=== PATIENT | female | born 1925 | race African-American/Black ===

== ENCOUNTER → 2016-04-23 | Outpatient (CLI) | payer MEDICARE ==
[~2016-04-23] MED LIST: ACET1TAB33 PO; ALPR0.5T6 PO; APIX5TAB PO; ASCO100T4 PO; ASPI325T4 PO; ASPI81TA2 PO; ASPI81TA9 PO; CHOL3000 PO; CLOP75TA27 PO; DILT120C97 PO; DULO60CA6 PO; ESOM40CA PO; EZET10TA3 PO; FERR134T2 PO; FLUT16SP2 NS; FURO-68 PO; INSU100I17 SQ; INSU100V13 SQ; INSU100V8 SQ; LORA0.5T96 PO; LOSA25TA4 PO; METO25TA9 PO; NITR0.4T6 SL; OMEG-33 PO; PANT40TA5 PO; POLY17PO5 PO; POTA10TA31 PO; PREG50CA PO; PSYL1PAC7 PO; SIMV40TA PO
--- NOTE | 2016-04-23 13:43 | CARD ---
APPROVED REPORT EXAM: Two-dimensional echocardiogram. Other Information Quality : Average Rhythm : NSR INDICATION Dyspnea LEFT VENTRICLE The left ventricle is normal size. There is normal left ventricular wall thickness. Left ventricle sy stolic function is normal. The Ejection Fraction is 55-60%. There is normal LV segmental wall motion. RIGHT VENTRICLE The right ventricle is normal size. The right ventricular systolic function is normal. ATRIA The left atrium size is normal. The right atrium size is normal. GREAT VESSELS The aortic root is normal in size. PERICARDIAL EFFUSION There is no evidence of significant pericardial effusion. Critical Notification Critical Value: No <Conclusion> The left ventricle is normal size. Left ventricle systolic function is normal. The Ejection Fraction is 55-60%. This is a limited ECHO
[2016-04-27 13:52] VITALS: BP 113/74
== END | disposition home or self-care (01) ==
LOC: EKG 08:00
PROVIDERS: ATTEND Specialist
DX: R06.00 Dyspnea, unspecified (principal)
CPT/HCPCS: 93308

== ENCOUNTER 2016-05-09 02:57 | Inpatient (IN) | payer MEDICARE ==
[~2016-05-09] VITALS: Ht 162.6 cm; Wt 83.9 kg
[~2016-05-09 02:57] MED LIST changes: -INSU100V13 SQ; -PANT40TA5 PO; -PREG50CA PO
[2016-05-09] MEDS ORDERED: FUROSEMIDE 40 MG/4 ML VIAL IVP ONE (04:15)
[2016-05-09 05:33] LABS: BASO % 0 % (0-3); EOS % 2 % (0-3); HEMATOCRIT 28.6 % (36.0-47.0); HEMOGLOBIN 8.9 g/dL (12.0-15.5); LYMPH # 0.4 x10^3/uL (1.0-4.8); LYMPH % 3 % (24-48); MEAN CORPUSCULAR HEMOGLOBIN 27 pg (25-35); MEAN CORPUSCULAR HGB CONC 31 g/dL (31-37); MEAN CORPUSCULAR VOLUME 88 fL (79-100); MONO % 6 % (0-9); NEUT % 90 % (31-73); PLATELET COUNT 283 x10^3/uL (140-400); RED BLOOD COUNT 3.27 x10^6/uL (3.50-5.40); RED CELL DISTRIBUTION WIDTH 19.6 % (11.5-14.5); WHITE BLOOD COUNT 14.2 x10^3/uL (4.0-11.0)
[2016-05-09 05:42] LABS: CREATININE 1.4 mg/dL (0.6-1.0); GFR 42.9; POTASSIUM 5.4 mmol/L (3.5-5.1)
[2016-05-09] MEDS ORDERED: ACETAMINOPHEN 325 MG TABLET. PO PRN (05:45)
[2016-05-09] MEDS ORDERED: ONDANSETRON PF 4 MG/2 ML VIAL. IV PRN (05:45)
[2016-05-09 05:48] LABS: ALBUMIN 3.2 g/dL (3.4-5.0); ALBUMIN/GLOBULIN RATIO 0.7 (1.0-1.7); TOTAL BILIRUBIN 0.3 mg/dL (0.2-1.0); TOTAL PROTEIN 7.5 g/dL (6.4-8.2)
--- NOTE | 2016-05-09 06:13 | PHYS DOC ---
Past Medical History Past Medical History: Arthritis, CHF, Diabetes-Type II, Pneumonia, Other Additional Past Medical Histor: CORONARY ARTERY DISEASE, VASCULAR TINNITIS, GASTRITIS Past Surgical History: Appendectomy, Cholecystectomy, Coronary Bypass Surgery, Hysterectomy, Tonsillectomy Alcohol Use: None Drug Use: None Adult General Chief Complaint Chief Complaint: SHORTNESS OF BREATH HPI HPI Patient is a 89 year old female who presents today with her son secondary to shortness of breath wheezing that occurred this evening. Patient reports that her pulse ox at home was in the low 80s so he brought her to the ER. Patient has a history of CHF, CAD, diabetes, bypass surgery. Patient has no liver longer kidney problems. Patient does not smoke or drink. Patient denies any fever or shaking chills. She does have a nonproductive cough. No change in her lower extremity edema. Patient's son reports that he came to help her at home and he reports that with any kind of exertion she is extremely tachypneic. Patient reports that she gets tachypneic whenever she talks. Patient is denying any chest pain at this time. Patient has a dysuria frequency or urgency. Patient reports decreased urinary output. Patient denies any dietary indiscretions. Patient reports she has been compliant with her medications. Patient is a patient of Dr. rodgers. Patient had a recent admission for pulmonary edema. Review of Systems Review of Systems Constitutional: Denies fever or chills [] Eyes: Denies change in visual acuity, redness, or eye pain [] Review of systems are negative except as documented in the history of present illness portion. Current Medications Current Medications Current Medications Medications (Trade) Dose Ordered Sig/Yesenia Start Time Stop Time Status Last Admin Dose Admin Acetaminophen (Tylenol) 650 mg PRN Q4HRS PRN 05/09/16 05:45 05/10/16 05:44 Furosemide (Lasix) 40 mg 1X ONCE 05/09/16 04:15 05/09/16 04:16 DC 05/09/16 05:07 40 MG Ondansetron HCl (Zofran) 4 mg PRN Q8HRS PRN 05/09/16 05:45 05/10/16 05:44 Allergies Allergies Allergies Coded Allergies Type Severity Reaction Last Updated Verified No Known Drug Allergies 05/30/15 No Physical Exam Physical Exam Constitutional: Well developed, well nourished, no acute distress, non-toxic appearance. [] HENT: Normocephalic, atraumatic, bilateral external ears normal, oropharynx moist, no oral exudates, nose normal. [] Eyes: PERRLA, EOMI, conjunctiva normal, no discharge. [] Neck: Normal range of motion, no tenderness, supple, no stridor. [] Cardiovascular:Heart rate regular rhythm, with ectopic beats. Lungs & Thorax: Bilateral breath sounds clear to auscultation [] Abdomen: Bowel sounds normal, soft, no tenderness, no masses, no pulsatile masses. [] Skin: Warm, dry, no erythema, no rash. [] Back: No tenderness, no CVA tenderness. [] Extremities: No tenderness, no cyanosis, no clubbing, ROM intact, no edema. [] Neurologic: Alert and oriented X 3, normal motor function, normal sensory function, no focal deficits noted. [] Psychologic: Affect normal, judgement normal, mood normal. [] Current Patient Data Vital Signs Vital Signs Date Time Temp Pulse Resp B/P Pulse Ox O2 Delivery O2 Flow Rate FiO2 05/09/16 03:08 98.0 92 29 149/61 92 Room Air 98.0 Lab Values Laboratory Tests Test 05/09/16 05:20 White Blood Count 14.2x10^3/uL (4.0-11.0) H Red Blood Count 3.27x10^6/uL (3.50-5.40) L Hemoglobin 8.9g/dL (12.0-15.5) L Hematocrit 28.6% (36.0-47.0) L Mean Corpuscular Volume 88fL (79-100) Mean Corpuscular Hemoglobin 27pg (25-35) Mean Corpuscular Hemoglobin Concent 31g/dL (31-37) Red Cell Distribution Width 19.6% (11.5-14.5) H Platelet Count 283x10^3/uL (140-400) Neutrophils (%) (Auto) 90% (31-73) H Lymphocytes (%) (Auto) 3% (24-48) L Monocytes (%) (Auto) 6% (0-9) Eosinophils (%) (Auto) 2% (0-3) Basophils (%) (Auto) 0% (0-3) Neutrophils # (Auto) 12.8x10^3uL (1.8-7.7) H Lymphocytes # (Auto) 0.4x10^3/uL (1.0-4.8) L Monocytes # (Auto) 0.8x10^3/uL (0.0-1.1) Eosinophils # (Auto) 0.2x10^3/uL (0.0-0.7) Basophils # (Auto) 0.0x10^3/uL (0.0-0.2) Platelet Estimate Pending Sodium Level 140mmol/L (136-145) Potassium Level 5.4mmol/L (3.5-5.1) H Chloride Level 103mmol/L (98-107) Carbon Dioxide Level 30mmol/L (21-32) Anion Gap 7 (6-14) Blood Urea Nitrogen 25mg/dL (7-20) H Creatinine 1.4mg/dL (0.6-1.0) H Estimated GFR (Cockcroft-Gault) 42.9 BUN/Creatinine Ratio 18 (6-20) Glucose Level 258mg/dL (70-99) H Calcium Level 9.0mg/dL (8.5-10.1) Total Bilirubin 0.3mg/dL (0.2-1.0) Aspartate Amino Transferase (AST) 15U/L (15-37) Alanine Aminotransferase (ALT) 15U/L (14-59) Alkaline Phosphatase 87U/L (46-116) Troponin I Quantitative 0.122ng/mL (0.000-0.055) Total Protein 7.5g/dL (6.4-8.2) Albumin 3.2g/dL (3.4-5.0) L Albumin/Globulin Ratio 0.7 (1.0-1.7) L Laboratory Tests 05/09/16 05:20 Laboratory Tests 05/09/16 05:20 EKG EKG EKG reveals normal sinus rhythm with PACs. Prolonged MD. Nonspecific ST-T wave abnormalities. No evidence of acute ST elevation DE. [] Radiology/Procedures Radiology/Procedures [] Chest x-ray reveals normal Cardex silhouette with increased cephalization of vascular markings. Consistent with CHF. Course & Med Decision Making Course & Med Decision Making Pertinent Labs and Imaging studies reviewed. (See chart for details) [] An 89-year-old female who presents here today with dyspnea. Patient has a history significant for pulmonary edema and CHF. Patient's labs here consistent with CHF. Patient has an elevated troponin. Patient will be admitted to the ICU for further evaluation of her elevated troponin, shortness of breath, pulmonary edema. Patient was given Lasix here in the ED. Patient was given an aspirin in the ER as well. Critical care time 35 minutes reutilized and treatment and management of this patient exclusive of procedures. Treatment included management of her polarity and non-STEMI. Dragon Disclaimer Dragon Disclaimer This electronic medical record was generated, in whole or in part, using a voice recognition dictation system. Departure Departure Impression: Primary Impression: CHF (congestive heart failure) Additional Impressions: Elevated troponin Non-STEMI (non-ST elevated myocardial infarction) Disposition: 09 ADMITTED INPATIENT Admitting Physician: Serjio Bonner Condition: GUARDED Referrals: SOM SHORE MD (PCP) Problem Qualifiers KAILYN ALAS MD May 09, 2016 06:13
[2016-05-09] MEDS ORDERED: ASPIRIN 325 MG TABLET PO ONE (06:30)
--- NOTE | 2016-05-09 07:55 | RAD ---
Portable chest, 05/09/2016: History: Shortness of breath Comparison is made to a study from 04/27/2016. There has been a previous median sternotomy. The heart is at the upper limits of normal in size. The pulmonary vascularity is normal. There is mild parenchymal scars, particularly in the left base. A calcified granuloma is present in the left upper lobe. No new pulmonary abnormality is seen. There is no evidence of pleural fluid. Moderate spurring is present in the spine. IMPRESSION: No acute cardiopulmonary abnormality is detected.
[2016-05-09 08:22] LABS: % BASOS 1 % (0-3); % EOS 3 % (0-5); PLT ESTIMATE ADEQUATE (ADEQUATE)
[2016-05-09] MEDS ORDERED: PNEUMOCOCCAL VAX SCREEN BY RX. MC ONE (09:15)
[2016-05-09 11:00] VITALS: BP 86/51
[2016-05-09] MEDS ORDERED: PNEUMOC CONJ VACC 23-VALENT 0.5 ML VIAL. VAX IM ONE (11:00)
[2016-05-09] MEDS ORDERED: INSU100V13 SQ (11:15)
[2016-05-09] MEDS ORDERED: PREG50CA PO (11:15)
[2016-05-09] MEDS ORDERED: PANT40TA5 PO (11:15)
[2016-05-09] MEDS ORDERED: DEXTROSE 50% 25 GM / 50ML DISP.SYRIN. IV PRN (11:30)
[2016-05-09] MEDS ORDERED: INSULIN DETEMIR 300 UNITS/3 ML INSULN.PEN. SQ SCH (11:30)
--- NOTE | 2016-05-09 12:07 | EKG ---
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
[2016-05-09] MEDS: INSULIN DETEMIR 300 UNITS/3 ML INSULN.PEN. SQ SCH (12:28)
[2016-05-09] MEDS: INSULIN ASPART 300 UNITS/3 ML INSULN.PEN SQ SCH ×2 (12:42→18:00)
[2016-05-09 15:00] VITALS: BP 123/63
[2016-05-09] MEDS ORDERED: FLUTICASONE 50MCG/NASAL SPRAY 16GM BOTTLE. NS PRN (15:00)
[2016-05-09] MEDS ORDERED: NITROGLYCERIN SUBLINGUAL 0.4 MG BOTTLE OF 25. SL SCH (15:00)
--- NOTE | 2016-05-09 15:15 | PDOC1 ---
History and Physical Date of Admission Date of Admission DATE: 05/09/16 TIME: 15:09 Identification/Chief Complaint Chief Complaint Covering for Dr. Chen Dyspnea History of Present Illness History of Present Illness This patient is a pleasant 89-year-old lady with a known history of coronary artery disease and CHF that was recently at this institution for an episode of CHF. She went home and had been doing rather well until last night when she started feeling very shaky and very short of breath and could not stand up. The patient was brought into the emergency room where she was seen and evaluated and he was decided to admit her for further workup and treatment. Past Medical History Cardiovascular: CAD, CHF, HTN, Valve insufficiency Pulmonary: Asthma, Bronchitis Musculoskeletal: Osteoarthritis Endocrine: Diabetes Current Problem List Problem List Problems Medical Problems: (1) CHF (congestive heart failure) Status: Acute (2) Elevated troponin Status: Acute (3) Non-STEMI (non-ST elevated myocardial infarction) Status: Acute Problems: Current Medications Current Medications Current Medications Furosemide (Lasix) 40 mg 1X ONCE IVP Last administered on 05/09/16 05:07; Start 05/09/16 at 04:15; Stop 05/09/16 at 04:16; Status DC Ondansetron HCl (Zofran) 4 mg PRN Q8HRS PRN IV NAUSEA/VOMITING; Start 05/09/16 at 05:45; Stop 05/10/16 at 05:44 Acetaminophen (Tylenol) 650 mg PRN Q4HRS PRN PO FEVER; Start 05/09/16 at 05:45 ; Stop 05/10/16 at 05:44 Aspirin (Gay Aspirin) 325 mg 1X ONCE PO Last administered on 05/09/16t 10:08 ; Start 05/09/16 at 06:30; Stop 05/09/16 at 06:31; Status DC Pneumococcal Polyvalent Vaccine (Do NOT chart on this placeholder) 1 each 1X ONCE MC ; Start 05/09/16 at 09:15; Stop 05/09/16 at 09:16; Status UNV Pneumococcal Polyvalent Vaccine (Pneumovax 23) 0.5 ml ONCE ONCE VAX IM ; Start 05/09/16 at 11:00; Stop 05/09/16 at 11:01; Status DC Insulin Detemir (Levemir) 22 units QHS SQ ; Start 05/09/16 at 11:30; Stop at 11:42; Status DC Insulin Aspart (Novolog) 0-7 UNITS TIDWMEALS SQ Last administered on 05/09/16t 12:42; Start 05/09/16 at 12:32 Dextrose 12.5 gm PRN Q15MIN PRN IV SEE COMMENTS; Start 05/09/16 at 11:30 Insulin Detemir (Levemir) 22 units DAILY SQ Last administered on 05/09/16 12: 28; Start 05/09/16 at 11:30 Acetaminophen/ Codeine Phosphate (Tylenol #3) 2 tab Q6HRS PO ; Start 05/09/16 at 18:00; Status UNV Alprazolam (Xanax) 0.5 mg BID PO ; Start 05/09/16 at 21:00; Status UNV Clopidogrel Bisulfate (Plavix) 75 mg DAILY PO ; Start 05/10/16 at 09:00; Status UNV Diltiazem HCl (Cardizem 24hr Cd) 240 mg DAILY PO ; Start 05/10/16 at 09:00; Status UNV EZETIMIBE (Zetia) 10 mg DAILY PO ; Start 05/10/16 at 09:00; Status UNV Fluticasone Propionate (Flonase) 1 spray PRN DAILY NS ; Start 05/09/16 at 15:00 ; Status UNV Furosemide (Lasix) 40 mg DAILY PO ; Start 05/10/16 at 09:00; Status UNV Losartan Potassium (Cozaar) 25 mg DAILY PO ; Start 05/10/16 at 09:00; Status UNV Metoprolol Succinate (Toprol Xl) 25 mg DAILY PO ; Start 05/10/16 at 09:00; Status UNV Nitroglycerin (Nitrostat) 0.4 mg PRN Q10MIN SL ; Start 05/09/16 at 15:00; Status UNV Pantoprazole Sodium (Protonix) 40 mg DAILY PO ; Start 05/10/16 at 09:00; Status UNV Polyethylene Glycol (miraLAX PACKET) 17 gm HS PO ; Start 05/09/16 at 21:00; Status UNV Simvastatin (Zocor) 40 mg HS PO ; Start 05/09/16 at 21:00; Status UNV Non-Formulary Medication 100 mg DAILY PO ; Start 05/10/16 at 09:00; Status UNV Non-Formulary Medication 3,000 unit DAILY PO ; Start 05/10/16 at 09:00; Status UNV Non-Formulary Medication 60 mg DAILY PO ; Start 05/10/16 at 09:00; Status UNV Non-Formulary Medication 134 mg DAILY PO ; Start 05/10/16 at 09:00; Status UNV Non-Formulary Medication 22 unit DAILY08 SQ ; Start 05/10/16 at 08:00; Status UNV Non-Formulary Medication 1 each DAILY PO ; Start 05/10/16 at 09:00; Status UNV Non-Formulary Medication 1 each DAILY PO ; Start 05/10/16 at 09:00; Status UNV Apixaban (Eliquis) 5 mg BID PO ; Start 05/09/16 at 21:00; Status UNV Potassium Chloride (Klor-Con) 10 meq BID PO ; Start 05/09/16 at 21:00; Status UNV Pregabalin (Lyrica) 50 mg TID PO ; Start 05/09/16 at 21:00; Status UNV Active Scripts Active Reported Lyrica (Pregabalin) 50 Mg Capsule 50 Mg PO TID Pantoprazole Sodium 40 Mg Tablet.dr 1 Tab PO DAILY Levemir (Insulin Detemir) 100 Unit/1 Ml Vial 22 Unit SQ DAILY08 Eliquis (Apixaban) 5 Mg Tablet 5 Mg PO BID Diltiazem 24HR Cd (Diltiazem Hcl) 120 Mg Cap.er.24h 240 Mg PO DAILY Plavix (Clopidogrel Bisulfate) 75 Mg Tablet 1 Tab PO DAILY Novolog Flexpen (Insulin Aspart) 100 Unit/1 Ml Insuln.pen 100 Unit SQ Zetia (Ezetimibe) 10 Mg Tablet 10 Mg PO DAILY Cymbalta (Duloxetine Hcl) 60 Mg Capsule.dr 60 Mg PO DAILY Alprazolam 0.5 Mg Tablet 1 Tab PO BID Flonase (Fluticasone Propionate) 16 Gm [place].susp 16 Gm NS PRN DAILY NITROGLYCERIN SubLingual (Nitroglycerin) 0.4 Mg Tab.subl 0.4 Mg SL PRN Q10MIN Vitamin C (Ascorbic Acid) 100 Mg Tablet 100 Mg PO DAILY Ferrous Sulfate 134 Mg Tablet 134 Mg PO DAILY Hospers 3 1,000 Mg Softgel (Hospers-3 Fatty Acids/Fish Oil) 1 Each Capsule 1 Each PO DAILY Miralax (Polyethylene Glycol 3350) 17 Gm Powd.pack 17 Gm PO HS Zocor (Simvastatin) 40 Mg Tablet 40 Mg PO HS Metamucil Packet (Psyllium Seed (With Sugar)) 1 Each Packet 1 Each PO DAILY Vitamin D3 (Cholecalciferol (Vitamin D3)) 3,000 Unit Tablet 3,000 Unit PO DAILY Potassium Chloride 10 Meq Tab.er.prt 10 Meq PO BID Lasix (Furosemide) 40 Mg Tablet 40 Mg PO DAILY Metoprolol Succinate ( Xl ) (Metoprolol Succinate) 25 Mg Tab.er.24h 25 Mg PO DAILY Losartan Potassium 25 Mg Tablet 25 Mg PO DAILY Acetaminophen-Cod #3 Tablet (Acetaminophen/Codeine Phosphate) 1 Each Tablet 2 Each PO Q6HRS Allergies Allergies: Coded Allergies: No Known Drug Allergies (Unverified , 05/09/16) Physical Exam Physical Exam The patient was not in acute distress at the time that I examined her. H EENT pupils are reactive. Oral mucosa well-hydrated. Neck is supple 2 cm JVD. Lungs she has basilar Rales and mild wheezing. Heart regular rate and rhythm S1-S2 2/6 systolic murmur. Abdomen is protuberant, soft, bowel sounds are present. Extremities 2+ pitting edema. Neurological exam unchanged from her last examination. Vitals Vitals Vital Signs Date Time Temp Pulse Resp B/P Pulse Ox O2 Delivery O2 Flow Rate FiO2 05/09/16 11:00 98.4 94 24 86/51 94 Nasal Cannula 98.4 05/09/16 06:04 2 Labs Labs Laboratory Tests Test 05/09/16 05:20 05/09/16 08:37 05/09/16 11:50 05/09/16 11:59 White Blood Count 14.2x10^3/uL (4.0-11.0) Red Blood Count 3.27x10^6/uL (3.50-5.40) Hemoglobin 8.9g/dL (12.0-15.5) Hematocrit 28.6% (36.0-47.0) Mean Corpuscular Volume 88fL (79-100) Mean Corpuscular Hemoglobin 27pg (25-35) Mean Corpuscular Hemoglobin Concent 31g/dL (31-37) Red Cell Distribution Width 19.6% (11.5-14.5) Platelet Count 283x10^3/uL (140-400) Neutrophils (%) (Auto) 90% (31-73) Lymphocytes (%) (Auto) 3% (24-48) Monocytes (%) (Auto) 6% (0-9) Eosinophils (%) (Auto) 2% (0-3) Basophils (%) (Auto) 0% (0-3) Neutrophils # (Auto) 12.8x10^3uL (1.8-7.7) Lymphocytes # (Auto) 0.4x10^3/uL (1.0-4.8) Monocytes # (Auto) 0.8x10^3/uL (0.0-1.1) Eosinophils # (Auto) 0.2x10^3/uL (0.0-0.7) Basophils # (Auto) 0.0x10^3/uL (0.0-0.2) Segmented Neutrophils % 84% (35-66) Band Neutrophils % 2% (0-9) Lymphocytes % 5% (24-48) Monocytes % 5% (0-10) Eosinophils % 3% (0-5) Basophils % 1% (0-3) Platelet Estimate Adequate (ADEQUATE) Sodium Level 140mmol/L (136-145) Potassium Level 5.4mmol/L (3.5-5.1) Chloride Level 103mmol/L (98-107) Carbon Dioxide Level 30mmol/L (21-32) Anion Gap 7 (6-14) Blood Urea Nitrogen 25mg/dL (7-20) Creatinine 1.4mg/dL (0.6-1.0) Estimated GFR (Cockcroft-Gault) 42.9 BUN/Creatinine Ratio 18 (6-20) Glucose Level 258mg/dL (70-99) Calcium Level 9.0mg/dL (8.5-10.1) Total Bilirubin 0.3mg/dL (0.2-1.0) Aspartate Amino Transf (AST/SGOT) 15U/L (15-37) Alanine Aminotransferase (ALT/SGPT) 15U/L (14-59) Alkaline Phosphatase 87U/L (46-116) Troponin I Quantitative 0.122ng/mL (0.000-0.055) AL-Djw-J-Type Natriuretic Peptide 3514pg/mL (0-449) Total Protein 7.5g/dL (6.4-8.2) Albumin 3.2g/dL (3.4-5.0) Albumin/Globulin Ratio 0.7 (1.0-1.7) Glucose (Fingerstick) 319mg/dL (70-99) 343mg/dL (70-99) Lactic Acid Level 1.2mmol/L (0.4-2.0) Laboratory Tests Test 05/09/16 05:20 05/09/16 08:37 05/09/16 11:50 05/09/16 11:59 White Blood Count 14.2x10^3/uL (4.0-11.0) Red Blood Count 3.27x10^6/uL (3.50-5.40) Hemoglobin 8.9g/dL (12.0-15.5) Hematocrit 28.6% (36.0-47.0) Mean Corpuscular Volume 88fL (79-100) Mean Corpuscular Hemoglobin 27pg (25-35) Mean Corpuscular Hemoglobin Concent 31g/dL (31-37) Red Cell Distribution Width 19.6% (11.5-14.5) Platelet Count 283x10^3/uL (140-400) Neutrophils (%) (Auto) 90% (31-73) Lymphocytes (%) (Auto) 3% (24-48) Monocytes (%) (Auto) 6% (0-9) Eosinophils (%) (Auto) 2% (0-3) Basophils (%) (Auto) 0% (0-3) Neutrophils # (Auto) 12.8x10^3uL (1.8-7.7) Lymphocytes # (Auto) 0.4x10^3/uL (1.0-4.8) Monocytes # (Auto) 0.8x10^3/uL (0.0-1.1) Eosinophils # (Auto) 0.2x10^3/uL (0.0-0.7) Basophils # (Auto) 0.0x10^3/uL (0.0-0.2) Segmented Neutrophils % 84% (35-66) Band Neutrophils % 2% (0-9) Lymphocytes % 5% (24-48) Monocytes % 5% (0-10) Eosinophils % 3% (0-5) Basophils % 1% (0-3) Platelet Estimate Adequate (ADEQUATE) Sodium Level 140mmol/L (136-145) Potassium Level 5.4mmol/L (3.5-5.1) Chloride Level 103mmol/L (98-107) Carbon Dioxide Level 30mmol/L (21-32) Anion Gap 7 (6-14) Blood Urea Nitrogen 25mg/dL (7-20) Creatinine 1.4mg/dL (0.6-1.0) Estimated GFR (Cockcroft-Gault) 42.9 BUN/Creatinine Ratio 18 (6-20) Glucose Level 258mg/dL (70-99) Calcium Level 9.0mg/dL (8.5-10.1) Total Bilirubin 0.3mg/dL (0.2-1.0) Aspartate Amino Transf (AST/SGOT) 15U/L (15-37) Alanine Aminotransferase (ALT/SGPT) 15U/L (14-59) Alkaline Phosphatase 87U/L (46-116) Troponin I Quantitative 0.122ng/mL (0.000-0.055) BV-Tqb-R-Type Natriuretic Peptide 3514pg/mL (0-449) Total Protein 7.5g/dL (6.4-8.2) Albumin 3.2g/dL (3.4-5.0) Albumin/Globulin Ratio 0.7 (1.0-1.7) Glucose (Fingerstick) 319mg/dL (70-99) 343mg/dL (70-99) Lactic Acid Level 1.2mmol/L (0.4-2.0) VTE Prophylaxis Ordered VTE Prophylaxis Devices: Yes VTE Pharmacological Prophylaxi: Yes Assessment/Plan Assessment/Plan This patient comes in with acute on chronic CHF secondary to systolic dysfunction as well as valvular disease. We are going to diurese her. She is also deconditioned and may need PT OT. Dr. Chen will be back in the morning to take over the care of the patient. PAMELLA OLVEAR MD May 09, 2016 15:15
[2016-05-09] MEDS: OMEGA-3 FATTY ACIDS/FISH OIL 1,000 MG CAPSULE. PO SCH (16:00)
[2016-05-09] MEDS: EZETIMIBE 10 MG TABLET PO SCH (16:00)
[2016-05-09] MEDS: PSYLLIUM HUSK (SUGAR FREE) 1 PKT PACKET PO SCH (16:00)
[2016-05-09] MEDS: CHOLECALCIFEROL (VITAMIN D3) 1,000 UNIT TABLET PO SCH (16:00)
[2016-05-09] MEDS: DILTIAZEM HCL 120 MG CAP.ER.24H PO SCH (16:36)
[2016-05-09] MEDS: ASCORBIC ACID 500 MG TABLET PO SCH (16:40)
[2016-05-09] MEDS: FUROSEMIDE 40 MG TABLET PO SCH (16:40)
[2016-05-09] MEDS: CLOPIDOGREL BISULFATE 75 MG TABLET PO SCH (16:40)
[2016-05-09] MEDS: LOSARTAN POTASSIUM 25 MG TABLET. PO SCH (16:42)
[2016-05-09] MEDS: METOPROLOL SUCC 24HR ER 25 MG TAB.ER.24H. PO SCH (16:43)
[2016-05-09] MEDS: PREGABALIN 50 MG CAPSULE PO SCH ×2 (16:44→21:48)
[2016-05-09] MEDS: PANTOPRAZOLE 40 MG TABLET. PO SCH (16:44)
[2016-05-09] MEDS: DULOXETINE HCL 30 MG CAPSULE.DR. PO SCH (16:51)
[2016-05-09] MEDS ORDERED: ACETAMINOPHEN/CODEINE 300/30MG TABLET PO SCH (18:00)
[2016-05-09 20:00] VITALS: BP 104/50
[2016-05-09] MEDS ORDERED: ACETAMINOPHEN/CODEINE 300/30MG TABLET PO PRN (20:00)
[2016-05-09] MEDS: POLYETHYLENE GLYCOL 3350 17 GM PACKET. PO SCH (21:00)
[2016-05-09] MEDS: POTASSIUM CHLORIDE 10 MEQ TABLET.ER. PO SCH (21:00)
[2016-05-09] MEDS: APIXABAN 5 MG TABLET. PO SCH (21:47)
[2016-05-09] MEDS: ALPRAZOLAM 0.5 MG TABLET PO SCH (21:47)
[2016-05-09] MEDS: ATORVASTATIN CALCIUM 20 MG TABLET PO SCH (21:47)
[2016-05-09 23:15] VITALS: BP 132/59
[2016-05-10] VITALS (11 sets, daily range): BP systolic 79–137; BP diastolic 50–83
[2016-05-10] MEDS ORDERED: FUROSEMIDE 40 MG/4 ML VIAL IVP ONE (04:15)
[2016-05-10] MEDS ORDERED: DIGOXIN 500 MCG/2 ML AMPUL. IV ONE (04:15)
[2016-05-10] MEDS ORDERED: DILTIAZEM 125 MG in IV DEXTROSE 5% 100 ML IV PRN (05:45)
[2016-05-10] MEDS ORDERED: DILTIAZEM IV PUSH 25 MG/5 ML VIAL. IVP ONE (06:00)
[2016-05-10] MEDS ORDERED: INSULIN DETEMIR 300 UNITS/3 ML INSULN.PEN. SQ SCH (08:00)
[2016-05-10] MEDS: DILTIAZEM HCL 120 MG CAP.ER.24H PO SCH (08:34)
[2016-05-10] MEDS: LOSARTAN POTASSIUM 25 MG TABLET. PO SCH (09:00)
[2016-05-10] MEDS: POTASSIUM CHLORIDE 10 MEQ TABLET.ER. PO SCH ×2 (09:00→21:36)
[2016-05-10] MEDS: METOPROLOL SUCC 24HR ER 25 MG TAB.ER.24H. PO SCH (09:00)
[2016-05-10] MEDS: FUROSEMIDE 40 MG TABLET PO SCH (09:00)
[2016-05-10] MEDS: PSYLLIUM HUSK (SUGAR FREE) 1 PKT PACKET PO SCH (09:00)
[2016-05-10] MEDS: APIXABAN 5 MG TABLET. PO SCH ×2 (09:40→21:36)
[2016-05-10] MEDS: DULOXETINE HCL 30 MG CAPSULE.DR. PO SCH (09:41)
[2016-05-10] MEDS: CLOPIDOGREL BISULFATE 75 MG TABLET PO SCH (09:41)
[2016-05-10] MEDS: FERROUS SULFATE 142 MG PO SCH (09:41)
[2016-05-10] MEDS: OMEGA-3 FATTY ACIDS/FISH OIL 1,000 MG CAPSULE. PO SCH (09:41)
[2016-05-10] MEDS: PREGABALIN 50 MG CAPSULE PO SCH ×3 (09:42→21:37)
[2016-05-10] MEDS: CHOLECALCIFEROL (VITAMIN D3) 1,000 UNIT TABLET PO SCH (09:42)
[2016-05-10] MEDS: PANTOPRAZOLE 40 MG TABLET. PO SCH (09:42)
[2016-05-10] MEDS: EZETIMIBE 10 MG TABLET PO SCH (09:42)
[2016-05-10] MEDS: ALPRAZOLAM 0.5 MG TABLET PO SCH ×2 (09:43→21:36)
[2016-05-10] MEDS: ASCORBIC ACID 500 MG TABLET PO SCH (09:43)
[2016-05-10] MEDS: INSULIN DETEMIR 300 UNITS/3 ML INSULN.PEN. SQ SCH ×2 (09:53→23:07)
[2016-05-10] MEDS: INSULIN ASPART 300 UNITS/3 ML INSULN.PEN SQ SCH ×3 (09:53→17:30)
[2016-05-10] MEDS ORDERED: INSULIN ASPART 300 UNITS/3 ML INSULN.PEN SQ ONE ×2 (10:15→17:30)
[2016-05-10 20:28] LABS: BASO # 0.1 x10^3/uL (0.0-0.2); BASO % 1 % (0-3); EOS % 0 % (0-3); HEMATOCRIT 27.7 % (36.0-47.0); HEMOGLOBIN 8.5 g/dL (12.0-15.5); LYMPH # 0.6 x10^3/uL (1.0-4.8); LYMPH % 6 % (24-48); MEAN CORPUSCULAR HEMOGLOBIN 27 pg (25-35); MEAN CORPUSCULAR HGB CONC 31 g/dL (31-37); MEAN CORPUSCULAR VOLUME 89 fL (79-100); MONO % 7 % (0-9); NEUT % 86 % (31-73); PLATELET COUNT 217 x10^3/uL (140-400); RED BLOOD COUNT 3.12 x10^6/uL (3.50-5.40); RED CELL DISTRIBUTION WIDTH 19.7 % (11.5-14.5); WHITE BLOOD COUNT 10.3 x10^3/uL (4.0-11.0)
[2016-05-10 20:39] LABS: CALCIUM 8.5 mg/dL (8.5-10.1); CREATININE 1.6 mg/dL (0.6-1.0); GFR 36.8; POTASSIUM 3.9 mmol/L (3.5-5.1)
[2016-05-10 21:10] LABS: PLT ESTIMATE ADEQUATE (ADEQUATE)
[2016-05-10 21:11] LABS: ANISOCYTOSIS SLIGHT; HYPOCHROMIA MOD; POLYCHROMASIA SLIGHT
[2016-05-10] MEDS: ATORVASTATIN CALCIUM 20 MG TABLET PO SCH (21:36)
[2016-05-10] MEDS: POLYETHYLENE GLYCOL 3350 17 GM PACKET. PO SCH (21:37)
--- NOTE | 2016-05-10 22:07 | PDOC ---
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 Shas been coughing for several days bringinf uoyellowish sputum. Mildly confused/ Atrial fib with controlled vent, response/Hypotensive but she has moderate Blood sugars very high, she probably has an infection. SOM SHORE MD May 10, 2016 22:07
[2016-05-10] MEDS: CEFTRIAXONE SODIUM 1 GM in IV NORMAL SALINE 50ML 50 ML IV SCH (22:58)
[2016-05-10] MEDS: ALBUTEROL SULFATE 2.5 MG/3 ML NEBU. NEB SCH (23:33)
--- NOTE | 2016-05-10 23:49 | HP ---
ADMIT DATE: 05/09/2016 INTERNAL MEDICINE CONSULT CHIEF COMPLAINT: Shortness of breath. HISTORY OF PRESENT ILLNESS: The patient is a pleasant 89-year-old female who has been admitted with [id number] systolic heart failure. She initially came to the ER with shortness of breath and hypoxia. She had worsening over the past few days. She has now been admitted for diuretics and rate control. She had some cardiac arrhythmias as well. We were then consulted for further evaluation and treatment of comorbidities. PAST MEDICAL HISTORY: Arthritis, CHF, diabetes, pneumonia, coronary artery disease, tinnitus, gastritis, cholecystectomy, appendectomy, hysterectomy, tonsillectomy. ALLERGIES: None. FAMILY HISTORY: Coronary artery disease. SOCIAL HISTORY: She does not drink, smoke or take drugs. MEDICATIONS: Reviewed, please refer to the MRAD. REVIEW OF SYSTEMS: Difficult to obtain, the patient is too short of breath. She has complaint of shortness of breath and weakness. PHYSICAL EXAMINATION: VITAL SIGNS: Temperature afebrile, pulse 94, respirations 22, blood pressure ranging from down to 79/50. GENERAL: She is alert. She is trying to talk, seems slightly confused. HEART: Irregular and tachycardic, ranging from 90-105 beats per minute. LUNGS: Coarse. ABDOMEN: Soft, positive bowel sounds. EXTREMITIES: 1+ edema. SKIN: Thin and frail. ENDOCRINE: No thyromegaly. LYMPHATICS: No cervical nodes. HEMATOPOIETIC: No bruising. LABORATORY DATA: White count 10, hemoglobin 8, platelets 217. Electrolytes: Sodium 141, potassium 3.9, chloride 101, bicarbonate 31, BUN 36, creatinine 1.6. Glucose was 400, I gave her 30 units of NovoLog, it is now down to 300. ASSESSMENT AND PLAN: [id number] systolic heart failure with hyperglycemia. I discussed the case with her nurse, Dara at length. We are going to give her some scheduled insulin and I might give her a dose of 30 units as previously stated. We will recheck her labs in the morning. Thank you very much for allowing us to participate in the care of this nice lady. ABRAHAM CROSS DO DR: KASSI/mohsen JOB#: [id number] / [id number]
[2016-05-11] VITALS (7 sets, daily range): BP systolic 84–99; BP diastolic 47–59
[2016-05-11 04:46] LABS: BASO % 1 % (0-3); EOS % 0 % (0-3); HEMATOCRIT 29.2 % (36.0-47.0); HEMOGLOBIN 9.2 g/dL (12.0-15.5); LYMPH # 0.7 x10^3/uL (1.0-4.8); LYMPH % 9 % (24-48); MEAN CORPUSCULAR HEMOGLOBIN 27 pg (25-35); MEAN CORPUSCULAR HGB CONC 32 g/dL (31-37); MEAN CORPUSCULAR VOLUME 87 fL (79-100); MONO % 8 % (0-9); NEUT % 83 % (31-73); PLATELET COUNT 275 x10^3/uL (140-400); RED BLOOD COUNT 3.37 x10^6/uL (3.50-5.40); RED CELL DISTRIBUTION WIDTH 19.8 % (11.5-14.5); WHITE BLOOD COUNT 8.1 x10^3/uL (4.0-11.0)
[2016-05-11 04:51] LABS: MAGNESIUM 2.7 mg/dL (1.8-2.4)
[2016-05-11 05:01] LABS: CREATININE 1.5 mg/dL (0.6-1.0); GFR 39.7; POTASSIUM 4.2 mmol/L (3.5-5.1)
[2016-05-11 05:02] LABS: % SAT IRON 5 % (15-34); IRON,SERUM 16 ug/dL (50-170)
[2016-05-11 06:31] LABS: BILIRUBIN,URINE NEGATIVE (NEG); GLUCOSE,URINE 250 mg/dL (NEG); NITRITE,URINE NEGATIVE (NEG); PH,URINE 5.5; PROTEIN,URINE NEGATIVE (NEG-TRACE); UROBILINOGEN,URINE 0.2 mg/dL (0.2 mg/dL)
[2016-05-11 06:42] LABS: BACTERIA,URINE FEW /HPF (0-FEW); RBC,URINE 0 /HPF (0-2); SQUAMOUS EPITHELIAL CELL,UR FEW /LPF; WBC,URINE 0 /HPF (0-4)
[2016-05-11] MEDS: ALBUTEROL SULFATE 2.5 MG/3 ML NEBU. NEB SCH ×4 (06:59→19:59)
--- NOTE | 2016-05-11 08:05 | RAD ---
High-resolution CT of the chest without contrast, 05/10/2016: History: Shortness of breath, congestive heart failure Noncontrast scans were obtained in inspiration and expiration. Routine and high-resolution reconstructions were produced. There has been a previous median sternotomy. The heart is mildly enlarged. There is extensive calcific plaquing of the thoracic aorta without evidence of any reason. The ascending aorta measures 3.9 cm which is near the upper limits of normal. Extensive coronary artery calcifications are present. There are several coarse calcifications in the left lobe of the thyroid gland. Small mediastinal lymph nodes are seen without evidence of pathologic enlargement. There is mild patchy consolidation in the left lower lobe. There is mild linear atelectasis and/or scarring in the right base. There is mild mosaic attenuation in the lungs, best seen in the upper lobes. No air trapping is evident on the expiration views. There is no evidence of bronchiectasis. A calcified granuloma is present left upper lobe. No pulmonary mass is seen. No significant pleural fluid is evident. Moderate hypertrophic degenerative changes are present in the spine. IMPRESSION: 1. Extensive calcific plaquing of the aorta and coronary arteries. 2. Patchy left basilar infiltrate suggesting pneumonia. 3. Mild mosaic attenuation throughout both lungs which is likely due to airspace disease such as mild pulmonary edema. Other possibilities include bronchiolitis or chronic thromboembolic disease. PQRS Compliance Statement: One or more of the following individualized dose reduction techniques were utilized for this examination: 1. Automated exposure control 2. Adjustment of the mA and/or kV according to patient size 3. Use of iterative reconstruction technique
[2016-05-11] MEDS: FERROUS SULFATE 142 MG PO SCH (08:53)
[2016-05-11] MEDS: PSYLLIUM HUSK (SUGAR FREE) 1 PKT PACKET PO SCH (08:53)
[2016-05-11] MEDS: ALPRAZOLAM 0.5 MG TABLET PO SCH (08:54)
[2016-05-11] MEDS: APIXABAN 5 MG TABLET. PO SCH (08:54)
[2016-05-11] MEDS: ASCORBIC ACID 500 MG TABLET PO SCH (08:54)
[2016-05-11] MEDS: POTASSIUM CHLORIDE 10 MEQ TABLET.ER. PO SCH ×2 (08:54→21:00)
[2016-05-11] MEDS: OMEGA-3 FATTY ACIDS/FISH OIL 1,000 MG CAPSULE. PO SCH (08:54)
[2016-05-11] MEDS: PANTOPRAZOLE 40 MG TABLET. PO SCH (08:54)
[2016-05-11] MEDS: DULOXETINE HCL 30 MG CAPSULE.DR. PO SCH (08:54)
[2016-05-11] MEDS: PREGABALIN 50 MG CAPSULE PO SCH ×3 (08:55→21:00)
[2016-05-11] MEDS: CLOPIDOGREL BISULFATE 75 MG TABLET PO SCH (08:55)
[2016-05-11] MEDS: EZETIMIBE 10 MG TABLET PO SCH (08:55)
[2016-05-11] MEDS: CHOLECALCIFEROL (VITAMIN D3) 1,000 UNIT TABLET PO SCH (08:55)
[2016-05-11] MEDS: FUROSEMIDE 40 MG TABLET PO SCH (09:00)
[2016-05-11] MEDS: METOPROLOL SUCC 24HR ER 25 MG TAB.ER.24H. PO SCH (09:00)
[2016-05-11] MEDS: LOSARTAN POTASSIUM 25 MG TABLET. PO SCH (09:00)
[2016-05-11] MEDS: INSULIN DETEMIR 300 UNITS/3 ML INSULN.PEN. SQ SCH ×2 (09:04→21:00)
[2016-05-11] MEDS: INSULIN ASPART 300 UNITS/3 ML INSULN.PEN SQ SCH ×6 (09:05→17:00)
--- NOTE | 2016-05-11 10:01 | RAD ---
Indication: Nasal drainage. Time of exam 0933 hours. The frontal sinus appears clear. The ethmoid air cells and sphenoid sinus are clear. Bilateral maxillary sinuses are clear. No mucosal thickening or air-fluid levels are detected. Impression: No evidence of sinusitis.
[2016-05-11] MEDS: DILTIAZEM HCL 120 MG CAP.ER.24H PO SCH (10:30)
[2016-05-11] MEDS ORDERED: ALBUMIN HUMAN 5% 250 ML IV ONE ×2 (11:00→16:30)
[2016-05-11] MEDS ORDERED: IRON SUCROSE COMPLEX 200 MG in IV NORMAL SALINE 100ML 100 ML IV ONE (11:00)
--- NOTE | 2016-05-11 11:25 | PDOC ---
Provider Note Provider Note He is very drowsy today. She has been receiving pain axis. Drains of cough but unable to bring up sputum. Atrial fibrillation with a ventricular response now at 11 20/m. The blood pressure is low. She has moderate aortic stenosis. She has been diuresed the last 2 days. Probably dehydrated. And to give her IV fluids and resume the Cardizem. Even though the chest x-ray was negative CT scan does show a left lower lobe infiltrate. The believe her symptoms on admission was due to pneumonia and not due to congestive heart failure. Antibiotics have been initiated. Also consulted ID. Discussed with LEILA. Would like her to go to custodial facility on this admission. SOM SHORE MD May 11, 2016 11:25
--- NOTE | 2016-05-11 11:26 | PDOC ---
PROGRESS NOTES Chief Complaint Chief Complaint Shortness of breath - arthritis - CHF - diabetes - pneumonia - coronary artery disease - tinnitus - gastritis History of Present Illness History of Present Illness The patient was sitting up in the chair when evaluated this AM. She appears to be doing much better today, and she reports feeling relatively well. SOA is much improved, but she does complain of a slight wheeze. Pt has an improved cough, but asked about a medication to help clear up the sputum/congestion. Pt agreeable to Guaifenesin for expectoration. Case discussed with RN and Dr. Chen. Pt's sugars have improved to 166 this AM from over 400 yesterday. Vitals Vitals Vital Signs Date Time Temp Pulse Resp B/P Pulse Ox O2 Delivery O2 Flow Rate FiO2 05/11/16 10:59 Nasal Cannula 2.0 05/11/16 10:45 98.2 119 18 91/50 100 98.2 Physical Exam General: Alert, Oriented X3, No acute distress Heart: No murmurs, Other (irregularly irregular, and tachycardic) Lungs: Other (improved coarseness) Abdomen: Soft, No tenderness Extremities: Other (1+ edema) Skin: No significant lesion Labs LABS Laboratory Tests Test 05/10/16 12:06 05/10/16 16:54 05/10/16 19:36 05/10/16 20:18 Glucose (Fingerstick) 436mg/dL (70-99) 468mg/dL (70-99) 330mg/dL (70-99) White Blood Count 10.3x10^3/uL (4.0-11.0) Red Blood Count 3.12x10^6/uL (3.50-5.40) Hemoglobin 8.5g/dL (12.0-15.5) Hematocrit 27.7% (36.0-47.0) Mean Corpuscular Volume 89fL (79-100) Mean Corpuscular Hemoglobin 27pg (25-35) Mean Corpuscular Hemoglobin Concent 31g/dL (31-37) Red Cell Distribution Width 19.7% (11.5-14.5) Platelet Count 217x10^3/uL (140-400) Neutrophils (%) (Auto) 86% (31-73) Lymphocytes (%) (Auto) 6% (24-48) Monocytes (%) (Auto) 7% (0-9) Eosinophils (%) (Auto) 0% (0-3) Basophils (%) (Auto) 1% (0-3) Neutrophils # (Auto) 8.9x10^3uL (1.8-7.7) Lymphocytes # (Auto) 0.6x10^3/uL (1.0-4.8) Monocytes # (Auto) 0.7x10^3/uL (0.0-1.1) Eosinophils # (Auto) 0.0x10^3/uL (0.0-0.7) Basophils # (Auto) 0.1x10^3/uL (0.0-0.2) Segmented Neutrophils % 84% (35-66) Band Neutrophils % 4% (0-9) Lymphocytes % 3% (24-48) Monocytes % 9% (0-10) Platelet Estimate Adequate (ADEQUATE) Polychromasia Slight Hypochromasia Mod Basophilic Stippling Present Anisocytosis Slight Sodium Level 141mmol/L (136-145) Potassium Level 3.9mmol/L (3.5-5.1) Chloride Level 101mmol/L (98-107) Carbon Dioxide Level 31mmol/L (21-32) Anion Gap 9 (6-14) Blood Urea Nitrogen 36mg/dL (7-20) Creatinine 1.6mg/dL (0.6-1.0) Estimated GFR (Cockcroft-Gault) 36.8 Glucose Level 300mg/dL (70-99) Calcium Level 8.5mg/dL (8.5-10.1) Test 05/10/16 22:56 05/11/16 02:54 05/11/16 04:13 05/11/16 06:15 Glucose (Fingerstick) 202mg/dL (70-99) 151mg/dL (70-99) White Blood Count 8.1x10^3/uL (4.0-11.0) Red Blood Count 3.37x10^6/uL (3.50-5.40) Hemoglobin 9.2g/dL (12.0-15.5) Hematocrit 29.2% (36.0-47.0) Mean Corpuscular Volume 87fL (79-100) Mean Corpuscular Hemoglobin 27pg (25-35) Mean Corpuscular Hemoglobin Concent 32g/dL (31-37) Red Cell Distribution Width 19.8% (11.5-14.5) Platelet Count 275x10^3/uL (140-400) Neutrophils (%) (Auto) 83% (31-73) Lymphocytes (%) (Auto) 9% (24-48) Monocytes (%) (Auto) 8% (0-9) Eosinophils (%) (Auto) 0% (0-3) Basophils (%) (Auto) 1% (0-3) Neutrophils # (Auto) 6.6x10^3uL (1.8-7.7) Lymphocytes # (Auto) 0.7x10^3/uL (1.0-4.8) Monocytes # (Auto) 0.7x10^3/uL (0.0-1.1) Eosinophils # (Auto) 0.0x10^3/uL (0.0-0.7) Basophils # (Auto) 0.0x10^3/uL (0.0-0.2) Sodium Level 141mmol/L (136-145) Potassium Level 4.2mmol/L (3.5-5.1) Chloride Level 100mmol/L (98-107) Carbon Dioxide Level 31mmol/L (21-32) Anion Gap 10 (6-14) Blood Urea Nitrogen 40mg/dL (7-20) Creatinine 1.5mg/dL (0.6-1.0) Estimated GFR (Cockcroft-Gault) 39.7 Glucose Level 166mg/dL (70-99) Calcium Level 9.0mg/dL (8.5-10.1) Magnesium Level 2.7mg/dL (1.8-2.4) Iron Level 16ug/dL (50-170) Total Iron Binding Capacity 334ug/dL (250-450) Iron Saturation 5% (15-34) Ferritin 76ng/mL (8-252) Procalcitonin 4.12ng/mL (0.00-0.10) Thyroid Stimulating Hormone (TSH) 1.011uIU/mL (0.358-3.74) Urine Collection Type Unknown Urine Color Yellow Urine Clarity Clear Urine pH 5.5 Urine Specific [place] 1.015 Urine Protein Negativemg/dL (NEG-TRACE) Urine Glucose (UA) 250mg/dL (NEG) Urine Ketones (Stick) Negativemg/dL (NEG) Urine Blood Negative (NEG) Urine Nitrite Negative (NEG) Urine Bilirubin Negative (NEG) Urine Urobilinogen Dipstick 0.2mg/dL (0.2 mg/dL) Urine Leukocyte Esterase Negative (NEG) Urine RBC 0/HPF (0-2) Urine WBC 0/HPF (0-4) Urine Squamous Epithelial Cells Few/LPF Urine Bacteria Few/HPF (0-FEW) Urine Hyaline Casts Moderate/HPF Urine Mucus Slight/LPF Test 05/11/16 08:09 Glucose (Fingerstick) 166mg/dL (70-99) Review of Systems Review of Systems + productive cough, improved + SOA, marked improvement denies fever, chills Assessment and Plan Assessmemt and Plan ASSESSMENT: - Shortness of breath, improving - arthritis - CHF - diabetes - pneumonia - coronary artery disease - tinnitus - gastritis PLAN: - Guaifenesin 600 po bid for productive cough - cont to follow blood glucose; improved with current management - agree with the current plan; will await further subspecialist input - repeat labs - appreciate the opportunity to participate in the care of this patient Problems: Comment Review of Relevant I have reviewed the following items melquiades (where applicable) has been applied. Labs Laboratory Tests Test 05/09/16 11:50 05/09/16 11:59 05/09/16 17:18 05/09/16 21:02 Lactic Acid Level 1.2mmol/L (0.4-2.0) Glucose (Fingerstick) 343mg/dL (70-99) 307mg/dL (70-99) 385mg/dL (70-99) Test 05/10/16 07:29 05/10/16 12:06 05/10/16 16:54 05/10/16 19:36 Glucose (Fingerstick) 420mg/dL (70-99) 436mg/dL (70-99) 468mg/dL (70-99) 330mg/dL (70-99) Test 05/10/16 20:18 05/10/16 22:56 05/11/16 02:54 05/11/16 04:13 White Blood Count 10.3x10^3/uL (4.0-11.0) 8.1x10^3/uL (4.0-11.0) Red Blood Count 3.12x10^6/uL (3.50-5.40) 3.37x10^6/uL (3.50-5.40) Hemoglobin 8.5g/dL (12.0-15.5) 9.2g/dL (12.0-15.5) Hematocrit 27.7% (36.0-47.0) 29.2% (36.0-47.0) Mean Corpuscular Volume 89fL (79-100) 87fL (79-100) Mean Corpuscular Hemoglobin 27pg (25-35) 27pg (25-35) Mean Corpuscular Hemoglobin Concent 31g/dL (31-37) 32g/dL (31-37) Red Cell Distribution Width 19.7% (11.5-14.5) 19.8% (11.5-14.5) Platelet Count 217x10^3/uL (140-400) 275x10^3/uL (140-400) Neutrophils (%) (Auto) 86% (31-73) 83% (31-73) Lymphocytes (%) (Auto) 6% (24-48) 9% (24-48) Monocytes (%) (Auto) 7% (0-9) 8% (0-9) Eosinophils (%) (Auto) 0% (0-3) 0% (0-3) Basophils (%) (Auto) 1% (0-3) 1% (0-3) Neutrophils # (Auto) 8.9x10^3uL (1.8-7.7) 6.6x10^3uL (1.8-7.7) Lymphocytes # (Auto) 0.6x10^3/uL (1.0-4.8) 0.7x10^3/uL (1.0-4.8) Monocytes # (Auto) 0.7x10^3/uL (0.0-1.1) 0.7x10^3/uL (0.0-1.1) Eosinophils # (Auto) 0.0x10^3/uL (0.0-0.7) 0.0x10^3/uL (0.0-0.7) Basophils # (Auto) 0.1x10^3/uL (0.0-0.2) 0.0x10^3/uL (0.0-0.2) Segmented Neutrophils % 84% (35-66) Band Neutrophils % 4% (0-9) Lymphocytes % 3% (24-48) Monocytes % 9% (0-10) Platelet Estimate Adequate (ADEQUATE) Polychromasia Slight Hypochromasia Mod Basophilic Stippling Present Anisocytosis Slight Sodium Level 141mmol/L (136-145) 141mmol/L (136-145) Potassium Level 3.9mmol/L (3.5-5.1) 4.2mmol/L (3.5-5.1) Chloride Level 101mmol/L (98-107) 100mmol/L (98-107) Carbon Dioxide Level 31mmol/L (21-32) 31mmol/L (21-32) Anion Gap 9 (6-14) 10 (6-14) Blood Urea Nitrogen 36mg/dL (7-20) 40mg/dL (7-20) Creatinine 1.6mg/dL (0.6-1.0) 1.5mg/dL (0.6-1.0) Estimated GFR (Cockcroft-Gault) 36.8 39.7 Glucose Level 300mg/dL (70-99) 166mg/dL (70-99) Calcium Level 8.5mg/dL (8.5-10.1) 9.0mg/dL (8.5-10.1) Glucose (Fingerstick) 202mg/dL (70-99) 151mg/dL (70-99) Magnesium Level 2.7mg/dL (1.8-2.4) Iron Level 16ug/dL (50-170) Total Iron Binding Capacity 334ug/dL (250-450) Iron Saturation 5% (15-34) Ferritin 76ng/mL (8-252) Procalcitonin 4.12ng/mL (0.00-0.10) Thyroid Stimulating Hormone (TSH) 1.011uIU/mL (0.358-3.74) Test 05/11/16 06:15 05/11/16 08:09 Urine Collection Type Unknown Urine Color Yellow Urine Clarity Clear Urine pH 5.5 Urine Specific [place] 1.015 Urine Protein Negativemg/dL (NEG-TRACE) Urine Glucose (UA) 250mg/dL (NEG) Urine Ketones (Stick) Negativemg/dL (NEG) Urine Blood Negative (NEG) Urine Nitrite Negative (NEG) Urine Bilirubin Negative (NEG) Urine Urobilinogen Dipstick 0.2mg/dL (0.2 mg/dL) Urine Leukocyte Esterase Negative (NEG) Urine RBC 0/HPF (0-2) Urine WBC 0/HPF (0-4) Urine Squamous Epithelial Cells Few/LPF Urine Bacteria Few/HPF (0-FEW) Urine Hyaline Casts Moderate/HPF Urine Mucus Slight/LPF Glucose (Fingerstick) 166mg/dL (70-99) Laboratory Tests Test 05/10/16 12:06 05/10/16 16:54 05/10/16 19:36 05/10/16 20:18 Glucose (Fingerstick) 436mg/dL (70-99) 468mg/dL (70-99) 330mg/dL (70-99) White Blood Count 10.3x10^3/uL (4.0-11.0) Red Blood Count 3.12x10^6/uL (3.50-5.40) Hemoglobin 8.5g/dL (12.0-15.5) Hematocrit 27.7% (36.0-47.0) Mean Corpuscular Volume 89fL (79-100) Mean Corpuscular Hemoglobin 27pg (25-35) Mean Corpuscular Hemoglobin Concent 31g/dL (31-37) Red Cell Distribution Width 19.7% (11.5-14.5) Platelet Count 217x10^3/uL (140-400) Neutrophils (%) (Auto) 86% (31-73) Lymphocytes (%) (Auto) 6% (24-48) Monocytes (%) (Auto) 7% (0-9) Eosinophils (%) (Auto) 0% (0-3) Basophils (%) (Auto) 1% (0-3) Neutrophils # (Auto) 8.9x10^3uL (1.8-7.7) Lymphocytes # (Auto) 0.6x10^3/uL (1.0-4.8) Monocytes # (Auto) 0.7x10^3/uL (0.0-1.1) Eosinophils # (Auto) 0.0x10^3/uL (0.0-0.7) Basophils # (Auto) 0.1x10^3/uL (0.0-0.2) Segmented Neutrophils % 84% (35-66) Band Neutrophils % 4% (0-9) Lymphocytes % 3% (24-48) Monocytes % 9% (0-10) Platelet Estimate Adequate (ADEQUATE) Polychromasia Slight Hypochromasia Mod Basophilic Stippling Present Anisocytosis Slight Sodium Level 141mmol/L (136-145) Potassium Level 3.9mmol/L (3.5-5.1) Chloride Level 101mmol/L (98-107) Carbon Dioxide Level 31mmol/L (21-32) Anion Gap 9 (6-14) Blood Urea Nitrogen 36mg/dL (7-20) Creatinine 1.6mg/dL (0.6-1.0) Estimated GFR (Cockcroft-Gault) 36.8 Glucose Level 300mg/dL (70-99) Calcium Level 8.5mg/dL (8.5-10.1) Test 05/10/16 22:56 05/11/16 02:54 05/11/16 04:13 05/11/16 06:15 Glucose (Fingerstick) 202mg/dL (70-99) 151mg/dL (70-99) White Blood Count 8.1x10^3/uL (4.0-11.0) Red Blood Count 3.37x10^6/uL (3.50-5.40) Hemoglobin 9.2g/dL (12.0-15.5) Hematocrit 29.2% (36.0-47.0) Mean Corpuscular Volume 87fL (79-100) Mean Corpuscular Hemoglobin 27pg (25-35) Mean Corpuscular Hemoglobin Concent 32g/dL (31-37) Red Cell Distribution Width 19.8% (11.5-14.5) Platelet Count 275x10^3/uL (140-400) Neutrophils (%) (Auto) 83% (31-73) Lymphocytes (%) (Auto) 9% (24-48) Monocytes (%) (Auto) 8% (0-9) Eosinophils (%) (Auto) 0% (0-3) Basophils (%) (Auto) 1% (0-3) Neutrophils # (Auto) 6.6x10^3uL (1.8-7.7) Lymphocytes # (Auto) 0.7x10^3/uL (1.0-4.8) Monocytes # (Auto) 0.7x10^3/uL (0.0-1.1) Eosinophils # (Auto) 0.0x10^3/uL (0.0-0.7) Basophils # (Auto) 0.0x10^3/uL (0.0-0.2) Sodium Level 141mmol/L (136-145) Potassium Level 4.2mmol/L (3.5-5.1) Chloride Level 100mmol/L (98-107) Carbon Dioxide Level 31mmol/L (21-32) Anion Gap 10 (6-14) Blood Urea Nitrogen 40mg/dL (7-20) Creatinine 1.5mg/dL (0.6-1.0) Estimated GFR (Cockcroft-Gault) 39.7 Glucose Level 166mg/dL (70-99) Calcium Level 9.0mg/dL (8.5-10.1) Magnesium Level 2.7mg/dL (1.8-2.4) Iron Level 16ug/dL (50-170) Total Iron Binding Capacity 334ug/dL (250-450) Iron Saturation 5% (15-34) Ferritin 76ng/mL (8-252) Procalcitonin 4.12ng/mL (0.00-0.10) Thyroid Stimulating Hormone (TSH) 1.011uIU/mL (0.358-3.74) Urine Collection Type Unknown Urine Color Yellow Urine Clarity Clear Urine pH 5.5 Urine Specific [place] 1.015 Urine Protein Negativemg/dL (NEG-TRACE) Urine Glucose (UA) 250mg/dL (NEG) Urine Ketones (Stick) Negativemg/dL (NEG) Urine Blood Negative (NEG) Urine Nitrite Negative (NEG) Urine Bilirubin Negative (NEG) Urine Urobilinogen Dipstick 0.2mg/dL (0.2 mg/dL) Urine Leukocyte Esterase Negative (NEG) Urine RBC 0/HPF (0-2) Urine WBC 0/HPF (0-4) Urine Squamous Epithelial Cells Few/LPF Urine Bacteria Few/HPF (0-FEW) Urine Hyaline Casts Moderate/HPF Urine Mucus Slight/LPF Test 05/11/16 08:09 Glucose (Fingerstick) 166mg/dL (70-99) Microbiology 05/09/16 Urine Culture - Final, Complete 05/09/16 Urine Culture Result 1 (MATT) - Final, Complete Medications Current Medications Furosemide (Lasix) 40 mg 1X ONCE IVP Last administered on 05/09/16 05:07; Start 05/09/16 at 04:15; Stop 05/09/16 at 04:16; Status DC Ondansetron HCl (Zofran) 4 mg PRN Q8HRS PRN IV NAUSEA/VOMITING; Start 05/09/16 at 05:45; Stop 05/10/16 at 05:44; Status DC Acetaminophen (Tylenol) 650 mg PRN Q4HRS PRN PO FEVER; Start 05/09/16 at 05:45 ; Stop 05/10/16 at 05:44; Status DC Aspirin (Gay Aspirin) 325 mg 1X ONCE PO Last administered on 05/09/16 10:08 ; Start 05/09/16 at 06:30; Stop 05/09/16 at 06:31; Status DC Pneumococcal Polyvalent Vaccine (Do NOT chart on this placeholder) 1 each 1X ONCE MC ; Start 05/09/16 at 09:15; Stop 05/09/16 at 09:16; Status UNV Pneumococcal Polyvalent Vaccine (Pneumovax 23) 0.5 ml ONCE ONCE VAX IM ; Start 05/09/16 at 11:00; Stop 05/09/16 at 11:01; Status DC Insulin Detemir (Levemir) 22 units QHS SQ ; Start 05/09/16 at 11:30; Stop at 11:42; Status DC Insulin Aspart (Novolog) 0-7 UNITS TIDWMEALS SQ Last administered on 05/11/16 09:05; Start 05/09/16 at 12:32 Dextrose 12.5 gm PRN Q15MIN PRN IV SEE COMMENTS; Start 05/09/16 at 11:30 Insulin Detemir (Levemir) 22 units DAILY SQ Last administered on 05/11/16 09: 04; Start 05/09/16 at 11:30 Acetaminophen/ Codeine Phosphate (Tylenol #3) 2 tab Q6HRS PO ; Start 05/09/16 at 18:00; Stop 05/09/16 at 19:34; Status DC Alprazolam (Xanax) 0.5 mg BID PO Last administered on 05/11/16 08:54; Start at 21:00; Stop 05/11/16 at 10:34; Status DC Clopidogrel Bisulfate (Plavix) 75 mg DAILY PO Last administered on 05/11/16 08 :55; Start 05/09/16 at 16:00 Diltiazem HCl (Cardizem 24hr Cd) 240 mg DAILY PO Last administered on 10:30; Start 05/09/16 at 16:00 EZETIMIBE (Zetia) 10 mg DAILY PO Last administered on 05/11/16 08:55; Start at 16:00 Fluticasone Propionate (Flonase) 1 spray PRN DAILY PRN NS Allergies; Start at 15:00 Furosemide (Lasix) 40 mg DAILY PO Last administered on 05/09/16 16:40; Start 05/09/16 at 16:00; Stop 05/11/16 at 10:59; Status DC Losartan Potassium (Cozaar) 25 mg DAILY PO Last administered on 05/09/16 16:42 ; Start 05/09/16 at 16:00 Metoprolol Succinate (Toprol Xl) 25 mg DAILY PO Last administered on 05/09/16 16:43; Start 05/09/16 at 16:00 Nitroglycerin (Nitrostat) 0.4 mg PRN Q10MIN SL ; Start 05/09/16 at 15:00 Pantoprazole Sodium (Protonix) 40 mg DAILYAC PO Last administered on 05/11/16 08:54; Start 05/09/16 at 16:30 Polyethylene Glycol (miraLAX PACKET) 17 gm HS PO Last administered on 21:37; Start 05/09/16 at 21:00 Atorvastatin Calcium (Lipitor) 20 mg QHS PO Last administered on 05/10/16 21: 36; Start 05/09/16 at 21:00 Ascorbic Acid (Vitamin C) 250 mg DAILY PO Last administered on 05/11/16 08:54 ; Start 05/09/16 at 16:00 Vitamin D (Vitamin D3) 3,000 unit DAILY PO Last administered on 05/11/16 08:55 ; Start 05/09/16 at 16:00 Duloxetine HCl (Cymbalta) 60 mg DAILY PO Last administered on 05/11/16 08:54; Start 05/09/16 at 16:00 Ferrous Sulfate (Slow Release Iron) 142 mg [id number] PO Last administered on 08:53; Start 05/10/16 at 08:00 Insulin Detemir (Levemir) 22 units DAILY08 SQ ; Start 05/10/16 at 08:00; Stop at 10:05; Status DC Fish Oil (Fish Oil) 1,000 mg DAILY PO Last administered on 05/11/16 08:54; Start 05/09/16 at 16:00 Psyllium Hydrophilic Mucilloid (Metamucil Fiber Packet) 1 pkt DAILY PO Last administered on 05/11/16 08:53; Start 05/09/16 at 16:00 Apixaban (Eliquis) 5 mg BID PO Last administered on 05/11/16 08:54; Start at 21:00 Potassium Chloride (Klor-Con) 10 meq BID PO Last administered on 05/11/16 08: 54; Start 05/09/16 at 21:00 Pregabalin (Lyrica) 50 mg TID PO Last administered on 05/11/16 08:55; Start at 16:00 Info (Anti-Coagulation Monitoring By Pharmacy) 1 each PRN DAILY PRN MC SEE COMMENTS; Start 05/09/16 at 15:30 Acetaminophen/ Codeine Phosphate (Tylenol #3) 2 tab PRN Q6HRS PRN PO PAIN; Start 05/09/16 at 20:00 Furosemide (Lasix) 40 mg 1X ONCE IVP Last administered on 05/10/16 03:58; Start 05/10/16 at 04:15; Stop 05/10/16 at 04:16; Status DC Digoxin (Lanoxin) 250 mcg 1X ONCE IV Last administered on 05/10/16 03:59; Start 05/10/16 at 04:15; Stop 05/10/16 at 04:16; Status DC Diltiazem HCl 10 mg 10 mg 1X ONCE IVP Last administered on 05/10/16 05:54; Start 05/10/16 at 06:00; Stop 05/10/16 at 06:01; Status DC Diltiazem HCl/ Dextrose (Cardizem) 125 ml @ 0 mls/hr CONT PRN IV SEE I/O RECORD Last administered on 05/10/16 05:55; Start 05/10/16 at 05:45; Stop 05/11 at 10:59; Status DC Insulin Aspart (Novolog) 15 units 1X ONCE SQ Last administered on 05/10/16 12 :12; Start 05/10/16 at 10:15; Stop 05/10/16 at 10:16; Status DC Insulin Aspart (Novolog) 30 units 1X ONCE SQ Last administered on 05/10/16 17 :31; Start 05/10/16 at 17:30; Stop 05/10/16 at 17:31; Status DC Guaifenesin (Robitussin Dm) 10 ml PRN Q6HRS PRN PO COUGH; Start 05/10/16 at 17: 45 Insulin Aspart (Novolog) 20 units TIDAC SQ Last administered on 05/11/16 09:05 ; Start 05/11/16 at 07:30 Insulin Detemir (Levemir) 10 units QHS SQ Last administered on 05/10/16 23:07 ; Start 05/10/16 at 23:00 Albuterol Sulfate 2.5 mg 2.5 mg RTQID NEB Last administered on 05/11/16 10:53 ; Start 05/10/16 at 23:00 Ceftriaxone Sodium 1 gm/ Sodium Chloride 50 ml @ 100 mls/hr QHS IV Last administered on 05/10/16 22:58; Start 05/10/16 at 23:00 Iron Sucrose/ Sodium Chloride (Venofer/Iv Sodium Chloride 0.9% 100ml) 110 ml @ 55 mls/hr 1X ONCE IV ; Start 05/11/16 at 11:00; Stop 05/11/16 at 12:59 Guaifenesin (Mucinex) 600 mg PRN BID PRN PO COUGH; Start 05/11/16 at 21:00 Alprazolam 0.5 mg 0.5 mg PRN Q8HRS PRN PO ANXIETY; Start 05/12/16 at 09:00; Stop 05/12/16 at 09:00; Status DC Albumin Human (Plasmanate) 250 ml @ 62.5 mls/hr 1X ONCE IV ; Start 05/11/16 at 11:00; Stop 05/11/16 at 14:59 Active Scripts Active Reported Lyrica (Pregabalin) 50 Mg Capsule 50 Mg PO TID Pantoprazole Sodium 40 Mg Tablet.dr 1 Tab PO DAILY Levemir (Insulin Detemir) 100 Unit/1 Ml Vial 22 Unit SQ DAILY08 Eliquis (Apixaban) 5 Mg Tablet 5 Mg PO BID Diltiazem 24HR Cd (Diltiazem Hcl) 120 Mg Cap.er.24h 240 Mg PO DAILY Plavix (Clopidogrel Bisulfate) 75 Mg Tablet 1 Tab PO DAILY Novolog Flexpen (Insulin Aspart) 100 Unit/1 Ml Insuln.pen 100 Unit SQ Zetia (Ezetimibe) 10 Mg Tablet 10 Mg PO DAILY Cymbalta (Duloxetine Hcl) 60 Mg Capsule.dr 60 Mg PO DAILY Alprazolam 0.5 Mg Tablet 1 Tab PO BID Flonase (Fluticasone Propionate) 16 Gm [place].susp 16 Gm NS PRN DAILY NITROGLYCERIN SubLingual (Nitroglycerin) 0.4 Mg Tab.subl 0.4 Mg SL PRN Q10MIN Vitamin C (Ascorbic Acid) 100 Mg Tablet 100 Mg PO DAILY Ferrous Sulfate 134 Mg Tablet 134 Mg PO DAILY [place] 3 1,000 Mg Softgel ([place]-3 Fatty Acids/Fish Oil) 1 Each Capsule 1 Each PO DAILY Miralax (Polyethylene Glycol 3350) 17 Gm Powd.pack 17 Gm PO HS Zocor (Simvastatin) 40 Mg Tablet 40 Mg PO HS Metamucil Packet (Psyllium Seed (With Sugar)) 1 Each Packet 1 Each PO DAILY Vitamin D3 (Cholecalciferol (Vitamin D3)) 3,000 Unit Tablet 3,000 Unit PO DAILY Potassium Chloride 10 Meq Tab.er.prt 10 Meq PO BID Lasix (Furosemide) 40 Mg Tablet 40 Mg PO DAILY Metoprolol Succinate ( Xl ) (Metoprolol Succinate) 25 Mg Tab.er.24h 25 Mg PO DAILY Losartan Potassium 25 Mg Tablet 25 Mg PO DAILY Acetaminophen-Cod #3 Tablet (Acetaminophen/Codeine Phosphate) 1 Each Tablet 2 Each PO Q6HRS PRN Vitals/I & O Vital Sign - Last 24 Hours 05/10/16 05/10/16 05/10/16 05/10/16 11:24 14:57 18:43 19:45 Temp 99.1 97.8 99.1 97.8 Pulse 95 84 94 104 Resp 18 B/P 82/50 79/50 88/59 92/51 Pulse Ox 93 94 98 O2 Delivery Nasal Cannula Nasal Cannula Nasal Cannula O2 Flow Rate 2.0 2.0 2.0 05/10/16 05/10/16 05/10/16 05/11/16 20:00 22:50 23:33 02:45 Temp 97.4 97.2 97.4 97.2 Pulse 109 108 Resp 18 18 B/P 89/55 84/47 Pulse Ox 93 96 99 O2 Delivery Nasal Cannula Nasal Cannula Nasal Cannula Nasal Cannula O2 Flow Rate 2.0 2.0 2.0 2.0 05/11/16 05/11/16 05/11/16 05/11/16 06:59 07:54 07:56 09:00 Temp 97.4 97.4 Pulse 108 108 Resp 20 B/P 87/56 84/43 Pulse Ox 100 O2 Delivery Nasal Cannula Nasal Cannula Nasal Cannula O2 Flow Rate 2.0 2.0 2.0 05/11/16 05/11/16 05/11/16 05/11/16 09:00 10:30 10:45 10:59 Temp 98.2 98.2 Pulse 108 118 119 Resp 18 B/P 84/43 83/61 91/50 Pulse Ox 100 O2 Delivery Nasal Cannula Nasal Cannula O2 Flow Rate 2.0 2.0 Intake and Output 05/10/16 05/10/16 05/11/16 15:00 23:00 07:00 Intake Total 200 ml 100 ml Output Total 1250 ml Balance 200 ml -1150 ml ABRAHAM CROSS III DO May 11, 2016 11:26
--- NOTE | 2016-05-11 12:53 | PDOC ---
Infectious Disease Note ROS ROS GEN: Denies fevers, chills, sweats HEENT: Denies blurred vision, sore throat CV: Denies chest pain RESP: Denies shortness of air, cough GI: Denies n/v/d NEURO: Denies confusion, dizziness MSK: Denies weakness, joint pain/swelling Vital Sign Vital Signs Vital Signs Date Time Temp Pulse Resp B/P Pulse Ox O2 Delivery O2 Flow Rate FiO2 05/11/16 10:59 Nasal Cannula 2.0 05/11/16 10:45 98.2 119 18 91/50 100 98.2 Physical Exam PHYSICAL EXAM GENERAL: NAD, Alert HEENT: PERRL, OC/OP NECK: Supple, no JVD, no LN LUNGS: Clear HEART: S1S2, no gallop, no murmur ABD: Soft, NT, no organomegaly, no rebound EXT: No edema, no cyanosis [employer]OR: Alert, oriented x 3, no focal neurologic deficit SKIN: No rash IV: ok Labs Lab Laboratory Tests Test 05/10/16 16:54 05/10/16 19:36 05/10/16 20:18 05/10/16 22:56 Glucose (Fingerstick) 468mg/dL (70-99) 330mg/dL (70-99) 202mg/dL (70-99) White Blood Count 10.3x10^3/uL (4.0-11.0) Red Blood Count 3.12x10^6/uL (3.50-5.40) Hemoglobin 8.5g/dL (12.0-15.5) Hematocrit 27.7% (36.0-47.0) Mean Corpuscular Volume 89fL (79-100) Mean Corpuscular Hemoglobin 27pg (25-35) Mean Corpuscular Hemoglobin Concent 31g/dL (31-37) Red Cell Distribution Width 19.7% (11.5-14.5) Platelet Count 217x10^3/uL (140-400) Neutrophils (%) (Auto) 86% (31-73) Lymphocytes (%) (Auto) 6% (24-48) Monocytes (%) (Auto) 7% (0-9) Eosinophils (%) (Auto) 0% (0-3) Basophils (%) (Auto) 1% (0-3) Neutrophils # (Auto) 8.9x10^3uL (1.8-7.7) Lymphocytes # (Auto) 0.6x10^3/uL (1.0-4.8) Monocytes # (Auto) 0.7x10^3/uL (0.0-1.1) Eosinophils # (Auto) 0.0x10^3/uL (0.0-0.7) Basophils # (Auto) 0.1x10^3/uL (0.0-0.2) Segmented Neutrophils % 84% (35-66) Band Neutrophils % 4% (0-9) Lymphocytes % 3% (24-48) Monocytes % 9% (0-10) Platelet Estimate Adequate (ADEQUATE) Polychromasia Slight Hypochromasia Mod Basophilic Stippling Present Anisocytosis Slight Sodium Level 141mmol/L (136-145) Potassium Level 3.9mmol/L (3.5-5.1) Chloride Level 101mmol/L (98-107) Carbon Dioxide Level 31mmol/L (21-32) Anion Gap 9 (6-14) Blood Urea Nitrogen 36mg/dL (7-20) Creatinine 1.6mg/dL (0.6-1.0) Estimated GFR (Cockcroft-Gault) 36.8 Glucose Level 300mg/dL (70-99) Calcium Level 8.5mg/dL (8.5-10.1) Test 05/11/16 02:54 05/11/16 04:13 05/11/16 06:15 05/11/16 08:09 Glucose (Fingerstick) 151mg/dL (70-99) 166mg/dL (70-99) White Blood Count 8.1x10^3/uL (4.0-11.0) Red Blood Count 3.37x10^6/uL (3.50-5.40) Hemoglobin 9.2g/dL (12.0-15.5) Hematocrit 29.2% (36.0-47.0) Mean Corpuscular Volume 87fL (79-100) Mean Corpuscular Hemoglobin 27pg (25-35) Mean Corpuscular Hemoglobin Concent 32g/dL (31-37) Red Cell Distribution Width 19.8% (11.5-14.5) Platelet Count 275x10^3/uL (140-400) Neutrophils (%) (Auto) 83% (31-73) Lymphocytes (%) (Auto) 9% (24-48) Monocytes (%) (Auto) 8% (0-9) Eosinophils (%) (Auto) 0% (0-3) Basophils (%) (Auto) 1% (0-3) Neutrophils # (Auto) 6.6x10^3uL (1.8-7.7) Lymphocytes # (Auto) 0.7x10^3/uL (1.0-4.8) Monocytes # (Auto) 0.7x10^3/uL (0.0-1.1) Eosinophils # (Auto) 0.0x10^3/uL (0.0-0.7) Basophils # (Auto) 0.0x10^3/uL (0.0-0.2) Sodium Level 141mmol/L (136-145) Potassium Level 4.2mmol/L (3.5-5.1) Chloride Level 100mmol/L (98-107) Carbon Dioxide Level 31mmol/L (21-32) Anion Gap 10 (6-14) Blood Urea Nitrogen 40mg/dL (7-20) Creatinine 1.5mg/dL (0.6-1.0) Estimated GFR (Cockcroft-Gault) 39.7 Glucose Level 166mg/dL (70-99) Calcium Level 9.0mg/dL (8.5-10.1) Magnesium Level 2.7mg/dL (1.8-2.4) Iron Level 16ug/dL (50-170) Total Iron Binding Capacity 334ug/dL (250-450) Iron Saturation 5% (15-34) Ferritin 76ng/mL (8-252) Procalcitonin 4.12ng/mL (0.00-0.10) Thyroid Stimulating Hormone (TSH) 1.011uIU/mL (0.358-3.74) Urine Collection Type Unknown Urine Color Yellow Urine Clarity Clear Urine pH 5.5 Urine Specific [place] 1.015 Urine Protein Negativemg/dL (NEG-TRACE) Urine Glucose (UA) 250mg/dL (NEG) Urine Ketones (Stick) Negativemg/dL (NEG) Urine Blood Negative (NEG) Urine Nitrite Negative (NEG) Urine Bilirubin Negative (NEG) Urine Urobilinogen Dipstick 0.2mg/dL (0.2 mg/dL) Urine Leukocyte Esterase Negative (NEG) Urine RBC 0/HPF (0-2) Urine WBC 0/HPF (0-4) Urine Squamous Epithelial Cells Few/LPF Urine Bacteria Few/HPF (0-FEW) Urine Hyaline Casts Moderate/HPF Urine Mucus Slight/LPF Test 05/11/16 11:39 Glucose (Fingerstick) 251mg/dL (70-99) Objective Assessment Pneumonia - elevated procalcitonin Tachycardia - per Dr. Chen Leukocytosis - improved DM Plan Plan of Care Cont Rocephin Add Doxy Check Mycoplasma/Strep antigen May benefit from Pul eval F/u labs and cult D/w family Thank you # [phone] NICOLE DAVIS MD May 11, 2016 12:53
[2016-05-11] MEDS: DOXYCYCLINE HYCLATE 100 MG TABLET PO SCH ×2 (14:16→21:00)
[2016-05-11 14:33] LABS: NEGATIVE OBC MYCO NEG; POSITIVE OBC MYCO POS
[2016-05-11] MEDS: POLYETHYLENE GLYCOL 3350 17 GM PACKET. PO SCH (21:00)
[2016-05-11] MEDS: APIXABAN 2.5 MG TABLET. PO SCH (21:00)
[2016-05-11] MEDS: ATORVASTATIN CALCIUM 20 MG TABLET PO SCH (21:00)
[2016-05-11] MEDS: CEFTRIAXONE SODIUM 1 GM in IV NORMAL SALINE 50ML 50 ML IV SCH (21:00)
[2016-05-12] VITALS (8 sets, daily range): BP systolic 92–165; BP diastolic 54–118
[2016-05-12 01:09] LABS: SPECIMEN SOURCE Urine (.)
--- NOTE | 2016-05-12 02:16 | CONS ---
DATE OF CONSULTATION: 05/11/2016 LOCATION: The patient's room is 209. REQUESTING PHYSICIAN: Dr. Chen REASON FOR CONSULTATION: Pneumonia. HISTORY OF PRESENT ILLNESS: The patient is a pleasant 89-year-old -[place] female with history of coronary artery disease, congestive heart failure, history of distant PE, who was brought to the Emergency Room on 05/09 secondary to a fall. This is what her daughter said. The Emergency Room states that her son brought her in secondary to shortness of breath and wheeze that started at night. On arrival, white cell count was 14.2, glucose was elevated at 258. BNP was 3514. Urinalysis was without pyuria. Nitrite and leukocyte esterase were negative. Urine culture has multiple species of bacteria. She did undergo a chest x-ray which showed no cardiopulmonary abnormality. However, a CT scan of her chest performed on the shows patchy left basilar infiltrate suggesting pneumonia and mild mosaic attenuation throughout both lungs likely due to airspace disease such as pulmonary edema. Sinus x-rays were without evidence of any sinuses. Prior to admission, she states that she is having some night sweats, but these have been going on for quite some time. Her family states this is her third admission in approximately two weeks. She denies any gross sinus drainage, no sore throat. She does have a cough and was able to expectorate some phlegm today. No nausea, vomiting, diarrhea, dysuria, frequency or urgency. PAST MEDICAL HISTORY: Positive for aortic stenosis, congestive heart failure, coronary artery disease, diabetes, hypertension, dyslipidemia, osteoarthritis, lumbar stenosis. Positive for pulmonary embolism. She has also had epidural steroid injections. PAST SURGICAL HISTORY: Positive for open heart surgery with previous stents. REVIEW OF SYSTEMS: Otherwise negative. ALLERGIES: No known drug allergies. SOCIAL HISTORY: Lives at home with a supportive family. No tobacco or alcohol. FAMILY HISTORY: Coronary artery disease. CURRENT MEDICATIONS: Include Rocephin. She is on ____. She is on Eliquis, vitamin C, Lipitor, Plavix, Cardizem, Cymbalta, insulin, metoprolol, Protonix. Other meds are available and reviewed in the chart. PHYSICAL EXAMINATION: VITAL SIGNS: She is afebrile, temperature 98.2, pulse actually was 131 ____, respiratory rate 18, blood pressure 91/50. She is satting 100% on 2 L nasal cannula. CONSTITUTIONAL: She is sitting in a chair. She is cooperative. She is in no acute distress. HEENT: Pupils are equal and reactive. Oral cavity, pharynx is clear. NECK: Supple, no JVD. HEART: Tachycardic, S1, S2. LUNGS: Had some mild wheeze. ABDOMEN: Soft, nontender, nondistended, positive bowel sounds. EXTREMITIES: No clubbing, cyanosis or gross edema. SKIN: Warm to touch. No rashes. NEUROLOGIC: She is appropriate, moves all extremities. Affect was appropriate. LABORATORY VALUES: White count 8.1, hemoglobin 9.2, platelets 275 with 83% segs. Creatinine 1.5. Glucose was most recently 251 on fingerstick. Urinalysis reviewed in history of present illness. Procalcitonin level today is 4.12. Radiology reviewed in history of present illness. IMPRESSION: 1. Pneumonia with elevated procalcitonin. 2. Tachycardia per Dr. Chen. 3. Leukocytosis that is improved. 4. Diabetes. RECOMMENDATIONS: For now, I will continue the Rocephin. Clinically, she is feeling somewhat better. We will add doxycycline for atypical coverage. We will check mycoplasma IgM and strep pneumo antigens. May benefit from a Pulmonary evaluation. We will follow up on labs and cultures. This was discussed with the family. Thank you for allowing us to participate in this patient's care. If you have any questions, please do not hesitate to contact me. NICOLE DAVIS MD DR: BERNA/mohsen JOB#: [id number] / [id number]
[2016-05-12 03:58] LABS: BASO % 0 % (0-3); EOS % 1 % (0-3); HEMATOCRIT 25.6 % (36.0-47.0); HEMOGLOBIN 7.9 g/dL (12.0-15.5); LYMPH # 0.6 x10^3/uL (1.0-4.8); LYMPH % 9 % (24-48); MEAN CORPUSCULAR HEMOGLOBIN 28 pg (25-35); MEAN CORPUSCULAR HGB CONC 31 g/dL (31-37); MEAN CORPUSCULAR VOLUME 89 fL (79-100); MONO % 11 % (0-9); NEUT % 79 % (31-73); PLATELET COUNT 187 x10^3/uL (140-400); RED BLOOD COUNT 2.87 x10^6/uL (3.50-5.40); RED CELL DISTRIBUTION WIDTH 19.4 % (11.5-14.5); WHITE BLOOD COUNT 6.3 x10^3/uL (4.0-11.0)
[2016-05-12 04:14] LABS: CALCIUM 8.4 mg/dL (8.5-10.1); CREATININE 1.4 mg/dL (0.6-1.0); GFR 42.9; POTASSIUM 4.1 mmol/L (3.5-5.1)
[2016-05-12] MEDS: INSULIN ASPART 300 UNITS/3 ML INSULN.PEN SQ SCH ×4 (07:30→18:35)
[2016-05-12] MEDS: ALBUTEROL SULFATE 2.5 MG/3 ML NEBU. NEB SCH ×5 (07:47→20:26)
--- NOTE | 2016-05-12 08:54 | PDOC ---
Infectious Disease Note Subjective Subjective Better. Sputum is loosening. Hungry ROS ROS GEN: Denies fevers, chills, sweats HEENT: Denies blurred vision, sore throat CV: Denies chest pain RESP: Denies shortness of air, cough GI: Denies n/v/d NEURO: Denies confusion, dizziness MSK: Denies weakness, joint pain/swelling Vital Sign Vital Signs Vital Signs Date Time Temp Pulse Resp B/P Pulse Ox O2 Delivery O2 Flow Rate FiO2 05/12/16 07:49 Nasal Cannula 2.0 05/12/16 07:45 100 05/12/16 07:05 98.3 123 20 102/54 98.3 Physical Exam PHYSICAL EXAM GENERAL: NAD, Alert, coop HEENT: PERRL, OC/OP - clear NECK: Supple, no JVD, no LN LUNGS: Less wheeze but still some on right HEART: S1S2, no gallop, no murmur ABD: Soft, NT, no organomegaly, no rebound EXT: No edema, no cyanosis CAN STERILIZER: Alert, oriented x 3, no focal neurologic deficit SKIN: No rash IV: ok Labs Lab Laboratory Tests Test 05/11/16 11:39 05/11/16 16:15 05/11/16 20:18 05/12/16 03:37 Glucose (Fingerstick) 251mg/dL (70-99) 287mg/dL (70-99) 236mg/dL (70-99) White Blood Count 6.3x10^3/uL (4.0-11.0) Red Blood Count 2.87x10^6/uL (3.50-5.40) Hemoglobin 7.9g/dL (12.0-15.5) Hematocrit 25.6% (36.0-47.0) Mean Corpuscular Volume 89fL (79-100) Mean Corpuscular Hemoglobin 28pg (25-35) Mean Corpuscular Hemoglobin Concent 31g/dL (31-37) Red Cell Distribution Width 19.4% (11.5-14.5) Platelet Count 187x10^3/uL (140-400) Neutrophils (%) (Auto) 79% (31-73) Lymphocytes (%) (Auto) 9% (24-48) Monocytes (%) (Auto) 11% (0-9) Eosinophils (%) (Auto) 1% (0-3) Basophils (%) (Auto) 0% (0-3) Neutrophils # (Auto) 5.0x10^3uL (1.8-7.7) Lymphocytes # (Auto) 0.6x10^3/uL (1.0-4.8) Monocytes # (Auto) 0.7x10^3/uL (0.0-1.1) Eosinophils # (Auto) 0.0x10^3/uL (0.0-0.7) Basophils # (Auto) 0.0x10^3/uL (0.0-0.2) Sodium Level 141mmol/L (136-145) Potassium Level 4.1mmol/L (3.5-5.1) Chloride Level 102mmol/L (98-107) Carbon Dioxide Level 33mmol/L (21-32) Anion Gap 6 (6-14) Blood Urea Nitrogen 40mg/dL (7-20) Creatinine 1.4mg/dL (0.6-1.0) Estimated GFR (Cockcroft-Gault) 42.9 Glucose Level 85mg/dL (70-99) Calcium Level 8.4mg/dL (8.5-10.1) Test 05/12/16 07:10 05/12/16 07:36 Glucose (Fingerstick) 32mg/dL (70-99) 88mg/dL (70-99) Objective Assessment Pneumonia - elevated procalcitonin. neg Mycoplasma/Strep antigen Tachycardia - per Dr. Chen Leukocytosis - improved DM Plan Plan of Care Cont Rocephin/Doxy. Change to po 05/13 if stable Incentive spirometry May benefit from Pulm eval F/u labs and cult NICOLE DAVIS MD May 12, 2016 08:54
[2016-05-12] MEDS: INSULIN DETEMIR 300 UNITS/3 ML INSULN.PEN. SQ SCH (09:00)
[2016-05-12] MEDS ORDERED: ALPRAZOLAM 0.5 MG TABLET PO PRN (09:00)
[2016-05-12] MEDS: EZETIMIBE 10 MG TABLET PO SCH (09:19)
[2016-05-12] MEDS: APIXABAN 2.5 MG TABLET. PO SCH ×2 (09:19→22:30)
[2016-05-12] MEDS: DULOXETINE HCL 30 MG CAPSULE.DR. PO SCH (09:19)
[2016-05-12] MEDS: DOXYCYCLINE HYCLATE 100 MG TABLET PO SCH ×2 (09:19→22:30)
[2016-05-12] MEDS: CHOLECALCIFEROL (VITAMIN D3) 1,000 UNIT TABLET PO SCH (09:19)
[2016-05-12] MEDS: OMEGA-3 FATTY ACIDS/FISH OIL 1,000 MG CAPSULE. PO SCH (09:19)
[2016-05-12] MEDS: PREGABALIN 50 MG CAPSULE PO SCH ×3 (09:19→22:30)
[2016-05-12] MEDS: PSYLLIUM HUSK (SUGAR FREE) 1 PKT PACKET PO SCH (09:19)
[2016-05-12] MEDS: CLOPIDOGREL BISULFATE 75 MG TABLET PO SCH (09:20)
[2016-05-12] MEDS: FERROUS SULFATE 142 MG PO SCH (09:20)
[2016-05-12] MEDS: GUAIFENESIN ER 600 MG TABLET.ER PO PRN ×2 (09:20→18:33)
[2016-05-12] MEDS: PANTOPRAZOLE 40 MG TABLET. PO SCH (09:20)
[2016-05-12] MEDS: POTASSIUM CHLORIDE 10 MEQ TABLET.ER. PO SCH ×2 (09:20→22:30)
[2016-05-12] MEDS: METOPROLOL SUCC 24HR ER 25 MG TAB.ER.24H. PO SCH (09:21)
[2016-05-12] MEDS: ASCORBIC ACID 500 MG TABLET PO SCH (09:21)
[2016-05-12] MEDS: DILTIAZEM HCL 120 MG CAP.ER.24H PO SCH (09:22)
[2016-05-12] MEDS: LOSARTAN POTASSIUM 25 MG TABLET. PO SCH (09:22)
[2016-05-12] MEDS: ANTI-COAG MONITOR BY PHARMACY. MC PRN (09:29)
[2016-05-12] MEDS ORDERED: INSULIN ASPART 300 UNITS/3 ML INSULN.PEN SQ SCH (11:30)
--- NOTE | 2016-05-12 14:03 | PDOC ---
PROGRESS NOTES Chief Complaint Chief Complaint Shortness of breath, Pneumonia, on CHF - arthritis - CHF, acute systolic - diabetes - pneumonia, POA - coronary artery disease - tinnitus - gastritis History of Present Illness History of Present Illness sitting up, She appears to be doing much better today, SOA is much improved, but she does complain of a slight wheeze los FSBS today, plan decrease mealtime and LAntus doses ordered between meals FSBS X1 Vitals Vitals Vital Signs Date Time Temp Pulse Resp B/P Pulse Ox O2 Delivery O2 Flow Rate FiO2 05/12/16 13:02 Nasal Cannula 2.0 05/12/16 10:47 97.8 128 20 130/62 94 97.8 Physical Exam General: Alert, Oriented X3, No acute distress Heart: Regular rate, No murmurs, Other (irregularly irregular, and tachycardic) Lungs: Other (improved coarseness) Abdomen: Soft, No tenderness Extremities: Other (1+ edema) Skin: No significant lesion Labs LABS Laboratory Tests Test 05/11/16 16:15 05/11/16 20:18 05/12/16 03:37 05/12/16 07:10 Glucose (Fingerstick) 287mg/dL (70-99) 236mg/dL (70-99) 32mg/dL (70-99) White Blood Count 6.3x10^3/uL (4.0-11.0) Red Blood Count 2.87x10^6/uL (3.50-5.40) Hemoglobin 7.9g/dL (12.0-15.5) Hematocrit 25.6% (36.0-47.0) Mean Corpuscular Volume 89fL (79-100) Mean Corpuscular Hemoglobin 28pg (25-35) Mean Corpuscular Hemoglobin Concent 31g/dL (31-37) Red Cell Distribution Width 19.4% (11.5-14.5) Platelet Count 187x10^3/uL (140-400) Neutrophils (%) (Auto) 79% (31-73) Lymphocytes (%) (Auto) 9% (24-48) Monocytes (%) (Auto) 11% (0-9) Eosinophils (%) (Auto) 1% (0-3) Basophils (%) (Auto) 0% (0-3) Neutrophils # (Auto) 5.0x10^3uL (1.8-7.7) Lymphocytes # (Auto) 0.6x10^3/uL (1.0-4.8) Monocytes # (Auto) 0.7x10^3/uL (0.0-1.1) Eosinophils # (Auto) 0.0x10^3/uL (0.0-0.7) Basophils # (Auto) 0.0x10^3/uL (0.0-0.2) Sodium Level 141mmol/L (136-145) Potassium Level 4.1mmol/L (3.5-5.1) Chloride Level 102mmol/L (98-107) Carbon Dioxide Level 33mmol/L (21-32) Anion Gap 6 (6-14) Blood Urea Nitrogen 40mg/dL (7-20) Creatinine 1.4mg/dL (0.6-1.0) Estimated GFR (Cockcroft-Gault) 42.9 Glucose Level 85mg/dL (70-99) Calcium Level 8.4mg/dL (8.5-10.1) Test 05/12/16 07:36 05/12/16 10:49 Glucose (Fingerstick) 88mg/dL (70-99) 165mg/dL (70-99) Review of Systems Review of Systems no n.v.d feels well Assessment and Plan Assessmemt and Plan Problems Medical Problems: (1) CHF (congestive heart failure) Status: Acute (2) Elevated troponin Status: Acute (3) Non-STEMI (non-ST elevated myocardial infarction) Status: Acute Problems: Comment Review of Relevant I have reviewed the following items melquiades (where applicable) has been applied. Labs Laboratory Tests Test 05/10/16 16:54 05/10/16 19:36 05/10/16 20:18 05/10/16 22:56 Glucose (Fingerstick) 468mg/dL (70-99) 330mg/dL (70-99) 202mg/dL (70-99) White Blood Count 10.3x10^3/uL (4.0-11.0) Red Blood Count 3.12x10^6/uL (3.50-5.40) Hemoglobin 8.5g/dL (12.0-15.5) Hematocrit 27.7% (36.0-47.0) Mean Corpuscular Volume 89fL (79-100) Mean Corpuscular Hemoglobin 27pg (25-35) Mean Corpuscular Hemoglobin Concent 31g/dL (31-37) Red Cell Distribution Width 19.7% (11.5-14.5) Platelet Count 217x10^3/uL (140-400) Neutrophils (%) (Auto) 86% (31-73) Lymphocytes (%) (Auto) 6% (24-48) Monocytes (%) (Auto) 7% (0-9) Eosinophils (%) (Auto) 0% (0-3) Basophils (%) (Auto) 1% (0-3) Neutrophils # (Auto) 8.9x10^3uL (1.8-7.7) Lymphocytes # (Auto) 0.6x10^3/uL (1.0-4.8) Monocytes # (Auto) 0.7x10^3/uL (0.0-1.1) Eosinophils # (Auto) 0.0x10^3/uL (0.0-0.7) Basophils # (Auto) 0.1x10^3/uL (0.0-0.2) Segmented Neutrophils % 84% (35-66) Band Neutrophils % 4% (0-9) Lymphocytes % 3% (24-48) Monocytes % 9% (0-10) Platelet Estimate Adequate (ADEQUATE) Polychromasia Slight Hypochromasia Mod Basophilic Stippling Present Anisocytosis Slight Sodium Level 141mmol/L (136-145) Potassium Level 3.9mmol/L (3.5-5.1) Chloride Level 101mmol/L (98-107) Carbon Dioxide Level 31mmol/L (21-32) Anion Gap 9 (6-14) Blood Urea Nitrogen 36mg/dL (7-20) Creatinine 1.6mg/dL (0.6-1.0) Estimated GFR (Cockcroft-Gault) 36.8 Glucose Level 300mg/dL (70-99) Calcium Level 8.5mg/dL (8.5-10.1) Test 05/11/16 02:54 05/11/16 04:13 05/11/16 06:15 05/11/16 08:09 Glucose (Fingerstick) 151mg/dL (70-99) 166mg/dL (70-99) White Blood Count 8.1x10^3/uL (4.0-11.0) Red Blood Count 3.37x10^6/uL (3.50-5.40) Hemoglobin 9.2g/dL (12.0-15.5) Hematocrit 29.2% (36.0-47.0) Mean Corpuscular Volume 87fL (79-100) Mean Corpuscular Hemoglobin 27pg (25-35) Mean Corpuscular Hemoglobin Concent 32g/dL (31-37) Red Cell Distribution Width 19.8% (11.5-14.5) Platelet Count 275x10^3/uL (140-400) Neutrophils (%) (Auto) 83% (31-73) Lymphocytes (%) (Auto) 9% (24-48) Monocytes (%) (Auto) 8% (0-9) Eosinophils (%) (Auto) 0% (0-3) Basophils (%) (Auto) 1% (0-3) Neutrophils # (Auto) 6.6x10^3uL (1.8-7.7) Lymphocytes # (Auto) 0.7x10^3/uL (1.0-4.8) Monocytes # (Auto) 0.7x10^3/uL (0.0-1.1) Eosinophils # (Auto) 0.0x10^3/uL (0.0-0.7) Basophils # (Auto) 0.0x10^3/uL (0.0-0.2) Sodium Level 141mmol/L (136-145) Potassium Level 4.2mmol/L (3.5-5.1) Chloride Level 100mmol/L (98-107) Carbon Dioxide Level 31mmol/L (21-32) Anion Gap 10 (6-14) Blood Urea Nitrogen 40mg/dL (7-20) Creatinine 1.5mg/dL (0.6-1.0) Estimated GFR (Cockcroft-Gault) 39.7 Glucose Level 166mg/dL (70-99) Calcium Level 9.0mg/dL (8.5-10.1) Magnesium Level 2.7mg/dL (1.8-2.4) Iron Level 16ug/dL (50-170) Total Iron Binding Capacity 334ug/dL (250-450) Iron Saturation 5% (15-34) Ferritin 76ng/mL (8-252) Vitamin B12 Level 757pg/mL (211-946) Procalcitonin 4.12ng/mL (0.00-0.10) Thyroid Stimulating Hormone (TSH) 1.011uIU/mL (0.358-3.74) Mycoplasma Serology (LAB) Negative (NEGATIVE) Urine Collection Type Unknown Urine Color Yellow Urine Clarity Clear Urine pH 5.5 Urine Specific [place] 1.015 Urine Protein Negativemg/dL (NEG-TRACE) Urine Glucose (UA) 250mg/dL (NEG) Urine Ketones (Stick) Negativemg/dL (NEG) Urine Blood Negative (NEG) Urine Nitrite Negative (NEG) Urine Bilirubin Negative (NEG) Urine Urobilinogen Dipstick 0.2mg/dL (0.2 mg/dL) Urine Leukocyte Esterase Negative (NEG) Urine RBC 0/HPF (0-2) Urine WBC 0/HPF (0-4) Urine Squamous Epithelial Cells Few/LPF Urine Bacteria Few/HPF (0-FEW) Urine Hyaline Casts Moderate/HPF Urine Mucus Slight/LPF Body Fluid Culture (LAB) (.) Streptococcus pneumoniae Antigen Negative (Negative) Organism Identification (LAB) (.) MATT Specimen Source Urine (.) Test 05/11/16 11:39 05/11/16 16:15 05/11/16 20:18 05/12/16 03:37 Glucose (Fingerstick) 251mg/dL (70-99) 287mg/dL (70-99) 236mg/dL (70-99) White Blood Count 6.3x10^3/uL (4.0-11.0) Red Blood Count 2.87x10^6/uL (3.50-5.40) Hemoglobin 7.9g/dL (12.0-15.5) Hematocrit 25.6% (36.0-47.0) Mean Corpuscular Volume 89fL (79-100) Mean Corpuscular Hemoglobin 28pg (25-35) Mean Corpuscular Hemoglobin Concent 31g/dL (31-37) Red Cell Distribution Width 19.4% (11.5-14.5) Platelet Count 187x10^3/uL (140-400) Neutrophils (%) (Auto) 79% (31-73) Lymphocytes (%) (Auto) 9% (24-48) Monocytes (%) (Auto) 11% (0-9) Eosinophils (%) (Auto) 1% (0-3) Basophils (%) (Auto) 0% (0-3) Neutrophils # (Auto) 5.0x10^3uL (1.8-7.7) Lymphocytes # (Auto) 0.6x10^3/uL (1.0-4.8) Monocytes # (Auto) 0.7x10^3/uL (0.0-1.1) Eosinophils # (Auto) 0.0x10^3/uL (0.0-0.7) Basophils # (Auto) 0.0x10^3/uL (0.0-0.2) Sodium Level 141mmol/L (136-145) Potassium Level 4.1mmol/L (3.5-5.1) Chloride Level 102mmol/L (98-107) Carbon Dioxide Level 33mmol/L (21-32) Anion Gap 6 (6-14) Blood Urea Nitrogen 40mg/dL (7-20) Creatinine 1.4mg/dL (0.6-1.0) Estimated GFR (Cockcroft-Gault) 42.9 Glucose Level 85mg/dL (70-99) Calcium Level 8.4mg/dL (8.5-10.1) Test 05/12/16 07:10 05/12/16 07:36 05/12/16 10:49 Glucose (Fingerstick) 32mg/dL (70-99) 88mg/dL (70-99) 165mg/dL (70-99) Laboratory Tests Test 05/11/16 16:15 05/11/16 20:18 05/12/16 03:37 05/12/16 07:10 Glucose (Fingerstick) 287mg/dL (70-99) 236mg/dL (70-99) 32mg/dL (70-99) White Blood Count 6.3x10^3/uL (4.0-11.0) Red Blood Count 2.87x10^6/uL (3.50-5.40) Hemoglobin 7.9g/dL (12.0-15.5) Hematocrit 25.6% (36.0-47.0) Mean Corpuscular Volume 89fL (79-100) Mean Corpuscular Hemoglobin 28pg (25-35) Mean Corpuscular Hemoglobin Concent 31g/dL (31-37) Red Cell Distribution Width 19.4% (11.5-14.5) Platelet Count 187x10^3/uL (140-400) Neutrophils (%) (Auto) 79% (31-73) Lymphocytes (%) (Auto) 9% (24-48) Monocytes (%) (Auto) 11% (0-9) Eosinophils (%) (Auto) 1% (0-3) Basophils (%) (Auto) 0% (0-3) Neutrophils # (Auto) 5.0x10^3uL (1.8-7.7) Lymphocytes # (Auto) 0.6x10^3/uL (1.0-4.8) Monocytes # (Auto) 0.7x10^3/uL (0.0-1.1) Eosinophils # (Auto) 0.0x10^3/uL (0.0-0.7) Basophils # (Auto) 0.0x10^3/uL (0.0-0.2) Sodium Level 141mmol/L (136-145) Potassium Level 4.1mmol/L (3.5-5.1) Chloride Level 102mmol/L (98-107) Carbon Dioxide Level 33mmol/L (21-32) Anion Gap 6 (6-14) Blood Urea Nitrogen 40mg/dL (7-20) Creatinine 1.4mg/dL (0.6-1.0) Estimated GFR (Cockcroft-Gault) 42.9 Glucose Level 85mg/dL (70-99) Calcium Level 8.4mg/dL (8.5-10.1) Test 05/12/16 07:36 05/12/16 10:49 Glucose (Fingerstick) 88mg/dL (70-99) 165mg/dL (70-99) Microbiology 05/09/16 Urine Culture - Final, Complete 05/09/16 Urine Culture Result 1 (MATT) - Final, Complete Medications Current Medications Furosemide (Lasix) 40 mg 1X ONCE IVP Last administered on 05/09/16t 05:07; Start 05/09/16 at 04:15; Stop 05/09/16 at 04:16; Status DC Ondansetron HCl (Zofran) 4 mg PRN Q8HRS PRN IV NAUSEA/VOMITING; Start 05/09/16 at 05:45; Stop 05/10/16 at 05:44; Status DC Acetaminophen (Tylenol) 650 mg PRN Q4HRS PRN PO FEVER; Start 05/09/16 at 05:45 ; Stop 05/10/16 at 05:44; Status DC Aspirin (Gay Aspirin) 325 mg 1X ONCE PO Last administered on 05/09/16 10:08 ; Start 05/09/16 at 06:30; Stop 05/09/16 at 06:31; Status DC Pneumococcal Polyvalent Vaccine (Do NOT chart on this placeholder) 1 each 1X ONCE MC ; Start 05/09/16 at 09:15; Stop 05/09/16 at 09:16; Status UNV Pneumococcal Polyvalent Vaccine (Pneumovax 23) 0.5 ml ONCE ONCE VAX IM ; Start 05/09/16 at 11:00; Stop 05/09/16 at 11:01; Status DC Insulin Detemir (Levemir) 22 units QHS SQ ; Start 05/09/16 at 11:30; Stop at 11:42; Status DC Insulin Aspart (Novolog) 0-7 UNITS TIDWMEALS SQ Last administered on 05/12/16 12:00; Start 05/09/16 at 12:32 Dextrose 12.5 gm PRN Q15MIN PRN IV SEE COMMENTS Last administered on 05/12/16 07:15; Start 05/09/16 at 11:30 Insulin Detemir (Levemir) 22 units DAILY SQ Last administered on 05/11/16 09: 04; Start 05/09/16 at 11:30 Acetaminophen/ Codeine Phosphate (Tylenol #3) 2 tab Q6HRS PO ; Start 05/09/16 at 18:00; Stop 05/09/16 at 19:34; Status DC Alprazolam (Xanax) 0.5 mg BID PO Last administered on 05/11/16 08:54; Start at 21:00; Stop 05/11/16 at 10:34; Status DC Clopidogrel Bisulfate (Plavix) 75 mg DAILY PO Last administered on 05/12/16 09 :20; Start 05/09/16 at 16:00 Diltiazem HCl (Cardizem 24hr Cd) 240 mg DAILY PO Last administered on 09:22; Start 05/09/16 at 16:00 EZETIMIBE (Zetia) 10 mg DAILY PO Last administered on 05/12/16 09:19; Start at 16:00 Fluticasone Propionate (Flonase) 1 spray PRN DAILY PRN NS Allergies; Start at 15:00 Furosemide (Lasix) 40 mg DAILY PO Last administered on 05/09/16 16:40; Start 05/09/16 at 16:00; Stop 05/11/16 at 10:59; Status DC Losartan Potassium (Cozaar) 25 mg DAILY PO Last administered on 05/12/16 09:22 ; Start 05/09/16 at 16:00 Metoprolol Succinate (Toprol Xl) 25 mg DAILY PO Last administered on 05/12/16 09:21; Start 05/09/16 at 16:00 Nitroglycerin (Nitrostat) 0.4 mg PRN Q10MIN SL ; Start 05/09/16 at 15:00 Pantoprazole Sodium (Protonix) 40 mg DAILYAC PO Last administered on 05/12/16 09:20; Start 05/09/16 at 16:30 Polyethylene Glycol (miraLAX PACKET) 17 gm HS PO Last administered on 21:37; Start 05/09/16 at 21:00 Atorvastatin Calcium (Lipitor) 20 mg QHS PO Last administered on 05/11/16 21: 00; Start 05/09/16 at 21:00 Ascorbic Acid (Vitamin C) 250 mg DAILY PO Last administered on 05/12/16 09:21 ; Start 05/09/16 at 16:00 Vitamin D (Vitamin D3) 3,000 unit DAILY PO Last administered on 05/12/16 09:19 ; Start 05/09/16 at 16:00 Duloxetine HCl (Cymbalta) 60 mg DAILY PO Last administered on 05/12/16 09:19; Start 05/09/16 at 16:00 Ferrous Sulfate (Slow Release Iron) 142 mg [id number] PO Last administered on 09:20; Start 05/10/16 at 08:00 Insulin Detemir (Levemir) 22 units DAILY08 SQ ; Start 05/10/16 at 08:00; Stop at 10:05; Status DC Fish Oil (Fish Oil) 1,000 mg DAILY PO Last administered on 05/12/16 09:19; Start 05/09/16 at 16:00 Psyllium Hydrophilic Mucilloid (Metamucil Fiber Packet) 1 pkt DAILY PO Last administered on 05/12/16 09:19; Start 05/09/16 at 16:00 Apixaban (Eliquis) 5 mg BID PO Last administered on 05/11/16 08:54; Start at 21:00; Stop 05/11/16 at 11:28; Status DC Potassium Chloride (Klor-Con) 10 meq BID PO Last administered on 05/12/16 09: 20; Start 05/09/16 at 21:00 Pregabalin (Lyrica) 50 mg TID PO Last administered on 05/12/16 09:19; Start at 16:00 Info (Anti-Coagulation Monitoring By Pharmacy) 1 each PRN DAILY PRN MC SEE COMMENTS Last administered on 05/12/16 09:29; Start 05/09/16 at 15:30 Acetaminophen/ Codeine Phosphate (Tylenol #3) 2 tab PRN Q6HRS PRN PO PAIN; Start 05/09/16 at 20:00 Furosemide (Lasix) 40 mg 1X ONCE IVP Last administered on 05/10/16 03:58; Start 05/10/16 at 04:15; Stop 05/10/16 at 04:16; Status DC Digoxin (Lanoxin) 250 mcg 1X ONCE IV Last administered on 05/10/16 03:59; Start 05/10/16 at 04:15; Stop 05/10/16 at 04:16; Status DC Diltiazem HCl 10 mg 10 mg 1X ONCE IVP Last administered on 05/10/16 05:54; Start 05/10/16 at 06:00; Stop 05/10/16 at 06:01; Status DC Diltiazem HCl/ Dextrose (Cardizem) 125 ml @ 0 mls/hr CONT PRN IV SEE I/O RECORD Last administered on 05/10/16 05:55; Start 05/10/16 at 05:45; Stop 05/11 at 10:59; Status DC Insulin Aspart (Novolog) 15 units 1X ONCE SQ Last administered on 05/10/16 12 :12; Start 05/10/16 at 10:15; Stop 05/10/16 at 10:16; Status DC Insulin Aspart (Novolog) 30 units 1X ONCE SQ Last administered on 05/10/16 17 :31; Start 05/10/16 at 17:30; Stop 05/10/16 at 17:31; Status DC Guaifenesin (Robitussin Dm) 10 ml PRN Q6HRS PRN PO COUGH; Start 05/10/16 at 17: 45 Insulin Aspart (Novolog) 20 units TIDAC SQ Last administered on 05/11/16 16:30 ; Start 05/11/16 at 07:30; Stop 05/12/16 at 09:33; Status DC Insulin Detemir (Levemir) 10 units QHS SQ Last administered on 05/11/16 21:00 ; Start 05/10/16 at 23:00; Stop 05/12/16 at 09:45; Status DC Albuterol Sulfate 2.5 mg 2.5 mg RTQID NEB Last administered on 05/12/16 13:01 ; Start 05/10/16 at 23:00 Ceftriaxone Sodium 1 gm/ Sodium Chloride 50 ml @ 100 mls/hr QHS IV Last administered on 05/11/16 21:00; Start 05/10/16 at 23:00 Iron Sucrose/ Sodium Chloride (Venofer/Iv Sodium Chloride 0.9% 100ml) 110 ml @ 55 mls/hr 1X ONCE IV Last administered on 05/11/16 11:54; Start 05/11/16 at 11:00; Stop 05/11/16 at 12:59; Status DC Guaifenesin (Mucinex) 600 mg PRN BID PRN PO COUGH Last administered on 09:20; Start 05/11/16 at 21:00 Alprazolam 0.5 mg 0.5 mg PRN Q8HRS PRN PO ANXIETY; Start 05/12/16 at 09:00; Stop 05/12/16 at 09:00; Status DC Albumin Human (Plasmanate) 250 ml @ 62.5 mls/hr 1X ONCE IV Last administered on 05/11/16 11:54; Start 05/11/16 at 11:00; Stop 05/11/16 at 14:59; Status DC Apixaban (Eliquis) 2.5 mg BID PO Last administered on 05/12/16 09:19; Start at 21:00 Doxycycline Hyclate 100 mg 100 mg BID PO Last administered on 05/12/16 09:19; Start 05/11/16 at 13:00 Albumin Human (Plasmanate) 250 ml @ 62.5 mls/hr 1X ONCE IV Last administered on 05/11/16 16:43; Start 05/11/16 at 16:30; Stop 05/11/16 at 20:29; Status DC Insulin Aspart (Novolog) 10 units TIDAC SQ ; Start 05/12/16 at 11:30; Stop 05/12 at 11:30; Status DC Active Scripts Active Reported Lyrica (Pregabalin) 50 Mg Capsule 50 Mg PO TID Pantoprazole Sodium 40 Mg Tablet.dr 1 Tab PO DAILY Levemir (Insulin Detemir) 100 Unit/1 Ml Vial 22 Unit SQ DAILY08 Eliquis (Apixaban) 5 Mg Tablet 5 Mg PO BID Diltiazem 24HR Cd (Diltiazem Hcl) 120 Mg Cap.er.24h 240 Mg PO DAILY Plavix (Clopidogrel Bisulfate) 75 Mg Tablet 1 Tab PO DAILY Novolog Flexpen (Insulin Aspart) 100 Unit/1 Ml Insuln.pen 100 Unit SQ Zetia (Ezetimibe) 10 Mg Tablet 10 Mg PO DAILY Cymbalta (Duloxetine Hcl) 60 Mg Capsule.dr 60 Mg PO DAILY Alprazolam 0.5 Mg Tablet 1 Tab PO BID Flonase (Fluticasone Propionate) 16 Gm [place].susp 16 Gm NS PRN DAILY NITROGLYCERIN SubLingual (Nitroglycerin) 0.4 Mg Tab.subl 0.4 Mg SL PRN Q10MIN Vitamin C (Ascorbic Acid) 100 Mg Tablet 100 Mg PO DAILY Ferrous Sulfate 134 Mg Tablet 134 Mg PO DAILY Gerry 3 1,000 Mg Softgel (Gerry-3 Fatty Acids/Fish Oil) 1 Each Capsule 1 Each PO DAILY Miralax (Polyethylene Glycol 3350) 17 Gm Powd.pack 17 Gm PO HS Zocor (Simvastatin) 40 Mg Tablet 40 Mg PO HS Metamucil Packet (Psyllium Seed (With Sugar)) 1 Each Packet 1 Each PO DAILY Vitamin D3 (Cholecalciferol (Vitamin D3)) 3,000 Unit Tablet 3,000 Unit PO DAILY Potassium Chloride 10 Meq Tab.er.prt 10 Meq PO BID Lasix (Furosemide) 40 Mg Tablet 40 Mg PO DAILY Metoprolol Succinate ( Xl ) (Metoprolol Succinate) 25 Mg Tab.er.24h 25 Mg PO DAILY Losartan Potassium 25 Mg Tablet 25 Mg PO DAILY Acetaminophen-Cod #3 Tablet (Acetaminophen/Codeine Phosphate) 1 Each Tablet 2 Each PO Q6HRS PRN Vitals/I & O Vital Sign - Last 24 Hours 05/11/16 05/11/16 05/11/16 05/11/16 14:47 14:52 15:33 19:10 Temp 98.3 97.4 98.3 97.4 Pulse 104 106 83 Resp 18 18 B/P 93/53 99/59 93/47 Pulse Ox 100 100 O2 Delivery Nasal Cannula Nasal Cannula Nasal Cannula O2 Flow Rate 2.0 2.0 2.0 05/11/16 05/11/16 05/11/16 05/12/16 19:59 20:00 22:37 02:27 Temp 97.1 97.8 97.1 97.8 Pulse 79 109 Resp 16 16 B/P 96/51 92/54 Pulse Ox 97 97 100 O2 Delivery Nasal Cannula Nasal Cannula Nasal Cannula Nasal Cannula O2 Flow Rate 2.0 2.0 2.0 2.0 05/12/16 05/12/16 05/12/16 05/12/16 07:05 07:45 07:49 09:21 Temp 98.3 98.3 Pulse 123 123 Resp 20 B/P 102/54 102/54 Pulse Ox 94 100 O2 Delivery Nasal Cannula Nasal Cannula Nasal Cannula O2 Flow Rate 2.0 2.0 05/12/16 05/12/16 05/12/16 05/12/16 09:22 09:22 10:47 13:02 Temp 97.8 97.8 Pulse 123 123 128 Resp 20 B/P 102/54 102/54 130/62 Pulse Ox 94 O2 Delivery Nasal Cannula Nasal Cannula O2 Flow Rate 2.0 Intake and Output 05/11/16 05/11/16 05/12/16 15:00 23:00 07:00 Intake Total 352 ml 400 ml Output Total 10 ml 550 ml Balance 352 ml -10 ml -150 ml JENNIFER MCPHERSON MD May 12, 2016 14:03
[2016-05-12] MEDS ORDERED: METOPROLOL TARTRATE 5 MG/5 ML VIAL. IVP ONE (22:15)
[2016-05-12] MEDS: CEFTRIAXONE SODIUM 1 GM in IV NORMAL SALINE 50ML 50 ML IV SCH (22:29)
[2016-05-12] MEDS: GUAIFENESIN DM 200MG/20MG 10 ML SYRUP. PO PRN (22:29)
[2016-05-12] MEDS: POLYETHYLENE GLYCOL 3350 17 GM PACKET. PO SCH (22:29)
[2016-05-12] MEDS: ATORVASTATIN CALCIUM 20 MG TABLET PO SCH (22:30)
--- NOTE | 2016-05-12 23:24 | PDOC ---
Provider Note Provider Note She complains of SOB and non-productive cough. She is not sedated as before and appears restless Tachypnoec. HR while in bed is 144/min despoteCardizem and Toprol this AM. BP was very low after diuresis that led to her not receiving Cardizem yesterday. BP improved with IV fluidsand now she may be fluid overloaded. She has moderate ASand so she is dependent on atrial kick that she has lost She is also very tachycardic leading to increased let atrial filling pressure. Plan to cardiovert this admissionif LATHA shows no thrombus.She has not been on anticoagulation for sufficient amount of time Will schedule for 05/14. SOM SHORE MD May 12, 2016 23:24
[2016-05-12] MEDS ORDERED: PROMETH/CODEINE 6.25/10MG 5 ML SYRUP. PO ONE (23:45)
[2016-05-12] MEDS ORDERED: METOPROLOL TART IMMED RELEASE 50 MG TABLET PO ONE (23:55)
[2016-05-13 03:00] VITALS: BP 142/74
[2016-05-13 06:09] LABS: BASO % 0 % (0-3); EOS % 0 % (0-3); HEMATOCRIT 26.7 % (36.0-47.0); HEMOGLOBIN 8.2 g/dL (12.0-15.5); LYMPH # 0.5 x10^3/uL (1.0-4.8); LYMPH % 8 % (24-48); MEAN CORPUSCULAR HEMOGLOBIN 27 pg (25-35); MEAN CORPUSCULAR HGB CONC 31 g/dL (31-37); MEAN CORPUSCULAR VOLUME 89 fL (79-100); MONO % 7 % (0-9); NEUT % 85 % (31-73); PLATELET COUNT 209 x10^3/uL (140-400); RED BLOOD COUNT 3.01 x10^6/uL (3.50-5.40); RED CELL DISTRIBUTION WIDTH 18.9 % (11.5-14.5); WHITE BLOOD COUNT 6.5 x10^3/uL (4.0-11.0)
[2016-05-13 06:28] LABS: CALCIUM 8.7 mg/dL (8.5-10.1); GFR 63.3; POTASSIUM 5.2 mmol/L (3.5-5.1)
[2016-05-13 07:25] VITALS: BP 151/81
[2016-05-13] MEDS: ALBUTEROL SULFATE 2.5 MG/3 ML NEBU. NEB SCH ×4 (07:37→20:00)
--- NOTE | 2016-05-13 07:43 | PDOC ---
Infectious Disease Note Subjective Subjective Rough night with increasing SOA ROS ROS GEN: Denies fevers, chills, sweats HEENT: Denies blurred vision, sore throat CV: Denies chest pain RESP: Denies shortness of air, cough GI: Denies n/v/d but has some fullness. Has had one BM NEURO: Denies confusion, dizziness MSK: Denies weakness, joint pain/swelling Vital Sign Vital Signs Vital Signs Date Time Temp Pulse Resp B/P Pulse Ox O2 Delivery O2 Flow Rate FiO2 05/13/16 07:25 97.9 98 16 151/81 90 Nasal Cannula 97.9 05/13/16 03:00 2.0 Physical Exam PHYSICAL EXAM GENERAL: NAD, Alert - but looks tired HEENT: PERRL, OC/OP - clear NECK: Supple, no JVD, no LN LUNGS: Wheezy HEART: S1S2, no gallop, no murmur ABD: Soft, NT, no organomegaly, no rebound. EXT: No edema, no cyanosis [employer]: Alert, oriented x 3, no focal neurologic deficit SKIN: No rash IV: ok Labs Lab Laboratory Tests Test 05/12/16 10:49 05/12/16 17:47 05/12/16 20:33 05/13/16 05:15 Glucose (Fingerstick) 165mg/dL (70-99) 216mg/dL (70-99) 221mg/dL (70-99) White Blood Count 6.5x10^3/uL (4.0-11.0) Red Blood Count 3.01x10^6/uL (3.50-5.40) Hemoglobin 8.2g/dL (12.0-15.5) Hematocrit 26.7% (36.0-47.0) Mean Corpuscular Volume 89fL (79-100) Mean Corpuscular Hemoglobin 27pg (25-35) Mean Corpuscular Hemoglobin Concent 31g/dL (31-37) Red Cell Distribution Width 18.9% (11.5-14.5) Platelet Count 209x10^3/uL (140-400) Neutrophils (%) (Auto) 85% (31-73) Lymphocytes (%) (Auto) 8% (24-48) Monocytes (%) (Auto) 7% (0-9) Eosinophils (%) (Auto) 0% (0-3) Basophils (%) (Auto) 0% (0-3) Neutrophils # (Auto) 5.5x10^3uL (1.8-7.7) Lymphocytes # (Auto) 0.5x10^3/uL (1.0-4.8) Monocytes # (Auto) 0.5x10^3/uL (0.0-1.1) Eosinophils # (Auto) 0.0x10^3/uL (0.0-0.7) Basophils # (Auto) 0.0x10^3/uL (0.0-0.2) Sodium Level 137mmol/L (136-145) Potassium Level 5.2mmol/L (3.5-5.1) Chloride Level 102mmol/L (98-107) Carbon Dioxide Level 29mmol/L (21-32) Anion Gap 6 (6-14) Blood Urea Nitrogen 29mg/dL (7-20) Creatinine 1.0mg/dL (0.6-1.0) Estimated GFR (Cockcroft-Gault) 63.3 Glucose Level 242mg/dL (70-99) Calcium Level 8.7mg/dL (8.5-10.1) Objective Assessment Acute Resp failure Pneumonia - elevated procalcitonin. neg Mycoplasma/Strep antigen. Mild wheeze persists Afib - Tachycardia - per Dr. Chen Leukocytosis - improved DM Plan Plan of Care ABG/BNP/CXR now Lasix this am ordered Cont Rocephin/Doxy. Change to po 05/13 if stable Incentive spirometry May benefit from Pulm eval F/u labs and cult D/w daughter NICOLE DAVIS MD May 13, 2016 07:43
[2016-05-13 08:15] LABS: HCO3 ABG 27 mmol/L (21-28); PCO2 ABG 47 mmHg (35-46); PH ABG 7.38 (7.35-7.45); PO2 ABG 64 mmHg (65-108); SAT O2 ABG 91 % (92-99)
[2016-05-13 08:16] LABS: FIO2 ABG 28
[2016-05-13] MEDS: GUAIFENESIN ER 600 MG TABLET.ER PO PRN (08:51)
[2016-05-13] MEDS: BENZOCAINE/MENTHOL LOZENGE. PO PRN ×2 (08:51→15:35)
[2016-05-13] MEDS: GUAIFENESIN DM 200MG/20MG 10 ML SYRUP. PO PRN ×3 (08:51→21:07)
[2016-05-13] MEDS: OMEGA-3 FATTY ACIDS/FISH OIL 1,000 MG CAPSULE. PO SCH (08:51)
[2016-05-13] MEDS: DOXYCYCLINE HYCLATE 100 MG TABLET PO SCH ×2 (08:51→21:06)
[2016-05-13] MEDS: DULOXETINE HCL 30 MG CAPSULE.DR. PO SCH (08:52)
[2016-05-13] MEDS: METOPROLOL SUCC 24HR ER 25 MG TAB.ER.24H. PO SCH (08:52)
[2016-05-13] MEDS: ASCORBIC ACID 500 MG TABLET PO SCH (08:53)
[2016-05-13] MEDS: FERROUS SULFATE 142 MG PO SCH (08:53)
[2016-05-13] MEDS: CLOPIDOGREL BISULFATE 75 MG TABLET PO SCH (08:53)
[2016-05-13] MEDS: POTASSIUM CHLORIDE 10 MEQ TABLET.ER. PO SCH (08:54)
[2016-05-13] MEDS: PANTOPRAZOLE 40 MG TABLET. PO SCH (08:54)
[2016-05-13] MEDS: PREGABALIN 50 MG CAPSULE PO SCH ×3 (08:55→21:06)
[2016-05-13] MEDS: LOSARTAN POTASSIUM 25 MG TABLET. PO SCH (08:55)
[2016-05-13] MEDS: DILTIAZEM HCL 120 MG CAP.ER.24H PO SCH (08:56)
[2016-05-13] MEDS: CHOLECALCIFEROL (VITAMIN D3) 1,000 UNIT TABLET PO SCH (08:57)
--- NOTE | 2016-05-13 08:59 | RAD ---
Indication: Shortness of air. Time of exam 0839 hours. 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 The heart size is stable. Congestive changes have developed in both lungs since prior. There is central congestion and interstitial infiltrates noted bilaterally. No effusion is seen. There is no pneumothorax. Impression: Development of congestive changes when compared with exam 4 days earlier.
[2016-05-13] MEDS: PSYLLIUM HUSK (SUGAR FREE) 1 PKT PACKET PO SCH (09:00)
[2016-05-13] MEDS ORDERED: FUROSEMIDE 40 MG/4 ML VIAL IVP ONE (09:00)
[2016-05-13] MEDS: APIXABAN 2.5 MG TABLET. PO SCH (09:21)
[2016-05-13] MEDS: EZETIMIBE 10 MG TABLET PO SCH (09:23)
[2016-05-13] MEDS: INSULIN ASPART 300 UNITS/3 ML INSULN.PEN SQ SCH ×3 (09:35→17:58)
[2016-05-13 10:50] VITALS: BP 119/55
--- NOTE | 2016-05-13 10:50 | PDOC ---
PROGRESS NOTES Chief Complaint Chief Complaint Pneumonia, on CHF - arthritis - CHF, acute systolic - diabetes, insulin req. hypoglycemia yesterday - pneumonia, POA - coronary artery disease - tinnitus - gastritis History of Present Illness History of Present Illness sitting up, SOA is much improved, but she does complain of a slight wheeze Vitals Vitals Vital Signs Date Time Temp Pulse Resp B/P Pulse Ox O2 Delivery O2 Flow Rate FiO2 05/13/16 08:56 134 05/13/16 07:56 Nasal Cannula 2.0 05/13/16 07:25 97.9 16 151/81 90 97.9 Physical Exam Physical Exam tele reg, rate 93 General: Alert, Oriented X3, No acute distress Heart: Regular rate Lungs: Other ( ) Abdomen: Soft, No tenderness Skin: No significant lesion Labs LABS Laboratory Tests Test 05/12/16 10:49 05/12/16 17:47 05/12/16 20:33 05/13/16 05:15 Glucose (Fingerstick) 165mg/dL (70-99) 216mg/dL (70-99) 221mg/dL (70-99) White Blood Count 6.5x10^3/uL (4.0-11.0) Red Blood Count 3.01x10^6/uL (3.50-5.40) Hemoglobin 8.2g/dL (12.0-15.5) Hematocrit 26.7% (36.0-47.0) Mean Corpuscular Volume 89fL (79-100) Mean Corpuscular Hemoglobin 27pg (25-35) Mean Corpuscular Hemoglobin Concent 31g/dL (31-37) Red Cell Distribution Width 18.9% (11.5-14.5) Platelet Count 209x10^3/uL (140-400) Neutrophils (%) (Auto) 85% (31-73) Lymphocytes (%) (Auto) 8% (24-48) Monocytes (%) (Auto) 7% (0-9) Eosinophils (%) (Auto) 0% (0-3) Basophils (%) (Auto) 0% (0-3) Neutrophils # (Auto) 5.5x10^3uL (1.8-7.7) Lymphocytes # (Auto) 0.5x10^3/uL (1.0-4.8) Monocytes # (Auto) 0.5x10^3/uL (0.0-1.1) Eosinophils # (Auto) 0.0x10^3/uL (0.0-0.7) Basophils # (Auto) 0.0x10^3/uL (0.0-0.2) Sodium Level 137mmol/L (136-145) Potassium Level 5.2mmol/L (3.5-5.1) Chloride Level 102mmol/L (98-107) Carbon Dioxide Level 29mmol/L (21-32) Anion Gap 6 (6-14) Blood Urea Nitrogen 29mg/dL (7-20) Creatinine 1.0mg/dL (0.6-1.0) Estimated GFR (Cockcroft-Gault) 63.3 Glucose Level 242mg/dL (70-99) Calcium Level 8.7mg/dL (8.5-10.1) YK-Xrx-X-Type Natriuretic Peptide 3286pg/mL (0-449) Test 05/13/16 07:30 05/13/16 07:37 Glucose (Fingerstick) 236mg/dL (70-99) O2 Saturation 91% (92-99) Arterial Blood pH 7.38 (7.35-7.45) Arterial Blood pCO2 at Patient Temp 47mmHg (35-46) Arterial Blood pO2 at Patient Temp 64mmHg (65-108) Arterial Blood HCO3 27mmol/L (21-28) Arterial Blood Base Excess 1mmol/L (-3-3) FiO2 28 Review of Systems Review of Systems no n.v.d Assessment and Plan Assessmemt and Plan stop the sched potassium I would restart Aspart at 10 TID meals, she was on 20 TID when she went low. Will defer ordering, will discuss with Dr. Chen Problems Medical Problems: (1) CHF (congestive heart failure) Status: Acute (2) Elevated troponin Status: Acute (3) Non-STEMI (non-ST elevated myocardial infarction) Status: Acute Problems: Comment Review of Relevant I have reviewed the following items meqluiades (where applicable) has been applied. Labs Laboratory Tests Test 05/11/16 11:39 05/11/16 16:15 05/11/16 20:18 05/12/16 03:37 Glucose (Fingerstick) 251mg/dL (70-99) 287mg/dL (70-99) 236mg/dL (70-99) White Blood Count 6.3x10^3/uL (4.0-11.0) Red Blood Count 2.87x10^6/uL (3.50-5.40) Hemoglobin 7.9g/dL (12.0-15.5) Hematocrit 25.6% (36.0-47.0) Mean Corpuscular Volume 89fL (79-100) Mean Corpuscular Hemoglobin 28pg (25-35) Mean Corpuscular Hemoglobin Concent 31g/dL (31-37) Red Cell Distribution Width 19.4% (11.5-14.5) Platelet Count 187x10^3/uL (140-400) Neutrophils (%) (Auto) 79% (31-73) Lymphocytes (%) (Auto) 9% (24-48) Monocytes (%) (Auto) 11% (0-9) Eosinophils (%) (Auto) 1% (0-3) Basophils (%) (Auto) 0% (0-3) Neutrophils # (Auto) 5.0x10^3uL (1.8-7.7) Lymphocytes # (Auto) 0.6x10^3/uL (1.0-4.8) Monocytes # (Auto) 0.7x10^3/uL (0.0-1.1) Eosinophils # (Auto) 0.0x10^3/uL (0.0-0.7) Basophils # (Auto) 0.0x10^3/uL (0.0-0.2) Sodium Level 141mmol/L (136-145) Potassium Level 4.1mmol/L (3.5-5.1) Chloride Level 102mmol/L (98-107) Carbon Dioxide Level 33mmol/L (21-32) Anion Gap 6 (6-14) Blood Urea Nitrogen 40mg/dL (7-20) Creatinine 1.4mg/dL (0.6-1.0) Estimated GFR (Cockcroft-Gault) 42.9 Glucose Level 85mg/dL (70-99) Calcium Level 8.4mg/dL (8.5-10.1) Test 05/12/16 07:10 05/12/16 07:36 05/12/16 10:49 05/12/16 17:47 Glucose (Fingerstick) 32mg/dL (70-99) 88mg/dL (70-99) 165mg/dL (70-99) 216mg/dL (70-99) Test 05/12/16 20:33 05/13/16 05:15 05/13/16 07:30 05/13/16 07:37 Glucose (Fingerstick) 221mg/dL (70-99) 236mg/dL (70-99) White Blood Count 6.5x10^3/uL (4.0-11.0) Red Blood Count 3.01x10^6/uL (3.50-5.40) Hemoglobin 8.2g/dL (12.0-15.5) Hematocrit 26.7% (36.0-47.0) Mean Corpuscular Volume 89fL (79-100) Mean Corpuscular Hemoglobin 27pg (25-35) Mean Corpuscular Hemoglobin Concent 31g/dL (31-37) Red Cell Distribution Width 18.9% (11.5-14.5) Platelet Count 209x10^3/uL (140-400) Neutrophils (%) (Auto) 85% (31-73) Lymphocytes (%) (Auto) 8% (24-48) Monocytes (%) (Auto) 7% (0-9) Eosinophils (%) (Auto) 0% (0-3) Basophils (%) (Auto) 0% (0-3) Neutrophils # (Auto) 5.5x10^3uL (1.8-7.7) Lymphocytes # (Auto) 0.5x10^3/uL (1.0-4.8) Monocytes # (Auto) 0.5x10^3/uL (0.0-1.1) Eosinophils # (Auto) 0.0x10^3/uL (0.0-0.7) Basophils # (Auto) 0.0x10^3/uL (0.0-0.2) Sodium Level 137mmol/L (136-145) Potassium Level 5.2mmol/L (3.5-5.1) Chloride Level 102mmol/L (98-107) Carbon Dioxide Level 29mmol/L (21-32) Anion Gap 6 (6-14) Blood Urea Nitrogen 29mg/dL (7-20) Creatinine 1.0mg/dL (0.6-1.0) Estimated GFR (Cockcroft-Gault) 63.3 Glucose Level 242mg/dL (70-99) Calcium Level 8.7mg/dL (8.5-10.1) ZH-Bkp-Y-Type Natriuretic Peptide 3286pg/mL (0-449) O2 Saturation 91% (92-99) Arterial Blood pH 7.38 (7.35-7.45) Arterial Blood pCO2 at Patient Temp 47mmHg (35-46) Arterial Blood pO2 at Patient Temp 64mmHg (65-108) Arterial Blood HCO3 27mmol/L (21-28) Arterial Blood Base Excess 1mmol/L (-3-3) FiO2 28 Laboratory Tests Test 05/12/16 10:49 05/12/16 17:47 05/12/16 20:33 05/13/16 05:15 Glucose (Fingerstick) 165mg/dL (70-99) 216mg/dL (70-99) 221mg/dL (70-99) White Blood Count 6.5x10^3/uL (4.0-11.0) Red Blood Count 3.01x10^6/uL (3.50-5.40) Hemoglobin 8.2g/dL (12.0-15.5) Hematocrit 26.7% (36.0-47.0) Mean Corpuscular Volume 89fL (79-100) Mean Corpuscular Hemoglobin 27pg (25-35) Mean Corpuscular Hemoglobin Concent 31g/dL (31-37) Red Cell Distribution Width 18.9% (11.5-14.5) Platelet Count 209x10^3/uL (140-400) Neutrophils (%) (Auto) 85% (31-73) Lymphocytes (%) (Auto) 8% (24-48) Monocytes (%) (Auto) 7% (0-9) Eosinophils (%) (Auto) 0% (0-3) Basophils (%) (Auto) 0% (0-3) Neutrophils # (Auto) 5.5x10^3uL (1.8-7.7) Lymphocytes # (Auto) 0.5x10^3/uL (1.0-4.8) Monocytes # (Auto) 0.5x10^3/uL (0.0-1.1) Eosinophils # (Auto) 0.0x10^3/uL (0.0-0.7) Basophils # (Auto) 0.0x10^3/uL (0.0-0.2) Sodium Level 137mmol/L (136-145) Potassium Level 5.2mmol/L (3.5-5.1) Chloride Level 102mmol/L (98-107) Carbon Dioxide Level 29mmol/L (21-32) Anion Gap 6 (6-14) Blood Urea Nitrogen 29mg/dL (7-20) Creatinine 1.0mg/dL (0.6-1.0) Estimated GFR (Cockcroft-Gault) 63.3 Glucose Level 242mg/dL (70-99) Calcium Level 8.7mg/dL (8.5-10.1) FT-Srr-V-Type Natriuretic Peptide 3286pg/mL (0-449) Test 05/13/16 07:30 05/13/16 07:37 Glucose (Fingerstick) 236mg/dL (70-99) O2 Saturation 91% (92-99) Arterial Blood pH 7.38 (7.35-7.45) Arterial Blood pCO2 at Patient Temp 47mmHg (35-46) Arterial Blood pO2 at Patient Temp 64mmHg (65-108) Arterial Blood HCO3 27mmol/L (21-28) Arterial Blood Base Excess 1mmol/L (-3-3) FiO2 28 Microbiology 05/09/16 Urine Culture - Final, Complete 05/09/16 Urine Culture Result 1 (MATT) - Final, Complete Medications Current Medications Furosemide (Lasix) 40 mg 1X ONCE IVP Last administered on 05/09/16t 05:07; Start 05/09/16 at 04:15; Stop 05/09/16 at 04:16; Status DC Ondansetron HCl (Zofran) 4 mg PRN Q8HRS PRN IV NAUSEA/VOMITING; Start 05/09/16 at 05:45; Stop 05/10/16 at 05:44; Status DC Acetaminophen (Tylenol) 650 mg PRN Q4HRS PRN PO FEVER; Start 05/09/16 at 05:45 ; Stop 05/10/16 at 05:44; Status DC Aspirin (Gay Aspirin) 325 mg 1X ONCE PO Last administered on 05/09/16 10:08 ; Start 05/09/16 at 06:30; Stop 05/09/16 at 06:31; Status DC Pneumococcal Polyvalent Vaccine (Do NOT chart on this placeholder) 1 each 1X ONCE MC ; Start 05/09/16 at 09:15; Stop 05/09/16 at 09:16; Status UNV Pneumococcal Polyvalent Vaccine (Pneumovax 23) 0.5 ml ONCE ONCE VAX IM ; Start 05/09/16 at 11:00; Stop 05/09/16 at 11:01; Status DC Insulin Detemir (Levemir) 22 units QHS SQ ; Start 05/09/16 at 11:30; Stop at 11:42; Status DC Insulin Aspart (Novolog) 0-7 UNITS TIDWMEALS SQ Last administered on 05/13/16 09:35; Start 05/09/16 at 12:32 Dextrose 12.5 gm PRN Q15MIN PRN IV SEE COMMENTS Last administered on 05/12/16 07:15; Start 05/09/16 at 11:30 Insulin Detemir (Levemir) 22 units DAILY SQ Last administered on 05/11/16 09: 04; Start 05/09/16 at 11:30 Acetaminophen/ Codeine Phosphate (Tylenol #3) 2 tab Q6HRS PO ; Start 05/09/16 at 18:00; Stop 05/09/16 at 19:34; Status DC Alprazolam (Xanax) 0.5 mg BID PO Last administered on 05/11/16 08:54; Start at 21:00; Stop 05/11/16 at 10:34; Status DC Clopidogrel Bisulfate (Plavix) 75 mg DAILY PO Last administered on 05/13/16 08 :53; Start 05/09/16 at 16:00 Diltiazem HCl (Cardizem 24hr Cd) 240 mg DAILY PO Last administered on 08:56; Start 05/09/16 at 16:00 EZETIMIBE (Zetia) 10 mg DAILY PO Last administered on 05/13/16 09:23; Start at 16:00 Fluticasone Propionate (Flonase) 1 spray PRN DAILY PRN NS Allergies; Start at 15:00 Furosemide (Lasix) 40 mg DAILY PO Last administered on 05/09/16 16:40; Start 05/09/16 at 16:00; Stop 05/11/16 at 10:59; Status DC Losartan Potassium (Cozaar) 25 mg DAILY PO Last administered on 05/13/16 08:55 ; Start 05/09/16 at 16:00 Metoprolol Succinate (Toprol Xl) 25 mg DAILY PO Last administered on 05/13/16 08:52; Start 05/09/16 at 16:00 Nitroglycerin (Nitrostat) 0.4 mg PRN Q10MIN SL ; Start 05/09/16 at 15:00 Pantoprazole Sodium (Protonix) 40 mg DAILYAC PO Last administered on 05/13/16 08:54; Start 05/09/16 at 16:30 Polyethylene Glycol (miraLAX PACKET) 17 gm HS PO Last administered on 22:29; Start 05/09/16 at 21:00 Atorvastatin Calcium (Lipitor) 20 mg QHS PO Last administered on 05/12/16 22: 30; Start 05/09/16 at 21:00 Ascorbic Acid (Vitamin C) 250 mg DAILY PO Last administered on 05/13/16 08:53 ; Start 05/09/16 at 16:00 Vitamin D (Vitamin D3) 3,000 unit DAILY PO Last administered on 05/13/16 08:57 ; Start 05/09/16 at 16:00 Duloxetine HCl (Cymbalta) 60 mg DAILY PO Last administered on 05/13/16 08:52; Start 05/09/16 at 16:00 Ferrous Sulfate (Slow Release Iron) 142 mg [id number] PO Last administered on 08:53; Start 05/10/16 at 08:00 Insulin Detemir (Levemir) 22 units DAILY08 SQ ; Start 05/10/16 at 08:00; Stop at 10:05; Status DC Fish Oil (Fish Oil) 1,000 mg DAILY PO Last administered on 05/13/16 08:51; Start 05/09/16 at 16:00 Psyllium Hydrophilic Mucilloid (Metamucil Fiber Packet) 1 pkt DAILY PO Last administered on 05/12/16 09:19; Start 05/09/16 at 16:00 Apixaban (Eliquis) 5 mg BID PO Last administered on 05/11/16 08:54; Start at 21:00; Stop 05/11/16 at 11:28; Status DC Potassium Chloride (Klor-Con) 10 meq BID PO Last administered on 05/12/16 22: 30; Start 05/09/16 at 21:00 Pregabalin (Lyrica) 50 mg TID PO Last administered on 05/13/16 08:55; Start at 16:00 Info (Anti-Coagulation Monitoring By Pharmacy) 1 each PRN DAILY PRN MC SEE COMMENTS Last administered on 05/12/16 09:29; Start 05/09/16 at 15:30 Acetaminophen/ Codeine Phosphate (Tylenol #3) 2 tab PRN Q6HRS PRN PO PAIN; Start 05/09/16 at 20:00 Furosemide (Lasix) 40 mg 1X ONCE IVP Last administered on 05/10/16 03:58; Start 05/10/16 at 04:15; Stop 05/10/16 at 04:16; Status DC Digoxin (Lanoxin) 250 mcg 1X ONCE IV Last administered on 05/10/16 03:59; Start 05/10/16 at 04:15; Stop 05/10/16 at 04:16; Status DC Diltiazem HCl 10 mg 10 mg 1X ONCE IVP Last administered on 05/10/16 05:54; Start 05/10/16 at 06:00; Stop 05/10/16 at 06:01; Status DC Diltiazem HCl/ Dextrose (Cardizem) 125 ml @ 0 mls/hr CONT PRN IV SEE I/O RECORD Last administered on 05/10/16 05:55; Start 05/10/16 at 05:45; Stop 05/11 at 10:59; Status DC Insulin Aspart (Novolog) 15 units 1X ONCE SQ Last administered on 05/10/16 12 :12; Start 05/10/16 at 10:15; Stop 05/10/16 at 10:16; Status DC Insulin Aspart (Novolog) 30 units 1X ONCE SQ Last administered on 05/10/16 17 :31; Start 05/10/16 at 17:30; Stop 05/10/16 at 17:31; Status DC Guaifenesin (Robitussin Dm) 10 ml PRN Q6HRS PRN PO COUGH Last administered on 09:21; Start 05/10/16 at 17:45 Insulin Aspart (Novolog) 20 units TIDAC SQ Last administered on 05/11/16 16:30 ; Start 05/11/16 at 07:30; Stop 05/12/16 at 09:33; Status DC Insulin Detemir (Levemir) 10 units QHS SQ Last administered on 05/11/16 21:00 ; Start 05/10/16 at 23:00; Stop 05/12/16 at 09:45; Status DC Albuterol Sulfate 2.5 mg 2.5 mg RTQID NEB Last administered on 05/13/16 07:37 ; Start 05/10/16 at 23:00 Ceftriaxone Sodium 1 gm/ Sodium Chloride 50 ml @ 100 mls/hr QHS IV Last administered on 05/12/16 22:29; Start 05/10/16 at 23:00 Iron Sucrose/ Sodium Chloride (Venofer/Iv Sodium Chloride 0.9% 100ml) 110 ml @ 55 mls/hr 1X ONCE IV Last administered on 05/11/16 11:54; Start 05/11/16 at 11:00; Stop 05/11/16 at 12:59; Status DC Guaifenesin (Mucinex) 600 mg PRN BID PRN PO COUGH Last administered on 08:51; Start 05/11/16 at 21:00 Alprazolam 0.5 mg 0.5 mg PRN Q8HRS PRN PO ANXIETY; Start 05/12/16 at 09:00; Stop 05/12/16 at 09:00; Status DC Albumin Human (Plasmanate) 250 ml @ 62.5 mls/hr 1X ONCE IV Last administered on 05/11/16 11:54; Start 05/11/16 at 11:00; Stop 05/11/16 at 14:59; Status DC Apixaban (Eliquis) 2.5 mg BID PO Last administered on 05/13/16 09:21; Start at 21:00 Doxycycline Hyclate 100 mg 100 mg BID PO Last administered on 05/13/16 08:51; Start 05/11/16 at 13:00 Albumin Human (Plasmanate) 250 ml @ 62.5 mls/hr 1X ONCE IV Last administered on 05/11/16 16:43; Start 05/11/16 at 16:30; Stop 05/11/16 at 20:29; Status DC Insulin Aspart (Novolog) 10 units TIDAC SQ ; Start 05/12/16 at 11:30; Stop 05/12 at 11:30; Status DC Metoprolol Tartrate (Lopressor) 5 mg 1X ONCE IVP Last administered on 22:28; Start 05/12/16 at 22:15; Stop 05/12/16 at 22:16; Status DC Promethazine HCl/ Codeine (Phenergan With Codeine) 5 ml 1X ONCE PO Last administered on 05/12/16 23:57; Start 05/12/16 at 23:45; Stop 05/12/16 at 23:46 ; Status DC Metoprolol Tartrate (Lopressor) 50 mg 1X ONCE PO Last administered on 23:58; Start 05/12/16 at 23:55; Stop 05/12/16 at 23:56; Status DC Throat Lozenges (Cepacol Sore Throat Lozenge) 1 isaías PRN Q6HRS PRN PO SORE THROAT Last administered on 05/13/16 08:51; Start 05/12/16 at 23:45 Furosemide (Lasix) 40 mg 1X ONCE IVP Last administered on 05/13/16 08:46; Start 05/13/16 at 09:00; Stop 05/13/16 at 09:01; Status DC Active Scripts Active Reported Lyrica (Pregabalin) 50 Mg Capsule 50 Mg PO TID Pantoprazole Sodium 40 Mg Tablet.dr 1 Tab PO DAILY Levemir (Insulin Detemir) 100 Unit/1 Ml Vial 22 Unit SQ DAILY08 Eliquis (Apixaban) 5 Mg Tablet 5 Mg PO BID Diltiazem 24HR Cd (Diltiazem Hcl) 120 Mg Cap.er.24h 240 Mg PO DAILY Plavix (Clopidogrel Bisulfate) 75 Mg Tablet 1 Tab PO DAILY Novolog Flexpen (Insulin Aspart) 100 Unit/1 Ml Insuln.pen 100 Unit SQ Zetia (Ezetimibe) 10 Mg Tablet 10 Mg PO DAILY Cymbalta (Duloxetine Hcl) 60 Mg Capsule.dr 60 Mg PO DAILY Alprazolam 0.5 Mg Tablet 1 Tab PO BID Flonase (Fluticasone Propionate) 16 Gm Ellis.susp 16 Gm NS PRN DAILY NITROGLYCERIN SubLingual (Nitroglycerin) 0.4 Mg Tab.subl 0.4 Mg SL PRN Q10MIN Vitamin C (Ascorbic Acid) 100 Mg Tablet 100 Mg PO DAILY Ferrous Sulfate 134 Mg Tablet 134 Mg PO DAILY [place] 3 1,000 Mg Softgel ([place]-3 Fatty Acids/Fish Oil) 1 Each Capsule 1 Each PO DAILY Miralax (Polyethylene Glycol 3350) 17 Gm Powd.pack 17 Gm PO HS Zocor (Simvastatin) 40 Mg Tablet 40 Mg PO HS Metamucil Packet (Psyllium Seed (With Sugar)) 1 Each Packet 1 Each PO DAILY Vitamin D3 (Cholecalciferol (Vitamin D3)) 3,000 Unit Tablet 3,000 Unit PO DAILY Potassium Chloride 10 Meq Tab.er.prt 10 Meq PO BID Lasix (Furosemide) 40 Mg Tablet 40 Mg PO DAILY Metoprolol Succinate ( Xl ) (Metoprolol Succinate) 25 Mg Tab.er.24h 25 Mg PO DAILY Losartan Potassium 25 Mg Tablet 25 Mg PO DAILY Acetaminophen-Cod #3 Tablet (Acetaminophen/Codeine Phosphate) 1 Each Tablet 2 Each PO Q6HRS PRN Vitals/I & O Vital Sign - Last 24 Hours 05/12/16 05/12/16 05/12/16 05/12/16 13:02 15:04 16:15 19:00 Temp 98.1 100.1 98.1 100.1 Pulse 126 126 Resp 20 21 B/P 117/64 122/76 Pulse Ox 94 98 O2 Delivery Nasal Cannula Nasal Cannula Nasal Cannula Nasal Cannula O2 Flow Rate 2.0 2.0 2.0 05/12/16 05/12/16 05/12/16 05/12/16 20:00 20:26 22:25 22:28 Pulse 155 155 B/P 136/84 136/84 Pulse Ox 92 O2 Delivery Nasal Cannula Nasal Cannula O2 Flow Rate 2.0 2.0 05/12/16 05/12/16 05/12/16 05/13/16 22:44 23:00 23:58 03:00 Temp 98.7 98.7 98.7 98.7 Pulse 119 117 143 122 Resp 24 23 B/P 118/95 137/97 126/89 142/74 Pulse Ox 97 94 O2 Delivery Nasal Cannula Nasal Cannula O2 Flow Rate 2.0 2.0 05/13/16 05/13/16 05/13/16 05/13/16 07:25 07:56 08:52 08:55 Temp 97.9 97.9 Pulse 98 124 122 Resp 16 B/P 151/81 Pulse Ox 90 O2 Delivery Nasal Cannula Nasal Cannula O2 Flow Rate 2.0 05/13/16 08:56 Pulse 134 Intake and Output 05/12/16 05/12/16 05/13/16 15:00 23:00 07:00 Intake Total 990 ml 200 ml Output Total 400 ml Balance 590 ml 200 ml JENNIFER MCPHERSON MD May 13, 2016 10:50
[2016-05-13] MEDS: INSULIN DETEMIR 300 UNITS/3 ML INSULN.PEN. SQ SCH (11:50)
[2016-05-13] MEDS: ANTI-COAG MONITOR BY PHARMACY. MC PRN (12:21)
[2016-05-13 15:26] VITALS: BP 147/82
[2016-05-13 19:44] VITALS: BP 93/62
[2016-05-13] MEDS: POLYETHYLENE GLYCOL 3350 17 GM PACKET. PO SCH (19:47)
[2016-05-13] MEDS ORDERED: INSULIN ASPART 300 UNITS/3 ML INSULN.PEN SQ ONE (20:45)
[2016-05-13] MEDS: CEFTRIAXONE SODIUM 1 GM in IV NORMAL SALINE 50ML 50 ML IV SCH (21:05)
[2016-05-13] MEDS: ATORVASTATIN CALCIUM 20 MG TABLET PO SCH (21:05)
[2016-05-13] MEDS: APIXABAN 5 MG TABLET. PO SCH (21:06)
--- NOTE | 2016-05-13 22:03 | PDOC ---
Provider Note Provider Note The tachycardia and shortness of breath she was experiencing last night was due to fluid overload. She feels much better today after IV Lasix even though a large output has not been recorded. She still complains of a cough and secretions in her throat that she is unable to bring up. Response to atrial fibrillation is only slightly elevated to 80-90 at rest. She is still hypoxic with a PO2 of 68 mmHg on 2 L of oxygen. She was on room air at home. Lungs show bibasilar wheezing. Diuresis has to be done very cautiously because she becomes hypotensive with her moderate aortic stenosis. The cardioversion that was originally considered is now postponed. We will do it after she's been on anticoagulation at least 4 weeks.. She then would be over her pneumonia. Consult pulmonary regarding has symptoms, CT scan and the requirement for oxygen. She definitely does have mild CHF. SOM SHORE MD May 13, 2016 22:03
[2016-05-13 23:19] VITALS: BP 119/63
[2016-05-14] VITALS (8 sets, daily range): BP systolic 97–154; BP diastolic 45–83
[2016-05-14 04:50] LABS: BASO % 1 % (0-3); EOS % 1 % (0-3); HEMATOCRIT 26.6 % (36.0-47.0); HEMOGLOBIN 8.1 g/dL (12.0-15.5); LYMPH # 0.5 x10^3/uL (1.0-4.8); LYMPH % 13 % (24-48); MEAN CORPUSCULAR HEMOGLOBIN 27 pg (25-35); MEAN CORPUSCULAR HGB CONC 31 g/dL (31-37); MEAN CORPUSCULAR VOLUME 89 fL (79-100); MONO % 11 % (0-9); NEUT % 75 % (31-73); PLATELET COUNT 172 x10^3/uL (140-400); RED BLOOD COUNT 3.01 x10^6/uL (3.50-5.40); RED CELL DISTRIBUTION WIDTH 19.1 % (11.5-14.5); WHITE BLOOD COUNT 4.1 x10^3/uL (4.0-11.0)
[2016-05-14 05:24] LABS: CALCIUM 8.7 mg/dL (8.5-10.1); CREATININE 1.1 mg/dL (0.6-1.0); GFR 56.7; POTASSIUM 4.3 mmol/L (3.5-5.1)
[2016-05-14] MEDS ORDERED: PROCHLORPERAZINE 10 MG/2 ML VIAL. IV PRN (07:00)
[2016-05-14] MEDS ORDERED: HYDROMORPHONE 2 MG/ML VIAL. IV PRN (07:00)
[2016-05-14] MEDS ORDERED: FENTANYL PF 100 MCG/2 ML VIAL. IV PRN ×2 (07:00)
[2016-05-14] MEDS ORDERED: ONDANSETRON PF 4 MG/2 ML VIAL. IV PRN (07:00)
[2016-05-14] MEDS ORDERED: MORPHINE SULFATE 2 MG/ML DISP.SYRIN. IV PRN (07:00)
[2016-05-14] MEDS ORDERED: IV RINGERS,LACTATED 1000ML 1,000 ML IV SCH (07:00)
[2016-05-14] MEDS ORDERED: LIDOCAINE 1% 1 ML SYRINGE. ID PRN (07:00)
[2016-05-14] MEDS: PANTOPRAZOLE 40 MG TABLET. PO SCH (07:30)
[2016-05-14] MEDS: INSULIN ASPART 300 UNITS/3 ML INSULN.PEN SQ SCH ×7 (07:30→17:50)
[2016-05-14] MEDS: ALBUTEROL SULFATE 2.5 MG/3 ML NEBU. NEB SCH ×4 (07:56→20:01)
[2016-05-14] MEDS: FERROUS SULFATE 142 MG PO SCH (08:00)
--- NOTE | 2016-05-14 08:08 | PDOC ---
Infectious Disease Note Subjective Subjective Better and hoping to go home soon ROS ROS GEN: Denies fevers, chills, sweats HEENT: Denies blurred vision, sore throat CV: Denies chest pain RESP: Denies shortness of air, cough GI: Denies n/v/d NEURO: Denies confusion, dizziness MSK: Denies weakness, joint pain/swelling Vital Sign Vital Signs Vital Signs Date Time Temp Pulse Resp B/P Pulse Ox O2 Delivery O2 Flow Rate FiO2 05/14/16 03:25 97.6 80 18 97/60 100 Nasal Cannula 3.0 97.6 Physical Exam PHYSICAL EXAM GENERAL: NAD, Alert. 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 x 3, no focal neurologic deficit SKIN: No rash IV: ok Labs Lab Laboratory Tests Test 05/13/16 10:53 05/13/16 17:16 05/13/16 20:37 05/13/16 23:06 Glucose (Fingerstick) 349mg/dL (70-99) 338mg/dL (70-99) 424mg/dL (70-99) 324mg/dL (70-99) Test 05/14/16 03:30 White Blood Count 4.1x10^3/uL (4.0-11.0) Red Blood Count 3.01x10^6/uL (3.50-5.40) Hemoglobin 8.1g/dL (12.0-15.5) Hematocrit 26.6% (36.0-47.0) Mean Corpuscular Volume 89fL (79-100) Mean Corpuscular Hemoglobin 27pg (25-35) Mean Corpuscular Hemoglobin Concent 31g/dL (31-37) Red Cell Distribution Width 19.1% (11.5-14.5) Platelet Count 172x10^3/uL (140-400) Neutrophils (%) (Auto) 75% (31-73) Lymphocytes (%) (Auto) 13% (24-48) Monocytes (%) (Auto) 11% (0-9) Eosinophils (%) (Auto) 1% (0-3) Basophils (%) (Auto) 1% (0-3) Neutrophils # (Auto) 3.0x10^3uL (1.8-7.7) Lymphocytes # (Auto) 0.5x10^3/uL (1.0-4.8) Monocytes # (Auto) 0.4x10^3/uL (0.0-1.1) Eosinophils # (Auto) 0.0x10^3/uL (0.0-0.7) Basophils # (Auto) 0.0x10^3/uL (0.0-0.2) Sodium Level 141mmol/L (136-145) Potassium Level 4.3mmol/L (3.5-5.1) Chloride Level 103mmol/L (98-107) Carbon Dioxide Level 33mmol/L (21-32) Anion Gap 5 (6-14) Blood Urea Nitrogen 29mg/dL (7-20) Creatinine 1.1mg/dL (0.6-1.0) Estimated GFR (Cockcroft-Gault) 56.7 Glucose Level 199mg/dL (70-99) Calcium Level 8.7mg/dL (8.5-10.1) Objective Assessment Acute Resp failure - better with lasix Pneumonia - elevated procalcitonin 4.12 on 05/11. neg Mycoplasma/Strep antigen. Mild wheeze persists Afib - Tachycardia - per Dr. Chen Leukocytosis - improved DM with elevated FSBS ? compliance per nursing Plan Plan of Care Cont Rocephin/Doxy. ? LATHA today Incentive spirometry Pulm eval today F/u labs and cult D/w daughter NICOLE DAVIS MD May 14, 2016 08:08
[2016-05-14] MEDS: CLOPIDOGREL BISULFATE 75 MG TABLET PO SCH (09:00)
[2016-05-14] MEDS: LOSARTAN POTASSIUM 25 MG TABLET. PO SCH (09:00)
[2016-05-14] MEDS: EZETIMIBE 10 MG TABLET PO SCH (09:00)
[2016-05-14] MEDS: CHOLECALCIFEROL (VITAMIN D3) 1,000 UNIT TABLET PO SCH (09:00)
[2016-05-14] MEDS: PSYLLIUM HUSK (SUGAR FREE) 1 PKT PACKET PO SCH (09:00)
[2016-05-14] MEDS: APIXABAN 5 MG TABLET. PO SCH ×2 (09:00→20:32)
[2016-05-14] MEDS: ASCORBIC ACID 500 MG TABLET PO SCH (09:00)
[2016-05-14] MEDS: OMEGA-3 FATTY ACIDS/FISH OIL 1,000 MG CAPSULE. PO SCH (09:00)
[2016-05-14] MEDS: ANTI-COAG MONITOR BY PHARMACY. MC PRN (09:01)
[2016-05-14] MEDS ORDERED: FUROSEMIDE 20 MG/2 ML VIAL IVP ONE (10:00)
[2016-05-14] MEDS: DOXYCYCLINE HYCLATE 100 MG TABLET PO SCH ×2 (10:02→20:33)
[2016-05-14] MEDS: DULOXETINE HCL 30 MG CAPSULE.DR. PO SCH (10:03)
[2016-05-14] MEDS: DILTIAZEM HCL 120 MG CAP.ER.24H PO SCH (10:06)
[2016-05-14] MEDS: PREGABALIN 50 MG CAPSULE PO SCH ×3 (10:07→20:32)
[2016-05-14] MEDS: METOPROLOL SUCC 24HR ER 25 MG TAB.ER.24H. PO SCH (10:08)
[2016-05-14] MEDS: INSULIN DETEMIR 300 UNITS/3 ML INSULN.PEN. SQ SCH (10:22)
[2016-05-14] MEDS: BENZOCAINE/MENTHOL LOZENGE. PO PRN (11:07)
[2016-05-14] MEDS: GUAIFENESIN DM 200MG/20MG 10 ML SYRUP. PO PRN (11:07)
--- NOTE | 2016-05-14 13:07 | PDOC ---
Provider Note Provider Note dictated see orders DAPHNE OAKES MD May 14, 2016 13:07
--- NOTE | 2016-05-14 13:35 | CONS ---
DATE OF CONSULTATION: PULMONARY CONSULTATION ATTENDING PHYSICIAN: Dr. Chen. REASON FOR CONSULTATION: Hypoxia, dyspnea, CHF. HISTORY OF PRESENT ILLNESS: The patient is an 89-year-old female who has no significant history of tobacco use. She has history of moderate aortic stenosis and also moderate concentric left ventricular hypertrophy and grade 1 diastolic dysfunction. The patient was hospitalized with complaint of some shortness of breath. She said she developed a cough and she was wheezing yesterday. She was placed on oxygen. Normally is not on home oxygen. Currently, she is on 2 liters with saturations of 99% and she is now down to 1 liter. She has no fever. Her influenza screen was negative. Pneumococcal antigen was negative as well. The patient had a CT chest, which was reviewed by me. This was done on 05/10/2016. At that time, she has ground glass infiltrates which are consistent with CHF and she also had evidence of left lower lobe infiltrate consistent with pneumonia. Chest x-ray from yesterday was also reviewed and it shows increasing CHF compared to the one from the . She also has postnasal drainage. PAST MEDICAL HISTORY: History of diastolic CHF and moderate aortic stenosis. History of diabetes, history of pneumonia, coronary artery disease, tinnitus, gastritis, cholecystectomy, appendectomy, hysterectomy, tonsillectomy. ALLERGIES: None. CURRENT MEDICATIONS: Reviewed as listed in the [facility] including antibiotics per Infectious Disease. SYSTEMS REVIEW: Twelve-point system obtained. Pertinent positives discussed in my history of present illness, otherwise noncontributory. All systems that were negative were reviewed as well. SOCIAL HISTORY: Nonsmoker. FAMILY HISTORY: Noncontributory to lungs. PHYSICAL EXAMINATION: VITAL SIGNS: Blood pressure stable, afebrile, pulse ox 98% on 1 liter. NECK: Supple. LUNGS: With faint expiratory wheezes. CARDIOVASCULAR: Regular rate. ABDOMEN: Soft and nontender. EXTREMITIES: With no pitting edema. LABORATORY DATA: Reviewed. Her white blood cell count 4.1, hemoglobin 8.1 and platelets are 172. BUN 29 and creatinine 1.1. ABGs with pH of 7.38, pCO2 of 47, pO2 of 64 on 2 liters. Influenza screen is negative. IMPRESSION: 1. Acute hypoxic respiratory failure secondary to combination of congestive heart failure and left lower lobe pneumonia. The pneumonia has overall improved, congestive heart failure did get worse yesterday. The patient continues to have faint wheezing and chest congestion, although overall she has responded to Lasix. 2. History of left ventricular hypertrophy, diastolic dysfunction and moderate aortic stenosis, and low BP which makes it challenging to aggressively diurese her while she is in heart failure. Atrial fibrillation contributes to contribute congestive heart failure as well. 3. No significant history of tobacco use. 4. Left lower lobe pneumonia, best seen on the CT chest, which is responding to antibiotics. 5. Postnasal drainage. RECOMMENDATIONS: 1. Discussed with Dr. Chen. At this point, I would recommend continue with cautious diuresis and monitoring blood pressure closely. 2. We will add scheduled bronchodilators, DuoNebs along with Pulmicort. 3. She may need oxygen at home and we would recommend a 6-minute walk test at the time of discharge. 4. Management of valvular heart disease and CHF per Dr. Chen. 5. Discussed with the patient's caregiver. Continue with antibiotics per ID. 6. f/u CXR today. DAPHNE OAKES MD DR: DIOR/mohsen JOB#: [id number] / [id number] ANGELA
--- NOTE | 2016-05-14 13:44 | RAD ---
Indication: CHF. Time of exam 1331 hours. Comparison is made with prior chest from one day earlier. The heart is mildly enlarged but stable. There are changes of median sternotomy. Congestive changes have improved since yesterday. No infiltrate is seen. No significant effusion or pneumothorax is identified. Impression: Improving congestive changes when compared with exam one day earlier.
[2016-05-14] MEDS: BUDESONIDE 0.5 MG/2 ML NEBU NEB SCH ×2 (14:00→20:01)
[2016-05-14] MEDS: IPRATRPIUM/ALBUTEROL 0.5/2.5MG 3 ML NEBU. NEB SCH ×2 (14:42→20:00)
[2016-05-14] MEDS: GUAIFENESIN ER 600 MG TABLET.ER PO PRN (15:05)
[2016-05-14] MEDS: CEFTRIAXONE SODIUM 1 GM in IV NORMAL SALINE 50ML 50 ML IV SCH (20:32)
[2016-05-14] MEDS: ATORVASTATIN CALCIUM 20 MG TABLET PO SCH (20:33)
[2016-05-14] MEDS: POLYETHYLENE GLYCOL 3350 17 GM PACKET. PO SCH (21:00)
--- NOTE | 2016-05-14 21:32 | PDOC ---
Provider Note Provider Note She is not as short of breath. However has significant bouts of nonproductive cough. She did not appear short of breath. Artery it was 90 bpm and in atrial fibrillation. Blood pressure 100/70. Lungs showed bilateral rales and rhonchi. 1. Persistent congestive heart failure secondary to aortic stenosis diastolic dysfunction 2. Atrial fibrillation resulting in an loss of atrial kick. 3. Moderate aortic stenosis and mild subaortic stenosis. 4. Iron deficiency anemia. 5. Severe hypoxia appears to be out of proportion to the CHF 6. Diabetes mellitus insulin-dependent elevated blood sugars. 7. Advanced age. PLAN 1. Treated to gently diurese because of some recent history of poor tension with diuresis. 2. Supplemental oxygen.3. 3. Continue nebulizers since she seems to benefit from it. 4. IAB I am to replace her iron deficiency. He has been intolerant of oral line. 5. Await Dr. Friend's opinion. SOM SHORE MD May 14, 2016 21:32
[2016-05-14] MEDS: FUROSEMIDE INJ 100 MG in IV NORMAL SALINE 100ML 100 ML IV PRN (22:18)
[2016-05-15] VITALS (10 sets, daily range): BP systolic 109–149; BP diastolic 50–77
[2016-05-15 05:30] LABS: BASO % 0 % (0-3); EOS % 2 % (0-3); HEMATOCRIT 24.9 % (36.0-47.0); HEMOGLOBIN 7.7 g/dL (12.0-15.5); LYMPH # 0.8 x10^3/uL (1.0-4.8); LYMPH % 14 % (24-48); MEAN CORPUSCULAR HEMOGLOBIN 28 pg (25-35); MEAN CORPUSCULAR HGB CONC 31 g/dL (31-37); MEAN CORPUSCULAR VOLUME 89 fL (79-100); MONO % 8 % (0-9); NEUT % 76 % (31-73); PLATELET COUNT 199 x10^3/uL (140-400); RED BLOOD COUNT 2.82 x10^6/uL (3.50-5.40); RED CELL DISTRIBUTION WIDTH 19.2 % (11.5-14.5); WHITE BLOOD COUNT 5.9 x10^3/uL (4.0-11.0)
[2016-05-15 05:53] LABS: CALCIUM 8.4 mg/dL (8.5-10.1); GFR 63.3; POTASSIUM 4.1 mmol/L (3.5-5.1)
[2016-05-15] MEDS ORDERED: DEXTROSE 50% 25 GM / 50ML DISP.SYRIN. IV PRN (07:00)
[2016-05-15] MEDS: IPRATRPIUM/ALBUTEROL 0.5/2.5MG 3 ML NEBU. NEB SCH ×4 (07:31→19:23)
[2016-05-15] MEDS: BUDESONIDE 0.5 MG/2 ML NEBU NEB SCH ×2 (07:31→19:24)
[2016-05-15] MEDS: ALBUTEROL SULFATE 2.5 MG/3 ML NEBU. NEB SCH ×3 (08:00→15:41)
[2016-05-15] MEDS: INSULIN ASPART 300 UNITS/3 ML INSULN.PEN SQ SCH ×6 (08:00→18:12)
[2016-05-15] MEDS: GUAIFENESIN ER 600 MG TABLET.ER PO PRN (08:40)
[2016-05-15] MEDS: DULOXETINE HCL 30 MG CAPSULE.DR. PO SCH (08:41)
[2016-05-15] MEDS: METOPROLOL SUCC 24HR ER 25 MG TAB.ER.24H. PO SCH (08:41)
[2016-05-15] MEDS: PREGABALIN 50 MG CAPSULE PO SCH ×3 (08:42→21:26)
[2016-05-15] MEDS: CHOLECALCIFEROL (VITAMIN D3) 1,000 UNIT TABLET PO SCH (08:42)
[2016-05-15] MEDS: LOSARTAN POTASSIUM 25 MG TABLET. PO SCH (08:42)
[2016-05-15] MEDS: PANTOPRAZOLE 40 MG TABLET. PO SCH (08:43)
[2016-05-15] MEDS: APIXABAN 5 MG TABLET. PO SCH ×2 (08:43→21:27)
[2016-05-15] MEDS: CLOPIDOGREL BISULFATE 75 MG TABLET PO SCH (08:43)
[2016-05-15] MEDS: ASCORBIC ACID 500 MG TABLET PO SCH (08:43)
[2016-05-15] MEDS: EZETIMIBE 10 MG TABLET PO SCH (08:43)
[2016-05-15] MEDS: PSYLLIUM HUSK (SUGAR FREE) 1 PKT PACKET PO SCH (08:44)
[2016-05-15] MEDS: OMEGA-3 FATTY ACIDS/FISH OIL 1,000 MG CAPSULE. PO SCH (08:44)
[2016-05-15] MEDS: DOXYCYCLINE HYCLATE 100 MG TABLET PO SCH ×2 (08:44→21:25)
[2016-05-15] MEDS: FERROUS SULFATE 142 MG PO SCH (08:44)
[2016-05-15] MEDS: DILTIAZEM HCL 120 MG CAP.ER.24H PO SCH (08:44)
--- NOTE | 2016-05-15 09:00 | RAD ---
EXAM: Chest, single view. HISTORY: Shortness of air. COMPARISON: 05/14/2016. FINDINGS: A frontal view of the chest is obtained. There is stable diffuse interstitial prominence with suspected lower lobe atelectasis. The heart is normal in size for portable technique. There are findings in size with CABG. There are few calcified granulomas. IMPRESSION: Stable diffuse interstitial prominence suggesting trace congestion with superimposed lower lobe atelectasis.
--- NOTE | 2016-05-15 09:16 | PDOC ---
Infectious Disease Note Subjective Subjective + cough with phlegm production. Sore ribs ROS ROS GEN: Denies fevers, chills, sweats RESP: Denies shortness of air GI: Denies n/v/d Vital Sign Vital Signs Vital Signs Date Time Temp Pulse Resp B/P Pulse Ox O2 Delivery O2 Flow Rate FiO2 05/15/16 08:44 110 123/59 05/15/16 08:13 98.9 20 99 Nasal Cannula 98.9 05/15/16 07:35 2.0 Physical Exam PHYSICAL EXAM GENERAL: Propped up in bed, NAD HEENT: Oral cavity clear NECK: Supple LUNGS: Clear HEART: S1S2 ABD: Soft, NT, BS present EXT: BLE trace edema. SUPERINTENDENT STATIONS: Alert, oriented x 3, no focal neurologic deficit SKIN: No rash IV: ok Labs Lab Laboratory Tests Test 05/14/16 10:56 05/14/16 17:01 05/15/16 04:20 05/15/16 08:16 Glucose (Fingerstick) 224mg/dL (70-99) 225mg/dL (70-99) 144mg/dL (70-99) White Blood Count 5.9x10^3/uL (4.0-11.0) Red Blood Count 2.82x10^6/uL (3.50-5.40) Hemoglobin 7.7g/dL (12.0-15.5) Hematocrit 24.9% (36.0-47.0) Mean Corpuscular Volume 89fL (79-100) Mean Corpuscular Hemoglobin 28pg (25-35) Mean Corpuscular Hemoglobin Concent 31g/dL (31-37) Red Cell Distribution Width 19.2% (11.5-14.5) Platelet Count 199x10^3/uL (140-400) Neutrophils (%) (Auto) 76% (31-73) Lymphocytes (%) (Auto) 14% (24-48) Monocytes (%) (Auto) 8% (0-9) Eosinophils (%) (Auto) 2% (0-3) Basophils (%) (Auto) 0% (0-3) Neutrophils # (Auto) 4.4x10^3uL (1.8-7.7) Lymphocytes # (Auto) 0.8x10^3/uL (1.0-4.8) Monocytes # (Auto) 0.5x10^3/uL (0.0-1.1) Eosinophils # (Auto) 0.1x10^3/uL (0.0-0.7) Basophils # (Auto) 0.0x10^3/uL (0.0-0.2) Sodium Level 141mmol/L (136-145) Potassium Level 4.1mmol/L (3.5-5.1) Chloride Level 103mmol/L (98-107) Carbon Dioxide Level 33mmol/L (21-32) Anion Gap 5 (6-14) Blood Urea Nitrogen 28mg/dL (7-20) Creatinine 1.0mg/dL (0.6-1.0) Estimated GFR (Cockcroft-Gault) 63.3 Glucose Level 150mg/dL (70-99) Calcium Level 8.4mg/dL (8.5-10.1) Magnesium Level 1.9mg/dL (1.8-2.4) EXAM: Chest, single view. HISTORY: Shortness of air. COMPARISON: 05/14/2016. FINDINGS: A frontal view of the chest is obtained. There is stable diffuse interstitial prominence with suspected lower lobe atelectasis. The heart is normal in size for portable technique. There are findings in size with CABG. There are few calcified granulomas. IMPRESSION: Stable diffuse interstitial prominence suggesting trace congestion with superimposed lower lobe atelectasis. Objective Assessment Acute Resp failure - better with lasix Pneumonia - elevated procalcitonin 4.12 on 05/11. -Mycoplasma/Strep antigen. negative Afib - Tachycardia - per Dr. Chen Leukocytosis - improved DM with elevated FSBS Plan Plan of Care Cont Rocephin/Doxy. Incentive spirometry Attending Co-Sign The patient was seen and interviewed as well as examined at the bedside. The chart was reviewed. The case was discussed. Agree with the plan of care. PAIGE DANIELLE APRN May 15, 2016 09:16 SANTI PATTERSON MD May 15, 2016 15:21
[2016-05-15] MEDS ORDERED: IRON SUCROSE COMPLEX 400 MG in IV NORMAL SALINE 250ML 250 ML IV ONE (10:00)
[2016-05-15] MEDS: INSULIN DETEMIR 300 UNITS/3 ML INSULN.PEN. SQ SCH (10:11)
--- NOTE | 2016-05-15 11:11 | PDOC ---
PULMONARY PROGRESS NOTES Subjective still has cough Vitals Vital Signs Date Time Temp Pulse Resp B/P Pulse Ox O2 Delivery O2 Flow Rate FiO2 05/15/16 10:45 98.2 101 20 119/50 99 Nasal Cannula 2.0 98.2 General: Alert, No acute distress Lungs: Wheezing (resolved) Cardiovascular: S1 Abdomen: Soft Neuro Exam: Alert Extremities: No Edema Skin: Warm Labs Laboratory Tests Test 05/13/16 17:16 05/13/16 20:37 05/13/16 23:06 05/14/16 03:30 Glucose (Fingerstick) 338mg/dL (70-99) 424mg/dL (70-99) 324mg/dL (70-99) White Blood Count 4.1x10^3/uL (4.0-11.0) Red Blood Count 3.01x10^6/uL (3.50-5.40) Hemoglobin 8.1g/dL (12.0-15.5) Hematocrit 26.6% (36.0-47.0) Mean Corpuscular Volume 89fL (79-100) Mean Corpuscular Hemoglobin 27pg (25-35) Mean Corpuscular Hemoglobin Concent 31g/dL (31-37) Red Cell Distribution Width 19.1% (11.5-14.5) Platelet Count 172x10^3/uL (140-400) Neutrophils (%) (Auto) 75% (31-73) Lymphocytes (%) (Auto) 13% (24-48) Monocytes (%) (Auto) 11% (0-9) Eosinophils (%) (Auto) 1% (0-3) Basophils (%) (Auto) 1% (0-3) Neutrophils # (Auto) 3.0x10^3uL (1.8-7.7) Lymphocytes # (Auto) 0.5x10^3/uL (1.0-4.8) Monocytes # (Auto) 0.4x10^3/uL (0.0-1.1) Eosinophils # (Auto) 0.0x10^3/uL (0.0-0.7) Basophils # (Auto) 0.0x10^3/uL (0.0-0.2) Sodium Level 141mmol/L (136-145) Potassium Level 4.3mmol/L (3.5-5.1) Chloride Level 103mmol/L (98-107) Carbon Dioxide Level 33mmol/L (21-32) Anion Gap 5 (6-14) Blood Urea Nitrogen 29mg/dL (7-20) Creatinine 1.1mg/dL (0.6-1.0) Estimated GFR (Cockcroft-Gault) 56.7 Glucose Level 199mg/dL (70-99) Calcium Level 8.7mg/dL (8.5-10.1) Test 05/14/16 08:08 05/14/16 10:56 05/14/16 17:01 05/15/16 04:20 Glucose (Fingerstick) 185mg/dL (70-99) 224mg/dL (70-99) 225mg/dL (70-99) White Blood Count 5.9x10^3/uL (4.0-11.0) Red Blood Count 2.82x10^6/uL (3.50-5.40) Hemoglobin 7.7g/dL (12.0-15.5) Hematocrit 24.9% (36.0-47.0) Mean Corpuscular Volume 89fL (79-100) Mean Corpuscular Hemoglobin 28pg (25-35) Mean Corpuscular Hemoglobin Concent 31g/dL (31-37) Red Cell Distribution Width 19.2% (11.5-14.5) Platelet Count 199x10^3/uL (140-400) Neutrophils (%) (Auto) 76% (31-73) Lymphocytes (%) (Auto) 14% (24-48) Monocytes (%) (Auto) 8% (0-9) Eosinophils (%) (Auto) 2% (0-3) Basophils (%) (Auto) 0% (0-3) Neutrophils # (Auto) 4.4x10^3uL (1.8-7.7) Lymphocytes # (Auto) 0.8x10^3/uL (1.0-4.8) Monocytes # (Auto) 0.5x10^3/uL (0.0-1.1) Eosinophils # (Auto) 0.1x10^3/uL (0.0-0.7) Basophils # (Auto) 0.0x10^3/uL (0.0-0.2) Sodium Level 141mmol/L (136-145) Potassium Level 4.1mmol/L (3.5-5.1) Chloride Level 103mmol/L (98-107) Carbon Dioxide Level 33mmol/L (21-32) Anion Gap 5 (6-14) Blood Urea Nitrogen 28mg/dL (7-20) Creatinine 1.0mg/dL (0.6-1.0) Estimated GFR (Cockcroft-Gault) 63.3 Glucose Level 150mg/dL (70-99) Calcium Level 8.4mg/dL (8.5-10.1) Magnesium Level 1.9mg/dL (1.8-2.4) Test 05/15/16 08:16 Glucose (Fingerstick) 144mg/dL (70-99) Laboratory Tests Test 05/14/16 17:01 05/15/16 04:20 05/15/16 08:16 Glucose (Fingerstick) 225mg/dL (70-99) 144mg/dL (70-99) White Blood Count 5.9x10^3/uL (4.0-11.0) Red Blood Count 2.82x10^6/uL (3.50-5.40) Hemoglobin 7.7g/dL (12.0-15.5) Hematocrit 24.9% (36.0-47.0) Mean Corpuscular Volume 89fL (79-100) Mean Corpuscular Hemoglobin 28pg (25-35) Mean Corpuscular Hemoglobin Concent 31g/dL (31-37) Red Cell Distribution Width 19.2% (11.5-14.5) Platelet Count 199x10^3/uL (140-400) Neutrophils (%) (Auto) 76% (31-73) Lymphocytes (%) (Auto) 14% (24-48) Monocytes (%) (Auto) 8% (0-9) Eosinophils (%) (Auto) 2% (0-3) Basophils (%) (Auto) 0% (0-3) Neutrophils # (Auto) 4.4x10^3uL (1.8-7.7) Lymphocytes # (Auto) 0.8x10^3/uL (1.0-4.8) Monocytes # (Auto) 0.5x10^3/uL (0.0-1.1) Eosinophils # (Auto) 0.1x10^3/uL (0.0-0.7) Basophils # (Auto) 0.0x10^3/uL (0.0-0.2) Sodium Level 141mmol/L (136-145) Potassium Level 4.1mmol/L (3.5-5.1) Chloride Level 103mmol/L (98-107) Carbon Dioxide Level 33mmol/L (21-32) Anion Gap 5 (6-14) Blood Urea Nitrogen 28mg/dL (7-20) Creatinine 1.0mg/dL (0.6-1.0) Estimated GFR (Cockcroft-Gault) 63.3 Glucose Level 150mg/dL (70-99) Calcium Level 8.4mg/dL (8.5-10.1) Magnesium Level 1.9mg/dL (1.8-2.4) Medications Active Scripts Medications Dose Route/Sig Days Date Category Lyrica (Pregabalin) 50 Mg Capsule 50 Mg PO TID 05/09/16 Reported Pantoprazole Sodium 40 Mg Tablet.dr 1 Tab PO DAILY 05/09/16 Reported Levemir (Insulin Detemir) 100 Unit/1 Ml Vial 22 Unit SQ DAILY08 05/09/16 Reported Eliquis (Apixaban) 5 Mg Tablet 5 Mg PO BID 04/26/16 Reported Diltiazem 24HR Cd (Diltiazem Hcl) 120 Mg Cap.er.24h 240 Mg PO DAILY 04/26/16 Reported Plavix (Clopidogrel Bisulfate) 75 Mg Tablet 1 Tab PO DAILY 03/21/14 Reported Novolog Flexpen (Insulin Aspart) 100 Unit/1 Ml Insuln.pen 100 Unit SQ 03/19/14 Reported Zetia (Ezetimibe) 10 Mg Tablet 10 Mg PO DAILY 03/19/14 Reported Cymbalta (Duloxetine Hcl) 60 Mg Capsule.dr 60 Mg PO DAILY 03/19/14 Reported Alprazolam 0.5 Mg Tablet 1 Tab PO BID 03/19/14 Reported Flonase (Fluticasone Propionate) 16 Gm Harts.susp 16 Gm NS PRN DAILY 04/07/13 Reported NITROGLYCERIN SubLingual (Nitroglycerin) 0.4 Mg Tab.subl 0.4 Mg SL PRN Q10MIN 04/07/13 Reported Vitamin C (Ascorbic Acid) 100 Mg Tablet 100 Mg PO DAILY 04/07/13 Reported Ferrous Sulfate 134 Mg Tablet 134 Mg PO DAILY 04/07/13 Reported Fourmile 3 1,000 Mg Softgel (Fourmile-3 Fatty Acids/Fish Oil) 1 Each Capsule 1 Each PO DAILY 04/07/13 Reported Miralax (Polyethylene Glycol 3350) 17 Gm Powd.pack 17 Gm PO HS 04/07/13 Reported Zocor (Simvastatin) 40 Mg Tablet 40 Mg PO HS 04/07/13 Reported Metamucil Packet (Psyllium Seed (With Sugar)) 1 Each Packet 1 Each PO DAILY 04/07/13 Reported Vitamin D3 (Cholecalciferol (Vitamin D3)) 3,000 Unit Tablet 3,000 Unit PO DAILY 04/07/13 Reported Potassium Chloride 10 Meq Tab.er.prt 10 Meq PO BID 04/07/13 Reported Lasix (Furosemide) 40 Mg Tablet 40 Mg PO DAILY 04/07/13 Reported Metoprolol Succinate ( Xl ) (Metoprolol Succinate) 25 Mg Tab.er.24h 25 Mg PO DAILY 04/07/13 Reported Losartan Potassium 25 Mg Tablet 25 Mg PO DAILY 04/07/13 Reported Acetaminophen-Cod #3 Tablet (Acetaminophen/Codeine Phosphate) 1 Each Tablet 2 Each PO Q6HRS PRN 04/07/13 Reported Impression . 1. Acute hypoxic respiratory failure secondary to combination of congestive heart failure and left lower lobe pneumonia. The pneumonia has overall improved, congestive heart failure did get worse 05/13. although overall she has responded to Lasix. 2. History of left ventricular hypertrophy, diastolic dysfunction and moderate aortic stenosis, and low BP which makes it challenging to aggressively diurese her while she is in heart failure. Atrial fibrillation contributes to contribute congestive heart failure as well. 3. No significant history of tobacco use. 4. Left lower lobe pneumonia, best seen on the CT chest, which is responding to antibiotics. 5. Postnasal drainage. Plan . 1. Discussed with Dr. Chen. At this point, I would recommend continue with cautious diuresis and monitoring blood pressure closely. 2. scheduled bronchodilators, DuoNebs along with Pulmicort. 3. She may need oxygen at home and we would recommend a 6-minute walk test at the time of discharge. 4. Management of valvular heart disease and CHF per Dr. Chen. 5. Discussed with the patient's caregiver 05/14. Continue with antibiotics per ID. 6. f/u CXR with mild improvement. DAPHNE OAKES MD May 15, 2016 11:11
--- NOTE | 2016-05-15 13:26 | PDOC ---
PROGRESS NOTES Chief Complaint Chief Complaint CHF exac of systolic - arthritis - CHF, acute systolic - diabetes, insulin req. hypoglycemia yesterday - pneumonia, POA - coronary artery disease - tinnitus - gastritis History of Present Illness History of Present Illness sitting up, on Lasix gtt, urine output has not improved much was constipated, has now stooled SOA is much improved, Vitals Vitals Vital Signs Date Time Temp Pulse Resp B/P Pulse Ox O2 Delivery O2 Flow Rate FiO2 05/15/16 11:36 99 Nasal Cannula 2.0 05/15/16 10:45 98.2 101 20 119/50 98.2 Physical Exam Physical Exam tele reg, rate 93 General: Alert, Oriented X3, No acute distress Heart: Regular rate Lungs: Wheezing (resolved) Abdomen: Soft, No tenderness Skin: No significant lesion Labs LABS Laboratory Tests Test 05/14/16 17:01 05/15/16 04:20 05/15/16 08:16 05/15/16 10:47 Glucose (Fingerstick) 225mg/dL (70-99) 144mg/dL (70-99) 262mg/dL (70-99) White Blood Count 5.9x10^3/uL (4.0-11.0) Red Blood Count 2.82x10^6/uL (3.50-5.40) Hemoglobin 7.7g/dL (12.0-15.5) Hematocrit 24.9% (36.0-47.0) Mean Corpuscular Volume 89fL (79-100) Mean Corpuscular Hemoglobin 28pg (25-35) Mean Corpuscular Hemoglobin Concent 31g/dL (31-37) Red Cell Distribution Width 19.2% (11.5-14.5) Platelet Count 199x10^3/uL (140-400) Neutrophils (%) (Auto) 76% (31-73) Lymphocytes (%) (Auto) 14% (24-48) Monocytes (%) (Auto) 8% (0-9) Eosinophils (%) (Auto) 2% (0-3) Basophils (%) (Auto) 0% (0-3) Neutrophils # (Auto) 4.4x10^3uL (1.8-7.7) Lymphocytes # (Auto) 0.8x10^3/uL (1.0-4.8) Monocytes # (Auto) 0.5x10^3/uL (0.0-1.1) Eosinophils # (Auto) 0.1x10^3/uL (0.0-0.7) Basophils # (Auto) 0.0x10^3/uL (0.0-0.2) Sodium Level 141mmol/L (136-145) Potassium Level 4.1mmol/L (3.5-5.1) Chloride Level 103mmol/L (98-107) Carbon Dioxide Level 33mmol/L (21-32) Anion Gap 5 (6-14) Blood Urea Nitrogen 28mg/dL (7-20) Creatinine 1.0mg/dL (0.6-1.0) Estimated GFR (Cockcroft-Gault) 63.3 Glucose Level 150mg/dL (70-99) Calcium Level 8.4mg/dL (8.5-10.1) Magnesium Level 1.9mg/dL (1.8-2.4) Review of Systems Review of Systems left reproducible chest wall pain, area 2cm, will apply ice Assessment and Plan Assessmemt and Plan Problems Medical Problems: (1) CHF (congestive heart failure) Status: Acute (2) Elevated troponin Status: Acute (3) Non-STEMI (non-ST elevated myocardial infarction) Status: Acute Problems: Comment Review of Relevant I have reviewed the following items melquiades (where applicable) has been applied. Labs Laboratory Tests Test 05/13/16 17:16 05/13/16 20:37 05/13/16 23:06 05/14/16 03:30 Glucose (Fingerstick) 338mg/dL (70-99) 424mg/dL (70-99) 324mg/dL (70-99) White Blood Count 4.1x10^3/uL (4.0-11.0) Red Blood Count 3.01x10^6/uL (3.50-5.40) Hemoglobin 8.1g/dL (12.0-15.5) Hematocrit 26.6% (36.0-47.0) Mean Corpuscular Volume 89fL (79-100) Mean Corpuscular Hemoglobin 27pg (25-35) Mean Corpuscular Hemoglobin Concent 31g/dL (31-37) Red Cell Distribution Width 19.1% (11.5-14.5) Platelet Count 172x10^3/uL (140-400) Neutrophils (%) (Auto) 75% (31-73) Lymphocytes (%) (Auto) 13% (24-48) Monocytes (%) (Auto) 11% (0-9) Eosinophils (%) (Auto) 1% (0-3) Basophils (%) (Auto) 1% (0-3) Neutrophils # (Auto) 3.0x10^3uL (1.8-7.7) Lymphocytes # (Auto) 0.5x10^3/uL (1.0-4.8) Monocytes # (Auto) 0.4x10^3/uL (0.0-1.1) Eosinophils # (Auto) 0.0x10^3/uL (0.0-0.7) Basophils # (Auto) 0.0x10^3/uL (0.0-0.2) Sodium Level 141mmol/L (136-145) Potassium Level 4.3mmol/L (3.5-5.1) Chloride Level 103mmol/L (98-107) Carbon Dioxide Level 33mmol/L (21-32) Anion Gap 5 (6-14) Blood Urea Nitrogen 29mg/dL (7-20) Creatinine 1.1mg/dL (0.6-1.0) Estimated GFR (Cockcroft-Gault) 56.7 Glucose Level 199mg/dL (70-99) Calcium Level 8.7mg/dL (8.5-10.1) Test 05/14/16 08:08 05/14/16 10:56 05/14/16 17:01 05/15/16 04:20 Glucose (Fingerstick) 185mg/dL (70-99) 224mg/dL (70-99) 225mg/dL (70-99) White Blood Count 5.9x10^3/uL (4.0-11.0) Red Blood Count 2.82x10^6/uL (3.50-5.40) Hemoglobin 7.7g/dL (12.0-15.5) Hematocrit 24.9% (36.0-47.0) Mean Corpuscular Volume 89fL (79-100) Mean Corpuscular Hemoglobin 28pg (25-35) Mean Corpuscular Hemoglobin Concent 31g/dL (31-37) Red Cell Distribution Width 19.2% (11.5-14.5) Platelet Count 199x10^3/uL (140-400) Neutrophils (%) (Auto) 76% (31-73) Lymphocytes (%) (Auto) 14% (24-48) Monocytes (%) (Auto) 8% (0-9) Eosinophils (%) (Auto) 2% (0-3) Basophils (%) (Auto) 0% (0-3) Neutrophils # (Auto) 4.4x10^3uL (1.8-7.7) Lymphocytes # (Auto) 0.8x10^3/uL (1.0-4.8) Monocytes # (Auto) 0.5x10^3/uL (0.0-1.1) Eosinophils # (Auto) 0.1x10^3/uL (0.0-0.7) Basophils # (Auto) 0.0x10^3/uL (0.0-0.2) Sodium Level 141mmol/L (136-145) Potassium Level 4.1mmol/L (3.5-5.1) Chloride Level 103mmol/L (98-107) Carbon Dioxide Level 33mmol/L (21-32) Anion Gap 5 (6-14) Blood Urea Nitrogen 28mg/dL (7-20) Creatinine 1.0mg/dL (0.6-1.0) Estimated GFR (Cockcroft-Gault) 63.3 Glucose Level 150mg/dL (70-99) Calcium Level 8.4mg/dL (8.5-10.1) Magnesium Level 1.9mg/dL (1.8-2.4) Test 05/15/16 08:16 05/15/16 10:47 Glucose (Fingerstick) 144mg/dL (70-99) 262mg/dL (70-99) Laboratory Tests Test 05/14/16 17:01 05/15/16 04:20 05/15/16 08:16 05/15/16 10:47 Glucose (Fingerstick) 225mg/dL (70-99) 144mg/dL (70-99) 262mg/dL (70-99) White Blood Count 5.9x10^3/uL (4.0-11.0) Red Blood Count 2.82x10^6/uL (3.50-5.40) Hemoglobin 7.7g/dL (12.0-15.5) Hematocrit 24.9% (36.0-47.0) Mean Corpuscular Volume 89fL (79-100) Mean Corpuscular Hemoglobin 28pg (25-35) Mean Corpuscular Hemoglobin Concent 31g/dL (31-37) Red Cell Distribution Width 19.2% (11.5-14.5) Platelet Count 199x10^3/uL (140-400) Neutrophils (%) (Auto) 76% (31-73) Lymphocytes (%) (Auto) 14% (24-48) Monocytes (%) (Auto) 8% (0-9) Eosinophils (%) (Auto) 2% (0-3) Basophils (%) (Auto) 0% (0-3) Neutrophils # (Auto) 4.4x10^3uL (1.8-7.7) Lymphocytes # (Auto) 0.8x10^3/uL (1.0-4.8) Monocytes # (Auto) 0.5x10^3/uL (0.0-1.1) Eosinophils # (Auto) 0.1x10^3/uL (0.0-0.7) Basophils # (Auto) 0.0x10^3/uL (0.0-0.2) Sodium Level 141mmol/L (136-145) Potassium Level 4.1mmol/L (3.5-5.1) Chloride Level 103mmol/L (98-107) Carbon Dioxide Level 33mmol/L (21-32) Anion Gap 5 (6-14) Blood Urea Nitrogen 28mg/dL (7-20) Creatinine 1.0mg/dL (0.6-1.0) Estimated GFR (Cockcroft-Gault) 63.3 Glucose Level 150mg/dL (70-99) Calcium Level 8.4mg/dL (8.5-10.1) Magnesium Level 1.9mg/dL (1.8-2.4) Microbiology 05/09/16 Urine Culture - Final, Complete 05/09/16 Urine Culture Result 1 (MATT) - Final, Complete Medications Current Medications Furosemide (Lasix) 40 mg 1X ONCE IVP Last administered on 05/09/16 05:07; Start 05/09/16 at 04:15; Stop 05/09/16 at 04:16; Status DC Ondansetron HCl (Zofran) 4 mg PRN Q8HRS PRN IV NAUSEA/VOMITING; Start 05/09/16 at 05:45; Stop 05/10/16 at 05:44; Status DC Acetaminophen (Tylenol) 650 mg PRN Q4HRS PRN PO FEVER; Start 05/09/16 at 05:45 ; Stop 05/10/16 at 05:44; Status DC Aspirin (Gay Aspirin) 325 mg 1X ONCE PO Last administered on 05/09/16 10:08 ; Start 05/09/16 at 06:30; Stop 05/09/16 at 06:31; Status DC Pneumococcal Polyvalent Vaccine (Do NOT chart on this placeholder) 1 each 1X ONCE MC ; Start 05/09/16 at 09:15; Stop 05/09/16 at 09:16; Status UNV Pneumococcal Polyvalent Vaccine (Pneumovax 23) 0.5 ml ONCE ONCE VAX IM Last administered on 05/13/16 17:47; Start 05/09/16 at 11:00; Stop 05/09/16 at 11:01 ; Status DC Insulin Detemir (Levemir) 22 units QHS SQ ; Start 05/09/16 at 11:30; Stop at 11:42; Status DC Insulin Aspart (Novolog) 0-7 UNITS TIDWMEALS SQ Last administered on 05/14/16 17:50; Start 05/09/16 at 12:32; Stop 05/15/16 at 06:59; Status DC Dextrose 12.5 gm PRN Q15MIN PRN IV SEE COMMENTS Last administered on 05/12/16 07:15; Start 05/09/16 at 11:30 Insulin Detemir (Levemir) 22 units DAILY SQ Last administered on 05/15/16 10: 11; Start 05/09/16 at 11:30 Acetaminophen/ Codeine Phosphate (Tylenol #3) 2 tab Q6HRS PO ; Start 05/09/16 at 18:00; Stop 05/09/16 at 19:34; Status DC Alprazolam (Xanax) 0.5 mg BID PO Last administered on 05/11/16 08:54; Start at 21:00; Stop 05/11/16 at 10:34; Status DC Clopidogrel Bisulfate (Plavix) 75 mg DAILY PO Last administered on 05/15/16 08 :43; Start 05/09/16 at 16:00 Diltiazem HCl (Cardizem 24hr Cd) 240 mg DAILY PO Last administered on 08:44; Start 05/09/16 at 16:00 EZETIMIBE (Zetia) 10 mg DAILY PO Last administered on 05/15/16 08:43; Start at 16:00 Fluticasone Propionate (Flonase) 1 spray PRN DAILY PRN NS Allergies; Start at 15:00 Furosemide (Lasix) 40 mg DAILY PO Last administered on 05/09/16 16:40; Start 05/09/16 at 16:00; Stop 05/11/16 at 10:59; Status DC Losartan Potassium (Cozaar) 25 mg DAILY PO Last administered on 05/15/16 08:42 ; Start 05/09/16 at 16:00 Metoprolol Succinate (Toprol Xl) 25 mg DAILY PO Last administered on 05/15/16 08:41; Start 05/09/16 at 16:00 Nitroglycerin (Nitrostat) 0.4 mg PRN Q10MIN SL ; Start 05/09/16 at 15:00 Pantoprazole Sodium (Protonix) 40 mg DAILYAC PO Last administered on 05/15/16 08:43; Start 05/09/16 at 16:30 Polyethylene Glycol (miraLAX PACKET) 17 gm HS PO Last administered on 22:29; Start 05/09/16 at 21:00 Atorvastatin Calcium (Lipitor) 20 mg QHS PO Last administered on 05/14/16 20: 33; Start 05/09/16 at 21:00 Ascorbic Acid (Vitamin C) 250 mg DAILY PO Last administered on 05/15/16 08:43 ; Start 05/09/16 at 16:00 Vitamin D (Vitamin D3) 3,000 unit DAILY PO Last administered on 05/15/16 08:42 ; Start 05/09/16 at 16:00 Duloxetine HCl (Cymbalta) 60 mg DAILY PO Last administered on 05/15/16 08:41; Start 05/09/16 at 16:00 Ferrous Sulfate (Slow Release Iron) 142 mg [id number] PO Last administered on 08:44; Start 05/10/16 at 08:00 Insulin Detemir (Levemir) 22 units DAILY08 SQ ; Start 05/10/16 at 08:00; Stop at 10:05; Status DC Fish Oil (Fish Oil) 1,000 mg DAILY PO Last administered on 05/15/16 08:44; Start 05/09/16 at 16:00 Psyllium Hydrophilic Mucilloid (Metamucil Fiber Packet) 1 pkt DAILY PO Last administered on 05/15/16 08:44; Start 05/09/16 at 16:00 Apixaban (Eliquis) 5 mg BID PO Last administered on 05/11/16 08:54; Start at 21:00; Stop 05/11/16 at 11:28; Status DC Potassium Chloride (Klor-Con) 10 meq BID PO Last administered on 05/12/16 22: 30; Start 05/09/16 at 21:00; Stop 05/13/16 at 10:47; Status DC Pregabalin (Lyrica) 50 mg TID PO Last administered on 05/15/16 08:42; Start at 16:00 Info (Anti-Coagulation Monitoring By Pharmacy) 1 each PRN DAILY PRN MC SEE COMMENTS Last administered on 05/14/16 09:01; Start 05/09/16 at 15:30 Acetaminophen/ Codeine Phosphate (Tylenol #3) 2 tab PRN Q6HRS PRN PO PAIN; Start 05/09/16 at 20:00 Furosemide (Lasix) 40 mg 1X ONCE IVP Last administered on 05/10/16 03:58; Start 05/10/16 at 04:15; Stop 05/10/16 at 04:16; Status DC Digoxin (Lanoxin) 250 mcg 1X ONCE IV Last administered on 05/10/16 03:59; Start 05/10/16 at 04:15; Stop 05/10/16 at 04:16; Status DC Diltiazem HCl 10 mg 10 mg 1X ONCE IVP Last administered on 05/10/16 05:54; Start 05/10/16 at 06:00; Stop 05/10/16 at 06:01; Status DC Diltiazem HCl/ Dextrose (Cardizem) 125 ml @ 0 mls/hr CONT PRN IV SEE I/O RECORD Last administered on 05/10/16 05:55; Start 05/10/16 at 05:45; Stop 05/11 at 10:59; Status DC Insulin Aspart (Novolog) 15 units 1X ONCE SQ Last administered on 05/10/16 12 :12; Start 05/10/16 at 10:15; Stop 05/10/16 at 10:16; Status DC Insulin Aspart (Novolog) 30 units 1X ONCE SQ Last administered on 05/10/16 17 :31; Start 05/10/16 at 17:30; Stop 05/10/16 at 17:31; Status DC Guaifenesin (Robitussin Dm) 10 ml PRN Q6HRS PRN PO COUGH Last administered on 11:07; Start 05/10/16 at 17:45 Insulin Aspart (Novolog) 20 units TIDAC SQ Last administered on 05/11/16 16:30 ; Start 05/11/16 at 07:30; Stop 05/12/16 at 09:33; Status DC Insulin Detemir (Levemir) 10 units QHS SQ Last administered on 05/11/16 21:00 ; Start 05/10/16 at 23:00; Stop 05/12/16 at 09:45; Status DC Albuterol Sulfate 2.5 mg 2.5 mg RTQID NEB Last administered on 05/14/16 20:01 ; Start 05/10/16 at 23:00 Ceftriaxone Sodium 1 gm/ Sodium Chloride 50 ml @ 100 mls/hr QHS IV Last administered on 05/14/16 20:32; Start 05/10/16 at 23:00 Iron Sucrose/ Sodium Chloride (Venofer/Iv Sodium Chloride 0.9% 100ml) 110 ml @ 55 mls/hr 1X ONCE IV Last administered on 05/11/16 11:54; Start 05/11/16 at 11:00; Stop 05/11/16 at 12:59; Status DC Guaifenesin (Mucinex) 600 mg PRN BID PRN PO COUGH Last administered on 08:40; Start 05/11/16 at 21:00 Alprazolam 0.5 mg 0.5 mg PRN Q8HRS PRN PO ANXIETY; Start 05/12/16 at 09:00; Stop 05/12/16 at 09:00; Status DC Albumin Human (Plasmanate) 250 ml @ 62.5 mls/hr 1X ONCE IV Last administered on 05/11/16 11:54; Start 05/11/16 at 11:00; Stop 05/11/16 at 14:59; Status DC Apixaban (Eliquis) 2.5 mg BID PO Last administered on 05/13/16 09:21; Start at 21:00; Stop 05/13/16 at 12:22; Status DC Doxycycline Hyclate 100 mg 100 mg BID PO Last administered on 05/15/16 08:44; Start 05/11/16 at 13:00 Albumin Human (Plasmanate) 250 ml @ 62.5 mls/hr 1X ONCE IV Last administered on 05/11/16 16:43; Start 05/11/16 at 16:30; Stop 05/11/16 at 20:29; Status DC Insulin Aspart (Novolog) 10 units TIDAC SQ ; Start 05/12/16 at 11:30; Stop 05/12 at 11:30; Status DC Metoprolol Tartrate (Lopressor) 5 mg 1X ONCE IVP Last administered on 22:28; Start 05/12/16 at 22:15; Stop 05/12/16 at 22:16; Status DC Promethazine HCl/ Codeine (Phenergan With Codeine) 5 ml 1X ONCE PO Last administered on 05/12/16 23:57; Start 05/12/16 at 23:45; Stop 05/12/16 at 23:46 ; Status DC Metoprolol Tartrate (Lopressor) 50 mg 1X ONCE PO Last administered on 23:58; Start 05/12/16 at 23:55; Stop 05/12/16 at 23:56; Status DC Throat Lozenges (Cepacol Sore Throat Lozenge) 1 isaías PRN Q6HRS PRN PO SORE THROAT Last administered on 05/14/16 11:07; Start 05/12/16 at 23:45 Furosemide (Lasix) 40 mg 1X ONCE IVP Last administered on 05/13/16 08:46; Start 05/13/16 at 09:00; Stop 05/13/16 at 09:01; Status DC Apixaban (Eliquis) 5 mg BID PO Last administered on 05/15/16 08:43; Start at 21:00 Ondansetron HCl (Zofran) 4 mg PRN Q6HRS PRN IV Nausea; Start 05/14/16 at 07:00 ; Stop 05/15/16 at 06:59; Status DC Fentanyl Citrate (Fentanyl 2ml Vial) 25 mcg PRN Q5MIN PRN IV MILD PAIN; Start 05/14/16 at 07:00; Stop 05/15/16 at 06:59; Status DC Fentanyl Citrate (Fentanyl 2ml Vial) 50 mcg PRN Q5MIN PRN IV MODERATE PAIN; Start 05/14/16 at 07:00; Stop 05/15/16 at 06:59; Status DC Morphine Sulfate 1 mg 1 mg PRN Q10MIN PRN IV SEVERE PAIN; Start 05/14/16 at 07: 00; Stop 05/15/16 at 06:59; Status DC Lactated Ringer's (Iv Lactated Ringers) 1,000 ml @ 30 mls/hr Q24H IV ; Start at 07:00; Stop 05/14/16 at 18:59; Status DC Lidocaine HCl 2 ml 1X PRN PRN ID IV START; Start 05/14/16 at 07:00; Stop at 06:59; Status DC Hydromorphone HCl (Dilaudid) 0.5 mg PRN Q10MIN PRN IV SEVERE PAIN, Second choice; Start 05/14/16 at 07:00; Stop 05/15/16 at 06:59; Status DC Prochlorperazine Edisylate (Compazine) 5 mg PACU PRN PRN IV NAUSEA; Start 05/14 at 07:00; Stop 05/15/16 at 06:59; Status DC Insulin Aspart (Novolog) 15 units 1X ONCE SQ Last administered on 05/13/16 21 :33; Start 05/13/16 at 20:45; Stop 05/13/16 at 20:46; Status DC Insulin Aspart (Novolog) 10 units TIDAC SQ Last administered on 05/15/16 13:01 ; Start 05/14/16 at 07:30 Furosemide (Lasix) 20 mg 1X ONCE IVP Last administered on 05/14/16 10:02; Start 05/14/16 at 10:00; Stop 05/14/16 at 10:01; Status DC Albuterol/ Ipratropium (Duoneb) 3 ml RTQID NEB Last administered on 05/15/16 11:28; Start 05/14/16 at 14:00 Budesonide 0.5 mg 0.5 mg RTBID NEB Last administered on 05/15/16 07:31; Start 05/14/16 at 14:00 Furosemide 100 mg/ Sodium Chloride 100 ml @ 0 mls/hr CONT PRN IV SEE I/O RECORD Last administered on 05/14/16 22:18; Start 05/14/16 at 22:00 Iron Sucrose/ Sodium Chloride (Venofer/Iv Sodium Chloride 0.9% 250ml) 270 ml @ 90 mls/hr 1X ONCE IV Last administered on 05/15/16 10:00; Start 05/15/16 at 10:00; Stop 05/15/16 at 12:59; Status DC Insulin Aspart (Novolog) 0-9 UNITS TIDWMEALS SQ Last administered on 05/15/16 13:00; Start 05/15/16 at 08:00 Dextrose 12.5 gm PRN Q15MIN PRN IV SEE COMMENTS; Start 05/15/16 at 07:00; Status UNV Active Scripts Active Reported Lyrica (Pregabalin) 50 Mg Capsule 50 Mg PO TID Pantoprazole Sodium 40 Mg Tablet.dr 1 Tab PO DAILY Levemir (Insulin Detemir) 100 Unit/1 Ml Vial 22 Unit SQ DAILY08 Eliquis (Apixaban) 5 Mg Tablet 5 Mg PO BID Diltiazem 24HR Cd (Diltiazem Hcl) 120 Mg Cap.er.24h 240 Mg PO DAILY Plavix (Clopidogrel Bisulfate) 75 Mg Tablet 1 Tab PO DAILY Novolog Flexpen (Insulin Aspart) 100 Unit/1 Ml Insuln.pen 100 Unit SQ Zetia (Ezetimibe) 10 Mg Tablet 10 Mg PO DAILY Cymbalta (Duloxetine Hcl) 60 Mg Capsule.dr 60 Mg PO DAILY Alprazolam 0.5 Mg Tablet 1 Tab PO BID Flonase (Fluticasone Propionate) 16 Gm [place].susp 16 Gm NS PRN DAILY NITROGLYCERIN SubLingual (Nitroglycerin) 0.4 Mg Tab.subl 0.4 Mg SL PRN Q10MIN Vitamin C (Ascorbic Acid) 100 Mg Tablet 100 Mg PO DAILY Ferrous Sulfate 134 Mg Tablet 134 Mg PO DAILY [place] 3 1,000 Mg Softgel ([place]-3 Fatty Acids/Fish Oil) 1 Each Capsule 1 Each PO DAILY Miralax (Polyethylene Glycol 3350) 17 Gm Powd.pack 17 Gm PO HS Zocor (Simvastatin) 40 Mg Tablet 40 Mg PO HS Metamucil Packet (Psyllium Seed (With Sugar)) 1 Each Packet 1 Each PO DAILY Vitamin D3 (Cholecalciferol (Vitamin D3)) 3,000 Unit Tablet 3,000 Unit PO DAILY Potassium Chloride 10 Meq Tab.er.prt 10 Meq PO BID Lasix (Furosemide) 40 Mg Tablet 40 Mg PO DAILY Metoprolol Succinate ( Xl ) (Metoprolol Succinate) 25 Mg Tab.er.24h 25 Mg PO DAILY Losartan Potassium 25 Mg Tablet 25 Mg PO DAILY Acetaminophen-Cod #3 Tablet (Acetaminophen/Codeine Phosphate) 1 Each Tablet 2 Each PO Q6HRS PRN Vitals/I & O Vital Sign - Last 24 Hours 05/14/16 05/14/16 05/14/16 05/14/16 15:00 19:45 19:50 20:01 Temp 98.0 97.7 98.0 97.7 Pulse 105 83 Resp 20 21 B/P 116/45 154/54 Pulse Ox 99 82 99 99 O2 Delivery Nasal Cannula Room Air Nasal Cannula Nasal Cannula O2 Flow Rate 2.0 2.0 2.0 05/14/16 05/14/16 05/14/16 05/14/16 20:03 22:19 23:19 23:34 Temp 97.7 97.7 Pulse 107 92 111 Resp 17 B/P 136/83 123/59 136/83 Pulse Ox 99 O2 Delivery Nasal Cannula Nasal Cannula O2 Flow Rate 2.0 2.0 05/15/16 05/15/16 05/15/16 05/15/16 00:19 01:19 02:19 04:19 Pulse 94 94 88 92 B/P 135/77 149/67 142/61 144/67 05/15/16 05/15/16 05/15/16 05/15/16 06:19 07:31 07:35 08:00 Pulse 94 B/P 145/59 Pulse Ox 100 100 O2 Delivery Nasal Cannula Nasal Cannula Nasal Cannula O2 Flow Rate 2.0 2.0 2.0 05/15/16 05/15/16 05/15/16 05/15/16 08:13 08:41 08:42 08:44 Temp 98.9 98.9 Pulse 110 110 110 110 Resp 20 B/P 123/59 123/59 123/59 123/59 Pulse Ox 99 O2 Delivery Nasal Cannula 05/15/16 05/15/16 10:45 11:36 Temp 98.2 98.2 Pulse 101 Resp 20 B/P 119/50 Pulse Ox 99 99 O2 Delivery Nasal Cannula Nasal Cannula O2 Flow Rate 2.0 2.0 Intake and Output 05/14/16 05/14/16 05/15/16 15:00 23:00 07:00 Intake Total 500 ml 60 ml Output Total 600 ml 450 ml 950 ml Balance -600 ml 50 ml -890 ml JENNIFER MCPHERSON MD May 15, 2016 13:26
--- NOTE | 2016-05-15 15:52 | PDOC ---
Provider Note Provider Note She was placed on a Lasix drip last night at 5 mg an hour. Urine output was thousand cc during the night. It could not be measured today. She still coughs very frequently and very violently. Lungs show bilateral wheezing. Chest x-ray continues to show mild increase in vascular congestion. The left lower lobe infiltrate that was previously noted has resolved. Discussed with Dr. Friend. He says that her symptoms and signs are all due to cardiac asyhma/ We will does continue to diurese. She cannot be discharged while she is still coughing as much as she is, and has such significant wheezing. SOM SHORE MD May 15, 2016 15:52
[2016-05-15] MEDS ORDERED: FUROSEMIDE 20 MG/2 ML VIAL IVP ONE (16:30)
[2016-05-15] MEDS ORDERED: ALBUTEROL SULFATE 2.5 MG/3 ML NEBU. NEB PRN (17:00)
[2016-05-15] MEDS: FUROSEMIDE INJ 100 MG in IV NORMAL SALINE 100ML 100 ML IV PRN (18:07)
[2016-05-15] MEDS: POLYETHYLENE GLYCOL 3350 17 GM PACKET. PO SCH (21:00)
[2016-05-15] MEDS: BENZOCAINE/MENTHOL LOZENGE. PO PRN (21:25)
[2016-05-15] MEDS: ATORVASTATIN CALCIUM 20 MG TABLET PO SCH (21:25)
[2016-05-15] MEDS: GUAIFENESIN DM 200MG/20MG 10 ML SYRUP. PO PRN (21:25)
[2016-05-15] MEDS: CEFTRIAXONE SODIUM 1 GM in IV NORMAL SALINE 50ML 50 ML IV SCH (21:27)
[2016-05-16] VITALS (7 sets, daily range): BP systolic 44–130; BP diastolic 36–71
[2016-05-16] MEDS: FUROSEMIDE INJ 100 MG in IV NORMAL SALINE 100ML 100 ML IV PRN (02:51)
[2016-05-16 05:46] LABS: BASO % 0 % (0-3); EOS % 3 % (0-3); HEMATOCRIT 25.1 % (36.0-47.0); HEMOGLOBIN 7.9 g/dL (12.0-15.5); LYMPH # 0.9 x10^3/uL (1.0-4.8); LYMPH % 14 % (24-48); MEAN CORPUSCULAR HEMOGLOBIN 28 pg (25-35); MEAN CORPUSCULAR HGB CONC 32 g/dL (31-37); MEAN CORPUSCULAR VOLUME 88 fL (79-100); MONO % 9 % (0-9); NEUT % 75 % (31-73); PLATELET COUNT 222 x10^3/uL (140-400); RED BLOOD COUNT 2.85 x10^6/uL (3.50-5.40); WHITE BLOOD COUNT 6.3 x10^3/uL (4.0-11.0)
[2016-05-16 06:00] LABS: CALCIUM 8.7 mg/dL (8.5-10.1); GFR 63.3; POTASSIUM 3.2 mmol/L (3.5-5.1)
[2016-05-16] MEDS: IPRATRPIUM/ALBUTEROL 0.5/2.5MG 3 ML NEBU. NEB SCH ×3 (07:45→19:42)
[2016-05-16] MEDS: BUDESONIDE 0.5 MG/2 ML NEBU NEB SCH ×2 (07:45→19:43)
[2016-05-16] MEDS: INSULIN ASPART 300 UNITS/3 ML INSULN.PEN SQ SCH ×6 (08:00→17:56)
[2016-05-16] MEDS ORDERED: POTASSIUM CHLORIDE 10 MEQ TABLET.ER. PO ONE (08:00)
[2016-05-16] MEDS: APIXABAN 5 MG TABLET. PO SCH ×2 (08:34→21:12)
[2016-05-16] MEDS: CLOPIDOGREL BISULFATE 75 MG TABLET PO SCH (08:34)
[2016-05-16] MEDS: ASCORBIC ACID 500 MG TABLET PO SCH (08:34)
[2016-05-16] MEDS: OMEGA-3 FATTY ACIDS/FISH OIL 1,000 MG CAPSULE. PO SCH (08:34)
[2016-05-16] MEDS: DILTIAZEM HCL 120 MG CAP.ER.24H PO SCH (08:34)
[2016-05-16] MEDS: LOSARTAN POTASSIUM 25 MG TABLET. PO SCH (08:35)
[2016-05-16] MEDS: FERROUS SULFATE 142 MG PO SCH (08:36)
[2016-05-16] MEDS: PANTOPRAZOLE 40 MG TABLET. PO SCH (08:36)
[2016-05-16] MEDS: CHOLECALCIFEROL (VITAMIN D3) 1,000 UNIT TABLET PO SCH (08:36)
[2016-05-16] MEDS: METOPROLOL SUCC 24HR ER 25 MG TAB.ER.24H. PO SCH (08:36)
[2016-05-16] MEDS: EZETIMIBE 10 MG TABLET PO SCH (08:36)
[2016-05-16] MEDS: PREGABALIN 50 MG CAPSULE PO SCH ×3 (08:37→21:13)
[2016-05-16] MEDS: DULOXETINE HCL 30 MG CAPSULE.DR. PO SCH (08:37)
[2016-05-16] MEDS: PSYLLIUM HUSK (SUGAR FREE) 1 PKT PACKET PO SCH (08:37)
[2016-05-16] MEDS: INSULIN DETEMIR 300 UNITS/3 ML INSULN.PEN. SQ SCH (08:46)
[2016-05-16] MEDS: DOXYCYCLINE HYCLATE 100 MG TABLET PO SCH (09:00)
--- NOTE | 2016-05-16 09:18 | PDOC ---
Infectious Disease Note Subjective Subjective Less cough with phlegm production. ROS ROS GEN: Denies fevers, chills, sweats CV: Denies chest pain RESP: Denies shortness of air GI: Denies n/v/d Vital Sign Vital Signs Vital Signs Date Time Temp Pulse Resp B/P Pulse Ox O2 Delivery O2 Flow Rate FiO2 05/16/16 08:36 100 102/71 05/16/16 07:48 100 Nasal Cannula 2.0 05/16/16 07:31 97.4 21 97.4 Physical Exam PHYSICAL EXAM GENERAL: Propped up in bed, eating, NAD LUNGS: Clear HEART: S1S2 ABD: Soft, NT, BS present EXT: BLE trace edema. CHART COMPUTER: Alert, oriented x 3, no focal neurologic deficit SKIN: No rash IV: ok Labs Lab Laboratory Tests Test 05/15/16 10:47 05/15/16 16:47 05/15/16 20:48 05/16/16 05:00 Glucose (Fingerstick) 262mg/dL (70-99) 158mg/dL (70-99) 151mg/dL (70-99) Magnesium Level 1.5mg/dL (1.8-2.4) Test 05/16/16 05:15 05/16/16 07:35 White Blood Count 6.3x10^3/uL (4.0-11.0) Red Blood Count 2.85x10^6/uL (3.50-5.40) Hemoglobin 7.9g/dL (12.0-15.5) Hematocrit 25.1% (36.0-47.0) Mean Corpuscular Volume 88fL (79-100) Mean Corpuscular Hemoglobin 28pg (25-35) Mean Corpuscular Hemoglobin Concent 32g/dL (31-37) Red Cell Distribution Width 19.0% (11.5-14.5) Platelet Count 222x10^3/uL (140-400) Neutrophils (%) (Auto) 75% (31-73) Lymphocytes (%) (Auto) 14% (24-48) Monocytes (%) (Auto) 9% (0-9) Eosinophils (%) (Auto) 3% (0-3) Basophils (%) (Auto) 0% (0-3) Neutrophils # (Auto) 4.7x10^3uL (1.8-7.7) Lymphocytes # (Auto) 0.9x10^3/uL (1.0-4.8) Monocytes # (Auto) 0.5x10^3/uL (0.0-1.1) Eosinophils # (Auto) 0.2x10^3/uL (0.0-0.7) Basophils # (Auto) 0.0x10^3/uL (0.0-0.2) Sodium Level 143mmol/L (136-145) Potassium Level 3.2mmol/L (3.5-5.1) Chloride Level 102mmol/L (98-107) Carbon Dioxide Level 34mmol/L (21-32) Anion Gap 7 (6-14) Blood Urea Nitrogen 24mg/dL (7-20) Creatinine 1.0mg/dL (0.6-1.0) Estimated GFR (Cockcroft-Gault) 63.3 Glucose Level 80mg/dL (70-99) Calcium Level 8.7mg/dL (8.5-10.1) TV-Bci-C-Type Natriuretic Peptide 3271pg/mL (0-449) Glucose (Fingerstick) 76mg/dL (70-99) Objective Assessment Acute Resp failure - better with lasix Pneumonia - elevated procalcitonin 4.12 on 05/11. -Mycoplasma/Strep antigen. negative Afib - Tachycardia - per Dr. Chen Leukocytosis - improved DM with elevated FSBS Plan Plan of Care Cont Rocephin/Doxy. Incentive spirometry D/w daughter Attending Co-Sign The patient was seen and interviewed as well as examined at the bedside. The chart was reviewed. The case was discussed. Agree with the plan of care. change to po augmentin PAIGE DANIELLE APRN May 16, 2016 09:18 SANTI PATTERSON MD May 16, 2016 11:37
[2016-05-16] MEDS ORDERED: MAGNESIUM SULFATE 2GM 50 ML IV ONE (10:30)
[2016-05-16] MEDS: ALBUTEROL SULFATE 2.5 MG/3 ML NEBU. NEB SCH (11:26)
--- NOTE | 2016-05-16 11:42 | PDOC ---
Provider Note Provider Note Progress note dictated #[id number] SOM SHORE MD May 16, 2016 11:42
--- NOTE | 2016-05-16 11:53 | PDOC ---
PULMONARY PROGRESS NOTES Subjective cough better Vitals Vital Signs Date Time Temp Pulse Resp B/P Pulse Ox O2 Delivery O2 Flow Rate FiO2 05/16/16 11:36 18 100 Nasal Cannula 2.0 05/16/16 10:22 143 87/55 05/16/16 07:31 97.4 97.4 General: Alert, No acute distress Lungs: Wheezing (resolved) Cardiovascular: S1 Abdomen: Soft Neuro Exam: Alert Extremities: No Edema Skin: Warm Labs Laboratory Tests Test 05/14/16 17:01 05/15/16 04:20 05/15/16 08:16 05/15/16 10:47 Glucose (Fingerstick) 225mg/dL (70-99) 144mg/dL (70-99) 262mg/dL (70-99) White Blood Count 5.9x10^3/uL (4.0-11.0) Red Blood Count 2.82x10^6/uL (3.50-5.40) Hemoglobin 7.7g/dL (12.0-15.5) Hematocrit 24.9% (36.0-47.0) Mean Corpuscular Volume 89fL (79-100) Mean Corpuscular Hemoglobin 28pg (25-35) Mean Corpuscular Hemoglobin Concent 31g/dL (31-37) Red Cell Distribution Width 19.2% (11.5-14.5) Platelet Count 199x10^3/uL (140-400) Neutrophils (%) (Auto) 76% (31-73) Lymphocytes (%) (Auto) 14% (24-48) Monocytes (%) (Auto) 8% (0-9) Eosinophils (%) (Auto) 2% (0-3) Basophils (%) (Auto) 0% (0-3) Neutrophils # (Auto) 4.4x10^3uL (1.8-7.7) Lymphocytes # (Auto) 0.8x10^3/uL (1.0-4.8) Monocytes # (Auto) 0.5x10^3/uL (0.0-1.1) Eosinophils # (Auto) 0.1x10^3/uL (0.0-0.7) Basophils # (Auto) 0.0x10^3/uL (0.0-0.2) Sodium Level 141mmol/L (136-145) Potassium Level 4.1mmol/L (3.5-5.1) Chloride Level 103mmol/L (98-107) Carbon Dioxide Level 33mmol/L (21-32) Anion Gap 5 (6-14) Blood Urea Nitrogen 28mg/dL (7-20) Creatinine 1.0mg/dL (0.6-1.0) Estimated GFR (Cockcroft-Gault) 63.3 Glucose Level 150mg/dL (70-99) Calcium Level 8.4mg/dL (8.5-10.1) Magnesium Level 1.9mg/dL (1.8-2.4) Test 05/15/16 16:47 05/15/16 20:48 05/16/16 05:00 05/16/16 05:15 Glucose (Fingerstick) 158mg/dL (70-99) 151mg/dL (70-99) Magnesium Level 1.5mg/dL (1.8-2.4) White Blood Count 6.3x10^3/uL (4.0-11.0) Red Blood Count 2.85x10^6/uL (3.50-5.40) Hemoglobin 7.9g/dL (12.0-15.5) Hematocrit 25.1% (36.0-47.0) Mean Corpuscular Volume 88fL (79-100) Mean Corpuscular Hemoglobin 28pg (25-35) Mean Corpuscular Hemoglobin Concent 32g/dL (31-37) Red Cell Distribution Width 19.0% (11.5-14.5) Platelet Count 222x10^3/uL (140-400) Neutrophils (%) (Auto) 75% (31-73) Lymphocytes (%) (Auto) 14% (24-48) Monocytes (%) (Auto) 9% (0-9) Eosinophils (%) (Auto) 3% (0-3) Basophils (%) (Auto) 0% (0-3) Neutrophils # (Auto) 4.7x10^3uL (1.8-7.7) Lymphocytes # (Auto) 0.9x10^3/uL (1.0-4.8) Monocytes # (Auto) 0.5x10^3/uL (0.0-1.1) Eosinophils # (Auto) 0.2x10^3/uL (0.0-0.7) Basophils # (Auto) 0.0x10^3/uL (0.0-0.2) Sodium Level 143mmol/L (136-145) Potassium Level 3.2mmol/L (3.5-5.1) Chloride Level 102mmol/L (98-107) Carbon Dioxide Level 34mmol/L (21-32) Anion Gap 7 (6-14) Blood Urea Nitrogen 24mg/dL (7-20) Creatinine 1.0mg/dL (0.6-1.0) Estimated GFR (Cockcroft-Gault) 63.3 Glucose Level 80mg/dL (70-99) Calcium Level 8.7mg/dL (8.5-10.1) [id number] Natriuretic Peptide 3271pg/mL (0-449) Test 05/16/16 07:35 05/16/16 10:40 05/16/16 11:35 Glucose (Fingerstick) 76mg/dL (70-99) 224mg/dL (70-99) Potassium Level 3.9mmol/L (3.5-5.1) Laboratory Tests Test 05/15/16 16:47 05/15/16 20:48 05/16/16 05:00 05/16/16 05:15 Glucose (Fingerstick) 158mg/dL (70-99) 151mg/dL (70-99) Magnesium Level 1.5mg/dL (1.8-2.4) White Blood Count 6.3x10^3/uL (4.0-11.0) Red Blood Count 2.85x10^6/uL (3.50-5.40) Hemoglobin 7.9g/dL (12.0-15.5) Hematocrit 25.1% (36.0-47.0) Mean Corpuscular Volume 88fL (79-100) Mean Corpuscular Hemoglobin 28pg (25-35) Mean Corpuscular Hemoglobin Concent 32g/dL (31-37) Red Cell Distribution Width 19.0% (11.5-14.5) Platelet Count 222x10^3/uL (140-400) Neutrophils (%) (Auto) 75% (31-73) Lymphocytes (%) (Auto) 14% (24-48) Monocytes (%) (Auto) 9% (0-9) Eosinophils (%) (Auto) 3% (0-3) Basophils (%) (Auto) 0% (0-3) Neutrophils # (Auto) 4.7x10^3uL (1.8-7.7) Lymphocytes # (Auto) 0.9x10^3/uL (1.0-4.8) Monocytes # (Auto) 0.5x10^3/uL (0.0-1.1) Eosinophils # (Auto) 0.2x10^3/uL (0.0-0.7) Basophils # (Auto) 0.0x10^3/uL (0.0-0.2) Sodium Level 143mmol/L (136-145) Potassium Level 3.2mmol/L (3.5-5.1) Chloride Level 102mmol/L (98-107) Carbon Dioxide Level 34mmol/L (21-32) Anion Gap 7 (6-14) Blood Urea Nitrogen 24mg/dL (7-20) Creatinine 1.0mg/dL (0.6-1.0) Estimated GFR (Cockcroft-Gault) 63.3 Glucose Level 80mg/dL (70-99) Calcium Level 8.7mg/dL (8.5-10.1) [id number] Natriuretic Peptide 3271pg/mL (0-449) Test 05/16/16 07:35 05/16/16 10:40 05/16/16 11:35 Glucose (Fingerstick) 76mg/dL (70-99) 224mg/dL (70-99) Potassium Level 3.9mmol/L (3.5-5.1) Medications Active Scripts Medications Dose Route/Sig Days Date Category Lyrica (Pregabalin) 50 Mg Capsule 50 Mg PO TID 05/09/16 Reported Pantoprazole Sodium 40 Mg Tablet.dr 1 Tab PO DAILY 05/09/16 Reported Levemir (Insulin Detemir) 100 Unit/1 Ml Vial 22 Unit SQ DAILY08 05/09/16 Reported Eliquis (Apixaban) 5 Mg Tablet 5 Mg PO BID 04/26/16 Reported Diltiazem 24HR Cd (Diltiazem Hcl) 120 Mg Cap.er.24h 240 Mg PO DAILY 04/26/16 Reported Plavix (Clopidogrel Bisulfate) 75 Mg Tablet 1 Tab PO DAILY 03/21/14 Reported Novolog Flexpen (Insulin Aspart) 100 Unit/1 Ml Insuln.pen 100 Unit SQ 03/19/14 Reported Zetia (Ezetimibe) 10 Mg Tablet 10 Mg PO DAILY 03/19/14 Reported Cymbalta (Duloxetine Hcl) 60 Mg Capsule.dr 60 Mg PO DAILY 03/19/14 Reported Alprazolam 0.5 Mg Tablet 1 Tab PO BID 03/19/14 Reported Flonase (Fluticasone Propionate) 16 Gm [place].susp 16 Gm NS PRN DAILY 04/07/13 Reported NITROGLYCERIN SubLingual (Nitroglycerin) 0.4 Mg Tab.subl 0.4 Mg SL PRN Q10MIN 04/07/13 Reported Vitamin C (Ascorbic Acid) 100 Mg Tablet 100 Mg PO DAILY 04/07/13 Reported Ferrous Sulfate 134 Mg Tablet 134 Mg PO DAILY 04/07/13 Reported [place] 3 1,000 Mg Softgel ([place]-3 Fatty Acids/Fish Oil) 1 Each Capsule 1 Each PO DAILY 04/07/13 Reported Miralax (Polyethylene Glycol 3350) 17 Gm Powd.pack 17 Gm PO HS 04/07/13 Reported Zocor (Simvastatin) 40 Mg Tablet 40 Mg PO HS 04/07/13 Reported Metamucil Packet (Psyllium Seed (With Sugar)) 1 Each Packet 1 Each PO DAILY 04/07/13 Reported Vitamin D3 (Cholecalciferol (Vitamin D3)) 3,000 Unit Tablet 3,000 Unit PO DAILY 04/07/13 Reported Potassium Chloride 10 Meq Tab.er.prt 10 Meq PO BID 04/07/13 Reported Lasix (Furosemide) 40 Mg Tablet 40 Mg PO DAILY 04/07/13 Reported Metoprolol Succinate ( Xl ) (Metoprolol Succinate) 25 Mg Tab.er.24h 25 Mg PO DAILY 04/07/13 Reported Losartan Potassium 25 Mg Tablet 25 Mg PO DAILY 04/07/13 Reported Acetaminophen-Cod #3 Tablet (Acetaminophen/Codeine Phosphate) 1 Each Tablet 2 Each PO Q6HRS PRN 04/07/13 Reported Impression . 1. Acute hypoxic respiratory failure secondary to combination of congestive heart failure(cardiac asthma) and left lower lobe pneumonia. The pneumonia has overall improved, congestive heart failure did get worse 05/13. although overall she has responded to Lasix. 2. History of left ventricular hypertrophy, diastolic dysfunction and moderate aortic stenosis, and low BP which makes it challenging to aggressively diurese her while she is in heart failure. Atrial fibrillation contributes to contribute congestive heart failure as well. 3. No significant history of tobacco use. 4. Left lower lobe pneumonia, best seen on the CT chest, which is responding to antibiotics. 5. Postnasal drainage. Plan . 1. Discussed with Dr. Chen. At this point, I would recommend continue with cautious diuresis and monitoring blood pressure closely. 2. scheduled bronchodilators, DuoNebs along with Pulmicort. 3. She may need oxygen at home and we would recommend a 6-minute walk test at the time of discharge. 4. Management of valvular heart disease and CHF per Dr. Chen. 5. Discussed with the patient's caregiver 05/14. Continue with antibiotics per ID. 6. f/u CXR with mild improvement. NH per PCP DAPHNE OAKES MD May 16, 2016 11:53
--- NOTE | 2016-05-16 12:35 | PDOC2 ---
GI CONSULT Date Date/Time DATE: 05/16/16 TIME: 12:27 Providers Attending Physician Sunitha Chen MD Referring Physician Consulting Physician Dr. Buckley History of Present Illness HPI 89 yo female with CHF, CAD and chronic anemia- followed by Mitch Guerra with history of gastric ulcers- on protonix and oral iron )also has had EGD and colonoscopy in past)- now with mild decrease in appetite but no n/v or abd pain. No melnea or bleeding in spite of anticoagulant therapy History Past Medical History arthritis CAD Aortic stnosis CHF PE pneumonia PUD HTN, \ lipids Past Surgical History CABG FAMILY HISTORY: Coronary Artery Disease Review of Systems Constitutional: yes: weakness Pulmonary: Yes other (SOA) Gastrointestinal: Yes: other (mild dyspepsia) Allergies Allergies Allergies Coded Allergies Type Severity Reaction Last Updated Verified No Known Drug Allergies 05/09/16 No Medications Medications Current Medications Furosemide (Lasix) 40 mg 1X ONCE IVP Last administered on 05/09/16 05:07; Start 05/09/16 at 04:15; Stop 05/09/16 at 04:16; Status DC Ondansetron HCl (Zofran) 4 mg PRN Q8HRS PRN IV NAUSEA/VOMITING; Start 05/09/16 at 05:45; Stop 05/10/16 at 05:44; Status DC Acetaminophen (Tylenol) 650 mg PRN Q4HRS PRN PO FEVER; Start 05/09/16 at 05:45 ; Stop 05/10/16 at 05:44; Status DC Aspirin (Gay Aspirin) 325 mg 1X ONCE PO Last administered on 05/09/16 10:08 ; Start 05/09/16 at 06:30; Stop 05/09/16 at 06:31; Status DC Pneumococcal Polyvalent Vaccine (Do NOT chart on this placeholder) 1 each 1X ONCE MC ; Start 05/09/16 at 09:15; Stop 05/09/16 at 09:16; Status UNV Pneumococcal Polyvalent Vaccine (Pneumovax 23) 0.5 ml ONCE ONCE VAX IM Last administered on 05/13/16 17:47; Start 05/09/16 at 11:00; Stop 05/09/16 at 11:01 ; Status DC Insulin Detemir (Levemir) 22 units QHS SQ ; Start 05/09/16 at 11:30; Stop at 11:42; Status DC Insulin Aspart (Novolog) 0-7 UNITS TIDWMEALS SQ Last administered on 05/14/16 17:50; Start 05/09/16 at 12:32; Stop 05/15/16 at 06:59; Status DC Dextrose 12.5 gm PRN Q15MIN PRN IV SEE COMMENTS Last administered on 05/12/16 07:15; Start 05/09/16 at 11:30 Insulin Detemir (Levemir) 22 units DAILY SQ Last administered on 05/16/16 08: 46; Start 05/09/16 at 11:30 Acetaminophen/ Codeine Phosphate (Tylenol #3) 2 tab Q6HRS PO ; Start 05/09/16 at 18:00; Stop 05/09/16 at 19:34; Status DC Alprazolam (Xanax) 0.5 mg BID PO Last administered on 05/11/16 08:54; Start at 21:00; Stop 05/11/16 at 10:34; Status DC Clopidogrel Bisulfate (Plavix) 75 mg DAILY PO Last administered on 05/16/16 08 :34; Start 05/09/16 at 16:00 Diltiazem HCl (Cardizem 24hr Cd) 240 mg DAILY PO Last administered on 08:34; Start 05/09/16 at 16:00 EZETIMIBE (Zetia) 10 mg DAILY PO Last administered on 05/16/16 08:36; Start at 16:00 Fluticasone Propionate (Flonase) 1 spray PRN DAILY PRN NS Allergies; Start at 15:00 Furosemide (Lasix) 40 mg DAILY PO Last administered on 05/09/16 16:40; Start 05/09/16 at 16:00; Stop 05/11/16 at 10:59; Status DC Losartan Potassium (Cozaar) 25 mg DAILY PO Last administered on 05/16/16 08:35 ; Start 05/09/16 at 16:00 Metoprolol Succinate (Toprol Xl) 25 mg DAILY PO Last administered on 05/16/16 08:36; Start 05/09/16 at 16:00 Nitroglycerin (Nitrostat) 0.4 mg PRN Q10MIN SL ; Start 05/09/16 at 15:00 Pantoprazole Sodium (Protonix) 40 mg DAILYAC PO Last administered on 05/16/16 08:36; Start 05/09/16 at 16:30 Polyethylene Glycol (miraLAX PACKET) 17 gm HS PO Last administered on 22:29; Start 05/09/16 at 21:00 Atorvastatin Calcium (Lipitor) 20 mg QHS PO Last administered on 05/15/16 21: 25; Start 05/09/16 at 21:00 Ascorbic Acid (Vitamin C) 250 mg DAILY PO Last administered on 05/16/16 08:34 ; Start 05/09/16 at 16:00 Vitamin D (Vitamin D3) 3,000 unit DAILY PO Last administered on 05/16/16 08:36 ; Start 05/09/16 at 16:00 Duloxetine HCl (Cymbalta) 60 mg DAILY PO Last administered on 05/16/16 08:37; Start 05/09/16 at 16:00 Ferrous Sulfate (Slow Release Iron) 142 mg DAILYWBKFT PO Last administered on 08:36; Start 05/10/16 at 08:00 Insulin Detemir (Levemir) 22 units DAILY08 SQ ; Start 05/10/16 at 08:00; Stop at 10:05; Status DC Fish Oil (Fish Oil) 1,000 mg DAILY PO Last administered on 05/16/16 08:34; Start 05/09/16 at 16:00 Psyllium Hydrophilic Mucilloid (Metamucil Fiber Packet) 1 pkt DAILY PO Last administered on 05/16/16 08:37; Start 05/09/16 at 16:00 Apixaban (Eliquis) 5 mg BID PO Last administered on 05/11/16 08:54; Start at 21:00; Stop 05/11/16 at 11:28; Status DC Potassium Chloride (Klor-Con) 10 meq BID PO Last administered on 05/12/16 22: 30; Start 05/09/16 at 21:00; Stop 05/13/16 at 10:47; Status DC Pregabalin (Lyrica) 50 mg TID PO Last administered on 05/16/16 08:37; Start at 16:00 Info (Anti-Coagulation Monitoring By Pharmacy) 1 each PRN DAILY PRN MC SEE COMMENTS Last administered on 05/14/16 09:01; Start 05/09/16 at 15:30 Acetaminophen/ Codeine Phosphate (Tylenol #3) 2 tab PRN Q6HRS PRN PO PAIN Last administered on 05/16/16 11:36; Start 05/09/16 at 20:00 Furosemide (Lasix) 40 mg 1X ONCE IVP Last administered on 05/10/16 03:58; Start 05/10/16 at 04:15; Stop 05/10/16 at 04:16; Status DC Digoxin (Lanoxin) 250 mcg 1X ONCE IV Last administered on 05/10/16 03:59; Start 05/10/16 at 04:15; Stop 05/10/16 at 04:16; Status DC Diltiazem HCl 10 mg 10 mg 1X ONCE IVP Last administered on 05/10/16 05:54; Start 05/10/16 at 06:00; Stop 05/10/16 at 06:01; Status DC Diltiazem HCl/ Dextrose (Cardizem) 125 ml @ 0 mls/hr CONT PRN IV SEE I/O RECORD Last administered on 05/10/16 05:55; Start 05/10/16 at 05:45; Stop 05/11 at 10:59; Status DC Insulin Aspart (Novolog) 15 units 1X ONCE SQ Last administered on 05/10/16 12 :12; Start 05/10/16 at 10:15; Stop 05/10/16 at 10:16; Status DC Insulin Aspart (Novolog) 30 units 1X ONCE SQ Last administered on 05/10/16 17 :31; Start 05/10/16 at 17:30; Stop 05/10/16 at 17:31; Status DC Guaifenesin (Robitussin Dm) 10 ml PRN Q6HRS PRN PO COUGH Last administered on 21:25; Start 05/10/16 at 17:45 Insulin Aspart (Novolog) 20 units TIDAC SQ Last administered on 05/11/16 16:30 ; Start 05/11/16 at 07:30; Stop 05/12/16 at 09:33; Status DC Insulin Detemir (Levemir) 10 units QHS SQ Last administered on 05/11/16 21:00 ; Start 05/10/16 at 23:00; Stop 05/12/16 at 09:45; Status DC Albuterol Sulfate 2.5 mg 2.5 mg RTQID NEB Last administered on 05/16/16 11:26 ; Start 05/10/16 at 23:00; Stop 05/16/16 at 12:00; Status DC Ceftriaxone Sodium 1 gm/ Sodium Chloride 50 ml @ 100 mls/hr QHS IV Last administered on 05/15/16 21:27; Start 05/10/16 at 23:00; Stop 05/16/16 at 11:37 ; Status DC Iron Sucrose/ Sodium Chloride (Venofer/Iv Sodium Chloride 0.9% 100ml) 110 ml @ 55 mls/hr 1X ONCE IV Last administered on 05/11/16 11:54; Start 05/11/16 at 11:00; Stop 05/11/16 at 12:59; Status DC Guaifenesin (Mucinex) 600 mg PRN BID PRN PO COUGH Last administered on 08:40; Start 05/11/16 at 21:00 Alprazolam 0.5 mg 0.5 mg PRN Q8HRS PRN PO ANXIETY; Start 05/12/16 at 09:00; Stop 05/12/16 at 09:00; Status DC Albumin Human (Plasmanate) 250 ml @ 62.5 mls/hr 1X ONCE IV Last administered on 05/11/16 11:54; Start 05/11/16 at 11:00; Stop 05/11/16 at 14:59; Status DC Apixaban (Eliquis) 2.5 mg BID PO Last administered on 05/13/16 09:21; Start at 21:00; Stop 05/13/16 at 12:22; Status DC Doxycycline Hyclate 100 mg 100 mg BID PO Last administered on 05/16/16 09:00; Start 05/11/16 at 13:00; Stop 05/16/16 at 11:37; Status DC Albumin Human (Plasmanate) 250 ml @ 62.5 mls/hr 1X ONCE IV Last administered on 05/11/16 16:43; Start 05/11/16 at 16:30; Stop 05/11/16 at 20:29; Status DC Insulin Aspart (Novolog) 10 units TIDAC SQ ; Start 05/12/16 at 11:30; Stop 05/12 at 11:30; Status DC Metoprolol Tartrate (Lopressor) 5 mg 1X ONCE IVP Last administered on 22:28; Start 05/12/16 at 22:15; Stop 05/12/16 at 22:16; Status DC Promethazine HCl/ Codeine (Phenergan With Codeine) 5 ml 1X ONCE PO Last administered on 05/12/16 23:57; Start 05/12/16 at 23:45; Stop 05/12/16 at 23:46 ; Status DC Metoprolol Tartrate (Lopressor) 50 mg 1X ONCE PO Last administered on 23:58; Start 05/12/16 at 23:55; Stop 05/12/16 at 23:56; Status DC Throat Lozenges (Cepacol Sore Throat Lozenge) 1 isaías PRN Q6HRS PRN PO SORE THROAT Last administered on 05/15/16 21:25; Start 05/12/16 at 23:45 Furosemide (Lasix) 40 mg 1X ONCE IVP Last administered on 05/13/16 08:46; Start 05/13/16 at 09:00; Stop 05/13/16 at 09:01; Status DC Apixaban (Eliquis) 5 mg BID PO Last administered on 05/16/16 08:34; Start at 21:00 Ondansetron HCl (Zofran) 4 mg PRN Q6HRS PRN IV Nausea; Start 05/14/16 at 07:00 ; Stop 05/15/16 at 06:59; Status DC Fentanyl Citrate (Fentanyl 2ml Vial) 25 mcg PRN Q5MIN PRN IV MILD PAIN; Start 05/14/16 at 07:00; Stop 05/15/16 at 06:59; Status DC Fentanyl Citrate (Fentanyl 2ml Vial) 50 mcg PRN Q5MIN PRN IV MODERATE PAIN; Start 05/14/16 at 07:00; Stop 05/15/16 at 06:59; Status DC Morphine Sulfate 1 mg 1 mg PRN Q10MIN PRN IV SEVERE PAIN; Start 05/14/16 at 07: 00; Stop 05/15/16 at 06:59; Status DC Lactated Ringer's (Iv Lactated Ringers) 1,000 ml @ 30 mls/hr Q24H IV ; Start at 07:00; Stop 05/14/16 at 18:59; Status DC Lidocaine HCl 2 ml 1X PRN PRN ID IV START; Start 05/14/16 at 07:00; Stop at 06:59; Status DC Hydromorphone HCl (Dilaudid) 0.5 mg PRN Q10MIN PRN IV SEVERE PAIN, Second choice; Start 05/14/16 at 07:00; Stop 05/15/16 at 06:59; Status DC Prochlorperazine Edisylate (Compazine) 5 mg PACU PRN PRN IV NAUSEA; Start 05/14 at 07:00; Stop 05/15/16 at 06:59; Status DC Insulin Aspart (Novolog) 15 units 1X ONCE SQ Last administered on 05/13/16 21 :33; Start 05/13/16 at 20:45; Stop 05/13/16 at 20:46; Status DC Insulin Aspart (Novolog) 10 units TIDAC SQ Last administered on 05/16/16 08:45 ; Start 05/14/16 at 07:30 Furosemide (Lasix) 20 mg 1X ONCE IVP Last administered on 05/14/16 10:02; Start 05/14/16 at 10:00; Stop 05/14/16 at 10:01; Status DC Albuterol/ Ipratropium (Duoneb) 3 ml RTQID NEB Last administered on 05/16/16 07:45; Start 05/14/16 at 14:00 Budesonide 0.5 mg 0.5 mg RTBID NEB Last administered on 05/16/16 07:45; Start 05/14/16 at 14:00 Furosemide 100 mg/ Sodium Chloride 100 ml @ 0 mls/hr CONT PRN IV SEE I/O RECORD Last administered on 05/16/16 02:51; Start 05/14/16 at 22:00; Stop 05/16 at 07:55; Status DC Iron Sucrose/ Sodium Chloride (Venofer/Iv Sodium Chloride 0.9% 250ml) 270 ml @ 90 mls/hr 1X ONCE IV Last administered on 05/15/16 10:00; Start 05/15/16 at 10:00; Stop 05/15/16 at 12:59; Status DC Insulin Aspart (Novolog) 0-9 UNITS TIDWMEALS SQ Last administered on 05/15/16 13:00; Start 05/15/16 at 08:00 Dextrose 12.5 gm PRN Q15MIN PRN IV SEE COMMENTS; Start 05/15/16 at 07:00; Status UNV Albuterol Sulfate (Ventolin Neb Soln) 2.5 mg PRN Q6HRS PRN NEB WHEEZING; Start 05/15/16 at 17:00 Furosemide (Lasix) 20 mg 1X ONCE IVP Last administered on 05/15/16 16:27; Start 05/15/16 at 16:30; Stop 05/15/16 at 16:31; Status DC Potassium Chloride 40 meq 40 meq 1X ONCE PO Last administered on 05/16/16 08: 36; Start 05/16/16 at 08:00; Stop 05/16/16 at 08:01; Status DC Magnesium Sulfate/ Dextrose (Magnesium Sulfate PREMIX 2GM) 50 ml @ 25 mls/hr 1X ONCE IV Last administered on 05/16/16 10:30; Start 05/16/16 at 10:30; Stop 05/16/16 at 12:29 Amoxicillin/ Clavulanate Potassium (Augmentin 875/ 125mg) 1 tab BID PO ; Start 05/16/16 at 21:00 Active Scripts Active Reported Lyrica (Pregabalin) 50 Mg Capsule 50 Mg PO TID Pantoprazole Sodium 40 Mg Tablet.dr 1 Tab PO DAILY Levemir (Insulin Detemir) 100 Unit/1 Ml Vial 22 Unit SQ DAILY08 Eliquis (Apixaban) 5 Mg Tablet 5 Mg PO BID Diltiazem 24HR Cd (Diltiazem Hcl) 120 Mg Cap.er.24h 240 Mg PO DAILY Plavix (Clopidogrel Bisulfate) 75 Mg Tablet 1 Tab PO DAILY Novolog Flexpen (Insulin Aspart) 100 Unit/1 Ml Insuln.pen 100 Unit SQ Zetia (Ezetimibe) 10 Mg Tablet 10 Mg PO DAILY Cymbalta (Duloxetine Hcl) 60 Mg Capsule.dr 60 Mg PO DAILY Alprazolam 0.5 Mg Tablet 1 Tab PO BID Flonase (Fluticasone Propionate) 16 Gm [place].susp 16 Gm NS PRN DAILY NITROGLYCERIN SubLingual (Nitroglycerin) 0.4 Mg Tab.subl 0.4 Mg SL PRN Q10MIN Vitamin C (Ascorbic Acid) 100 Mg Tablet 100 Mg PO DAILY Ferrous Sulfate 134 Mg Tablet 134 Mg PO DAILY [place] 3 1,000 Mg Softgel ([place]-3 Fatty Acids/Fish Oil) 1 Each Capsule 1 Each PO DAILY Miralax (Polyethylene Glycol 3350) 17 Gm Powd.pack 17 Gm PO HS Zocor (Simvastatin) 40 Mg Tablet 40 Mg PO HS Metamucil Packet (Psyllium Seed (With Sugar)) 1 Each Packet 1 Each PO DAILY Vitamin D3 (Cholecalciferol (Vitamin D3)) 3,000 Unit Tablet 3,000 Unit PO DAILY Potassium Chloride 10 Meq Tab.er.prt 10 Meq PO BID Lasix (Furosemide) 40 Mg Tablet 40 Mg PO DAILY Metoprolol Succinate ( Xl ) (Metoprolol Succinate) 25 Mg Tab.er.24h 25 Mg PO DAILY Losartan Potassium 25 Mg Tablet 25 Mg PO DAILY Acetaminophen-Cod #3 Tablet (Acetaminophen/Codeine Phosphate) 1 Each Tablet 2 Each PO Q6HRS PRN Physical Exam Physical Exam VSS alert chest- few rhonchi otherwise clear cor- syst murmur abd- osft NON tender no masses extrem- trace edema neuro- alert non focal Labs Labs Laboratory Tests Test 05/15/16 16:47 05/15/16 20:48 05/16/16 05:00 05/16/16 05:15 Glucose (Fingerstick) 158mg/dL (70-99) 151mg/dL (70-99) Magnesium Level 1.5mg/dL (1.8-2.4) White Blood Count 6.3x10^3/uL (4.0-11.0) Red Blood Count 2.85x10^6/uL (3.50-5.40) Hemoglobin 7.9g/dL (12.0-15.5) Hematocrit 25.1% (36.0-47.0) Mean Corpuscular Volume 88fL (79-100) Mean Corpuscular Hemoglobin 28pg (25-35) Mean Corpuscular Hemoglobin Concent 32g/dL (31-37) Red Cell Distribution Width 19.0% (11.5-14.5) Platelet Count 222x10^3/uL (140-400) Neutrophils (%) (Auto) 75% (31-73) Lymphocytes (%) (Auto) 14% (24-48) Monocytes (%) (Auto) 9% (0-9) Eosinophils (%) (Auto) 3% (0-3) Basophils (%) (Auto) 0% (0-3) Neutrophils # (Auto) 4.7x10^3uL (1.8-7.7) Lymphocytes # (Auto) 0.9x10^3/uL (1.0-4.8) Monocytes # (Auto) 0.5x10^3/uL (0.0-1.1) Eosinophils # (Auto) 0.2x10^3/uL (0.0-0.7) Basophils # (Auto) 0.0x10^3/uL (0.0-0.2) Sodium Level 143mmol/L (136-145) Potassium Level 3.2mmol/L (3.5-5.1) Chloride Level 102mmol/L (98-107) Carbon Dioxide Level 34mmol/L (21-32) Anion Gap 7 (6-14) Blood Urea Nitrogen 24mg/dL (7-20) Creatinine 1.0mg/dL (0.6-1.0) Estimated GFR (Cockcroft-Gault) 63.3 Glucose Level 80mg/dL (70-99) Calcium Level 8.7mg/dL (8.5-10.1) AO-Ejp-H-Type Natriuretic Peptide 3271pg/mL (0-449) Test 05/16/16 07:35 05/16/16 10:40 05/16/16 11:35 Glucose (Fingerstick) 76mg/dL (70-99) 224mg/dL (70-99) Potassium Level 3.9mmol/L (3.5-5.1) Assessment Assessment Chronic anemia- iron def- likely from PUD and anticoagulant therapy although chronic disease, etc are likely contributing- followed by Mitch Guerra and told she has history of gastric ulcers- has been on protonix and oral iron but still has anemia and low iron- mild dyspepsia Problems: Plan Plan agree with checking stool but has already had GI evaluation so no further GI tests are recommended agree with IV iron in addition to PO until iron stores repleted add carafate for history of ulcers and dyspepsia Thank you for allowing us to participate in the care of your patient. We will continue to follow the patient with you and provide an appropriate recommendation as it becomes available. CINDY BUCKLEY MD May 16, 2016 12:35
[2016-05-16] MEDS ORDERED: IRON SUCROSE COMPLEX 200 MG in IV NORMAL SALINE 100ML 100 ML IV ONE (13:30)
--- NOTE | 2016-05-16 14:36 | PDOC ---
PROGRESS NOTES Chief Complaint Chief Complaint CHF exac of systolic - arthritis - CHF, acute systolic - diabetes, insulin req. hypoglycemia yesterday - pneumonia, POA - coronary artery disease - tinnitus - gastritis History of Present Illness History of Present Illness UNdergoing iV Venofer transfusion NO inc in SOA Planned fro SNU Family at bedside, agreeable CHart and labs reviewed, ok PLAN: SW for SNU Dc plans on the works per primary service hh peri PT/OT Vitals Vitals Vital Signs Date Time Temp Pulse Resp B/P Pulse Ox O2 Delivery O2 Flow Rate FiO2 05/16/16 12:35 20 100 Nasal Cannula 2.0 05/16/16 10:22 143 87/55 05/16/16 07:31 97.4 97.4 Physical Exam Physical Exam tele reg, rate 93 General: Alert, Oriented X3, No acute distress Heart: Regular rate Lungs: Wheezing (resolved) Abdomen: Soft, No tenderness Skin: No significant lesion Labs LABS Laboratory Tests Test 05/15/16 16:47 05/15/16 20:48 05/16/16 05:00 05/16/16 05:15 Glucose (Fingerstick) 158mg/dL (70-99) 151mg/dL (70-99) Magnesium Level 1.5mg/dL (1.8-2.4) White Blood Count 6.3x10^3/uL (4.0-11.0) Red Blood Count 2.85x10^6/uL (3.50-5.40) Hemoglobin 7.9g/dL (12.0-15.5) Hematocrit 25.1% (36.0-47.0) Mean Corpuscular Volume 88fL (79-100) Mean Corpuscular Hemoglobin 28pg (25-35) Mean Corpuscular Hemoglobin Concent 32g/dL (31-37) Red Cell Distribution Width 19.0% (11.5-14.5) Platelet Count 222x10^3/uL (140-400) Neutrophils (%) (Auto) 75% (31-73) Lymphocytes (%) (Auto) 14% (24-48) Monocytes (%) (Auto) 9% (0-9) Eosinophils (%) (Auto) 3% (0-3) Basophils (%) (Auto) 0% (0-3) Neutrophils # (Auto) 4.7x10^3uL (1.8-7.7) Lymphocytes # (Auto) 0.9x10^3/uL (1.0-4.8) Monocytes # (Auto) 0.5x10^3/uL (0.0-1.1) Eosinophils # (Auto) 0.2x10^3/uL (0.0-0.7) Basophils # (Auto) 0.0x10^3/uL (0.0-0.2) Sodium Level 143mmol/L (136-145) Potassium Level 3.2mmol/L (3.5-5.1) Chloride Level 102mmol/L (98-107) Carbon Dioxide Level 34mmol/L (21-32) Anion Gap 7 (6-14) Blood Urea Nitrogen 24mg/dL (7-20) Creatinine 1.0mg/dL (0.6-1.0) Estimated GFR (Cockcroft-Gault) 63.3 Glucose Level 80mg/dL (70-99) Calcium Level 8.7mg/dL (8.5-10.1) KT-Jnv-[id number]-Type Natriuretic Peptide 3271pg/mL (0-449) Test 05/16/16 07:35 05/16/16 10:40 05/16/16 11:35 Glucose (Fingerstick) 76mg/dL (70-99) 224mg/dL (70-99) Potassium Level 3.9mmol/L (3.5-5.1) Review of Systems Review of Systems all 14 pt reveiwed, neg Assessment and Plan Assessmemt and Plan Problems Medical Problems: (1) CHF (congestive heart failure) Status: Acute (2) Elevated troponin Status: Acute (3) Non-STEMI (non-ST elevated myocardial infarction) Status: Acute Problems: Comment Review of Relevant I have reviewed the following items melquiades (where applicable) has been applied. Labs Laboratory Tests Test 05/14/16 17:01 05/15/16 04:20 05/15/16 08:16 05/15/16 10:47 Glucose (Fingerstick) 225mg/dL (70-99) 144mg/dL (70-99) 262mg/dL (70-99) White Blood Count 5.9x10^3/uL (4.0-11.0) Red Blood Count 2.82x10^6/uL (3.50-5.40) Hemoglobin 7.7g/dL (12.0-15.5) Hematocrit 24.9% (36.0-47.0) Mean Corpuscular Volume 89fL (79-100) Mean Corpuscular Hemoglobin 28pg (25-35) Mean Corpuscular Hemoglobin Concent 31g/dL (31-37) Red Cell Distribution Width 19.2% (11.5-14.5) Platelet Count 199x10^3/uL (140-400) Neutrophils (%) (Auto) 76% (31-73) Lymphocytes (%) (Auto) 14% (24-48) Monocytes (%) (Auto) 8% (0-9) Eosinophils (%) (Auto) 2% (0-3) Basophils (%) (Auto) 0% (0-3) Neutrophils # (Auto) 4.4x10^3uL (1.8-7.7) Lymphocytes # (Auto) 0.8x10^3/uL (1.0-4.8) Monocytes # (Auto) 0.5x10^3/uL (0.0-1.1) Eosinophils # (Auto) 0.1x10^3/uL (0.0-0.7) Basophils # (Auto) 0.0x10^3/uL (0.0-0.2) Sodium Level 141mmol/L (136-145) Potassium Level 4.1mmol/L (3.5-5.1) Chloride Level 103mmol/L (98-107) Carbon Dioxide Level 33mmol/L (21-32) Anion Gap 5 (6-14) Blood Urea Nitrogen 28mg/dL (7-20) Creatinine 1.0mg/dL (0.6-1.0) Estimated GFR (Cockcroft-Gault) 63.3 Glucose Level 150mg/dL (70-99) Calcium Level 8.4mg/dL (8.5-10.1) Magnesium Level 1.9mg/dL (1.8-2.4) Test 05/15/16 16:47 05/15/16 20:48 05/16/16 05:00 05/16/16 05:15 Glucose (Fingerstick) 158mg/dL (70-99) 151mg/dL (70-99) Magnesium Level 1.5mg/dL (1.8-2.4) White Blood Count 6.3x10^3/uL (4.0-11.0) Red Blood Count 2.85x10^6/uL (3.50-5.40) Hemoglobin 7.9g/dL (12.0-15.5) Hematocrit 25.1% (36.0-47.0) Mean Corpuscular Volume 88fL (79-100) Mean Corpuscular Hemoglobin 28pg (25-35) Mean Corpuscular Hemoglobin Concent 32g/dL (31-37) Red Cell Distribution Width 19.0% (11.5-14.5) Platelet Count 222x10^3/uL (140-400) Neutrophils (%) (Auto) 75% (31-73) Lymphocytes (%) (Auto) 14% (24-48) Monocytes (%) (Auto) 9% (0-9) Eosinophils (%) (Auto) 3% (0-3) Basophils (%) (Auto) 0% (0-3) Neutrophils # (Auto) 4.7x10^3uL (1.8-7.7) Lymphocytes # (Auto) 0.9x10^3/uL (1.0-4.8) Monocytes # (Auto) 0.5x10^3/uL (0.0-1.1) Eosinophils # (Auto) 0.2x10^3/uL (0.0-0.7) Basophils # (Auto) 0.0x10^3/uL (0.0-0.2) Sodium Level 143mmol/L (136-145) Potassium Level 3.2mmol/L (3.5-5.1) Chloride Level 102mmol/L (98-107) Carbon Dioxide Level 34mmol/L (21-32) Anion Gap 7 (6-14) Blood Urea Nitrogen 24mg/dL (7-20) Creatinine 1.0mg/dL (0.6-1.0) Estimated GFR (Cockcroft-Gault) 63.3 Glucose Level 80mg/dL (70-99) Calcium Level 8.7mg/dL (8.5-10.1) DR-Dxa-L-Type Natriuretic Peptide 3271pg/mL (0-449) Test 05/16/16 07:35 05/16/16 10:40 05/16/16 11:35 Glucose (Fingerstick) 76mg/dL (70-99) 224mg/dL (70-99) Potassium Level 3.9mmol/L (3.5-5.1) Laboratory Tests Test 05/15/16 16:47 05/15/16 20:48 05/16/16 05:00 05/16/16 05:15 Glucose (Fingerstick) 158mg/dL (70-99) 151mg/dL (70-99) Magnesium Level 1.5mg/dL (1.8-2.4) White Blood Count 6.3x10^3/uL (4.0-11.0) Red Blood Count 2.85x10^6/uL (3.50-5.40) Hemoglobin 7.9g/dL (12.0-15.5) Hematocrit 25.1% (36.0-47.0) Mean Corpuscular Volume 88fL (79-100) Mean Corpuscular Hemoglobin 28pg (25-35) Mean Corpuscular Hemoglobin Concent 32g/dL (31-37) Red Cell Distribution Width 19.0% (11.5-14.5) Platelet Count 222x10^3/uL (140-400) Neutrophils (%) (Auto) 75% (31-73) Lymphocytes (%) (Auto) 14% (24-48) Monocytes (%) (Auto) 9% (0-9) Eosinophils (%) (Auto) 3% (0-3) Basophils (%) (Auto) 0% (0-3) Neutrophils # (Auto) 4.7x10^3uL (1.8-7.7) Lymphocytes # (Auto) 0.9x10^3/uL (1.0-4.8) Monocytes # (Auto) 0.5x10^3/uL (0.0-1.1) Eosinophils # (Auto) 0.2x10^3/uL (0.0-0.7) Basophils # (Auto) 0.0x10^3/uL (0.0-0.2) Sodium Level 143mmol/L (136-145) Potassium Level 3.2mmol/L (3.5-5.1) Chloride Level 102mmol/L (98-107) Carbon Dioxide Level 34mmol/L (21-32) Anion Gap 7 (6-14) Blood Urea Nitrogen 24mg/dL (7-20) Creatinine 1.0mg/dL (0.6-1.0) Estimated GFR (Cockcroft-Gault) 63.3 Glucose Level 80mg/dL (70-99) Calcium Level 8.7mg/dL (8.5-10.1) SA-Upl-G-Type Natriuretic Peptide 3271pg/mL (0-449) Test 05/16/16 07:35 05/16/16 10:40 05/16/16 11:35 Glucose (Fingerstick) 76mg/dL (70-99) 224mg/dL (70-99) Potassium Level 3.9mmol/L (3.5-5.1) Microbiology 05/09/16 Urine Culture - Final, Complete 05/09/16 Urine Culture Result 1 (MATT) - Final, Complete Medications Current Medications Furosemide (Lasix) 40 mg 1X ONCE IVP Last administered on 05/09/16 05:07; Start 05/09/16 at 04:15; Stop 05/09/16 at 04:16; Status DC Ondansetron HCl (Zofran) 4 mg PRN Q8HRS PRN IV NAUSEA/VOMITING; Start 05/09/16 at 05:45; Stop 05/10/16 at 05:44; Status DC Acetaminophen (Tylenol) 650 mg PRN Q4HRS PRN PO FEVER; Start 05/09/16 at 05:45 ; Stop 05/10/16 at 05:44; Status DC Aspirin (Gay Aspirin) 325 mg 1X ONCE PO Last administered on 05/09/16 10:08 ; Start 05/09/16 at 06:30; Stop 05/09/16 at 06:31; Status DC Pneumococcal Polyvalent Vaccine (Do NOT chart on this placeholder) 1 each 1X ONCE MC ; Start 05/09/16 at 09:15; Stop 05/09/16 at 09:16; Status UNV Pneumococcal Polyvalent Vaccine (Pneumovax 23) 0.5 ml ONCE ONCE VAX IM Last administered on 05/13/16 17:47; Start 05/09/16 at 11:00; Stop 05/09/16 at 11:01 ; Status DC Insulin Detemir (Levemir) 22 units QHS SQ ; Start 05/09/16 at 11:30; Stop at 11:42; Status DC Insulin Aspart (Novolog) 0-7 UNITS TIDWMEALS SQ Last administered on 05/14/16 17:50; Start 05/09/16 at 12:32; Stop 05/15/16 at 06:59; Status DC Dextrose 12.5 gm PRN Q15MIN PRN IV SEE COMMENTS Last administered on 05/12/16 07:15; Start 05/09/16 at 11:30 Insulin Detemir (Levemir) 22 units DAILY SQ Last administered on 05/16/16 08: 46; Start 05/09/16 at 11:30 Acetaminophen/ Codeine Phosphate (Tylenol #3) 2 tab Q6HRS PO ; Start 05/09/16 at 18:00; Stop 05/09/16 at 19:34; Status DC Alprazolam (Xanax) 0.5 mg BID PO Last administered on 05/11/16 08:54; Start at 21:00; Stop 05/11/16 at 10:34; Status DC Clopidogrel Bisulfate (Plavix) 75 mg DAILY PO Last administered on 05/16/16 08 :34; Start 05/09/16 at 16:00 Diltiazem HCl (Cardizem 24hr Cd) 240 mg DAILY PO Last administered on 08:34; Start 05/09/16 at 16:00 EZETIMIBE (Zetia) 10 mg DAILY PO Last administered on 05/16/16 08:36; Start at 16:00 Fluticasone Propionate (Flonase) 1 spray PRN DAILY PRN NS Allergies; Start at 15:00 Furosemide (Lasix) 40 mg DAILY PO Last administered on 05/09/16 16:40; Start 05/09/16 at 16:00; Stop 05/11/16 at 10:59; Status DC Losartan Potassium (Cozaar) 25 mg DAILY PO Last administered on 05/16/16 08:35 ; Start 05/09/16 at 16:00 Metoprolol Succinate (Toprol Xl) 25 mg DAILY PO Last administered on 05/16/16 08:36; Start 05/09/16 at 16:00 Nitroglycerin (Nitrostat) 0.4 mg PRN Q10MIN SL ; Start 05/09/16 at 15:00 Pantoprazole Sodium (Protonix) 40 mg DAILYAC PO Last administered on 05/16/16 08:36; Start 05/09/16 at 16:30 Polyethylene Glycol (miraLAX PACKET) 17 gm HS PO Last administered on 22:29; Start 05/09/16 at 21:00 Atorvastatin Calcium (Lipitor) 20 mg QHS PO Last administered on 05/15/16 21: 25; Start 05/09/16 at 21:00 Ascorbic Acid (Vitamin C) 250 mg DAILY PO Last administered on 05/16/16 08:34 ; Start 05/09/16 at 16:00 Vitamin D (Vitamin D3) 3,000 unit DAILY PO Last administered on 05/16/16 08:36 ; Start 05/09/16 at 16:00 Duloxetine HCl (Cymbalta) 60 mg DAILY PO Last administered on 05/16/16 08:37; Start 05/09/16 at 16:00 Ferrous Sulfate (Slow Release Iron) 142 mg DAILYWBKFT PO Last administered on 08:36; Start 05/10/16 at 08:00 Insulin Detemir (Levemir) 22 units DAILY08 SQ ; Start 05/10/16 at 08:00; Stop at 10:05; Status DC Fish Oil (Fish Oil) 1,000 mg DAILY PO Last administered on 05/16/16 08:34; Start 05/09/16 at 16:00 Psyllium Hydrophilic Mucilloid (Metamucil Fiber Packet) 1 pkt DAILY PO Last administered on 05/16/16 08:37; Start 05/09/16 at 16:00 Apixaban (Eliquis) 5 mg BID PO Last administered on 05/11/16 08:54; Start at 21:00; Stop 05/11/16 at 11:28; Status DC Potassium Chloride (Klor-Con) 10 meq BID PO Last administered on 05/12/16 22: 30; Start 05/09/16 at 21:00; Stop 05/13/16 at 10:47; Status DC Pregabalin (Lyrica) 50 mg TID PO Last administered on 05/16/16 08:37; Start at 16:00 Info (Anti-Coagulation Monitoring By Pharmacy) 1 each PRN DAILY PRN MC SEE COMMENTS Last administered on 05/14/16 09:01; Start 05/09/16 at 15:30 Acetaminophen/ Codeine Phosphate (Tylenol #3) 2 tab PRN Q6HRS PRN PO PAIN Last administered on 05/16/16 11:36; Start 05/09/16 at 20:00 Furosemide (Lasix) 40 mg 1X ONCE IVP Last administered on 05/10/16 03:58; Start 05/10/16 at 04:15; Stop 05/10/16 at 04:16; Status DC Digoxin (Lanoxin) 250 mcg 1X ONCE IV Last administered on 05/10/16 03:59; Start 05/10/16 at 04:15; Stop 05/10/16 at 04:16; Status DC Diltiazem HCl 10 mg 10 mg 1X ONCE IVP Last administered on 05/10/16 05:54; Start 05/10/16 at 06:00; Stop 05/10/16 at 06:01; Status DC Diltiazem HCl/ Dextrose (Cardizem) 125 ml @ 0 mls/hr CONT PRN IV SEE I/O RECORD Last administered on 05/10/16 05:55; Start 05/10/16 at 05:45; Stop 05/11 at 10:59; Status DC Insulin Aspart (Novolog) 15 units 1X ONCE SQ Last administered on 05/10/16 12 :12; Start 05/10/16 at 10:15; Stop 05/10/16 at 10:16; Status DC Insulin Aspart (Novolog) 30 units 1X ONCE SQ Last administered on 05/10/16 17 :31; Start 05/10/16 at 17:30; Stop 05/10/16 at 17:31; Status DC Guaifenesin (Robitussin Dm) 10 ml PRN Q6HRS PRN PO COUGH Last administered on 21:25; Start 05/10/16 at 17:45 Insulin Aspart (Novolog) 20 units TIDAC SQ Last administered on 05/11/16 16:30 ; Start 05/11/16 at 07:30; Stop 05/12/16 at 09:33; Status DC Insulin Detemir (Levemir) 10 units QHS SQ Last administered on 05/11/16 21:00 ; Start 05/10/16 at 23:00; Stop 05/12/16 at 09:45; Status DC Albuterol Sulfate 2.5 mg 2.5 mg RTQID NEB Last administered on 05/16/16 11:26 ; Start 05/10/16 at 23:00; Stop 05/16/16 at 12:00; Status DC Ceftriaxone Sodium 1 gm/ Sodium Chloride 50 ml @ 100 mls/hr QHS IV Last administered on 05/15/16 21:27; Start 05/10/16 at 23:00; Stop 05/16/16 at 11:37 ; Status DC Iron Sucrose/ Sodium Chloride (Venofer/Iv Sodium Chloride 0.9% 100ml) 110 ml @ 55 mls/hr 1X ONCE IV Last administered on 05/11/16 11:54; Start 05/11/16 at 11:00; Stop 05/11/16 at 12:59; Status DC Guaifenesin (Mucinex) 600 mg PRN BID PRN PO COUGH Last administered on 08:40; Start 05/11/16 at 21:00 Alprazolam 0.5 mg 0.5 mg PRN Q8HRS PRN PO ANXIETY; Start 05/12/16 at 09:00; Stop 05/12/16 at 09:00; Status DC Albumin Human (Plasmanate) 250 ml @ 62.5 mls/hr 1X ONCE IV Last administered on 05/11/16 11:54; Start 05/11/16 at 11:00; Stop 05/11/16 at 14:59; Status DC Apixaban (Eliquis) 2.5 mg BID PO Last administered on 05/13/16 09:21; Start at 21:00; Stop 05/13/16 at 12:22; Status DC Doxycycline Hyclate 100 mg 100 mg BID PO Last administered on 05/16/16 09:00; Start 05/11/16 at 13:00; Stop 05/16/16 at 11:37; Status DC Albumin Human (Plasmanate) 250 ml @ 62.5 mls/hr 1X ONCE IV Last administered on 05/11/16 16:43; Start 05/11/16 at 16:30; Stop 05/11/16 at 20:29; Status DC Insulin Aspart (Novolog) 10 units TIDAC SQ ; Start 05/12/16 at 11:30; Stop 05/12 at 11:30; Status DC Metoprolol Tartrate (Lopressor) 5 mg 1X ONCE IVP Last administered on 22:28; Start 05/12/16 at 22:15; Stop 05/12/16 at 22:16; Status DC Promethazine HCl/ Codeine (Phenergan With Codeine) 5 ml 1X ONCE PO Last administered on 05/12/16 23:57; Start 05/12/16 at 23:45; Stop 05/12/16 at 23:46 ; Status DC Metoprolol Tartrate (Lopressor) 50 mg 1X ONCE PO Last administered on 23:58; Start 05/12/16 at 23:55; Stop 05/12/16 at 23:56; Status DC Throat Lozenges (Cepacol Sore Throat Lozenge) 1 isaías PRN Q6HRS PRN PO SORE THROAT Last administered on 05/15/16 21:25; Start 05/12/16 at 23:45 Furosemide (Lasix) 40 mg 1X ONCE IVP Last administered on 05/13/16 08:46; Start 05/13/16 at 09:00; Stop 05/13/16 at 09:01; Status DC Apixaban (Eliquis) 5 mg BID PO Last administered on 05/16/16 08:34; Start at 21:00 Ondansetron HCl (Zofran) 4 mg PRN Q6HRS PRN IV Nausea; Start 05/14/16 at 07:00 ; Stop 05/15/16 at 06:59; Status DC Fentanyl Citrate (Fentanyl 2ml Vial) 25 mcg PRN Q5MIN PRN IV MILD PAIN; Start 05/14/16 at 07:00; Stop 05/15/16 at 06:59; Status DC Fentanyl Citrate (Fentanyl 2ml Vial) 50 mcg PRN Q5MIN PRN IV MODERATE PAIN; Start 05/14/16 at 07:00; Stop 05/15/16 at 06:59; Status DC Morphine Sulfate 1 mg 1 mg PRN Q10MIN PRN IV SEVERE PAIN; Start 05/14/16 at 07: 00; Stop 05/15/16 at 06:59; Status DC Lactated Ringer's (Iv Lactated Ringers) 1,000 ml @ 30 mls/hr Q24H IV ; Start at 07:00; Stop 05/14/16 at 18:59; Status DC Lidocaine HCl 2 ml 1X PRN PRN ID IV START; Start 05/14/16 at 07:00; Stop at 06:59; Status DC Hydromorphone HCl (Dilaudid) 0.5 mg PRN Q10MIN PRN IV SEVERE PAIN, Second choice; Start 05/14/16 at 07:00; Stop 05/15/16 at 06:59; Status DC Prochlorperazine Edisylate (Compazine) 5 mg PACU PRN PRN IV NAUSEA; Start 05/14 at 07:00; Stop 05/15/16 at 06:59; Status DC Insulin Aspart (Novolog) 15 units 1X ONCE SQ Last administered on 05/13/16 21 :33; Start 05/13/16 at 20:45; Stop 05/13/16 at 20:46; Status DC Insulin Aspart (Novolog) 10 units TIDAC SQ Last administered on 05/16/16 12:46 ; Start 05/14/16 at 07:30 Furosemide (Lasix) 20 mg 1X ONCE IVP Last administered on 05/14/16 10:02; Start 05/14/16 at 10:00; Stop 05/14/16 at 10:01; Status DC Albuterol/ Ipratropium (Duoneb) 3 ml RTQID NEB Last administered on 05/16/16 07:45; Start 05/14/16 at 14:00 Budesonide 0.5 mg 0.5 mg RTBID NEB Last administered on 05/16/16 07:45; Start 05/14/16 at 14:00 Furosemide 100 mg/ Sodium Chloride 100 ml @ 0 mls/hr CONT PRN IV SEE I/O RECORD Last administered on 05/16/16 02:51; Start 05/14/16 at 22:00; Stop 05/16 at 07:55; Status DC Iron Sucrose/ Sodium Chloride (Venofer/Iv Sodium Chloride 0.9% 250ml) 270 ml @ 90 mls/hr 1X ONCE IV Last administered on 05/15/16 10:00; Start 05/15/16 at 10:00; Stop 05/15/16 at 12:59; Status DC Insulin Aspart (Novolog) 0-9 UNITS TIDWMEALS SQ Last administered on 05/16/16 12:46; Start 05/15/16 at 08:00 Dextrose 12.5 gm PRN Q15MIN PRN IV SEE COMMENTS; Start 05/15/16 at 07:00; Status UNV Albuterol Sulfate (Ventolin Neb Soln) 2.5 mg PRN Q6HRS PRN NEB WHEEZING; Start 05/15/16 at 17:00 Furosemide (Lasix) 20 mg 1X ONCE IVP Last administered on 05/15/16 16:27; Start 05/15/16 at 16:30; Stop 05/15/16 at 16:31; Status DC Potassium Chloride 40 meq 40 meq 1X ONCE PO Last administered on 05/16/16 08: 36; Start 05/16/16 at 08:00; Stop 05/16/16 at 08:01; Status DC Magnesium Sulfate/ Dextrose (Magnesium Sulfate PREMIX 2GM) 50 ml @ 25 mls/hr 1X ONCE IV Last administered on 05/16/16 10:30; Start 05/16/16 at 10:30; Stop 05/16/16 at 12:29; Status DC Amoxicillin/ Clavulanate Potassium (Augmentin 875/ 125mg) 1 tab BID PO ; Start 05/16/16 at 21:00 Sucralfate 1 gm 1 gm BID PO ; Start 05/16/16 at 21:00 Iron Sucrose 200 mg/Sodium Chloride 110 ml @ 55 mls/hr 1X ONCE IV Last administered on 05/16/16 13:13; Start 05/16/16 at 13:30; Stop 05/16/16 at 15:29 Iron Sucrose/ Sodium Chloride (Venofer/Iv Sodium Chloride 0.9% 100ml) 110 ml @ 55 mls/hr 1X ONCE IV ; Start 05/17/16 at 12:45; Stop 05/17/16 at 14:44; Status UNV Active Scripts Active Reported Lyrica (Pregabalin) 50 Mg Capsule 50 Mg PO TID Pantoprazole Sodium 40 Mg Tablet.dr 1 Tab PO DAILY Levemir (Insulin Detemir) 100 Unit/1 Ml Vial 22 Unit SQ DAILY08 Eliquis (Apixaban) 5 Mg Tablet 5 Mg PO BID Diltiazem 24HR Cd (Diltiazem Hcl) 120 Mg Cap.er.24h 240 Mg PO DAILY Plavix (Clopidogrel Bisulfate) 75 Mg Tablet 1 Tab PO DAILY Novolog Flexpen (Insulin Aspart) 100 Unit/1 Ml Insuln.pen 100 Unit SQ Zetia (Ezetimibe) 10 Mg Tablet 10 Mg PO DAILY Cymbalta (Duloxetine Hcl) 60 Mg Capsule.dr 60 Mg PO DAILY Alprazolam 0.5 Mg Tablet 1 Tab PO BID Flonase (Fluticasone Propionate) 16 Gm [place].susp 16 Gm NS PRN DAILY NITROGLYCERIN SubLingual (Nitroglycerin) 0.4 Mg Tab.subl 0.4 Mg SL PRN Q10MIN Vitamin C (Ascorbic Acid) 100 Mg Tablet 100 Mg PO DAILY Ferrous Sulfate 134 Mg Tablet 134 Mg PO DAILY [place] 3 1,000 Mg Softgel ([place]-3 Fatty Acids/Fish Oil) 1 Each Capsule 1 Each PO DAILY Miralax (Polyethylene Glycol 3350) 17 Gm Powd.pack 17 Gm PO HS Zocor (Simvastatin) 40 Mg Tablet 40 Mg PO HS Metamucil Packet (Psyllium Seed (With Sugar)) 1 Each Packet 1 Each PO DAILY Vitamin D3 (Cholecalciferol (Vitamin D3)) 3,000 Unit Tablet 3,000 Unit PO DAILY Potassium Chloride 10 Meq Tab.er.prt 10 Meq PO BID Lasix (Furosemide) 40 Mg Tablet 40 Mg PO DAILY Metoprolol Succinate ( Xl ) (Metoprolol Succinate) 25 Mg Tab.er.24h 25 Mg PO DAILY Losartan Potassium 25 Mg Tablet 25 Mg PO DAILY Acetaminophen-Cod #3 Tablet (Acetaminophen/Codeine Phosphate) 1 Each Tablet 2 Each PO Q6HRS PRN Vitals/I & O Vital Sign - Last 24 Hours 05/15/16 05/15/16 05/15/16 05/15/16 14:47 15:41 19:24 19:26 Pulse 96 Resp 20 B/P 142/57 Pulse Ox 100 100 O2 Delivery Nasal Cannula Nasal Cannula Nasal Cannula Nasal Cannula O2 Flow Rate 2.0 2.0 2.0 2.0 05/15/16 05/15/16 05/15/16 05/16/16 19:45 20:00 23:30 03:43 Temp 97.5 97.6 97.9 97.5 97.6 97.9 Pulse 111 113 116 Resp 17 19 B/P 140/75 109/68 130/58 Pulse Ox 98 98 98 O2 Delivery Nasal Cannula Nasal Cannula Nasal Cannula Nasal Cannula O2 Flow Rate 2.0 2.0 2.0 2.0 05/16/16 05/16/16 05/16/16 05/16/16 07:31 07:48 08:00 08:34 Temp 97.4 97.4 Pulse 100 100 Resp 21 B/P 102/71 102/71 Pulse Ox 97 100 O2 Delivery Nasal Cannula Nasal Cannula Nasal Cannula O2 Flow Rate 2.0 2.0 2.0 05/16/16 05/16/16 05/16/16 05/16/16 08:35 08:36 10:20 10:22 Pulse 100 100 117 160 B/P 102/71 102/71 90/56 44/36 05/16/16 05/16/16 05/16/16 05/16/16 10:22 11:29 11:36 12:35 Pulse 143 Resp 18 20 B/P 87/55 Pulse Ox 100 100 O2 Delivery Nasal Cannula Nasal Cannula Nasal Cannula O2 Flow Rate 2.0 2.0 2.0 Intake and Output 05/15/16 05/15/16 05/16/16 15:00 23:00 07:00 Intake Total 360 ml Output Total 500 ml 1350 ml Balance -500 ml -990 ml JAZMÍN PLASCENCIA MD May 16, 2016 14:35
[2016-05-16] MEDS: ATORVASTATIN CALCIUM 20 MG TABLET PO SCH (21:12)
[2016-05-16] MEDS: POLYETHYLENE GLYCOL 3350 17 GM PACKET. PO SCH (21:12)
[2016-05-16] MEDS: SUCRALFATE 1 GM TABLET. PO SCH (21:12)
[2016-05-16] MEDS: AMOXICILLIN/K CLAV 875/125MG TABLET. PO SCH (21:12)
[2016-05-17 02:30] VITALS: BP 112/66
[2016-05-17 05:20] LABS: BASO % 0 % (0-3); EOS % 3 % (0-3); HEMATOCRIT 25.7 % (36.0-47.0); LYMPH # 0.7 x10^3/uL (1.0-4.8); LYMPH % 10 % (24-48); MEAN CORPUSCULAR HEMOGLOBIN 28 pg (25-35); MEAN CORPUSCULAR HGB CONC 31 g/dL (31-37); MEAN CORPUSCULAR VOLUME 89 fL (79-100); MONO % 6 % (0-9); NEUT % 81 % (31-73); PLATELET COUNT 272 x10^3/uL (140-400); RED BLOOD COUNT 2.88 x10^6/uL (3.50-5.40); RED CELL DISTRIBUTION WIDTH 19.2 % (11.5-14.5); WHITE BLOOD COUNT 7.2 x10^3/uL (4.0-11.0)
[2016-05-17 05:48] LABS: CREATININE 1.2 mg/dL (0.6-1.0); GFR 51.3; MAGNESIUM 2.2 mg/dL (1.8-2.4); POTASSIUM 3.9 mmol/L (3.5-5.1)
[2016-05-17 07:00] VITALS: BP 116/69
[2016-05-17] MEDS: IPRATRPIUM/ALBUTEROL 0.5/2.5MG 3 ML NEBU. NEB SCH ×4 (07:55→21:06)
[2016-05-17] MEDS: BUDESONIDE 0.5 MG/2 ML NEBU NEB SCH ×2 (07:55→21:06)
--- NOTE | 2016-05-17 08:49 | PDOC ---
Infectious Disease Note Subjective Subjective feeling better ROS ROS GEN: Denies fevers, chills, sweats HEENT: Denies blurred vision, sore throat CV: Denies chest pain RESP: Denies shortness of air, cough GI: Denies n/v/d NEURO: Denies confusion, dizziness MSK: Denies weakness, joint pain/swelling Vital Sign Vital Signs Vital Signs Date Time Temp Pulse Resp B/P Pulse Ox O2 Delivery O2 Flow Rate FiO2 05/17/16 08:00 97 Nasal Cannula 2.0 05/17/16 07:00 98.0 85 18 116/69 98.0 Physical Exam PHYSICAL EXAM GENERAL: NAD, Alert HEENT: PERRL, OC/OP NECK: Supple, no JVD, no LN LUNGS: Clear HEART: S1S2, no gallop, no murmur ABD: Soft, NT, no organomegaly, no rebound EXT: No edema, no cyanosis [employer]: Alert, oriented x 3, no focal neurologic deficit SKIN: No rash IV: ok Labs Lab Laboratory Tests Test 05/16/16 10:40 05/16/16 11:35 05/16/16 16:48 05/16/16 21:17 Potassium Level 3.9mmol/L (3.5-5.1) Glucose (Fingerstick) 224mg/dL (70-99) 114mg/dL (70-99) 225mg/dL (70-99) Test 05/17/16 03:50 05/17/16 08:25 White Blood Count 7.2x10^3/uL (4.0-11.0) Red Blood Count 2.88x10^6/uL (3.50-5.40) Hemoglobin 8.0g/dL (12.0-15.5) Hematocrit 25.7% (36.0-47.0) Mean Corpuscular Volume 89fL (79-100) Mean Corpuscular Hemoglobin 28pg (25-35) Mean Corpuscular Hemoglobin Concent 31g/dL (31-37) Red Cell Distribution Width 19.2% (11.5-14.5) Platelet Count 272x10^3/uL (140-400) Neutrophils (%) (Auto) 81% (31-73) Lymphocytes (%) (Auto) 10% (24-48) Monocytes (%) (Auto) 6% (0-9) Eosinophils (%) (Auto) 3% (0-3) Basophils (%) (Auto) 0% (0-3) Neutrophils # (Auto) 5.8x10^3uL (1.8-7.7) Lymphocytes # (Auto) 0.7x10^3/uL (1.0-4.8) Monocytes # (Auto) 0.5x10^3/uL (0.0-1.1) Eosinophils # (Auto) 0.2x10^3/uL (0.0-0.7) Basophils # (Auto) 0.0x10^3/uL (0.0-0.2) Sodium Level 143mmol/L (136-145) Potassium Level 3.9mmol/L (3.5-5.1) Chloride Level 103mmol/L (98-107) Carbon Dioxide Level 34mmol/L (21-32) Anion Gap 6 (6-14) Blood Urea Nitrogen 30mg/dL (7-20) Creatinine 1.2mg/dL (0.6-1.0) Estimated GFR (Cockcroft-Gault) 51.3 Glucose Level 212mg/dL (70-99) Calcium Level 9.0mg/dL (8.5-10.1) Magnesium Level 2.2mg/dL (1.8-2.4) Glucose (Fingerstick) 188mg/dL (70-99) Objective Assessment Acute Resp failure - better with lasix Pneumonia - elevated procalcitonin 4.12 on 05/11. -Mycoplasma/Strep antigen. negative Afib - Tachycardia - per Dr. Chen Leukocytosis - improved DM with elevated FSBS Plan Plan of Care po augmentin for 5 days d/c to rehab SANTI Campa MD May 17, 2016 08:49
[2016-05-17] MEDS: OMEGA-3 FATTY ACIDS/FISH OIL 1,000 MG CAPSULE. PO SCH (08:55)
[2016-05-17] MEDS: FERROUS SULFATE 142 MG PO SCH (08:55)
[2016-05-17] MEDS: SUCRALFATE 1 GM TABLET. PO SCH ×2 (08:55→20:24)
--- NOTE | 2016-05-17 08:55 | PDOC ---
Subjective: Subjective: Feeling better although some SOA off O2 this morning. No n/v, abd pain, diarrhea, constipation, hematochezia, melena. Objective: Objective: EGD and colonoscopy by Dr. Nathaniel De La Fuente in 2010: AVMs (upper and lower), hiatal hernia, normal biopsies Vital Signs: Vital Signs Date Time Temp Pulse Resp B/P Pulse Ox O2 Delivery O2 Flow Rate FiO2 05/17/16 08:00 97 Nasal Cannula 2.0 05/17/16 07:00 98.0 85 18 116/69 98.0 Labs: Laboratory Tests Test 05/16/16 11:35 05/16/16 16:48 05/16/16 21:17 05/17/16 08:25 Glucose (Fingerstick) 224mg/dL (70-99) 114mg/dL (70-99) 225mg/dL (70-99) 188mg/dL (70-99) PE: GEN: NAD, sitting up in bed LUNGS: CTAB bilaterally HEART: S1S2 ABD: NABS, S/ND/NT NEURO/PSYCH: A & O 3 OTHER: family present A/P: MARK -last scopes in 2009 as above w/ AVMs -on IV/PO iron, PPI, carafate -no obvious bleeding or GI symptoms CHF, pneumonia, SOA -- Hgb stable. Continue same per GI. Other per Dr. Shelley. SHUN TY May 17, 2016 08:55
[2016-05-17] MEDS: AMOXICILLIN/K CLAV 875/125MG TABLET. PO SCH ×2 (08:56→20:24)
[2016-05-17] MEDS: ASCORBIC ACID 500 MG TABLET PO SCH (08:56)
[2016-05-17] MEDS: DULOXETINE HCL 30 MG CAPSULE.DR. PO SCH (08:58)
[2016-05-17] MEDS: PREGABALIN 50 MG CAPSULE PO SCH ×3 (08:58→20:24)
[2016-05-17] MEDS: EZETIMIBE 10 MG TABLET PO SCH (08:59)
[2016-05-17] MEDS: LOSARTAN POTASSIUM 25 MG TABLET. PO SCH (08:59)
[2016-05-17] MEDS: PANTOPRAZOLE 40 MG TABLET. PO SCH (08:59)
[2016-05-17] MEDS: APIXABAN 5 MG TABLET. PO SCH ×2 (09:00→20:24)
[2016-05-17] MEDS: PSYLLIUM HUSK (SUGAR FREE) 1 PKT PACKET PO SCH (09:00)
[2016-05-17] MEDS: DILTIAZEM HCL 120 MG CAP.ER.24H PO SCH (09:00)
[2016-05-17] MEDS: INSULIN DETEMIR 300 UNITS/3 ML INSULN.PEN. SQ SCH (09:00)
[2016-05-17] MEDS: CHOLECALCIFEROL (VITAMIN D3) 1,000 UNIT TABLET PO SCH (09:03)
[2016-05-17] MEDS: METOPROLOL SUCC 24HR ER 25 MG TAB.ER.24H. PO SCH (09:04)
[2016-05-17] MEDS: INSULIN ASPART 300 UNITS/3 ML INSULN.PEN SQ SCH ×6 (09:10→18:15)
--- NOTE | 2016-05-17 09:16 | PN ---
DATE: 05/16/2016 SUBJECTIVE: The patient had been on a Lasix drip all night. She says she slept better last night. She did not cough as much. The lungs today show very mild expiratory wheezing. However, with the Lasix drip, her blood pressure dropped, but she was asymptomatic with it. Orthostatics were done. The blood pressure is 90/56 while lying down, dropped to 87/55 while sitting and with standing the recorded blood pressure was 44/36 but the patient was unsteady on her feet. She did not complain of dizziness. She had to be held up and she was quickly made to sit down. Since then, the ventricular response to the atrial fibrillation has jumped up to 130-140 beats per minute. With this rapid rate the patient is not symptomatic with palpitations or dizziness or shortness of breath. In fact, she says she feels much better today than she did yesterday. She seems to feel better with the diuresis and the fluid off even though this results in a low blood pressure and a high ventricular response. Therefore, consideration is being given to doing a cardioversion, which would eliminate the rapid ventricular response to diuresis. It might also help the blood pressure. However, she has not been on an anticoagulant for the required period of time. We would do a LATHA first, but it would be unnecessary doing a LATHA and postponing the cardioversion if we should find a thrombus in the left atrium. Thus instead of proceeding with the cardioversion now, I would like to wait for 2 more weeks, but it is going to be very difficult balance between her blood pressure, heart rate response and fluid retention. She absolutely needs to be monitored because having a heart rate of 140-150 beats per minute an 89-year-old patient with severe aortic stenosis and hypotension, could be disastrous. Her renal functions have remained stable with her diuresis. Her potassium did drop as expected, but the potassium and the magnesium are being replaced. Thus, this patient presents with a very difficult problem of severe aortic stenosis and subaortic stenosis, atrial fibrillation with rapid ventricular response, congestive cardiac failure requiring diuretics, she tolerates the Lasix drip much better than the Lasix IV push. Oral Lasix has not been very effective. In fact she was on Lasix 40 mg everyday at home and came in with severe congestive heart failure. 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 I plan to bring her in about 10-14 days for a cardioversion, which would eliminate some of these problems. We will thus request [facility] to evaluate. ASSESSMENT: 1. Moderate aortic stenosis. 2. Moderate subaortic stenosis and left ventricular hypertrophy. 3. Atrial fibrillation with rapid ventricular response. Unable to control the ventricular response any further with AV blocking drugs because of hypotension. 4. Severe orthostatic hypotension after diuresis to the point of comfort. 5. Persistent mild expiratory wheezing, asymptomatic even after vigorous diuresis. 6. Advanced age. 7. Diabetes mellitus. 8. Iron deficiency anemia contributing to the above problems, but not bad enough for transfusion. If she goes to [facility], she will be monitored over there for anemia and blood transfusion will be given if necessary. Right now I do not believe she is in a condition for us to do a full GI workup. We will however ask GI to see. 9. Hypokalemia and hypomagnesemia. 10. Insulin-dependent diabetes mellitus with very labile blood sugars. SOM SHORE MD DR: SURINDER/mohsen JOB#: [id number] / [id number]
[2016-05-17 10:17] VITALS: BP 127/68
--- NOTE | 2016-05-17 11:22 | PDOC ---
PROGRESS NOTES Chief Complaint Chief Complaint CHF exac of systolic - arthritis - CHF, acute systolic - diabetes, insulin req. hypoglycemia yesterday - pneumonia, POA - coronary artery disease - tinnitus - gastritis History of Present Illness History of Present Illness Asleep did not awaken, being screened for ltac Pt and family agreeable to SNU as dw over the weekend with them CLeared form ID to go home, PO Augmentin x 5 days PLAN: No objections to dc per primary service SNU vs ltac Will be under Dr. [place] Vitals Vitals Vital Signs Date Time Temp Pulse Resp B/P Pulse Ox O2 Delivery O2 Flow Rate FiO2 05/17/16 10:17 97.8 101 20 127/68 94 Room Air 97.8 05/17/16 08:00 2.0 Physical Exam Physical Exam tele reg, rate 93 General: Alert, Oriented X3, No acute distress Heart: Regular rate Lungs: Wheezing (resolved) Abdomen: Soft, No tenderness Skin: No significant lesion Labs LABS Laboratory Tests Test 05/16/16 11:35 05/16/16 16:48 05/16/16 21:17 05/17/16 03:50 Glucose (Fingerstick) 224mg/dL (70-99) 114mg/dL (70-99) 225mg/dL (70-99) White Blood Count 7.2x10^3/uL (4.0-11.0) Red Blood Count 2.88x10^6/uL (3.50-5.40) Hemoglobin 8.0g/dL (12.0-15.5) Hematocrit 25.7% (36.0-47.0) Mean Corpuscular Volume 89fL (79-100) Mean Corpuscular Hemoglobin 28pg (25-35) Mean Corpuscular Hemoglobin Concent 31g/dL (31-37) Red Cell Distribution Width 19.2% (11.5-14.5) Platelet Count 272x10^3/uL (140-400) Neutrophils (%) (Auto) 81% (31-73) Lymphocytes (%) (Auto) 10% (24-48) Monocytes (%) (Auto) 6% (0-9) Eosinophils (%) (Auto) 3% (0-3) Basophils (%) (Auto) 0% (0-3) Neutrophils # (Auto) 5.8x10^3uL (1.8-7.7) Lymphocytes # (Auto) 0.7x10^3/uL (1.0-4.8) Monocytes # (Auto) 0.5x10^3/uL (0.0-1.1) Eosinophils # (Auto) 0.2x10^3/uL (0.0-0.7) Basophils # (Auto) 0.0x10^3/uL (0.0-0.2) Sodium Level 143mmol/L (136-145) Potassium Level 3.9mmol/L (3.5-5.1) Chloride Level 103mmol/L (98-107) Carbon Dioxide Level 34mmol/L (21-32) Anion Gap 6 (6-14) Blood Urea Nitrogen 30mg/dL (7-20) Creatinine 1.2mg/dL (0.6-1.0) Estimated GFR (Cockcroft-Gault) 51.3 Glucose Level 212mg/dL (70-99) Calcium Level 9.0mg/dL (8.5-10.1) Magnesium Level 2.2mg/dL (1.8-2.4) Test 05/17/16 08:25 Glucose (Fingerstick) 188mg/dL (70-99) Review of Systems Review of Systems neg Assessment and Plan Assessmemt and Plan Problems Medical Problems: (1) CHF (congestive heart failure) Status: Acute (2) Elevated troponin Status: Acute (3) Non-STEMI (non-ST elevated myocardial infarction) Status: Acute Problems: Comment Review of Relevant I have reviewed the following items melquiades (where applicable) has been applied. Labs Laboratory Tests Test 05/15/16 16:47 05/15/16 20:48 05/16/16 05:00 05/16/16 05:15 Glucose (Fingerstick) 158mg/dL (70-99) 151mg/dL (70-99) Magnesium Level 1.5mg/dL (1.8-2.4) White Blood Count 6.3x10^3/uL (4.0-11.0) Red Blood Count 2.85x10^6/uL (3.50-5.40) Hemoglobin 7.9g/dL (12.0-15.5) Hematocrit 25.1% (36.0-47.0) Mean Corpuscular Volume 88fL (79-100) Mean Corpuscular Hemoglobin 28pg (25-35) Mean Corpuscular Hemoglobin Concent 32g/dL (31-37) Red Cell Distribution Width 19.0% (11.5-14.5) Platelet Count 222x10^3/uL (140-400) Neutrophils (%) (Auto) 75% (31-73) Lymphocytes (%) (Auto) 14% (24-48) Monocytes (%) (Auto) 9% (0-9) Eosinophils (%) (Auto) 3% (0-3) Basophils (%) (Auto) 0% (0-3) Neutrophils # (Auto) 4.7x10^3uL (1.8-7.7) Lymphocytes # (Auto) 0.9x10^3/uL (1.0-4.8) Monocytes # (Auto) 0.5x10^3/uL (0.0-1.1) Eosinophils # (Auto) 0.2x10^3/uL (0.0-0.7) Basophils # (Auto) 0.0x10^3/uL (0.0-0.2) Sodium Level 143mmol/L (136-145) Potassium Level 3.2mmol/L (3.5-5.1) Chloride Level 102mmol/L (98-107) Carbon Dioxide Level 34mmol/L (21-32) Anion Gap 7 (6-14) Blood Urea Nitrogen 24mg/dL (7-20) Creatinine 1.0mg/dL (0.6-1.0) Estimated GFR (Cockcroft-Gault) 63.3 Glucose Level 80mg/dL (70-99) Calcium Level 8.7mg/dL (8.5-10.1) PS-Hnn-V-Type Natriuretic Peptide 3271pg/mL (0-449) Test 05/16/16 07:35 05/16/16 10:40 05/16/16 11:35 05/16/16 16:48 Glucose (Fingerstick) 76mg/dL (70-99) 224mg/dL (70-99) 114mg/dL (70-99) Potassium Level 3.9mmol/L (3.5-5.1) Test 05/16/16 21:17 05/17/16 03:50 05/17/16 08:25 Glucose (Fingerstick) 225mg/dL (70-99) 188mg/dL (70-99) White Blood Count 7.2x10^3/uL (4.0-11.0) Red Blood Count 2.88x10^6/uL (3.50-5.40) Hemoglobin 8.0g/dL (12.0-15.5) Hematocrit 25.7% (36.0-47.0) Mean Corpuscular Volume 89fL (79-100) Mean Corpuscular Hemoglobin 28pg (25-35) Mean Corpuscular Hemoglobin Concent 31g/dL (31-37) Red Cell Distribution Width 19.2% (11.5-14.5) Platelet Count 272x10^3/uL (140-400) Neutrophils (%) (Auto) 81% (31-73) Lymphocytes (%) (Auto) 10% (24-48) Monocytes (%) (Auto) 6% (0-9) Eosinophils (%) (Auto) 3% (0-3) Basophils (%) (Auto) 0% (0-3) Neutrophils # (Auto) 5.8x10^3uL (1.8-7.7) Lymphocytes # (Auto) 0.7x10^3/uL (1.0-4.8) Monocytes # (Auto) 0.5x10^3/uL (0.0-1.1) Eosinophils # (Auto) 0.2x10^3/uL (0.0-0.7) Basophils # (Auto) 0.0x10^3/uL (0.0-0.2) Sodium Level 143mmol/L (136-145) Potassium Level 3.9mmol/L (3.5-5.1) Chloride Level 103mmol/L (98-107) Carbon Dioxide Level 34mmol/L (21-32) Anion Gap 6 (6-14) Blood Urea Nitrogen 30mg/dL (7-20) Creatinine 1.2mg/dL (0.6-1.0) Estimated GFR (Cockcroft-Gault) 51.3 Glucose Level 212mg/dL (70-99) Calcium Level 9.0mg/dL (8.5-10.1) Magnesium Level 2.2mg/dL (1.8-2.4) Laboratory Tests Test 05/16/16 11:35 05/16/16 16:48 05/16/16 21:17 05/17/16 03:50 Glucose (Fingerstick) 224mg/dL (70-99) 114mg/dL (70-99) 225mg/dL (70-99) White Blood Count 7.2x10^3/uL (4.0-11.0) Red Blood Count 2.88x10^6/uL (3.50-5.40) Hemoglobin 8.0g/dL (12.0-15.5) Hematocrit 25.7% (36.0-47.0) Mean Corpuscular Volume 89fL (79-100) Mean Corpuscular Hemoglobin 28pg (25-35) Mean Corpuscular Hemoglobin Concent 31g/dL (31-37) Red Cell Distribution Width 19.2% (11.5-14.5) Platelet Count 272x10^3/uL (140-400) Neutrophils (%) (Auto) 81% (31-73) Lymphocytes (%) (Auto) 10% (24-48) Monocytes (%) (Auto) 6% (0-9) Eosinophils (%) (Auto) 3% (0-3) Basophils (%) (Auto) 0% (0-3) Neutrophils # (Auto) 5.8x10^3uL (1.8-7.7) Lymphocytes # (Auto) 0.7x10^3/uL (1.0-4.8) Monocytes # (Auto) 0.5x10^3/uL (0.0-1.1) Eosinophils # (Auto) 0.2x10^3/uL (0.0-0.7) Basophils # (Auto) 0.0x10^3/uL (0.0-0.2) Sodium Level 143mmol/L (136-145) Potassium Level 3.9mmol/L (3.5-5.1) Chloride Level 103mmol/L (98-107) Carbon Dioxide Level 34mmol/L (21-32) Anion Gap 6 (6-14) Blood Urea Nitrogen 30mg/dL (7-20) Creatinine 1.2mg/dL (0.6-1.0) Estimated GFR (Cockcroft-Gault) 51.3 Glucose Level 212mg/dL (70-99) Calcium Level 9.0mg/dL (8.5-10.1) Magnesium Level 2.2mg/dL (1.8-2.4) Test 05/17/16 08:25 Glucose (Fingerstick) 188mg/dL (70-99) Microbiology 05/09/16 Urine Culture - Final, Complete 05/09/16 Urine Culture Result 1 (MATT) - Final, Complete Medications Current Medications Furosemide (Lasix) 40 mg 1X ONCE IVP Last administered on 05/09/16 05:07; Start 05/09/16 at 04:15; Stop 05/09/16 at 04:16; Status DC Ondansetron HCl (Zofran) 4 mg PRN Q8HRS PRN IV NAUSEA/VOMITING; Start 05/09/16 at 05:45; Stop 05/10/16 at 05:44; Status DC Acetaminophen (Tylenol) 650 mg PRN Q4HRS PRN PO FEVER; Start 05/09/16 at 05:45 ; Stop 05/10/16 at 05:44; Status DC Aspirin (Kelly Van Gogh Hair Colour Aspirin) 325 mg 1X ONCE PO Last administered on 05/09/16 10:08 ; Start 05/09/16 at 06:30; Stop 05/09/16 at 06:31; Status DC Pneumococcal Polyvalent Vaccine (Do NOT chart on this placeholder) 1 each 1X ONCE MC ; Start 05/09/16 at 09:15; Stop 05/09/16 at 09:16; Status UNV Pneumococcal Polyvalent Vaccine (Pneumovax 23) 0.5 ml ONCE ONCE VAX IM Last administered on 05/13/16 17:47; Start 05/09/16 at 11:00; Stop 05/09/16 at 11:01 ; Status DC Insulin Detemir (Levemir) 22 units QHS SQ ; Start 05/09/16 at 11:30; Stop at 11:42; Status DC Insulin Aspart (Novolog) 0-7 UNITS TIDWMEALS SQ Last administered on 05/14/16 17:50; Start 05/09/16 at 12:32; Stop 05/15/16 at 06:59; Status DC Dextrose 12.5 gm PRN Q15MIN PRN IV SEE COMMENTS Last administered on 05/12/16 07:15; Start 05/09/16 at 11:30 Insulin Detemir (Levemir) 22 units DAILY SQ Last administered on 05/17/16 09: 00; Start 05/09/16 at 11:30 Acetaminophen/ Codeine Phosphate (Tylenol #3) 2 tab Q6HRS PO ; Start 05/09/16 at 18:00; Stop 05/09/16 at 19:34; Status DC Alprazolam (Xanax) 0.5 mg BID PO Last administered on 05/11/16 08:54; Start at 21:00; Stop 05/11/16 at 10:34; Status DC Clopidogrel Bisulfate (Plavix) 75 mg DAILY PO Last administered on 05/16/16 08 :34; Start 05/09/16 at 16:00; Stop 05/16/16 at 17:08; Status DC Diltiazem HCl (Cardizem 24hr Cd) 240 mg DAILY PO Last administered on 09:00; Start 05/09/16 at 16:00 EZETIMIBE (Zetia) 10 mg DAILY PO Last administered on 05/17/16 08:59; Start at 16:00 Fluticasone Propionate (Flonase) 1 spray PRN DAILY PRN NS Allergies; Start at 15:00 Furosemide (Lasix) 40 mg DAILY PO Last administered on 05/09/16 16:40; Start 05/09/16 at 16:00; Stop 05/11/16 at 10:59; Status DC Losartan Potassium (Cozaar) 25 mg DAILY PO Last administered on 05/17/16 08:59 ; Start 05/09/16 at 16:00 Metoprolol Succinate (Toprol Xl) 25 mg DAILY PO Last administered on 05/17/16 09:04; Start 05/09/16 at 16:00 Nitroglycerin (Nitrostat) 0.4 mg PRN Q10MIN SL ; Start 05/09/16 at 15:00 Pantoprazole Sodium (Protonix) 40 mg DAILYAC PO Last administered on 05/17/16 08:59; Start 05/09/16 at 16:30 Polyethylene Glycol (miraLAX PACKET) 17 gm HS PO Last administered on 21:12; Start 05/09/16 at 21:00 Atorvastatin Calcium (Lipitor) 20 mg QHS PO Last administered on 05/16/16 21: 12; Start 05/09/16 at 21:00 Ascorbic Acid (Vitamin C) 250 mg DAILY PO Last administered on 05/17/16 08:56 ; Start 05/09/16 at 16:00 Vitamin D (Vitamin D3) 3,000 unit DAILY PO Last administered on 05/17/16 09:03 ; Start 05/09/16 at 16:00 Duloxetine HCl (Cymbalta) 60 mg DAILY PO Last administered on 05/17/16 08:58; Start 05/09/16 at 16:00 Ferrous Sulfate (Slow Release Iron) 142 mg DAILYWBKFT PO Last administered on 08:55; Start 05/10/16 at 08:00 Insulin Detemir (Levemir) 22 units DAILY08 SQ ; Start 05/10/16 at 08:00; Stop at 10:05; Status DC Fish Oil (Fish Oil) 1,000 mg DAILY PO Last administered on 05/17/16 08:55; Start 05/09/16 at 16:00 Psyllium Hydrophilic Mucilloid (Metamucil Fiber Packet) 1 pkt DAILY PO Last administered on 05/16/16 08:37; Start 05/09/16 at 16:00 Apixaban (Eliquis) 5 mg BID PO Last administered on 05/11/16 08:54; Start at 21:00; Stop 05/11/16 at 11:28; Status DC Potassium Chloride (Klor-Con) 10 meq BID PO Last administered on 05/12/16 22: 30; Start 05/09/16 at 21:00; Stop 05/13/16 at 10:47; Status DC Pregabalin (Lyrica) 50 mg TID PO Last administered on 05/17/16 08:58; Start at 16:00 Info (Anti-Coagulation Monitoring By Pharmacy) 1 each PRN DAILY PRN MC SEE COMMENTS Last administered on 05/14/16 09:01; Start 05/09/16 at 15:30 Acetaminophen/ Codeine Phosphate (Tylenol #3) 2 tab PRN Q6HRS PRN PO PAIN Last administered on 05/16/16 11:36; Start 05/09/16 at 20:00 Furosemide (Lasix) 40 mg 1X ONCE IVP Last administered on 05/10/16 03:58; Start 05/10/16 at 04:15; Stop 05/10/16 at 04:16; Status DC Digoxin (Lanoxin) 250 mcg 1X ONCE IV Last administered on 05/10/16 03:59; Start 05/10/16 at 04:15; Stop 05/10/16 at 04:16; Status DC Diltiazem HCl 10 mg 10 mg 1X ONCE IVP Last administered on 05/10/16 05:54; Start 05/10/16 at 06:00; Stop 05/10/16 at 06:01; Status DC Diltiazem HCl/ Dextrose (Cardizem) 125 ml @ 0 mls/hr CONT PRN IV SEE I/O RECORD Last administered on 05/10/16 05:55; Start 05/10/16 at 05:45; Stop 05/11 at 10:59; Status DC Insulin Aspart (Novolog) 15 units 1X ONCE SQ Last administered on 05/10/16 12 :12; Start 05/10/16 at 10:15; Stop 05/10/16 at 10:16; Status DC Insulin Aspart (Novolog) 30 units 1X ONCE SQ Last administered on 05/10/16 17 :31; Start 05/10/16 at 17:30; Stop 05/10/16 at 17:31; Status DC Guaifenesin (Robitussin Dm) 10 ml PRN Q6HRS PRN PO COUGH Last administered on 21:25; Start 05/10/16 at 17:45 Insulin Aspart (Novolog) 20 units TIDAC SQ Last administered on 05/11/16 16:30 ; Start 05/11/16 at 07:30; Stop 05/12/16 at 09:33; Status DC Insulin Detemir (Levemir) 10 units QHS SQ Last administered on 05/11/16 21:00 ; Start 05/10/16 at 23:00; Stop 05/12/16 at 09:45; Status DC Albuterol Sulfate 2.5 mg 2.5 mg RTQID NEB Last administered on 05/16/16 11:26 ; Start 05/10/16 at 23:00; Stop 05/16/16 at 12:00; Status DC Ceftriaxone Sodium 1 gm/ Sodium Chloride 50 ml @ 100 mls/hr QHS IV Last administered on 05/15/16 21:27; Start 05/10/16 at 23:00; Stop 05/16/16 at 11:37 ; Status DC Iron Sucrose/ Sodium Chloride (Venofer/Iv Sodium Chloride 0.9% 100ml) 110 ml @ 55 mls/hr 1X ONCE IV Last administered on 05/11/16 11:54; Start 05/11/16 at 11:00; Stop 05/11/16 at 12:59; Status DC Guaifenesin (Mucinex) 600 mg PRN BID PRN PO COUGH Last administered on 08:40; Start 05/11/16 at 21:00 Alprazolam 0.5 mg 0.5 mg PRN Q8HRS PRN PO ANXIETY; Start 05/12/16 at 09:00; Stop 05/12/16 at 09:00; Status DC Albumin Human (Plasmanate) 250 ml @ 62.5 mls/hr 1X ONCE IV Last administered on 05/11/16 11:54; Start 05/11/16 at 11:00; Stop 05/11/16 at 14:59; Status DC Apixaban (Eliquis) 2.5 mg BID PO Last administered on 05/13/16 09:21; Start at 21:00; Stop 05/13/16 at 12:22; Status DC Doxycycline Hyclate 100 mg 100 mg BID PO Last administered on 05/16/16 09:00; Start 05/11/16 at 13:00; Stop 05/16/16 at 11:37; Status DC Albumin Human (Plasmanate) 250 ml @ 62.5 mls/hr 1X ONCE IV Last administered on 05/11/16 16:43; Start 05/11/16 at 16:30; Stop 05/11/16 at 20:29; Status DC Insulin Aspart (Novolog) 10 units TIDAC SQ ; Start 05/12/16 at 11:30; Stop 05/12 at 11:30; Status DC Metoprolol Tartrate (Lopressor) 5 mg 1X ONCE IVP Last administered on 22:28; Start 05/12/16 at 22:15; Stop 05/12/16 at 22:16; Status DC Promethazine HCl/ Codeine (Phenergan With Codeine) 5 ml 1X ONCE PO Last administered on 05/12/16 23:57; Start 05/12/16 at 23:45; Stop 05/12/16 at 23:46 ; Status DC Metoprolol Tartrate (Lopressor) 50 mg 1X ONCE PO Last administered on 23:58; Start 05/12/16 at 23:55; Stop 05/12/16 at 23:56; Status DC Throat Lozenges (Cepacol Sore Throat Lozenge) 1 isaías PRN Q6HRS PRN PO SORE THROAT Last administered on 05/15/16 21:25; Start 05/12/16 at 23:45 Furosemide (Lasix) 40 mg 1X ONCE IVP Last administered on 05/13/16 08:46; Start 05/13/16 at 09:00; Stop 05/13/16 at 09:01; Status DC Apixaban (Eliquis) 5 mg BID PO Last administered on 05/17/16 09:00; Start at 21:00 Ondansetron HCl (Zofran) 4 mg PRN Q6HRS PRN IV Nausea; Start 05/14/16 at 07:00 ; Stop 05/15/16 at 06:59; Status DC Fentanyl Citrate (Fentanyl 2ml Vial) 25 mcg PRN Q5MIN PRN IV MILD PAIN; Start 05/14/16 at 07:00; Stop 05/15/16 at 06:59; Status DC Fentanyl Citrate (Fentanyl 2ml Vial) 50 mcg PRN Q5MIN PRN IV MODERATE PAIN; Start 05/14/16 at 07:00; Stop 05/15/16 at 06:59; Status DC Morphine Sulfate 1 mg 1 mg PRN Q10MIN PRN IV SEVERE PAIN; Start 05/14/16 at 07: 00; Stop 05/15/16 at 06:59; Status DC Lactated Ringer's (Iv Lactated Ringers) 1,000 ml @ 30 mls/hr Q24H IV ; Start at 07:00; Stop 05/14/16 at 18:59; Status DC Lidocaine HCl 2 ml 1X PRN PRN ID IV START; Start 05/14/16 at 07:00; Stop at 06:59; Status DC Hydromorphone HCl (Dilaudid) 0.5 mg PRN Q10MIN PRN IV SEVERE PAIN, Second choice; Start 05/14/16 at 07:00; Stop 05/15/16 at 06:59; Status DC Prochlorperazine Edisylate (Compazine) 5 mg PACU PRN PRN IV NAUSEA; Start 05/14 at 07:00; Stop 05/15/16 at 06:59; Status DC Insulin Aspart (Novolog) 15 units 1X ONCE SQ Last administered on 05/13/16 21 :33; Start 05/13/16 at 20:45; Stop 05/13/16 at 20:46; Status DC Insulin Aspart (Novolog) 10 units TIDAC SQ Last administered on 05/17/16 09:10 ; Start 05/14/16 at 07:30 Furosemide (Lasix) 20 mg 1X ONCE IVP Last administered on 05/14/16 10:02; Start 05/14/16 at 10:00; Stop 05/14/16 at 10:01; Status DC Albuterol/ Ipratropium (Duoneb) 3 ml RTQID NEB Last administered on 05/17/16 07:55; Start 05/14/16 at 14:00 Budesonide 0.5 mg 0.5 mg RTBID NEB Last administered on 05/17/16 07:55; Start 05/14/16 at 14:00 Furosemide 100 mg/ Sodium Chloride 100 ml @ 0 mls/hr CONT PRN IV SEE I/O RECORD Last administered on 05/16/16 02:51; Start 05/14/16 at 22:00; Stop 05/16 at 07:55; Status DC Iron Sucrose/ Sodium Chloride (Venofer/Iv Sodium Chloride 0.9% 250ml) 270 ml @ 90 mls/hr 1X ONCE IV Last administered on 05/15/16 10:00; Start 05/15/16 at 10:00; Stop 05/15/16 at 12:59; Status DC Insulin Aspart (Novolog) 0-9 UNITS TIDWMEALS SQ Last administered on 05/17/16 09:12; Start 05/15/16 at 08:00 Dextrose 12.5 gm PRN Q15MIN PRN IV SEE COMMENTS; Start 05/15/16 at 07:00; Status UNV Albuterol Sulfate (Ventolin Neb Soln) 2.5 mg PRN Q6HRS PRN NEB WHEEZING; Start 05/15/16 at 17:00 Furosemide (Lasix) 20 mg 1X ONCE IVP Last administered on 05/15/16 16:27; Start 05/15/16 at 16:30; Stop 05/15/16 at 16:31; Status DC Potassium Chloride 40 meq 40 meq 1X ONCE PO Last administered on 05/16/16 08: 36; Start 05/16/16 at 08:00; Stop 05/16/16 at 08:01; Status DC Magnesium Sulfate/ Dextrose (Magnesium Sulfate PREMIX 2GM) 50 ml @ 25 mls/hr 1X ONCE IV Last administered on 05/16/16 10:30; Start 05/16/16 at 10:30; Stop 05/16/16 at 12:29; Status DC Amoxicillin/ Clavulanate Potassium (Augmentin 875/ 125mg) 1 tab BID PO Last administered on 05/17/16 08:56; Start 05/16/16 at 21:00 Sucralfate 1 gm 1 gm BID PO Last administered on 05/17/16 08:55; Start at 21:00 Iron Sucrose 200 mg/Sodium Chloride 110 ml @ 55 mls/hr 1X ONCE IV Last administered on 05/16/16 13:13; Start 05/16/16 at 13:30; Stop 05/16/16 at 15:29 ; Status DC Iron Sucrose/ Sodium Chloride (Venofer/Iv Sodium Chloride 0.9% 100ml) 110 ml @ 55 mls/hr 1X ONCE IV ; Start 05/17/16 at 12:45; Stop 05/17/16 at 14:44; Status UNV Active Scripts Active Reported Lyrica (Pregabalin) 50 Mg Capsule 50 Mg PO TID Pantoprazole Sodium 40 Mg Tablet.dr 1 Tab PO DAILY Levemir (Insulin Detemir) 100 Unit/1 Ml Vial 22 Unit SQ DAILY08 Eliquis (Apixaban) 5 Mg Tablet 5 Mg PO BID Diltiazem 24HR Cd (Diltiazem Hcl) 120 Mg Cap.er.24h 240 Mg PO DAILY Plavix (Clopidogrel Bisulfate) 75 Mg Tablet 1 Tab PO DAILY Novolog Flexpen (Insulin Aspart) 100 Unit/1 Ml Insuln.pen 100 Unit SQ Zetia (Ezetimibe) 10 Mg Tablet 10 Mg PO DAILY Cymbalta (Duloxetine Hcl) 60 Mg Capsule.dr 60 Mg PO DAILY Alprazolam 0.5 Mg Tablet 1 Tab PO BID Flonase (Fluticasone Propionate) 16 Gm Lysite.susp 16 Gm NS PRN DAILY NITROGLYCERIN SubLingual (Nitroglycerin) 0.4 Mg Tab.subl 0.4 Mg SL PRN Q10MIN Vitamin C (Ascorbic Acid) 100 Mg Tablet 100 Mg PO DAILY Ferrous Sulfate 134 Mg Tablet 134 Mg PO DAILY Alpha 3 1,000 Mg Softgel (Alpha-3 Fatty Acids/Fish Oil) 1 Each Capsule 1 Each PO DAILY Miralax (Polyethylene Glycol 3350) 17 Gm Powd.pack 17 Gm PO HS Zocor (Simvastatin) 40 Mg Tablet 40 Mg PO HS Metamucil Packet (Psyllium Seed (With Sugar)) 1 Each Packet 1 Each PO DAILY Vitamin D3 (Cholecalciferol (Vitamin D3)) 3,000 Unit Tablet 3,000 Unit PO DAILY Potassium Chloride 10 Meq Tab.er.prt 10 Meq PO BID Lasix (Furosemide) 40 Mg Tablet 40 Mg PO DAILY Metoprolol Succinate ( Xl ) (Metoprolol Succinate) 25 Mg Tab.er.24h 25 Mg PO DAILY Losartan Potassium 25 Mg Tablet 25 Mg PO DAILY Acetaminophen-Cod #3 Tablet (Acetaminophen/Codeine Phosphate) 1 Each Tablet 2 Each PO Q6HRS PRN Vitals/I & O Vital Sign - Last 24 Hours 05/16/16 05/16/16 05/16/16 05/16/16 11:29 11:36 12:35 15:00 Temp 97.8 97.8 Pulse 85 Resp 18 20 20 B/P 106/60 Pulse Ox 100 100 100 O2 Delivery Nasal Cannula Nasal Cannula Nasal Cannula Room Air O2 Flow Rate 2.0 2.0 2.0 2.0 05/16/16 05/16/16 05/16/16 05/16/16 19:15 19:15 19:43 19:45 Temp 97.4 97.4 Pulse 94 Resp 20 B/P 104/50 Pulse Ox 98 O2 Delivery Nasal Cannula Nasal Cannula Nasal Cannula Nasal Cannula O2 Flow Rate 2.0 2.0 2.0 2.0 05/16/16 05/17/16 05/17/16 05/17/16 23:11 02:30 07:00 07:58 Temp 97.8 97.8 98.0 97.8 97.8 98.0 Pulse 108 94 85 Resp 22 22 18 B/P 93/57 112/66 116/69 Pulse Ox 98 95 96 97 O2 Delivery Nasal Cannula Nasal Cannula Nasal Cannula Nasal Cannula O2 Flow Rate 2.0 2.0 2.0 2.0 05/17/16 05/17/16 05/17/16 05/17/16 08:00 08:00 08:51 08:59 Pulse 97 97 Resp 20 B/P 116/69 Pulse Ox 97 94 O2 Delivery Room Air Nasal Cannula Room Air O2 Flow Rate 2.0 05/17/16 05/17/16 05/17/16 09:00 09:04 10:17 Temp 97.8 97.8 Pulse 97 97 101 Resp 20 B/P 116/69 116/69 127/68 Pulse Ox 94 O2 Delivery Room Air Intake and Output 05/16/16 05/16/16 05/17/16 15:00 23:00 07:00 Intake Total 50 ml 0 ml Output Total 500 ml 300 ml Balance 50 ml -500 ml -300 ml [id number] PLASCENCIA MD May 17, 2016 11:21
[2016-05-17] MEDS ORDERED: IRON SUCROSE COMPLEX 200 MG in IV NORMAL SALINE 100ML 100 ML IV ONE (12:45)
[2016-05-17] MEDS: BENZOCAINE/MENTHOL LOZENGE. PO PRN (13:31)
[2016-05-17] MEDS: GUAIFENESIN DM 200MG/20MG 10 ML SYRUP. PO PRN (13:31)
[2016-05-17 14:05] VITALS: BP 118/65
--- NOTE | 2016-05-17 14:24 | PDOC ---
PULMONARY PROGRESS NOTES Subjective no increase soa Vitals Vital Signs Date Time Temp Pulse Resp B/P Pulse Ox O2 Delivery O2 Flow Rate FiO2 05/17/16 14:05 97.6 89 20 118/65 93 Room Air 97.6 05/17/16 11:47 2.0 ROS: No Nausea, No Chest Pain, No Abdominal Pain, No Increase Cough General: Alert, No acute distress Lungs: Clear Cardiovascular: S1 Abdomen: Soft Neuro Exam: Alert Extremities: No Edema Skin: Warm Labs Laboratory Tests Test 05/15/16 16:47 05/15/16 20:48 05/16/16 05:00 05/16/16 05:15 Glucose (Fingerstick) 158mg/dL (70-99) 151mg/dL (70-99) Magnesium Level 1.5mg/dL (1.8-2.4) White Blood Count 6.3x10^3/uL (4.0-11.0) Red Blood Count 2.85x10^6/uL (3.50-5.40) Hemoglobin 7.9g/dL (12.0-15.5) Hematocrit 25.1% (36.0-47.0) Mean Corpuscular Volume 88fL (79-100) Mean Corpuscular Hemoglobin 28pg (25-35) Mean Corpuscular Hemoglobin Concent 32g/dL (31-37) Red Cell Distribution Width 19.0% (11.5-14.5) Platelet Count 222x10^3/uL (140-400) Neutrophils (%) (Auto) 75% (31-73) Lymphocytes (%) (Auto) 14% (24-48) Monocytes (%) (Auto) 9% (0-9) Eosinophils (%) (Auto) 3% (0-3) Basophils (%) (Auto) 0% (0-3) Neutrophils # (Auto) 4.7x10^3uL (1.8-7.7) Lymphocytes # (Auto) 0.9x10^3/uL (1.0-4.8) Monocytes # (Auto) 0.5x10^3/uL (0.0-1.1) Eosinophils # (Auto) 0.2x10^3/uL (0.0-0.7) Basophils # (Auto) 0.0x10^3/uL (0.0-0.2) Sodium Level 143mmol/L (136-145) Potassium Level 3.2mmol/L (3.5-5.1) Chloride Level 102mmol/L (98-107) Carbon Dioxide Level 34mmol/L (21-32) Anion Gap 7 (6-14) Blood Urea Nitrogen 24mg/dL (7-20) Creatinine 1.0mg/dL (0.6-1.0) Estimated GFR (Cockcroft-Gault) 63.3 Glucose Level 80mg/dL (70-99) Calcium Level 8.7mg/dL (8.5-10.1) MZ-Lfl-H-Type Natriuretic Peptide 3271pg/mL (0-449) Test 05/16/16 07:35 05/16/16 10:40 05/16/16 11:35 05/16/16 16:48 Glucose (Fingerstick) 76mg/dL (70-99) 224mg/dL (70-99) 114mg/dL (70-99) Potassium Level 3.9mmol/L (3.5-5.1) Test 05/16/16 21:17 05/17/16 03:50 05/17/16 08:25 05/17/16 11:53 Glucose (Fingerstick) 225mg/dL (70-99) 188mg/dL (70-99) 264mg/dL (70-99) White Blood Count 7.2x10^3/uL (4.0-11.0) Red Blood Count 2.88x10^6/uL (3.50-5.40) Hemoglobin 8.0g/dL (12.0-15.5) Hematocrit 25.7% (36.0-47.0) Mean Corpuscular Volume 89fL (79-100) Mean Corpuscular Hemoglobin 28pg (25-35) Mean Corpuscular Hemoglobin Concent 31g/dL (31-37) Red Cell Distribution Width 19.2% (11.5-14.5) Platelet Count 272x10^3/uL (140-400) Neutrophils (%) (Auto) 81% (31-73) Lymphocytes (%) (Auto) 10% (24-48) Monocytes (%) (Auto) 6% (0-9) Eosinophils (%) (Auto) 3% (0-3) Basophils (%) (Auto) 0% (0-3) Neutrophils # (Auto) 5.8x10^3uL (1.8-7.7) Lymphocytes # (Auto) 0.7x10^3/uL (1.0-4.8) Monocytes # (Auto) 0.5x10^3/uL (0.0-1.1) Eosinophils # (Auto) 0.2x10^3/uL (0.0-0.7) Basophils # (Auto) 0.0x10^3/uL (0.0-0.2) Sodium Level 143mmol/L (136-145) Potassium Level 3.9mmol/L (3.5-5.1) Chloride Level 103mmol/L (98-107) Carbon Dioxide Level 34mmol/L (21-32) Anion Gap 6 (6-14) Blood Urea Nitrogen 30mg/dL (7-20) Creatinine 1.2mg/dL (0.6-1.0) Estimated GFR (Cockcroft-Gault) 51.3 Glucose Level 212mg/dL (70-99) Calcium Level 9.0mg/dL (8.5-10.1) Magnesium Level 2.2mg/dL (1.8-2.4) Laboratory Tests Test 05/16/16 16:48 05/16/16 21:17 05/17/16 03:50 05/17/16 08:25 Glucose (Fingerstick) 114mg/dL (70-99) 225mg/dL (70-99) 188mg/dL (70-99) White Blood Count 7.2x10^3/uL (4.0-11.0) Red Blood Count 2.88x10^6/uL (3.50-5.40) Hemoglobin 8.0g/dL (12.0-15.5) Hematocrit 25.7% (36.0-47.0) Mean Corpuscular Volume 89fL (79-100) Mean Corpuscular Hemoglobin 28pg (25-35) Mean Corpuscular Hemoglobin Concent 31g/dL (31-37) Red Cell Distribution Width 19.2% (11.5-14.5) Platelet Count 272x10^3/uL (140-400) Neutrophils (%) (Auto) 81% (31-73) Lymphocytes (%) (Auto) 10% (24-48) Monocytes (%) (Auto) 6% (0-9) Eosinophils (%) (Auto) 3% (0-3) Basophils (%) (Auto) 0% (0-3) Neutrophils # (Auto) 5.8x10^3uL (1.8-7.7) Lymphocytes # (Auto) 0.7x10^3/uL (1.0-4.8) Monocytes # (Auto) 0.5x10^3/uL (0.0-1.1) Eosinophils # (Auto) 0.2x10^3/uL (0.0-0.7) Basophils # (Auto) 0.0x10^3/uL (0.0-0.2) Sodium Level 143mmol/L (136-145) Potassium Level 3.9mmol/L (3.5-5.1) Chloride Level 103mmol/L (98-107) Carbon Dioxide Level 34mmol/L (21-32) Anion Gap 6 (6-14) Blood Urea Nitrogen 30mg/dL (7-20) Creatinine 1.2mg/dL (0.6-1.0) Estimated GFR (Cockcroft-Gault) 51.3 Glucose Level 212mg/dL (70-99) Calcium Level 9.0mg/dL (8.5-10.1) Magnesium Level 2.2mg/dL (1.8-2.4) Test 05/17/16 11:53 Glucose (Fingerstick) 264mg/dL (70-99) Medications Active Scripts Medications Dose Route/Sig Days Date Category Lyrica (Pregabalin) 50 Mg Capsule 50 Mg PO TID 05/09/16 Reported Pantoprazole Sodium 40 Mg Tablet.dr 1 Tab PO DAILY 05/09/16 Reported Levemir (Insulin Detemir) 100 Unit/1 Ml Vial 22 Unit SQ DAILY08 05/09/16 Reported Eliquis (Apixaban) 5 Mg Tablet 5 Mg PO BID 04/26/16 Reported Diltiazem 24HR Cd (Diltiazem Hcl) 120 Mg Cap.er.24h 240 Mg PO DAILY 04/26/16 Reported Plavix (Clopidogrel Bisulfate) 75 Mg Tablet 1 Tab PO DAILY 03/21/14 Reported Novolog Flexpen (Insulin Aspart) 100 Unit/1 Ml Insuln.pen 100 Unit SQ 03/19/14 Reported Zetia (Ezetimibe) 10 Mg Tablet 10 Mg PO DAILY 03/19/14 Reported Cymbalta (Duloxetine Hcl) 60 Mg Capsule.dr 60 Mg PO DAILY 03/19/14 Reported Alprazolam 0.5 Mg Tablet 1 Tab PO BID 03/19/14 Reported Flonase (Fluticasone Propionate) 16 Gm [place].susp 16 Gm NS PRN DAILY 04/07/13 Reported NITROGLYCERIN SubLingual (Nitroglycerin) 0.4 Mg Tab.subl 0.4 Mg SL PRN Q10MIN 04/07/13 Reported Vitamin C (Ascorbic Acid) 100 Mg Tablet 100 Mg PO DAILY 04/07/13 Reported Ferrous Sulfate 134 Mg Tablet 134 Mg PO DAILY 04/07/13 Reported [place] 3 1,000 Mg Softgel ([place]-3 Fatty Acids/Fish Oil) 1 Each Capsule 1 Each PO DAILY 04/07/13 Reported Miralax (Polyethylene Glycol 3350) 17 Gm Powd.pack 17 Gm PO HS 04/07/13 Reported Zocor (Simvastatin) 40 Mg Tablet 40 Mg PO HS 04/07/13 Reported Metamucil Packet (Psyllium Seed (With Sugar)) 1 Each Packet 1 Each PO DAILY 04/07/13 Reported Vitamin D3 (Cholecalciferol (Vitamin D3)) 3,000 Unit Tablet 3,000 Unit PO DAILY 04/07/13 Reported Potassium Chloride 10 Meq Tab.er.prt 10 Meq PO BID 04/07/13 Reported Lasix (Furosemide) 40 Mg Tablet 40 Mg PO DAILY 04/07/13 Reported Metoprolol Succinate ( Xl ) (Metoprolol Succinate) 25 Mg Tab.er.24h 25 Mg PO DAILY 04/07/13 Reported Losartan Potassium 25 Mg Tablet 25 Mg PO DAILY 04/07/13 Reported Acetaminophen-Cod #3 Tablet (Acetaminophen/Codeine Phosphate) 1 Each Tablet 2 Each PO Q6HRS PRN 04/07/13 Reported Impression . 1. Acute hypoxic respiratory failure secondary to combination of congestive heart failure(cardiac asthma) and left lower lobe pneumonia. 2. History of left ventricular hypertrophy 3. No significant history of tobacco use. 4. Left lower lobe pneumonia, best seen on the CT chest, which is responding to antibiotics. 5. Postnasal drainage. Plan . Pt being evaluated for [facility] been [facility] at [facility] per ID ok to transfer to [facility], If she does not qualify for [facility] DERIC LERNER MD May 17, 2016 14:24
[2016-05-17 19:00] VITALS: BP 95/75
[2016-05-17] MEDS: POLYETHYLENE GLYCOL 3350 17 GM PACKET. PO SCH (20:24)
[2016-05-17] MEDS: ATORVASTATIN CALCIUM 20 MG TABLET PO SCH (20:24)
[2016-05-17] MEDS: ALPRAZOLAM 0.25 MG TABLET PO PRN (20:35)
[2016-05-17] MEDS: SUCRALFATE 1 GM/10 ML ORAL.SUSP. PEG SCH (20:41)
[2016-05-17 22:49] VITALS: BP 109/58
[2016-05-18 02:36] VITALS: BP 117/61
[2016-05-18 07:00] VITALS: BP 130/49
[2016-05-18 07:04] VITALS: BP 133/59
[2016-05-18] MEDS: BUDESONIDE 0.5 MG/2 ML NEBU NEB SCH (07:42)
[2016-05-18] MEDS: IPRATRPIUM/ALBUTEROL 0.5/2.5MG 3 ML NEBU. NEB SCH ×2 (07:42→12:31)
[2016-05-18] MEDS: ANTI-COAG MONITOR BY PHARMACY. MC PRN (08:37)
--- NOTE | 2016-05-18 08:40 | PDOC ---
PULMONARY PROGRESS NOTES Subjective no increase soa Vitals Vital Signs Date Time Temp Pulse Resp B/P Pulse Ox O2 Delivery O2 Flow Rate FiO2 05/18/16 07:42 90 Room Air 05/18/16 02:36 97.8 99 18 117/61 2.0 97.8 ROS: No Nausea, No Chest Pain, No Abdominal Pain, No Increase Cough General: Alert, No acute distress Lungs: Clear Cardiovascular: S1 Abdomen: Soft Neuro Exam: Alert Extremities: No Edema Skin: Warm Labs Laboratory Tests Test 05/16/16 10:40 05/16/16 11:35 05/16/16 16:48 05/16/16 21:17 Potassium Level 3.9mmol/L (3.5-5.1) Glucose (Fingerstick) 224mg/dL (70-99) 114mg/dL (70-99) 225mg/dL (70-99) Test 05/17/16 03:50 05/17/16 08:25 05/17/16 11:53 05/17/16 17:02 White Blood Count 7.2x10^3/uL (4.0-11.0) Red Blood Count 2.88x10^6/uL (3.50-5.40) Hemoglobin 8.0g/dL (12.0-15.5) Hematocrit 25.7% (36.0-47.0) Mean Corpuscular Volume 89fL (79-100) Mean Corpuscular Hemoglobin 28pg (25-35) Mean Corpuscular Hemoglobin Concent 31g/dL (31-37) Red Cell Distribution Width 19.2% (11.5-14.5) Platelet Count 272x10^3/uL (140-400) Neutrophils (%) (Auto) 81% (31-73) Lymphocytes (%) (Auto) 10% (24-48) Monocytes (%) (Auto) 6% (0-9) Eosinophils (%) (Auto) 3% (0-3) Basophils (%) (Auto) 0% (0-3) Neutrophils # (Auto) 5.8x10^3uL (1.8-7.7) Lymphocytes # (Auto) 0.7x10^3/uL (1.0-4.8) Monocytes # (Auto) 0.5x10^3/uL (0.0-1.1) Eosinophils # (Auto) 0.2x10^3/uL (0.0-0.7) Basophils # (Auto) 0.0x10^3/uL (0.0-0.2) Sodium Level 143mmol/L (136-145) Potassium Level 3.9mmol/L (3.5-5.1) Chloride Level 103mmol/L (98-107) Carbon Dioxide Level 34mmol/L (21-32) Anion Gap 6 (6-14) Blood Urea Nitrogen 30mg/dL (7-20) Creatinine 1.2mg/dL (0.6-1.0) Estimated GFR (Cockcroft-Gault) 51.3 Glucose Level 212mg/dL (70-99) Calcium Level 9.0mg/dL (8.5-10.1) Magnesium Level 2.2mg/dL (1.8-2.4) Glucose (Fingerstick) 188mg/dL (70-99) 264mg/dL (70-99) 278mg/dL (70-99) Test 05/17/16 20:34 05/18/16 07:32 Glucose (Fingerstick) 296mg/dL (70-99) 193mg/dL (70-99) Laboratory Tests Test 05/17/16 11:53 05/17/16 17:02 05/17/16 20:34 05/18/16 07:32 Glucose (Fingerstick) 264mg/dL (70-99) 278mg/dL (70-99) 296mg/dL (70-99) 193mg/dL (70-99) Medications Active Scripts Medications Dose Route/Sig Days Date Category Lyrica (Pregabalin) 50 Mg Capsule 50 Mg PO TID 05/09/16 Reported Pantoprazole Sodium 40 Mg Tablet.dr 1 Tab PO DAILY 05/09/16 Reported Levemir (Insulin Detemir) 100 Unit/1 Ml Vial 22 Unit SQ DAILY08 05/09/16 Reported Eliquis (Apixaban) 5 Mg Tablet 5 Mg PO BID 04/26/16 Reported Diltiazem 24HR Cd (Diltiazem Hcl) 120 Mg Cap.er.24h 240 Mg PO DAILY 04/26/16 Reported Plavix (Clopidogrel Bisulfate) 75 Mg Tablet 1 Tab PO DAILY 03/21/14 Reported Novolog Flexpen (Insulin Aspart) 100 Unit/1 Ml Insuln.pen 100 Unit SQ 03/19/14 Reported Zetia (Ezetimibe) 10 Mg Tablet 10 Mg PO DAILY 03/19/14 Reported Cymbalta (Duloxetine Hcl) 60 Mg Capsule.dr 60 Mg PO DAILY 03/19/14 Reported Alprazolam 0.5 Mg Tablet 1 Tab PO BID 03/19/14 Reported Flonase (Fluticasone Propionate) 16 Gm [place].susp 16 Gm NS PRN DAILY 04/07/13 Reported NITROGLYCERIN SubLingual (Nitroglycerin) 0.4 Mg Tab.subl 0.4 Mg SL PRN Q10MIN 04/07/13 Reported Vitamin C (Ascorbic Acid) 100 Mg Tablet 100 Mg PO DAILY 04/07/13 Reported Ferrous Sulfate 134 Mg Tablet 134 Mg PO DAILY 04/07/13 Reported [place] 3 1,000 Mg Softgel ([place]-3 Fatty Acids/Fish Oil) 1 Each Capsule 1 Each PO DAILY 04/07/13 Reported Miralax (Polyethylene Glycol 3350) 17 Gm Powd.pack 17 Gm PO HS 04/07/13 Reported Zocor (Simvastatin) 40 Mg Tablet 40 Mg PO HS 04/07/13 Reported Metamucil Packet (Psyllium Seed (With Sugar)) 1 Each Packet 1 Each PO DAILY 04/07/13 Reported Vitamin D3 (Cholecalciferol (Vitamin D3)) 3,000 Unit Tablet 3,000 Unit PO DAILY 04/07/13 Reported Potassium Chloride 10 Meq Tab.er.prt 10 Meq PO BID 04/07/13 Reported Lasix (Furosemide) 40 Mg Tablet 40 Mg PO DAILY 04/07/13 Reported Metoprolol Succinate ( Xl ) (Metoprolol Succinate) 25 Mg Tab.er.24h 25 Mg PO DAILY 04/07/13 Reported Losartan Potassium 25 Mg Tablet 25 Mg PO DAILY 04/07/13 Reported Acetaminophen-Cod #3 Tablet (Acetaminophen/Codeine Phosphate) 1 Each Tablet 2 Each PO Q6HRS PRN 04/07/13 Reported Impression . 1. Acute hypoxic respiratory failure secondary to combination of congestive heart failure(cardiac asthma) and left lower lobe pneumonia. 2. History of left ventricular hypertrophy 3. No significant history of tobacco use. 4. Left lower lobe pneumonia, best seen on the CT chest, which is responding to antibiotics. 5. Postnasal drainage. Plan . Spoke [facility] Dr Chen pt to transfer today Has been accepted at SNU antibx per DERIC CARVAJAL MD May 18, 2016 08:40
[2016-05-18] MEDS: PSYLLIUM HUSK (SUGAR FREE) 1 PKT PACKET PO SCH (09:00)
[2016-05-18] MEDS: APIXABAN 5 MG TABLET. PO SCH (09:03)
[2016-05-18] MEDS: LOSARTAN POTASSIUM 25 MG TABLET. PO SCH (09:03)
[2016-05-18] MEDS: OMEGA-3 FATTY ACIDS/FISH OIL 1,000 MG CAPSULE. PO SCH (09:03)
[2016-05-18] MEDS: AMOXICILLIN/K CLAV 875/125MG TABLET. PO SCH (09:04)
[2016-05-18] MEDS: EZETIMIBE 10 MG TABLET PO SCH (09:05)
[2016-05-18] MEDS: PANTOPRAZOLE 40 MG TABLET. PO SCH (09:05)
[2016-05-18] MEDS: DULOXETINE HCL 30 MG CAPSULE.DR. PO SCH (09:05)
[2016-05-18] MEDS: FERROUS SULFATE 142 MG PO SCH (09:05)
[2016-05-18] MEDS: METOPROLOL SUCC 24HR ER 25 MG TAB.ER.24H. PO SCH (09:06)
[2016-05-18] MEDS: PREGABALIN 50 MG CAPSULE PO SCH ×2 (09:06→14:43)
[2016-05-18] MEDS: CHOLECALCIFEROL (VITAMIN D3) 1,000 UNIT TABLET PO SCH (09:07)
[2016-05-18] MEDS: ASCORBIC ACID 500 MG TABLET PO SCH (09:08)
[2016-05-18] MEDS: DILTIAZEM HCL 120 MG CAP.ER.24H PO SCH (09:08)
[2016-05-18] MEDS: SUCRALFATE 1 GM/10 ML ORAL.SUSP. PEG SCH (09:09)
[2016-05-18] MEDS: INSULIN ASPART 300 UNITS/3 ML INSULN.PEN SQ SCH ×4 (09:16→12:19)
[2016-05-18] MEDS: INSULIN DETEMIR 300 UNITS/3 ML INSULN.PEN. SQ SCH (09:19)
--- NOTE | 2016-05-18 09:38 | PDOC ---
Subjective: Subjective: No GI complaints. Hopeful to DC today. 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 Continue chronic iron supplementation for MARK likely related to angiodysplasiae. SHUN TY May 18, 2016 09:37
--- NOTE | 2016-05-18 10:05 | PDOC ---
PROGRESS NOTES Chief Complaint Chief Complaint CHF exac of systolic - arthritis - CHF, acute systolic - diabetes, insulin req. hypoglycemia yesterday - pneumonia, POA - coronary artery disease - tinnitus - gastritis History of Present Illness History of Present Illness Up in chair, dozing off Not accepted at [facility] but accepted at [facility] PLAN: Dc plans per primary service Does not meet criteria for lTAC No new orders from IM Thanks for consulting No objections to dc to SNU today Vitals Vitals Vital Signs Date Time Temp Pulse Resp B/P Pulse Ox O2 Delivery O2 Flow Rate FiO2 05/18/16 09:08 99 117/61 05/18/16 07:42 90 Room Air 05/18/16 02:36 97.8 18 2.0 97.8 Physical Exam Physical Exam tele reg, rate 93 General: Alert, Oriented X3, No acute distress Heart: Regular rate Lungs: Clear Abdomen: Soft, No tenderness Skin: No significant lesion Labs LABS Laboratory Tests Test 05/17/16 11:53 05/17/16 17:02 05/17/16 20:34 05/18/16 07:32 Glucose (Fingerstick) 264mg/dL (70-99) 278mg/dL (70-99) 296mg/dL (70-99) 193mg/dL (70-99) Review of Systems Review of Systems neg all 14 pt systems Assessment and Plan Assessmemt and Plan Problems Medical Problems: (1) CHF (congestive heart failure) Status: Acute (2) Elevated troponin Status: Acute (3) Non-STEMI (non-ST elevated myocardial infarction) Status: Acute Problems: Comment Review of Relevant I have reviewed the following items melquiades (where applicable) has been applied. Labs Laboratory Tests Test 05/16/16 10:40 05/16/16 11:35 05/16/16 16:48 05/16/16 21:17 Potassium Level 3.9mmol/L (3.5-5.1) Glucose (Fingerstick) 224mg/dL (70-99) 114mg/dL (70-99) 225mg/dL (70-99) Test 05/17/16 03:50 05/17/16 08:25 05/17/16 11:53 05/17/16 17:02 White Blood Count 7.2x10^3/uL (4.0-11.0) Red Blood Count 2.88x10^6/uL (3.50-5.40) Hemoglobin 8.0g/dL (12.0-15.5) Hematocrit 25.7% (36.0-47.0) Mean Corpuscular Volume 89fL (79-100) Mean Corpuscular Hemoglobin 28pg (25-35) Mean Corpuscular Hemoglobin Concent 31g/dL (31-37) Red Cell Distribution Width 19.2% (11.5-14.5) Platelet Count 272x10^3/uL (140-400) Neutrophils (%) (Auto) 81% (31-73) Lymphocytes (%) (Auto) 10% (24-48) Monocytes (%) (Auto) 6% (0-9) Eosinophils (%) (Auto) 3% (0-3) Basophils (%) (Auto) 0% (0-3) Neutrophils # (Auto) 5.8x10^3uL (1.8-7.7) Lymphocytes # (Auto) 0.7x10^3/uL (1.0-4.8) Monocytes # (Auto) 0.5x10^3/uL (0.0-1.1) Eosinophils # (Auto) 0.2x10^3/uL (0.0-0.7) Basophils # (Auto) 0.0x10^3/uL (0.0-0.2) Sodium Level 143mmol/L (136-145) Potassium Level 3.9mmol/L (3.5-5.1) Chloride Level 103mmol/L (98-107) Carbon Dioxide Level 34mmol/L (21-32) Anion Gap 6 (6-14) Blood Urea Nitrogen 30mg/dL (7-20) Creatinine 1.2mg/dL (0.6-1.0) Estimated GFR (Cockcroft-Gault) 51.3 Glucose Level 212mg/dL (70-99) Calcium Level 9.0mg/dL (8.5-10.1) Magnesium Level 2.2mg/dL (1.8-2.4) Glucose (Fingerstick) 188mg/dL (70-99) 264mg/dL (70-99) 278mg/dL (70-99) Test 05/17/16 20:34 05/18/16 07:32 Glucose (Fingerstick) 296mg/dL (70-99) 193mg/dL (70-99) Laboratory Tests Test 05/17/16 11:53 05/17/16 17:02 05/17/16 20:34 05/18/16 07:32 Glucose (Fingerstick) 264mg/dL (70-99) 278mg/dL (70-99) 296mg/dL (70-99) 193mg/dL (70-99) Microbiology 05/09/16 Urine Culture - Final, Complete 05/09/16 Urine Culture Result 1 (MATT) - Final, Complete Medications Current Medications Furosemide (Lasix) 40 mg 1X ONCE IVP Last administered on 05/09/16 05:07; Start 05/09/16 at 04:15; Stop 05/09/16 at 04:16; Status DC Ondansetron HCl (Zofran) 4 mg PRN Q8HRS PRN IV NAUSEA/VOMITING; Start 05/09/16 at 05:45; Stop 05/10/16 at 05:44; Status DC Acetaminophen (Tylenol) 650 mg PRN Q4HRS PRN PO FEVER; Start 05/09/16 at 05:45 ; Stop 05/10/16 at 05:44; Status DC Aspirin ([employer] Aspirin) 325 mg 1X ONCE PO Last administered on 05/09/16 10:08 ; Start 05/09/16 at 06:30; Stop 05/09/16 at 06:31; Status DC Pneumococcal Polyvalent Vaccine (Do NOT chart on this placeholder) 1 each 1X ONCE MC ; Start 05/09/16 at 09:15; Stop 05/09/16 at 09:16; Status UNV Pneumococcal Polyvalent Vaccine (Pneumovax 23) 0.5 ml ONCE ONCE VAX IM Last administered on 05/13/16 17:47; Start 05/09/16 at 11:00; Stop 05/09/16 at 11:01 ; Status DC Insulin Detemir (Levemir) 22 units QHS SQ ; Start 05/09/16 at 11:30; Stop at 11:42; Status DC Insulin Aspart (Novolog) 0-7 UNITS TIDWMEALS SQ Last administered on 05/14/16 17:50; Start 05/09/16 at 12:32; Stop 05/15/16 at 06:59; Status DC Dextrose 12.5 gm PRN Q15MIN PRN IV SEE COMMENTS Last administered on 05/12/16 07:15; Start 05/09/16 at 11:30 Insulin Detemir (Levemir) 22 units DAILY SQ Last administered on 05/18/16 09: 19; Start 05/09/16 at 11:30 Acetaminophen/ Codeine Phosphate (Tylenol #3) 2 tab Q6HRS PO ; Start 05/09/16 at 18:00; Stop 05/09/16 at 19:34; Status DC Alprazolam (Xanax) 0.5 mg BID PO Last administered on 05/11/16 08:54; Start at 21:00; Stop 05/11/16 at 10:34; Status DC Clopidogrel Bisulfate (Plavix) 75 mg DAILY PO Last administered on 05/16/16 08 :34; Start 05/09/16 at 16:00; Stop 05/16/16 at 17:08; Status DC Diltiazem HCl (Cardizem 24hr Cd) 240 mg DAILY PO Last administered on 09:08; Start 05/09/16 at 16:00 EZETIMIBE (Zetia) 10 mg DAILY PO Last administered on 05/18/16 09:05; Start at 16:00 Fluticasone Propionate (Flonase) 1 spray PRN DAILY PRN NS Allergies; Start at 15:00 Furosemide (Lasix) 40 mg DAILY PO Last administered on 05/09/16 16:40; Start 05/09/16 at 16:00; Stop 05/11/16 at 10:59; Status DC Losartan Potassium (Cozaar) 25 mg DAILY PO Last administered on 05/18/16 09:03 ; Start 05/09/16 at 16:00 Metoprolol Succinate (Toprol Xl) 25 mg DAILY PO Last administered on 05/18/16 09:06; Start 05/09/16 at 16:00 Nitroglycerin (Nitrostat) 0.4 mg PRN Q10MIN SL ; Start 05/09/16 at 15:00 Pantoprazole Sodium (Protonix) 40 mg DAILYAC PO Last administered on 05/18/16 09:05; Start 05/09/16 at 16:30 Polyethylene Glycol (miraLAX PACKET) 17 gm HS PO Last administered on 21:12; Start 05/09/16 at 21:00 Atorvastatin Calcium (Lipitor) 20 mg QHS PO Last administered on 05/17/16 20: 24; Start 05/09/16 at 21:00 Ascorbic Acid (Vitamin C) 250 mg DAILY PO Last administered on 05/18/16 09:08 ; Start 05/09/16 at 16:00 Vitamin D (Vitamin D3) 3,000 unit DAILY PO Last administered on 05/18/16 09:07 ; Start 05/09/16 at 16:00 Duloxetine HCl (Cymbalta) 60 mg DAILY PO Last administered on 05/18/16 09:05; Start 05/09/16 at 16:00 Ferrous Sulfate (Slow Release Iron) 142 mg [id number] PO Last administered on 09:05; Start 05/10/16 at 08:00 Insulin Detemir (Levemir) 22 units DAILY08 SQ ; Start 05/10/16 at 08:00; Stop at 10:05; Status DC Fish Oil (Fish Oil) 1,000 mg DAILY PO Last administered on 05/18/16 09:03; Start 05/09/16 at 16:00 Psyllium Hydrophilic Mucilloid (Metamucil Fiber Packet) 1 pkt DAILY PO Last administered on 05/16/16 08:37; Start 05/09/16 at 16:00 Apixaban (Eliquis) 5 mg BID PO Last administered on 05/11/16 08:54; Start at 21:00; Stop 05/11/16 at 11:28; Status DC Potassium Chloride (Klor-Con) 10 meq BID PO Last administered on 05/12/16 22: 30; Start 05/09/16 at 21:00; Stop 05/13/16 at 10:47; Status DC Pregabalin (Lyrica) 50 mg TID PO Last administered on 05/18/16 09:06; Start at 16:00 Info (Anti-Coagulation Monitoring By Pharmacy) 1 each PRN DAILY PRN MC SEE COMMENTS Last administered on 05/18/16 08:37; Start 05/09/16 at 15:30 Acetaminophen/ Codeine Phosphate (Tylenol #3) 2 tab PRN Q6HRS PRN PO PAIN Last administered on 05/16/16 11:36; Start 05/09/16 at 20:00 Furosemide (Lasix) 40 mg 1X ONCE IVP Last administered on 05/10/16 03:58; Start 05/10/16 at 04:15; Stop 05/10/16 at 04:16; Status DC Digoxin (Lanoxin) 250 mcg 1X ONCE IV Last administered on 05/10/16 03:59; Start 05/10/16 at 04:15; Stop 05/10/16 at 04:16; Status DC Diltiazem HCl 10 mg 10 mg 1X ONCE IVP Last administered on 05/10/16 05:54; Start 05/10/16 at 06:00; Stop 05/10/16 at 06:01; Status DC Diltiazem HCl/ Dextrose (Cardizem) 125 ml @ 0 mls/hr CONT PRN IV SEE I/O RECORD Last administered on 05/10/16 05:55; Start 05/10/16 at 05:45; Stop 05/11 at 10:59; Status DC Insulin Aspart (Novolog) 15 units 1X ONCE SQ Last administered on 05/10/16 12 :12; Start 05/10/16 at 10:15; Stop 05/10/16 at 10:16; Status DC Insulin Aspart (Novolog) 30 units 1X ONCE SQ Last administered on 05/10/16 17 :31; Start 05/10/16 at 17:30; Stop 05/10/16 at 17:31; Status DC Guaifenesin (Robitussin Dm) 10 ml PRN Q6HRS PRN PO COUGH Last administered on 13:31; Start 05/10/16 at 17:45 Insulin Aspart (Novolog) 20 units TIDAC SQ Last administered on 05/11/16 16:30 ; Start 05/11/16 at 07:30; Stop 05/12/16 at 09:33; Status DC Insulin Detemir (Levemir) 10 units QHS SQ Last administered on 05/11/16 21:00 ; Start 05/10/16 at 23:00; Stop 05/12/16 at 09:45; Status DC Albuterol Sulfate 2.5 mg 2.5 mg RTQID NEB Last administered on 05/16/16 11:26 ; Start 05/10/16 at 23:00; Stop 05/16/16 at 12:00; Status DC Ceftriaxone Sodium 1 gm/ Sodium Chloride 50 ml @ 100 mls/hr QHS IV Last administered on 05/15/16 21:27; Start 05/10/16 at 23:00; Stop 05/16/16 at 11:37 ; Status DC Iron Sucrose/ Sodium Chloride (Venofer/Iv Sodium Chloride 0.9% 100ml) 110 ml @ 55 mls/hr 1X ONCE IV Last administered on 05/11/16 11:54; Start 05/11/16 at 11:00; Stop 05/11/16 at 12:59; Status DC Guaifenesin (Mucinex) 600 mg PRN BID PRN PO COUGH Last administered on 08:40; Start 05/11/16 at 21:00 Alprazolam 0.5 mg 0.5 mg PRN Q8HRS PRN PO ANXIETY; Start 05/12/16 at 09:00; Stop 05/12/16 at 09:00; Status DC Albumin Human (Plasmanate) 250 ml @ 62.5 mls/hr 1X ONCE IV Last administered on 05/11/16 11:54; Start 05/11/16 at 11:00; Stop 05/11/16 at 14:59; Status DC Apixaban (Eliquis) 2.5 mg BID PO Last administered on 05/13/16 09:21; Start at 21:00; Stop 05/13/16 at 12:22; Status DC Doxycycline Hyclate 100 mg 100 mg BID PO Last administered on 05/16/16 09:00; Start 05/11/16 at 13:00; Stop 05/16/16 at 11:37; Status DC Albumin Human (Plasmanate) 250 ml @ 62.5 mls/hr 1X ONCE IV Last administered on 05/11/16 16:43; Start 05/11/16 at 16:30; Stop 05/11/16 at 20:29; Status DC Insulin Aspart (Novolog) 10 units TIDAC SQ ; Start 05/12/16 at 11:30; Stop 05/12 at 11:30; Status DC Metoprolol Tartrate (Lopressor) 5 mg 1X ONCE IVP Last administered on 22:28; Start 05/12/16 at 22:15; Stop 05/12/16 at 22:16; Status DC Promethazine HCl/ Codeine (Phenergan With Codeine) 5 ml 1X ONCE PO Last administered on 05/12/16 23:57; Start 05/12/16 at 23:45; Stop 05/12/16 at 23:46 ; Status DC Metoprolol Tartrate (Lopressor) 50 mg 1X ONCE PO Last administered on 23:58; Start 05/12/16 at 23:55; Stop 05/12/16 at 23:56; Status DC Throat Lozenges (Cepacol Sore Throat Lozenge) 1 isaías PRN Q6HRS PRN PO SORE THROAT Last administered on 05/17/16 13:31; Start 05/12/16 at 23:45 Furosemide (Lasix) 40 mg 1X ONCE IVP Last administered on 05/13/16 08:46; Start 05/13/16 at 09:00; Stop 05/13/16 at 09:01; Status DC Apixaban (Eliquis) 5 mg BID PO Last administered on 05/18/16 09:03; Start at 21:00 Ondansetron HCl (Zofran) 4 mg PRN Q6HRS PRN IV Nausea; Start 05/14/16 at 07:00 ; Stop 05/15/16 at 06:59; Status DC Fentanyl Citrate (Fentanyl 2ml Vial) 25 mcg PRN Q5MIN PRN IV MILD PAIN; Start 05/14/16 at 07:00; Stop 05/15/16 at 06:59; Status DC Fentanyl Citrate (Fentanyl 2ml Vial) 50 mcg PRN Q5MIN PRN IV MODERATE PAIN; Start 05/14/16 at 07:00; Stop 05/15/16 at 06:59; Status DC Morphine Sulfate 1 mg 1 mg PRN Q10MIN PRN IV SEVERE PAIN; Start 05/14/16 at 07: 00; Stop 05/15/16 at 06:59; Status DC Lactated Ringer's (Iv Lactated Ringers) 1,000 ml @ 30 mls/hr Q24H IV ; Start at 07:00; Stop 05/14/16 at 18:59; Status DC Lidocaine HCl 2 ml 1X PRN PRN ID IV START; Start 05/14/16 at 07:00; Stop at 06:59; Status DC Hydromorphone HCl (Dilaudid) 0.5 mg PRN Q10MIN PRN IV SEVERE PAIN, Second choice; Start 05/14/16 at 07:00; Stop 05/15/16 at 06:59; Status DC Prochlorperazine Edisylate (Compazine) 5 mg PACU PRN PRN IV NAUSEA; Start 05/14 at 07:00; Stop 05/15/16 at 06:59; Status DC Insulin Aspart (Novolog) 15 units 1X ONCE SQ Last administered on 05/13/16 21 :33; Start 05/13/16 at 20:45; Stop 05/13/16 at 20:46; Status DC Insulin Aspart (Novolog) 10 units TIDAC SQ Last administered on 05/18/16 09:16 ; Start 05/14/16 at 07:30 Furosemide (Lasix) 20 mg 1X ONCE IVP Last administered on 05/14/16 10:02; Start 05/14/16 at 10:00; Stop 05/14/16 at 10:01; Status DC Albuterol/ Ipratropium (Duoneb) 3 ml RTQID NEB Last administered on 05/18/16 07:42; Start 05/14/16 at 14:00 Budesonide 0.5 mg 0.5 mg RTBID NEB Last administered on 05/18/16 07:42; Start 05/14/16 at 14:00 Furosemide 100 mg/ Sodium Chloride 100 ml @ 0 mls/hr CONT PRN IV SEE I/O RECORD Last administered on 05/16/16 02:51; Start 05/14/16 at 22:00; Stop 05/16 at 07:55; Status DC Iron Sucrose/ Sodium Chloride (Venofer/Iv Sodium Chloride 0.9% 250ml) 270 ml @ 90 mls/hr 1X ONCE IV Last administered on 05/15/16 10:00; Start 05/15/16 at 10:00; Stop 05/15/16 at 12:59; Status DC Insulin Aspart (Novolog) 0-9 UNITS TIDWMEALS SQ Last administered on 05/18/16 09:17; Start 05/15/16 at 08:00 Dextrose 12.5 gm PRN Q15MIN PRN IV SEE COMMENTS; Start 05/15/16 at 07:00; Status UNV Albuterol Sulfate (Ventolin Neb Soln) 2.5 mg PRN Q6HRS PRN NEB WHEEZING; Start 05/15/16 at 17:00 Furosemide (Lasix) 20 mg 1X ONCE IVP Last administered on 05/15/16 16:27; Start 05/15/16 at 16:30; Stop 05/15/16 at 16:31; Status DC Potassium Chloride 40 meq 40 meq 1X ONCE PO Last administered on 05/16/16 08: 36; Start 05/16/16 at 08:00; Stop 05/16/16 at 08:01; Status DC Magnesium Sulfate/ Dextrose (Magnesium Sulfate PREMIX 2GM) 50 ml @ 25 mls/hr 1X ONCE IV Last administered on 05/16/16 10:30; Start 05/16/16 at 10:30; Stop 05/16/16 at 12:29; Status DC Amoxicillin/ Clavulanate Potassium (Augmentin 875/ 125mg) 1 tab BID PO Last administered on 05/18/16 09:04; Start 05/16/16 at 21:00 Sucralfate 1 gm 1 gm BID PO Last administered on 05/17/16 20:24; Start at 21:00; Stop 05/17/16 at 20:31; Status DC Iron Sucrose 200 mg/Sodium Chloride 110 ml @ 55 mls/hr 1X ONCE IV Last administered on 05/16/16 13:13; Start 05/16/16 at 13:30; Stop 05/16/16 at 15:29 ; Status DC Iron Sucrose/ Sodium Chloride (Venofer/Iv Sodium Chloride 0.9% 100ml) 110 ml @ 55 mls/hr 1X ONCE IV ; Start 05/17/16 at 12:45; Stop 05/17/16 at 14:44; Status UNV Alprazolam (Xanax) 0.25 mg PRN QHS PRN PO ANXIETY / AGITATION Last administered on 05/17/16 20:35; Start 05/17/16 at 20:30 Sucralfate (Carafate) 1 gm BID PEG Last administered on 05/18/16 09:09; Start 05/17/16 at 21:00 Benzonatate (Tessalon Perle) 100 mg [id number] PO ; Start 05/18/16 at 14:00 Active Scripts Active Reported Lyrica (Pregabalin) 50 Mg Capsule 50 Mg PO TID Pantoprazole Sodium 40 Mg Tablet.dr 1 Tab PO DAILY Levemir (Insulin Detemir) 100 Unit/1 Ml Vial 22 Unit SQ DAILY08 Eliquis (Apixaban) 5 Mg Tablet 5 Mg PO BID Diltiazem 24HR Cd (Diltiazem Hcl) 120 Mg Cap.er.24h 240 Mg PO DAILY Plavix (Clopidogrel Bisulfate) 75 Mg Tablet 1 Tab PO DAILY Novolog Flexpen (Insulin Aspart) 100 Unit/1 Ml Insuln.pen 100 Unit SQ Zetia (Ezetimibe) 10 Mg Tablet 10 Mg PO DAILY Cymbalta (Duloxetine Hcl) 60 Mg Capsule.dr 60 Mg PO DAILY Alprazolam 0.5 Mg Tablet 1 Tab PO BID Flonase (Fluticasone Propionate) 16 Gm Isle.susp 16 Gm NS PRN DAILY NITROGLYCERIN SubLingual (Nitroglycerin) 0.4 Mg Tab.subl 0.4 Mg SL PRN Q10MIN Vitamin C (Ascorbic Acid) 100 Mg Tablet 100 Mg PO DAILY Ferrous Sulfate 134 Mg Tablet 134 Mg PO DAILY Sidon 3 1,000 Mg Softgel (Sidon-3 Fatty Acids/Fish Oil) 1 Each Capsule 1 Each PO DAILY Miralax (Polyethylene Glycol 3350) 17 Gm Powd.pack 17 Gm PO HS Zocor (Simvastatin) 40 Mg Tablet 40 Mg PO HS Metamucil Packet (Psyllium Seed (With Sugar)) 1 Each Packet 1 Each PO DAILY Vitamin D3 (Cholecalciferol (Vitamin D3)) 3,000 Unit Tablet 3,000 Unit PO DAILY Potassium Chloride 10 Meq Tab.er.prt 10 Meq PO BID Lasix (Furosemide) 40 Mg Tablet 40 Mg PO DAILY Metoprolol Succinate ( Xl ) (Metoprolol Succinate) 25 Mg Tab.er.24h 25 Mg PO DAILY Losartan Potassium 25 Mg Tablet 25 Mg PO DAILY Acetaminophen-Cod #3 Tablet (Acetaminophen/Codeine Phosphate) 1 Each Tablet 2 Each PO Q6HRS PRN Vitals/I & O Vital Sign - Last 24 Hours 05/17/16 05/17/16 05/17/16 05/17/16 10:17 11:47 14:05 16:07 Temp 97.8 97.6 97.8 97.6 Pulse 101 89 Resp 20 20 B/P 127/68 118/65 Pulse Ox 94 93 O2 Delivery Room Air Nasal Cannula Room Air Nasal Cannula O2 Flow Rate 2.0 2.0 05/17/16 05/17/16 05/17/16 05/17/16 19:00 20:00 21:09 21:14 Temp 98.0 98.0 Pulse 83 Resp 16 B/P 95/75 Pulse Ox 96 99 99 O2 Delivery Nasal Cannula Nasal Cannula Nasal Cannula Nasal Cannula O2 Flow Rate 2.0 2.0 2.0 2.0 05/17/16 05/18/16 05/18/16 05/18/16 22:49 02:36 07:42 09:03 Temp 97.5 97.8 97.5 97.8 Pulse 78 99 99 Resp 18 18 B/P 109/58 117/61 117/61 Pulse Ox 91 98 90 O2 Delivery Nasal Cannula Nasal Cannula Room Air O2 Flow Rate 2.0 2.0 05/18/16 05/18/16 09:06 09:08 Pulse 99 99 B/P 117/61 117/61 Intake and Output 05/17/16 05/17/16 05/18/16 15:00 23:00 07:00 Intake Total 660 ml 1340 ml Output Total 1650 ml 400 ml 0 ml Balance -990 ml 940 ml 0 ml JAZMÍN PLASCENCIA MD May 18, 2016 10:04
[2016-05-18 10:09] VITALS: BP 127/59
[2016-05-18] MEDS ORDERED: FUROSEMIDE 20 MG/2 ML VIAL IVP ONE (13:30)
[2016-05-18] MEDS ORDERED: BENZONATATE 100 MG CAPSULE. PO SCH (14:00)
[2016-05-18 14:05] VITALS: BP 142/91
[2016-05-18 14:09] VITALS: BP 115/75
--- NOTE | 2016-05-18 14:41 | PDOC ---
Infectious Disease Note Subjective Subjective feeling better ROS ROS GEN: Denies fevers, chills, sweats HEENT: Denies blurred vision, sore throat CV: Denies chest pain RESP: Denies shortness of air, cough GI: Denies n/v/d NEURO: Denies confusion, dizziness MSK: Denies weakness, joint pain/swelling Vital Sign Vital Signs Vital Signs Date Time Temp Pulse Resp B/P Pulse Ox O2 Delivery O2 Flow Rate FiO2 05/18/16 14:09 97.6 83 18 115/75 97 Nasal Cannula 2.0 97.6 Physical Exam PHYSICAL EXAM GENERAL: NAD, Alert HEENT: PERRL, OC/OP NECK: Supple, no JVD, no LN LUNGS: Clear HEART: S1S2, no gallop, no murmur ABD: Soft, NT, no organomegaly, no rebound EXT: No edema, no cyanosis 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 -Mycoplasma/Strep antigen. negative Afib - Tachycardia - per Dr. Chen Leukocytosis - improved DM with elevated FSBS Plan Plan of Care po augmentin for total 5 days d/c to rehab SANTI Campa MD May 18, 2016 14:41
[2016-05-18] MEDS: ALPRAZOLAM 0.25 MG TABLET PO PRN (14:43)
[2016-05-18] MEDS ORDERED: FURO40TA4 PO (15:10)
[2016-05-18] MEDS ORDERED: AMOX1TAB61 PO (15:11)
[2016-05-18] MEDS ORDERED: ASCO250T3 PO (15:12)
[2016-05-18] MEDS ORDERED: BENZ1LOZ48 MM (15:14)
[2016-05-18] MEDS ORDERED: BUDE0.5A NEB (15:15)
[2016-05-18] MEDS ORDERED: GUAI5SYR PO (15:17)
[2016-05-18] MEDS ORDERED: GUAI600T28 PO (15:18)
[2016-05-18] MEDS ORDERED: IPRA3AMP NEB (15:19)
[2016-05-18] MEDS ORDERED: METO50TA10 PO (15:31)
== END 2016-05-18 16:00 | DRG 871 ==
LOC: ER 02:57 → 2 NORTH 05:45
PROVIDERS: ADMIT Specialist; ATTEND Specialist
DX: A41.9 Sepsis, unspecified organism (principal); J18.9 Pneumonia, unspecified organism; J96.01 Acute respiratory failure with hypoxia; I50.43 Acute on chronic combined systolic (congestive) and diastolic (congestive) heart failure; G93.41 Metabolic encephalopathy; D50.9 Iron deficiency anemia, unspecified; D63.8 Anemia in other chronic diseases classified elsewhere; E11.649 Type 2 diabetes mellitus with hypoglycemia without coma; E11.65 Type 2 diabetes mellitus with hyperglycemia; E78.5 Hyperlipidemia, unspecified; E83.42 Hypomagnesemia; E87.6 Hypokalemia; H93.19 Tinnitus, unspecified ear; I25.10 Atherosclerotic heart disease of native coronary artery without angina pectoris; I35.0 Nonrheumatic aortic (valve) stenosis; I48.91 Unspecified atrial fibrillation; I95.1 Orthostatic hypotension; J45.909 Unspecified asthma, uncomplicated; K27.9 Peptic ulcer, site unspecified, unspecified as acute or chronic, without hemorrhage or perforation; K59.00 Constipation, unspecified; I11.0 Hypertensive heart disease with heart failure; K29.70 Gastritis, unspecified, without bleeding; M19.90 Unspecified osteoarthritis, unspecified site; Z79.4 Long term (current) use of insulin; Z86.711 Personal history of pulmonary embolism; Z82.49 Family history of ischemic heart disease and other diseases of the circulatory system; Z87.01 Personal history of pneumonia (recurrent); Z87.11 Personal history of peptic ulcer disease; Z90.49 Acquired absence of other specified parts of digestive tract; Z90.710 Acquired absence of both cervix and uterus; Z98.890 Other specified postprocedural states; Z95.1 Presence of aortocoronary bypass graft
CPT/HCPCS: 36415; 36600; 70220; 71010; 71250; 80048; 80053; 81001; 82607; 82728; 82805; 82947; 83540; 83550; 83605; 83735; 83880; 84132; 84145; 84443; 84484; 85007; 85027; 86738; 87086; 87449; 90732; 93005; 94250; 94620; 94640; 94760; 96374; J0696; J1160; J1756; J1815; J1940; J3490; J7042; J7050; J7060; J7620; P9041; 97110; 97530; 97535; 99291-25; J7030

== ENCOUNTER 2016-05-20 14:54 | Inpatient (IN) | payer MEDICARE ==
[~2016-05-20] VITALS: Ht 162.6 cm; Wt 96.2 kg
[2016-05-20] VITALS (7 sets, daily range): BP systolic 128–177; BP diastolic 70–95
[~2016-05-20 14:54] MED LIST changes: +AMOX1TAB61 PO; +ASCO250T3 PO; +BENZ1LOZ48 MM; +BUDE0.5A NEB; +FURO40TA4 PO; +GUAI5SYR PO; +GUAI600T28 PO; +INSU100V13 SQ; +IPRA3AMP NEB; +METO50TA10 PO; +PANT40TA5 PO; +PREG50CA PO
--- NOTE | 2016-05-20 15:28 | EKG ---
[facility] [address] [place] [id number] Test Date: 2016-05-20 Test Time: 15:10:21 Pat Name: LANE LU Department: Room: Gender: F [place]: : 1925 Requested By: DARWIN SWIFT Order Number: [id number] Reading MD: Measurements Intervals [place] Rate: 88 P: ME: QRS: -21 QRSD: 94 T: 149 QT: 364 QTc: 444 Interpretive Statements IRREGULAR RHYTHM, NO P-WAVE FOUND LEFTWARD AXIS CONSIDER LEFT VENTRICULAR HYPERTROPHY ST & T ABNORMALITY, CONSIDER LATERAL ISCHEMIA OR LEFT VENTRICULAR STRAIN INFERIOR ISCHEMIA OR LEFT VENTRICULAR STRAIN ABNORMAL ECG RI6.01 No previous ECG available for comparison
[2016-05-20] MEDS ORDERED: PREDNISONE 20 MG TABLET PO ONE (15:30)
[2016-05-20] MEDS ORDERED: FUROSEMIDE 20 MG/2 ML VIAL IVP SCH (15:30)
[2016-05-20] MEDS ORDERED: IPRATRPIUM/ALBUTEROL 0.5/2.5MG 3 ML NEBU. NEB ONE (15:30)
[2016-05-20 15:40] LABS: BASO % 0 % (0-3); EOS % 2 % (0-3); HEMATOCRIT 24.6 % (36.0-47.0); HEMOGLOBIN 7.6 g/dL (12.0-15.5); LYMPH # 0.6 x10^3/uL (1.0-4.8); LYMPH % 7 % (24-48); MEAN CORPUSCULAR HEMOGLOBIN 28 pg (25-35); MEAN CORPUSCULAR HGB CONC 31 g/dL (31-37); MEAN CORPUSCULAR VOLUME 92 fL (79-100); MONO % 6 % (0-9); NEUT % 85 % (31-73); PLATELET COUNT 293 x10^3/uL (140-400); RED BLOOD COUNT 2.68 x10^6/uL (3.50-5.40); RED CELL DISTRIBUTION WIDTH 20.5 % (11.5-14.5); WHITE BLOOD COUNT 9.2 x10^3/uL (4.0-11.0)
--- NOTE | 2016-05-20 15:42 | RAD ---
Indication: Chest pain and short of breath for a couple of days. Technique: Upright portable chest radiograph was obtained. Comparison is from May 15, 2016. Findings: There is basilar atelectasis and/or infiltrate bilaterally. The upper lung card are clear. Calcified granuloma is noted on the left. The heart is not enlarged. There is no definite heart failure. Median sternotomy wires are noted. Leads overlie the patient. Impression: Basilar atelectasis and/or infiltrate, increased.
[2016-05-20 16:01] LABS: CALCIUM 9.1 mg/dL (8.5-10.1); CREATININE 1.2 mg/dL (0.6-1.0); GFR 51.3; POTASSIUM 4.9 mmol/L (3.5-5.1)
[2016-05-20 16:08] LABS: ALBUMIN 2.8 g/dL (3.4-5.0); DIRECT BILIRUBIN 0.1 mg/dL (0.0-0.2); TOTAL BILIRUBIN 0.3 mg/dL (0.2-1.0); TOTAL PROTEIN 7.4 g/dL (6.4-8.2)
[2016-05-20] MEDS ORDERED: ONDANSETRON PF 4 MG/2 ML VIAL. IV PRN (16:15)
[2016-05-20] MEDS ORDERED: MORPHINE SULFATE 2 MG/ML DISP.SYRIN. IV PRN (16:15)
[2016-05-20 16:19] LABS: ANISOCYTOSIS MOD; PLT ESTIMATE ADEQUATE (ADEQUATE); POIKILOCYTOSIS SLIGHT; POLYCHROMASIA PRESENT
[2016-05-20 16:20] LABS: OVALOCYTES OCC; TEAR DROP CELLS OCC
--- NOTE | 2016-05-20 16:34 | PHYS DOC ---
Past Medical History Past Medical History: Arthritis, CHF, Diabetes-Type II, Pneumonia, Other Additional Past Medical Histor: CORONARY ARTERY DISEASE, VASCULAR TINNITIS, GASTRITIS Past Surgical History: Appendectomy, Cholecystectomy, Coronary Bypass Surgery, Hysterectomy, Tonsillectomy Alcohol Use: None Drug Use: None Adult General Chief Complaint Chief Complaint: SHORTNESS OF BREATH HPI HPI 82-year-old female presenting to the emergency department today with shortness of breath. She was recently admitted to our hospital previously for diuresis and CHF exacerbation. [facility] patient was approximately 85% on 5 L. She reports the shortness of breath starting approximately a day and a half ago. It is worse with exertion. No alleviating factors present. She denies chest pain nausea or vomiting. Location lungs. Duration intermittent. Review of systems is negative for chest pain nausea vomiting diaphoresis fevers chills. All other review of systems is negative unless otherwise noted in history of present illness. Review of Systems Review of Systems See above. Current Medications Current Medications Current Medications Medications (Trade) Dose Ordered Sig/Yesenia Start Time Stop Time Status Last Admin Dose Admin Albuterol/ Ipratropium (Duoneb) 3 ml 1X ONCE 05/20/16 15:30 05/20/16 15:31 DC Furosemide (Lasix) 20 mg DAILY 05/20/16 15:30 05/20/16 15:54 20 MG Morphine Sulfate 2 mg PRN Q2HR PRN 05/20/16 16:15 05/21/16 16:14 Ondansetron HCl (Zofran) 4 mg PRN Q8HRS PRN 05/20/16 16:15 05/21/16 16:14 Prednisone (Prednisone) 50 mg 1X ONCE 05/20/16 15:30 05/20/16 15:31 DC 05/20/16 15:54 50 MG Allergies Allergies Allergies Coded Allergies Type Severity Reaction Last Updated Verified No Known Drug Allergies 05/09/16 No Physical Exam Physical Exam Constitutional: Well developed, well nourished, no acute distress, non-toxic appearance. HENT: Normocephalic, atraumatic, bilateral external ears normal, oropharynx moist, no oral exudates, nose normal. [] Eyes: PERRLA, EOMI, conjunctiva normal, no discharge. [] Neck: Normal range of motion, no tenderness, supple, no stridor. Cardiovascular:Heart rate regular rhythm, no murmur [] Lungs & Thorax: Patient has wheezing bilaterally with prolonged expiratory phase. Mild crackles in the lung bases. Abdomen: Bowel sounds normal, soft, no tenderness, no masses, no pulsatile masses. [] Skin: Warm, dry, no erythema, no rash. Back: No tenderness, no CVA tenderness. [] Extremities: No tenderness, no cyanosis, no clubbing, ROM intact, no edema. Neurologic: Alert and oriented X 3, normal motor function, normal sensory function, no focal deficits noted. [] Psychologic: Affect normal, judgement normal, mood normal. Current Patient Data Vital Signs Vital Signs Date Time Temp Pulse Resp B/P Pulse Ox O2 Delivery O2 Flow Rate FiO2 05/20/16 16:09 80 16 147/60 97 Nasal Cannula 2 05/20/16 15:02 98.0 98.0 Lab Values Laboratory Tests Test 05/20/16 15:28 White Blood Count 9.2x10^3/uL (4.0-11.0) Red Blood Count 2.68x10^6/uL (3.50-5.40) L Hemoglobin 7.6g/dL (12.0-15.5) L Hematocrit 24.6% (36.0-47.0) L Mean Corpuscular Volume 92fL (79-100) Mean Corpuscular Hemoglobin 28pg (25-35) Mean Corpuscular Hemoglobin Concent 31g/dL (31-37) Red Cell Distribution Width 20.5% (11.5-14.5) H Platelet Count 293x10^3/uL (140-400) Neutrophils (%) (Auto) 85% (31-73) H Lymphocytes (%) (Auto) 7% (24-48) L Monocytes (%) (Auto) 6% (0-9) Eosinophils (%) (Auto) 2% (0-3) Basophils (%) (Auto) 0% (0-3) Neutrophils # (Auto) 7.8x10^3uL (1.8-7.7) H Lymphocytes # (Auto) 0.6x10^3/uL (1.0-4.8) L Monocytes # (Auto) 0.6x10^3/uL (0.0-1.1) Eosinophils # (Auto) 0.2x10^3/uL (0.0-0.7) Basophils # (Auto) 0.0x10^3/uL (0.0-0.2) Platelet Estimate Adequate (ADEQUATE) Polychromasia Present Poikilocytosis Slight Basophilic Stippling Present Anisocytosis Mod Tear Drop Cells Occ Ovalocytes Occ Sodium Level 138mmol/L (136-145) Potassium Level 4.9mmol/L (3.5-5.1) Chloride Level 98mmol/L (98-107) Carbon Dioxide Level 33mmol/L (21-32) H Anion Gap 7 (6-14) Blood Urea Nitrogen 30mg/dL (7-20) H Creatinine 1.2mg/dL (0.6-1.0) H Estimated GFR (Cockcroft-Gault) 51.3 Glucose Level 341mg/dL (70-99) H Calcium Level 9.1mg/dL (8.5-10.1) Total Bilirubin 0.3mg/dL (0.2-1.0) Direct Bilirubin 0.1mg/dL (0.0-0.2) Aspartate Amino Transferase (AST) 32U/L (15-37) Alanine Aminotransferase (ALT) 26U/L (14-59) Alkaline Phosphatase 65U/L (46-116) Troponin I Quantitative 0.038ng/mL (0.000-0.055) GG-Rxd-V-Type Natriuretic Peptide 2427pg/mL (0-449) H Total Protein 7.4g/dL (6.4-8.2) Albumin 2.8g/dL (3.4-5.0) L Lipase 158U/L (73-393) Laboratory Tests 05/20/16 15:28 Laboratory Tests 05/20/16 15:28 EKG EKG [] EKG shows an irregularly irregular rhythm without P waves found. Rate is within normal limits. Alpine is mildly leftward. Intervals are within normal limits. ST segments are congruent. Nonspecific T-wave inversions in the lateral leads. Radiology/Procedures Radiology/Procedures [] Course & Med Decision Making Course & Med Decision Making Pertinent Labs and Imaging studies reviewed. (See chart for details) [] 89-year-old female presenting to the emergency department today with shortness of breath. On evaluation the patient was saturating well on 5 L nasal cannula. On physical exam the patient diffuse wheezing with mild crackles. She was given Lasix and a DuoNeb therapy. EKG unremarkable. Chest x-ray suggestive of infiltrate. Otherwise blood work obtained which showed anemia of 7.6. Chemistry panel showed uremia with hyperglycemia proBNP elevated at 2400. Troponin within the reference range of normal. IV antibiotics were given. The patient was then admitted to our hospital for further evaluation workup and care. Dragon Disclaimer Dragon Disclaimer This electronic medical record was generated, in whole or in part, using a voice recognition dictation system. Departure Departure Impression: Primary Impression: CHF (congestive heart failure) Additional Impressions: Type 2 diabetes mellitus Pneumonia Disposition: ADMITTED INPATIENT Admitting Physician: Other (premsing) Condition: STABLE Referrals: SOM SHORE MD (PCP) Problem Qualifiers DARWIN SWIFT MD May 20, 2016 16:34
[2016-05-20] MEDS ORDERED: PIP/TAZO PER PHARMACY MC PRN ×2 (16:45→17:00)
[2016-05-20] MEDS ORDERED: PIPERACILLIN/TAZOBACTAM 3.375 GM in IV NORMAL SALINE 50ML 50 ML IV ONE (16:45)
[2016-05-20] MEDS ORDERED: VANCOMYCIN 2 GM in IV NORMAL SALINE 500ML BAG 500 ML IV ONE (16:45)
[2016-05-20] MEDS ORDERED: VANCOMYCIN PER PHARMACY MC PRN ×2 (16:45→17:00)
--- NOTE | 2016-05-20 16:48 | ACF ---
Admission Forms Criteria Admission Criteria Met?: Pending BLAKE PEREZ May 20, 2016 16:48 DARWIN SWIFT MD May 22, 2016 12:04
[2016-05-20] MEDS: FUROSEMIDE INJ 100 MG in IV NORMAL SALINE 100ML 100 ML IV PRN (18:27)
[2016-05-20] MEDS ORDERED: ALBUTEROL SULFATE 2.5 MG/3 ML NEBU. NEB PRN (19:00)
[2016-05-20] MEDS ORDERED: INSULIN ASPART 100 UNIT/ML 10ML VIAL. SQ ONE (19:15)
[2016-05-20] MEDS ORDERED: DEXTROSE 50% 25 GM / 50ML DISP.SYRIN. IV PRN (19:30)
[2016-05-20] MEDS: ALPRAZOLAM 0.5 MG TABLET PO PRN (19:33)
[2016-05-20] MEDS: IPRATRPIUM/ALBUTEROL 0.5/2.5MG 3 ML NEBU. NEB SCH (19:44)
[2016-05-20] MEDS ORDERED: DILTIAZEM HCL 30 MG TABLET PO ONE (20:15)
[2016-05-20] MEDS ORDERED: PROMETH/CODEINE 6.25/10MG 5 ML SYRUP. PO PRN (20:15)
[2016-05-20] MEDS: DILTIAZEM IV PUSH 25 MG/5 ML VIAL. IVP ONE ×2 (20:56→21:25)
[2016-05-20] MEDS ORDERED: INSULIN ASPART 300 UNITS/3 ML INSULN.PEN SQ ONE (21:30)
[2016-05-20] MEDS: GUAIFENESIN DM 600/30MG TAB.ER.12H. PO SCH (21:49)
[2016-05-20] MEDS: ATORVASTATIN CALCIUM 20 MG TABLET PO SCH (21:49)
[2016-05-20] MEDS: SUCRALFATE 1 GM TABLET. PO SCH (21:50)
[2016-05-20] MEDS: AMOXICILLIN/K CLAV 875/125MG TABLET. PO SCH (21:50)
[2016-05-20] MEDS: APIXABAN 5 MG TABLET. PO SCH (21:50)
[2016-05-20] MEDS: PREGABALIN 50 MG CAPSULE PO SCH (21:50)
[2016-05-21] VITALS (14 sets, daily range): BP systolic 103–134; BP diastolic 50–91
[2016-05-21] MEDS ORDERED: PIPERACILLIN/TAZOBACTAM 2.25 GM in IV NORMAL SALINE 50ML 50 ML IV SCH ×2
[2016-05-21] MEDS ORDERED: DILTIAZEM HCL 30 MG TABLET PO ONE (02:00)
[2016-05-21] MEDS ORDERED: INSULIN DETEMIR 300 UNITS/3 ML INSULN.PEN. SQ SCH (08:00)
[2016-05-21] MEDS: IPRATRPIUM/ALBUTEROL 0.5/2.5MG 3 ML NEBU. NEB SCH ×4 (08:10→19:24)
[2016-05-21] MEDS: POLYETHYLENE GLYCOL 3350 17 GM PACKET. PO SCH (08:40)
[2016-05-21] MEDS: ASCORBIC ACID 500 MG TABLET PO SCH (08:41)
[2016-05-21] MEDS: GUAIFENESIN DM 600/30MG TAB.ER.12H. PO SCH ×2 (08:41→20:29)
[2016-05-21] MEDS: APIXABAN 5 MG TABLET. PO SCH ×2 (08:45→20:29)
[2016-05-21] MEDS: PREGABALIN 50 MG CAPSULE PO SCH ×2 (08:45→20:29)
[2016-05-21] MEDS: DULOXETINE HCL 30 MG CAPSULE.DR. PO SCH (08:46)
[2016-05-21] MEDS: SUCRALFATE 1 GM TABLET. PO SCH ×4 (08:46→20:30)
[2016-05-21] MEDS: PANTOPRAZOLE 40 MG TABLET. PO SCH (08:47)
[2016-05-21] MEDS: CHOLECALCIFEROL (VITAMIN D3) 5,000 UNIT CAPSULE PO SCH (08:47)
[2016-05-21] MEDS: EZETIMIBE 10 MG TABLET PO SCH (08:48)
[2016-05-21] MEDS: FERROUS SULFATE ORAL 300 MG/5 ML SOLUTION. PO SCH ×2 (08:49→16:41)
[2016-05-21] MEDS: DILTIAZEM HCL 300 MG CAP.ER.24H PO SCH (08:49)
[2016-05-21] MEDS: METOPROLOL SUCC 24HR ER 50 MG TAB.ER.24H. PO SCH (08:49)
[2016-05-21] MEDS: AMOXICILLIN/K CLAV 875/125MG TABLET. PO SCH ×2 (08:50→20:30)
[2016-05-21] MEDS: INSULIN ASPART 300 UNITS/3 ML INSULN.PEN SQ SCH ×6 (08:58→17:55)
[2016-05-21 11:33] LABS: HEMATOCRIT 24.8 % (36.0-47.0); HEMOGLOBIN 7.8 g/dL (12.0-15.5); RED BLOOD COUNT 2.74 x10^6/uL (3.50-5.40); RED CELL DISTRIBUTION WIDTH 21.4 % (11.5-14.5); WHITE BLOOD COUNT 8.2 x10^3/uL (4.0-11.0)
[2016-05-21 11:55] LABS: CALCIUM 9.1 mg/dL (8.5-10.1); CREATININE 1.3 mg/dL (0.6-1.0); GFR 46.8; POTASSIUM 4.6 mmol/L (3.5-5.1)
--- NOTE | 2016-05-21 16:12 | PDOC ---
PULMONARY PROGRESS NOTES Vitals Vital Signs Date Time Temp Pulse Resp B/P Pulse Ox O2 Delivery O2 Flow Rate FiO2 05/21/16 15:40 Nasal Cannula 2.0 05/21/16 15:05 97.9 71 16 107/50 97 97.9 General: Alert, No acute distress Lungs: Clear Cardiovascular: S1 Abdomen: Soft Extremities: No Edema Labs Laboratory Tests Test 05/20/16 15:28 05/20/16 17:41 05/20/16 20:44 05/21/16 01:59 White Blood Count 9.2x10^3/uL (4.0-11.0) Red Blood Count 2.68x10^6/uL (3.50-5.40) Hemoglobin 7.6g/dL (12.0-15.5) Hematocrit 24.6% (36.0-47.0) Mean Corpuscular Volume 92fL (79-100) Mean Corpuscular Hemoglobin 28pg (25-35) Mean Corpuscular Hemoglobin Concent 31g/dL (31-37) Red Cell Distribution Width 20.5% (11.5-14.5) Platelet Count 293x10^3/uL (140-400) Neutrophils (%) (Auto) 85% (31-73) Lymphocytes (%) (Auto) 7% (24-48) Monocytes (%) (Auto) 6% (0-9) Eosinophils (%) (Auto) 2% (0-3) Basophils (%) (Auto) 0% (0-3) Neutrophils # (Auto) 7.8x10^3uL (1.8-7.7) Lymphocytes # (Auto) 0.6x10^3/uL (1.0-4.8) Monocytes # (Auto) 0.6x10^3/uL (0.0-1.1) Eosinophils # (Auto) 0.2x10^3/uL (0.0-0.7) Basophils # (Auto) 0.0x10^3/uL (0.0-0.2) Platelet Estimate Adequate (ADEQUATE) Polychromasia Present Poikilocytosis Slight Basophilic Stippling Present Anisocytosis Mod Tear Drop Cells Occ Ovalocytes Occ Sodium Level 138mmol/L (136-145) Potassium Level 4.9mmol/L (3.5-5.1) Chloride Level 98mmol/L (98-107) Carbon Dioxide Level 33mmol/L (21-32) Anion Gap 7 (6-14) Blood Urea Nitrogen 30mg/dL (7-20) Creatinine 1.2mg/dL (0.6-1.0) Estimated GFR (Cockcroft-Gault) 51.3 Glucose Level 341mg/dL (70-99) Calcium Level 9.1mg/dL (8.5-10.1) Total Bilirubin 0.3mg/dL (0.2-1.0) Direct Bilirubin 0.1mg/dL (0.0-0.2) Aspartate Amino Transf (AST/SGOT) 32U/L (15-37) Alanine Aminotransferase (ALT/SGPT) 26U/L (14-59) Alkaline Phosphatase 65U/L (46-116) Troponin I Quantitative 0.038ng/mL (0.000-0.055) OE-Zmd-F-Type Natriuretic Peptide 2427pg/mL (0-449) Total Protein 7.4g/dL (6.4-8.2) Albumin 2.8g/dL (3.4-5.0) Lipase 158U/L (73-393) Glucose (Fingerstick) 284mg/dL (70-99) 406mg/dL (70-99) 316mg/dL (70-99) Test 05/21/16 11:10 White Blood Count 8.2x10^3/uL (4.0-11.0) Red Blood Count 2.74x10^6/uL (3.50-5.40) Hemoglobin 7.8g/dL (12.0-15.5) Hematocrit 24.8% (36.0-47.0) Mean Corpuscular Volume 91fL (79-100) Mean Corpuscular Hemoglobin 28pg (25-35) Mean Corpuscular Hemoglobin Concent 31g/dL (31-37) Red Cell Distribution Width 21.4% (11.5-14.5) Platelet Count 299x10^3/uL (140-400) Sodium Level 139mmol/L (136-145) Potassium Level 4.6mmol/L (3.5-5.1) Chloride Level 99mmol/L (98-107) Carbon Dioxide Level 34mmol/L (21-32) Anion Gap 6 (6-14) Blood Urea Nitrogen 26mg/dL (7-20) Creatinine 1.3mg/dL (0.6-1.0) Estimated GFR (Cockcroft-Gault) 46.8 Glucose Level 460mg/dL (70-99) Calcium Level 9.1mg/dL (8.5-10.1) Magnesium Level 2.0mg/dL (1.8-2.4) Laboratory Tests Test 05/20/16 17:41 05/20/16 20:44 05/21/16 01:59 05/21/16 11:10 Glucose (Fingerstick) 284mg/dL (70-99) 406mg/dL (70-99) 316mg/dL (70-99) White Blood Count 8.2x10^3/uL (4.0-11.0) Red Blood Count 2.74x10^6/uL (3.50-5.40) Hemoglobin 7.8g/dL (12.0-15.5) Hematocrit 24.8% (36.0-47.0) Mean Corpuscular Volume 91fL (79-100) Mean Corpuscular Hemoglobin 28pg (25-35) Mean Corpuscular Hemoglobin Concent 31g/dL (31-37) Red Cell Distribution Width 21.4% (11.5-14.5) Platelet Count 299x10^3/uL (140-400) Sodium Level 139mmol/L (136-145) Potassium Level 4.6mmol/L (3.5-5.1) Chloride Level 99mmol/L (98-107) Carbon Dioxide Level 34mmol/L (21-32) Anion Gap 6 (6-14) Blood Urea Nitrogen 26mg/dL (7-20) Creatinine 1.3mg/dL (0.6-1.0) Estimated GFR (Cockcroft-Gault) 46.8 Glucose Level 460mg/dL (70-99) Calcium Level 9.1mg/dL (8.5-10.1) Magnesium Level 2.0mg/dL (1.8-2.4) Medications Active Scripts Medications Dose Route/Sig Days Date Category Metoprolol Succinate 50 Mg Tab.er.24h 50 Mg PO 05/18/16 Reported Duoneb 0.5-3(2.5) Mg/3 Ml (Albuterol/Ipratropium) 3 Ml Ampul.neb 3 Ml NEB QID 05/18/16 Reported Guaifenesin 600 Mg Tablet.er 600 Mg PO PRN BID PRN 05/18/16 Reported Guaifenesin Dm Syrup (Guaifenesin/Dextromethorphan) 5 Ml Syrup Ml PO PRN Q6HRS PRN 05/18/16 Reported Budesonide 0.5 Mg/2 Ml Ampul.neb 1 Vial NEB BID 05/18/16 Reported Cepacol Sore Throat Lozenge (Benzocaine/Menthol) 1 Each Lozenge 1 Each MM PRN Q6HRS PRN 05/18/16 Reported Ascorbic Acid 250 Mg Tablet 250 Mg PO DAILY 05/18/16 Reported Augmentin 875-125 Tablet (Amoxicillin/Potassium Clav) 1 Each Tablet 1 Tab PO BID 05/18/16 Reported Furosemide 40 Mg Tablet 40 Mg PO BID 05/18/16 Reported Lyrica (Pregabalin) 50 Mg Capsule 50 Mg PO TID 05/09/16 Reported Pantoprazole Sodium 40 Mg Tablet.dr 1 Tab PO DAILY 05/09/16 Reported Levemir (Insulin Detemir) 100 Unit/1 Ml Vial 22 Unit SQ DAILY08 05/09/16 Reported Eliquis (Apixaban) 5 Mg Tablet 5 Mg PO BID 04/26/16 Reported Diltiazem 24HR Cd (Diltiazem Hcl) 120 Mg Cap.er.24h 240 Mg PO DAILY 04/26/16 Reported Novolog Flexpen (Insulin Aspart) 100 Unit/1 Ml Insuln.pen 100 Unit SQ 03/19/14 Reported Zetia (Ezetimibe) 10 Mg Tablet 10 Mg PO DAILY 03/19/14 Reported Cymbalta (Duloxetine Hcl) 60 Mg Capsule.dr 60 Mg PO DAILY 03/19/14 Reported Flonase (Fluticasone Propionate) 16 Gm [place].susp 16 Gm NS PRN DAILY 04/07/13 Reported Ferrous Sulfate 134 Mg Tablet 134 Mg PO DAILY 04/07/13 Reported [place] 3 1,000 Mg Softgel ([place]-3 Fatty Acids/Fish Oil) 1 Each Capsule 1 Each PO DAILY 04/07/13 Reported Miralax (Polyethylene Glycol 3350) 17 Gm Powd.pack 17 Gm PO HS 04/07/13 Reported Zocor (Simvastatin) 40 Mg Tablet 40 Mg PO HS 04/07/13 Reported Metamucil Packet (Psyllium Seed (With Sugar)) 1 Each Packet 1 Each PO DAILY 04/07/13 Reported Vitamin D3 (Cholecalciferol (Vitamin D3)) 3,000 Unit Tablet 3,000 Unit PO DAILY 04/07/13 Reported Potassium Chloride 10 Meq Tab.er.prt 10 Meq PO BID 04/07/13 Reported Acetaminophen-Cod #3 Tablet (Acetaminophen/Codeine Phosphate) 1 Each Tablet 2 Each PO Q6HRS PRN 04/07/13 Reported Impression . acute resp failure sec to acute heart failure//Anemia/Atelectasis full consult dictated thanks DERIC LERNER MD May 21, 2016 16:12
[2016-05-21] MEDS ORDERED: VANCOMYCIN 1.5 GM in IV NORMAL SALINE 500ML BAG 500 ML IV SCH (18:00)
[2016-05-21] MEDS: FUROSEMIDE INJ 100 MG in IV NORMAL SALINE 100ML 100 ML IV PRN (18:12)
[2016-05-21] MEDS: ATORVASTATIN CALCIUM 20 MG TABLET PO SCH (20:29)
--- NOTE | 2016-05-21 20:58 | HP ---
ADMIT DATE: 05/20/2016 HISTORY OF PRESENT ILLNESS: An 89-year-old black female who had been hospitalized and was recently discharged from [facility] on 05/18/2016 after receiving notice that she did not qualify to go to LTAC that I wanted her to. She had been on Lasix drip until the . On the , she was given IV Lasix. [facility] had [facility] because there was no other place that would take her. At the [facility], she received Lasix 40 mg twice a day on the and the . However, on the afternoon, I received a call stating that she was very short of breath and was hypoxic even on 4 liters of oxygen. She was asked to be taken to the Emergency Room. In the Emergency Room, the hypoxia was confirmed. An x-ray was taken. She was hospitalized. She was hospitalized here in the first week of April. At that time, she came in with atrial fibrillation with rapid ventricular response and was placed on a Cardizem drip. She quickly converted to sinus rhythm. She was discharged on oral Cardizem. She did well thereafter for a while. She then presented herself again to the Emergency Room towards the end of April, again very short of breath. She also had a bad cough. It was nonproductive. She was seen in consultation by Dr. Crawford, who felt that she probably had cardiac asthma since she was also wheezing. She was placed on IV diuretics. With this, she had a significant drop in the blood pressure to the 80s. Thus instead of giving her a bolus diuretic, she was placed on a Lasix drip. With the Lasix drip, she seemed to do better even though a good urinary response could not be documented. She was breathing better. She was not tachypneic. She was not wheezing. However, with this her blood pressure would drop and her heart rate would at times go to 130 to 140 on her usual dose of AV blocking drugs. She had been on the blood thinners I believe since 04/24/2016 and this had to be given for about a month before we could consider cardioversion. She also had what appeared to be a patch of pneumonia on the CT scan. She was placed initially on IV antibiotics and this was changed to oral on the and thus she was [facility]. She has a complicated cardiac history. She underwent open heart surgery after unstable angina in 1992. This was done at [facility]. The first cardiac catheterization report I have is from [address] Hawk at [facility]. He placed a stent in the distal right coronary artery. The last cardiac catheterization was by Dr. Bonner in 2013. Another stent was placed in the distal right coronary artery. The CHAVARRIA was patent. The vein graft to the right coronary artery was totally occluded. There was a 50% obstruction in the circumflex coronary artery. She has never had the similar symptoms before or being in congestive heart failure, having tachypnea and she has never been in atrial fibrillation with a rapid ventricular response. She has never had any wheezing before. She has smoked in the past but stopped smoking several years ago. I do have pulmonary function tests and read by Dr. Reyes from 2012. The FEV1/FVC was 77%. The FEV1 itself was 1.26 liters per minute, which is 65% of the predicted. There was at 8% improvement in the bronchodilator response. The total lung capacity and DLCO was normal. She has never used bronchodilators before; however, during the last hospitalization nebulized bronchodilators seem to help and this was continued at [facility] when she went there. Her echocardiogram in April 2015 showed the followin. Moderate concentric left ventricular hypertrophy. 2. Normal ejection fraction of 65-70%. 3. Grade 1 diastolic dysfunction. 4. E to E prime ratio elevated to 21 indicating a raised left atrial filling pressure. 5. Prbxkpci-jk-elinmn mitral annular calcification. 6. Probable mild mitral stenosis. 7. Moderate mitral regurgitation. 8. Moderate valvular aortic stenosis. 9. Subvalvular stenosis. 10. Mild pulmonic regurgitation. A repeat echocardiogram was obtained in April of this year and it is essentially unchanged. MEDICATIONS: At the time of admission: 1. Protonix 40 mg a day. 2. MiraLax 17 grams a day. 3. Potassium chloride 10 mEq twice a day. 4. Lyrica 50 mg 3 times a day. 5. Metamucil. 6. Eliquis 5 mg twice a day. 7. Levemir 20 units in the morning. 8. NovoLog 10 units before each meal and high intensity sliding scale in addition to 10 units. 9. Lasix 40 mg twice a day. 10. Ferrous sulfate 324 mg a day. 11. Zetia 10 mg a day. 12. Simvastatin 40 mg a day. 13. Albuterol via metered inhaler q. 4 h p.r.n. 14. Pulmicort. 15. DuoNeb via nebulizer 4 times a day. 16. Cymbalta 60 mg a day. 17. Vitamin D. 18. Cardizem-CD 240 mg a day. 19. Metoprolol succinate 10 mg a day. 20. Tylenol No. 3 p.r.n. Her other medical conditions are: 1. Insulin-dependent diabetes mellitus. She has kept her diabetes under very good control with hemoglobin A1c around 7. 2. Anemia. She has been borderline anemic between 7-8 grams percent, but not bad enough to be transfused. She was seen in consultation by Dr. Villaseñor who said that she had extensive workup by her newspaper editor, Dr. Chava Guerra and no further investigation was necessary. He advised that we give her Protonix and Carafate. She had been on clopidogrel because of her previous CVA and that was discontinued. She has been on Eliquis, the Eliquis dose was at 5 mg twice a day. This is because we have to have 2/3 criteria to go down to 2.5 mg. She is older than 80 years. Her creatinine is less than 1.5. Also, her weight is greater than 80 pounds. This being the case, her proper dose dosage is 5 mg twice a day and this is being continued. 3. She has had a stroke in the past after cardiac catheterization and she was placed on clopidogrel. This is being discontinued. 4. As far as iron deficiency anemia is considered, she was given IV iron last admission, she had not been able to tolerate oral iron very well and this will be continued. 5. She fractured her leg recently and had a prolonged illness. She got over it. 6. She also has a bad back. PHYSICAL EXAMINATION: GENERAL: When I saw her in the hospital after she was transferred, she was extremely short of breath and very anxious. She is tachypneic. She is asking for more oxygen, in fact begging for more oxygen. She even stated "why don't you give me more oxygen, I will even pay for it." It is pathetic to hear her say that. VITAL SIGNS: The heart rate was 120 beats per minute. She was in atrial fibrillation with RVR. The blood pressure initially was elevated to 170/90. It later came down to 140/90. LUNGS: Showed significant rales and rhonchi throughout the lung card. HEART: The heart sounds are normal. There is a grade 3/6 systolic murmur, crescendo decrescendo heard at the base and also pansystolic murmur heard at the apex. ABDOMEN: Soft. To her, it seemed distended. EXTREMITIES: There is a new onset of edema of her legs. IMPRESSION: 1. Acute respiratory failure secondary to acute congestive heart failure due to valvular dysfunction. 2. Also, contributed to by anemia and possible lung disease, doubt pneumonia. 3. Atrial fibrillation with a rapid ventricular response, probably a major contributor in her recent deterioration. 4. Insulin-dependent diabetes mellitus. 5. Advanced age. 6. Severe coronary artery disease. One may also need to consider angina equivalent as contributing to her symptoms. This patient after the sedation and DuoNeb treatment did feel better. She had been given Solu-Medrol in the Emergency Room. This caused her blood sugar to go up. I will leave it up to Dr. Reyes to see if she needs to give her steroids in addition to the bronchodilators. I plan to keep her on the Lasix drip. I also plan to do the cardioversion since that seems to be the most reversible ____on her diagnosis. This will be arranged for next week. She would then have been on an adequate length of time on Eliquis. Prior to the cardioversion, we may consider doing a LATHA. Because of multi valvular disease, I do not believe she is a candidate for TAVR. The anemia could also be contributing to her shortness of breath and thus we will consider giving her the blood transfusion, even though her hemoglobin has not dropped to the required level of less than 7 grams percent. This becomes a very difficult situation since the patient is alert, has a very supportive family who wants everything possible done for her. We will do everything possible, which at the present time is diuresing and cardioversion. ____at the present time is: A. IV diuresis. B. Cardioversion. C. Blood transfusion. D. Consider angina equivalent in the cardiac catheterization and stent any vessel that may have occluded. E. Dr. Reyes might want to consider steroids and we can manage her blood sugars if he does do so. I would leave to his judgment as to whether she would benefit with steroids considering her pulmonary function tests in 2012 when she did not have congestive heart failure. SOM SHORE MD DR: SURINDER/mohsen JOB#: [id number] / [id number]
--- NOTE | 2016-05-21 22:04 | PDOC ---
Provider Note Provider Note She is doing much better today. However she still complains of being short of breath. She complains of a cough but not being able to expectorate. This morning she says she brought up a dime-sized sputum that was pinkish and she wonders whether it was blood. However she says she did not feel any better after coughing it up. Cardizem to the nurses she still gets extremely short of breath with minimal exertion such as getting up from the bed to go to the commode. The lungs continued to show mild rhonchi throughout. Her oxygen saturation is good at 2 L/m. Neck pressure and heart rate is stable. Please see my H&P and plan. Discussed in detail with his daughter. Plan to give her one unit of blood transfusion tomorrow. Plan for cardioversion on the on either the or the . SOM SHORE MD May 21, 2016 22:04
[2016-05-21] MEDS: CEFTRIAXONE SODIUM 1 GM in IV NORMAL SALINE 50ML 50 ML IV SCH (22:18)
[2016-05-21] MEDS ORDERED: PROMETH/CODEINE 6.25/10MG 5 ML SYRUP. PO ONE (22:30)
[2016-05-21] MEDS ORDERED: ALPRAZOLAM 0.5 MG TABLET PO ONE (22:30)
[2016-05-22] VITALS (10 sets, daily range): BP systolic 107–144; BP diastolic 49–91
[2016-05-22] MEDS: IPRATRPIUM/ALBUTEROL 0.5/2.5MG 3 ML NEBU. NEB SCH ×4 (08:13→19:22)
[2016-05-22 08:46] LABS: CALCIUM 9.4 mg/dL (8.5-10.1); GFR 63.3; POTASSIUM 4.2 mmol/L (3.5-5.1)
[2016-05-22] MEDS: SUCRALFATE 1 GM/10 ML ORAL.SUSP. PO SCH ×4 (08:51→21:38)
[2016-05-22] MEDS: DILTIAZEM HCL 300 MG CAP.ER.24H PO SCH (08:51)
[2016-05-22] MEDS: GUAIFENESIN DM 600/30MG TAB.ER.12H. PO SCH ×2 (08:51→21:38)
[2016-05-22] MEDS: EZETIMIBE 10 MG TABLET PO SCH (08:52)
[2016-05-22] MEDS: ASCORBIC ACID 500 MG TABLET PO SCH (08:52)
[2016-05-22] MEDS: METOPROLOL SUCC 24HR ER 50 MG TAB.ER.24H. PO SCH (08:52)
[2016-05-22] MEDS: DULOXETINE HCL 30 MG CAPSULE.DR. PO SCH (08:52)
[2016-05-22] MEDS: ALPRAZOLAM 0.5 MG TABLET PO PRN (08:52)
[2016-05-22] MEDS: APIXABAN 5 MG TABLET. PO SCH ×2 (08:53→21:39)
[2016-05-22] MEDS: PANTOPRAZOLE 40 MG TABLET. PO SCH (08:53)
[2016-05-22] MEDS: FERROUS SULFATE ORAL 300 MG/5 ML SOLUTION. PO SCH ×2 (08:53→18:48)
[2016-05-22] MEDS: POLYETHYLENE GLYCOL 3350 17 GM PACKET. PO SCH (08:53)
[2016-05-22] MEDS: AZITHROMYCIN 250 MG TABLET PO SCH (08:53)
[2016-05-22] MEDS: PREGABALIN 50 MG CAPSULE PO SCH ×2 (08:53→21:39)
[2016-05-22] MEDS: CHOLECALCIFEROL (VITAMIN D3) 5,000 UNIT CAPSULE PO SCH (08:53)
[2016-05-22] MEDS: INSULIN DETEMIR 300 UNITS/3 ML INSULN.PEN. SQ SCH (09:00)
[2016-05-22] MEDS: INSULIN ASPART 300 UNITS/3 ML INSULN.PEN SQ SCH ×6 (09:00→17:48)
--- NOTE | 2016-05-22 13:09 | PDOC2 ---
CONSULT Date of Consult Date of Consult DATE: 05/22/16 TIME: 13:02 Reason for Consult Reason for Consult: IM management Referring Physician Referring Physician: dr. Chen Identification/Chief Complaint Chief Complaint sob Source Source: Chart review, Patient History of Present Illness Reason for Visit: 89yo F, CHF, copd, HOME O2 comes for cough and sob. pT WAS recently dced here for PNA to Rehab. Pt is treated with lasix drip now for CHF, c/o still cough, but hard to cough up sputum, on mucinex now, on O2 NC 2L. STILL HYperglycemia, seems not on steroid, hba1c was 7 last month. Past Medical History Cardiovascular: CAD, CHF, HTN, Valve insufficiency Pulmonary: Asthma, Bronchitis Musculoskeletal: Osteoarthritis Endocrine: Diabetes Past Surgical History Past Surgical History: No pertinent history Family History Family History: No Significant Social History No ALCOHOL: none Lives: with Family Current Problem List Problem List Problems Medical Problems: (1) CHF (congestive heart failure) Status: Acute (2) Pneumonia Status: Acute (3) Type 2 diabetes mellitus Status: Acute Current Medications Current Medications Current Medications Albuterol/ Ipratropium (Duoneb) 3 ml 1X ONCE NEB Last administered on 15:10; Start 05/20/16 at 15:30; Stop 05/20/16 at 15:31; Status DC Prednisone (Prednisone) 50 mg 1X ONCE PO Last administered on 05/20/16 15:54; Start 05/20/16 at 15:30; Stop 05/20/16 at 15:31; Status DC Furosemide (Lasix) 20 mg DAILY IVP Last administered on 05/20/16 15:54; Start 05/20/16 at 15:30; Stop 05/20/16 at 17:41; Status DC Ondansetron HCl (Zofran) 4 mg PRN Q8HRS PRN IV NAUSEA/VOMITING; Start 05/20/16 at 16:15; Stop 05/21/16 at 16:14; Status DC Morphine Sulfate 2 mg PRN Q2HR PRN IV PAIN; Start 05/20/16 at 16:15; Stop at 19:07; Status DC Vancomycin HCl (Vanco Per Pharmacy) 1 each PRN DAILY PRN MC SEE COMMENTS; Start 05/20/16 at 16:45; Stop 05/20/16 at 16:48; Status DC Piperacillin Sod/ Tazobactam Sod 1 each 1 each PRN DAILY PRN MC SEE COMMENTS; Start 05/20/16 at 16:45; Stop 05/20/16 at 16:48; Status DC Vancomycin HCl 2 gm/Sodium Chloride 500 ml @ 250 mls/hr 1X ONCE IV ; Start 05/20/16 at 16:45; Stop 05/20/16 at 17:40; Status DC Piperacillin Sod/ Tazobactam Sod/ Sodium Chloride (Zosyn/Iv Sodium Chloride 0.9 % 50ml) 50 ml @ 100 mls/hr 1X ONCE IV Last administered on 05/20/16 17:25; Start 05/20/16 at 16:45; Stop 05/20/16 at 17:14; Status DC Vancomycin HCl (Vanco Per Pharmacy) 1 each PRN DAILY PRN MC SEE COMMENTS Last administered on 05/20/16 17:04; Start 05/20/16 at 17:00; Stop 05/20/16 at 17:37; Status DC Piperacillin Sod/ Tazobactam Sod 1 each 1 each PRN DAILY PRN MC SEE COMMENTS; Start 05/20/16 at 17:00; Stop 05/20/16 at 17:40; Status DC Piperacillin Sod/ Tazobactam Sod 2.25 gm/Sodium Chloride 50 ml @ 100 mls/hr Q6HRS IV ; Start 05/21/16 at 00:00; Stop 05/21/16 at 00:00; Status DC Vancomycin HCl/ Sodium Chloride (Iv Sodium Chloride 0.9% 500ml Bag) 500 ml @ 250 mls/hr Q24H IV ; Start 05/21/16 at 18:00; Stop 05/21/16 at 18:00; Status DC Vancomycin HCl 1 each 1 each 1X ONCE MC ; Start 05/22/16 at 17:30; Stop 05/22/16 at 17:30; Status DC Furosemide/Sodium Chloride (Lasix Drip/Iv Sodium Chloride 0.9% 100ml) 100 ml @ 0 mls/hr CONT PRN IV SEE I/O RECORD Last administered on 05/21/16 18:12; Start 05/20/16 at 17:45 Amoxicillin/ Clavulanate Potassium (Augmentin 875/ 125mg) 1 tab BID PO Last administered on 05/21/16 20:30; Start 05/20/16 at 21:00; Stop 05/21/16 at 21:53; Status DC Acetaminophen/ Codeine Phosphate (Tylenol #3) 1 tab PRN Q6HRS PRN PO PAIN; Start 05/20/16 at 19:00 Apixaban (Eliquis) 5 mg BID PO Last administered on 05/22/16 08:53; Start at 21:00 Alprazolam (Xanax) 0.5 mg Q8H PRN PO ANXIETY / AGITATION Last administered on 08:52; Start 05/20/16 at 19:00 Ascorbic Acid (Vitamin C) 500 mg DAILY PO Last administered on 05/22/16 08:52; Start 05/21/16 at 09:00 Albuterol/ Ipratropium (Duoneb) 3 ml RTQID NEB Last administered on 05/22/16 11 :16; Start 05/20/16 at 20:00 Albuterol Sulfate (Ventolin Neb Soln) 2.5 mg PRN Q4HRS PRN NEB SHORTNESS OF BREATH Last administered on 05/20/16 23:54; Start 05/20/16 at 19:00 Vitamin D (Vitamin D3) 5,000 unit DAILY PO Last administered on 05/22/16 08:53 ; Start 05/21/16 at 09:00 Diltiazem HCl (Diltiazem 24hr Cd) 300 mg DAILY PO Last administered on 08:51; Start 05/21/16 at 09:00 Duloxetine HCl (Cymbalta) 60 mg DAILY PO Last administered on 05/22/16 08:52; Start 05/21/16 at 09:00 EZETIMIBE (Zetia) 10 mg DAILY PO Last administered on 05/22/16 08:52; Start 05/21/16 at 09:00 Ferrous Sulfate 300 mg BIDWMEALS PO Last administered on 05/22/16 08:53; Start 05/21/16 at 08:00 Guaifenesin (MUCINEX ER with DM) 1 tab BID PO Last administered on 05/22/16 08: 51; Start 05/20/16 at 21:00 Insulin Aspart (Novolog) 10 units TIDAC SQ Last administered on 05/22/16 09:00 ; Start 05/21/16 at 07:30 Insulin Aspart (Novolog Vial) ENTRY FOR 1ML CHARGE FROM 1... 1X ONCE SQ ; Start 05/20/16 at 19:15; Stop 05/20/16 at 19:16; Status UNV Insulin Detemir (Levemir) 24 units DAILY08 SQ Last administered on 05/21/16 08: 55; Start 05/21/16 at 08:00; Stop 05/22/16 at 08:43; Status DC Metoprolol Succinate (Toprol Xl) 50 mg DAILY PO Last administered on 05/22/16 08:52; Start 05/21/16 at 09:00 Pantoprazole Sodium (Protonix) 40 mg DAILYAC PO Last administered on 05/22/16 08:53; Start 05/21/16 at 07:30 Polyethylene Glycol (miraLAX PACKET) 17 gm DAILY PO Last administered on 08:53; Start 05/21/16 at 09:00 Pregabalin (Lyrica) 50 mg BID PO Last administered on 05/22/16 08:53; Start 05/20/16 at 21:00 Atorvastatin Calcium (Lipitor) 20 mg QHS PO Last administered on 05/21/16 20:29 ; Start 05/20/16 at 21:00 Sucralfate (Carafate) 1 gm QIDACHS PO Last administered on 05/21/16 20:30; Start 05/20/16 at 21:00; Stop 05/21/16 at 21:48; Status DC Insulin Aspart (Novolog) 0-9 UNITS TIDWMEALS SQ Last administered on 05/22/16 09:01; Start 05/21/16 at 08:00 Dextrose 12.5 gm PRN Q15MIN PRN IV SEE COMMENTS; Start 05/20/16 at 19:30 Promethazine HCl/ Codeine (Phenergan With Codeine) 5 ml PRN Q6HRS PRN PO COUGH ; Start 05/20/16 at 20:15 Diltiazem HCl (Cardizem) 30 mg 1X ONCE PO Last administered on 05/20/16 20:57 ; Start 05/20/16 at 20:15; Stop 05/20/16 at 20:19; Status DC Diltiazem HCl (Cardizem) 10 mg 1X ONCE IVP ; Start 05/20/16 at 20:15; Stop at 21:31; Status DC Diltiazem HCl (Cardizem) 30 mg 1X ONCE PO Last administered on 05/21/16 01:54 ; Start 05/21/16 at 02:00; Stop 05/21/16 at 02:01; Status DC Insulin Aspart (Novolog) 15 units 1X ONCE SQ Last administered on 05/20/16 21: 45; Start 05/20/16 at 21:30; Stop 05/20/16 at 21:31; Status DC Sucralfate 1 gm 1 gm QIDACHS PO Last administered on 05/22/16 08:51; Start 05/22 at 07:30 Ceftriaxone Sodium/Sodium Chloride (Rocephin/Iv Sodium Chloride 0.9% 50ml) 50 ml @ 100 mls/hr Q24H IV Last administered on 05/21/16 22:18; Start 05/21/16 at 22:00 Azithromycin (Zithromax) 250 mg DAILY PO Last administered on 05/22/16 08:53; Start 05/22/16 at 09:00 Alprazolam (Xanax) 0.5 mg 1X ONCE PO Last administered on 05/21/16 22:18; Start 05/21/16 at 22:30; Stop 05/21/16 at 22:31; Status DC Promethazine HCl/ Codeine (Phenergan With Codeine) 5 ml 1X ONCE PO Last administered on 05/21/16 22:18; Start 05/21/16 at 22:30; Stop 05/21/16 at 22:31; Status DC Insulin Detemir (Levemir) 26 units DAILY08 SQ Last administered on 05/22/16 09: 00; Start 05/23/16 at 08:00 Active Scripts Active Reported Metoprolol Succinate 50 Mg Tab.er.24h 50 Mg PO Duoneb 0.5-3(2.5) Mg/3 Ml (Albuterol/Ipratropium) 3 Ml Ampul.neb 3 Ml NEB QID Guaifenesin 600 Mg Tablet.er 600 Mg PO PRN BID PRN Guaifenesin Dm Syrup (Guaifenesin/Dextromethorphan) 5 Ml Syrup Ml PO PRN Q6HRS PRN Budesonide 0.5 Mg/2 Ml Ampul.neb 1 Vial NEB BID Cepacol Sore Throat Lozenge (Benzocaine/Menthol) 1 Each Lozenge 1 Each MM PRN Q6HRS PRN Ascorbic Acid 250 Mg Tablet 250 Mg PO DAILY Augmentin 875-125 Tablet (Amoxicillin/Potassium Clav) 1 Each Tablet 1 Tab PO BID Furosemide 40 Mg Tablet 40 Mg PO BID Lyrica (Pregabalin) 50 Mg Capsule 50 Mg PO TID Pantoprazole Sodium 40 Mg Tablet.dr 1 Tab PO DAILY Levemir (Insulin Detemir) 100 Unit/1 Ml Vial 22 Unit SQ DAILY08 Eliquis (Apixaban) 5 Mg Tablet 5 Mg PO BID Diltiazem 24HR Cd (Diltiazem Hcl) 120 Mg Cap.er.24h 240 Mg PO DAILY Novolog Flexpen (Insulin Aspart) 100 Unit/1 Ml Insuln.pen 100 Unit SQ Zetia (Ezetimibe) 10 Mg Tablet 10 Mg PO DAILY Cymbalta (Duloxetine Hcl) 60 Mg Capsule.dr 60 Mg PO DAILY Flonase (Fluticasone Propionate) 16 Gm [place].susp 16 Gm NS PRN DAILY Ferrous Sulfate 134 Mg Tablet 134 Mg PO DAILY Ethel 3 1,000 Mg Softgel (Ethel-3 Fatty Acids/Fish Oil) 1 Each Capsule 1 Each PO DAILY Miralax (Polyethylene Glycol 3350) 17 Gm Powd.pack 17 Gm PO HS Zocor (Simvastatin) 40 Mg Tablet 40 Mg PO HS Metamucil Packet (Psyllium Seed (With Sugar)) 1 Each Packet 1 Each PO DAILY Vitamin D3 (Cholecalciferol (Vitamin D3)) 3,000 Unit Tablet 3,000 Unit PO DAILY Potassium Chloride 10 Meq Tab.er.prt 10 Meq PO BID Acetaminophen-Cod #3 Tablet (Acetaminophen/Codeine Phosphate) 1 Each Tablet 2 Each PO Q6HRS PRN Allergies Allergies: Coded Allergies: No Known Drug Allergies (Unverified , 05/09/16) Physical Exam General: Alert, Oriented X3, Cooperative HEENT: Atraumatic, PERRLA Lungs: Other (bl diffuse mild wheezing) Abdomen: Normal bowel sounds, Soft Extremities: No clubbing, No cyanosis, Other (bl leg 1+ edema) Skin: No rashes, No breakdown Neuro: Normal gait, Normal speech Psych/Mental Status: Mental status NL Vitals VITALS Vital Signs Date Time Temp Pulse Resp B/P Pulse Ox O2 Delivery O2 Flow Rate FiO2 05/22/16 11:16 97 Nasal Cannula 2.0 05/22/16 11:00 97.8 99 22 108/49 97.8 Labs Labs Laboratory Tests Test 05/20/16 15:28 05/20/16 17:41 05/20/16 20:44 05/21/16 01:59 White Blood Count 9.2x10^3/uL (4.0-11.0) Red Blood Count 2.68x10^6/uL (3.50-5.40) Hemoglobin 7.6g/dL (12.0-15.5) Hematocrit 24.6% (36.0-47.0) Mean Corpuscular Volume 92fL (79-100) Mean Corpuscular Hemoglobin 28pg (25-35) Mean Corpuscular Hemoglobin Concent 31g/dL (31-37) Red Cell Distribution Width 20.5% (11.5-14.5) Platelet Count 293x10^3/uL (140-400) Neutrophils (%) (Auto) 85% (31-73) Lymphocytes (%) (Auto) 7% (24-48) Monocytes (%) (Auto) 6% (0-9) Eosinophils (%) (Auto) 2% (0-3) Basophils (%) (Auto) 0% (0-3) Neutrophils # (Auto) 7.8x10^3uL (1.8-7.7) Lymphocytes # (Auto) 0.6x10^3/uL (1.0-4.8) Monocytes # (Auto) 0.6x10^3/uL (0.0-1.1) Eosinophils # (Auto) 0.2x10^3/uL (0.0-0.7) Basophils # (Auto) 0.0x10^3/uL (0.0-0.2) Platelet Estimate Adequate (ADEQUATE) Polychromasia Present Poikilocytosis Slight Basophilic Stippling Present Anisocytosis Mod Tear Drop Cells Occ Ovalocytes Occ Sodium Level 138mmol/L (136-145) Potassium Level 4.9mmol/L (3.5-5.1) Chloride Level 98mmol/L (98-107) Carbon Dioxide Level 33mmol/L (21-32) Anion Gap 7 (6-14) Blood Urea Nitrogen 30mg/dL (7-20) Creatinine 1.2mg/dL (0.6-1.0) Estimated GFR (Cockcroft-Gault) 51.3 Glucose Level 341mg/dL (70-99) Calcium Level 9.1mg/dL (8.5-10.1) Total Bilirubin 0.3mg/dL (0.2-1.0) Direct Bilirubin 0.1mg/dL (0.0-0.2) Aspartate Amino Transf (AST/SGOT) 32U/L (15-37) Alanine Aminotransferase (ALT/SGPT) 26U/L (14-59) Alkaline Phosphatase 65U/L (46-116) Troponin I Quantitative 0.038ng/mL (0.000-0.055) RG-Did-N-Type Natriuretic Peptide 2427pg/mL (0-449) Total Protein 7.4g/dL (6.4-8.2) Albumin 2.8g/dL (3.4-5.0) Lipase 158U/L (73-393) Glucose (Fingerstick) 284mg/dL (70-99) 406mg/dL (70-99) 316mg/dL (70-99) Test 05/21/16 07:54 05/21/16 11:10 05/21/16 12:09 05/21/16 17:11 Glucose (Fingerstick) 313mg/dL (70-99) 409mg/dL (70-99) 354mg/dL (70-99) White Blood Count 8.2x10^3/uL (4.0-11.0) Red Blood Count 2.74x10^6/uL (3.50-5.40) Hemoglobin 7.8g/dL (12.0-15.5) Hematocrit 24.8% (36.0-47.0) Mean Corpuscular Volume 91fL (79-100) Mean Corpuscular Hemoglobin 28pg (25-35) Mean Corpuscular Hemoglobin Concent 31g/dL (31-37) Red Cell Distribution Width 21.4% (11.5-14.5) Platelet Count 299x10^3/uL (140-400) Sodium Level 139mmol/L (136-145) Potassium Level 4.6mmol/L (3.5-5.1) Chloride Level 99mmol/L (98-107) Carbon Dioxide Level 34mmol/L (21-32) Anion Gap 6 (6-14) Blood Urea Nitrogen 26mg/dL (7-20) Creatinine 1.3mg/dL (0.6-1.0) Estimated GFR (Cockcroft-Gault) 46.8 Glucose Level 460mg/dL (70-99) Calcium Level 9.1mg/dL (8.5-10.1) Magnesium Level 2.0mg/dL (1.8-2.4) Test 05/21/16 20:27 05/22/16 08:10 05/22/16 08:21 05/22/16 12:00 Glucose (Fingerstick) 257mg/dL (70-99) 208mg/dL (70-99) 331mg/dL (70-99) Sodium Level 145mmol/L (136-145) Potassium Level 4.2mmol/L (3.5-5.1) Chloride Level 104mmol/L (98-107) Carbon Dioxide Level 38mmol/L (21-32) Anion Gap 3 (6-14) Blood Urea Nitrogen 32mg/dL (7-20) Creatinine 1.0mg/dL (0.6-1.0) Estimated GFR (Cockcroft-Gault) 63.3 Glucose Level 216mg/dL (70-99) Calcium Level 9.4mg/dL (8.5-10.1) Laboratory Tests Test 05/21/16 17:11 05/21/16 20:27 05/22/16 08:10 05/22/16 08:21 Glucose (Fingerstick) 354mg/dL (70-99) 257mg/dL (70-99) 208mg/dL (70-99) Sodium Level 145mmol/L (136-145) Potassium Level 4.2mmol/L (3.5-5.1) Chloride Level 104mmol/L (98-107) Carbon Dioxide Level 38mmol/L (21-32) Anion Gap 3 (6-14) Blood Urea Nitrogen 32mg/dL (7-20) Creatinine 1.0mg/dL (0.6-1.0) Estimated GFR (Cockcroft-Gault) 63.3 Glucose Level 216mg/dL (70-99) Calcium Level 9.4mg/dL (8.5-10.1) Test 05/22/16 12:00 Glucose (Fingerstick) 331mg/dL (70-99) Assessment/Plan Assessment/Plan 1. acute on chronic hypoxic resp failure 2/2 CHF exacerbation, COPD 2. CODP 3. DM2 4. OA 5. H/O CAD 6. h/o gastritis 7. h/o CAD s/p CABG plan: 1. fu with card, pulm 2. still on lasix drip 3. slightly levemir to 26u , aspart 10u tid, and SSI 4. WOULD like to add prednisone, defer to pulm ptot duoneb dvt ppx thanks for asking us for consult ROBERT PECK MD May 22, 2016 13:09
[2016-05-22] MEDS: ANTI-COAG MONITOR BY PHARMACY. MC PRN (14:25)
--- NOTE | 2016-05-22 15:24 | PDOC ---
Provider Note Provider Note She was very drowsy today after xabax abdt not as agitated as yesterday. No shortness of breath at rest and appeared comfortable. Nurses inform me that she gets very short of breath with minimal exertion such as getteng out of bed to the bedside commode. She does not have a [place] catheter. Lungs show no wheezing today. Plan 11, Continue Lasix drip renal functions and potassium have been stable. 2. Blood transfusion today 3. Await Dr. Reyes's opinion regarding pulmonary causes of shortness of breath and wheezing. 4. Plan cardioversion early part of the coming week. SOM SHORE MD May 22, 2016 15:24
[2016-05-22] MEDS: ACETAMINOPHEN/CODEINE 300/30MG TABLET PO PRN (17:44)
[2016-05-22] MEDS: ATORVASTATIN CALCIUM 20 MG TABLET PO SCH (21:38)
[2016-05-22] MEDS: CEFTRIAXONE SODIUM 1 GM in IV NORMAL SALINE 50ML 50 ML IV SCH (22:28)
[2016-05-23 03:40] VITALS: BP 141/64
[2016-05-23 06:23] LABS: BASO % 1 % (0-3); EOS % 2 % (0-3); HEMATOCRIT 29.8 % (36.0-47.0); HEMOGLOBIN 9.2 g/dL (12.0-15.5); LYMPH # 0.9 x10^3/uL (1.0-4.8); LYMPH % 10 % (24-48); MEAN CORPUSCULAR HEMOGLOBIN 29 pg (25-35); MEAN CORPUSCULAR HGB CONC 31 g/dL (31-37); MEAN CORPUSCULAR VOLUME 92 fL (79-100); MONO % 8 % (0-9); NEUT % 80 % (31-73); PLATELET COUNT 287 x10^3/uL (140-400); RED BLOOD COUNT 3.23 x10^6/uL (3.50-5.40); RED CELL DISTRIBUTION WIDTH 19.7 % (11.5-14.5); WHITE BLOOD COUNT 8.3 x10^3/uL (4.0-11.0)
[2016-05-23 06:47] LABS: CALCIUM 9.6 mg/dL (8.5-10.1); GFR 63.3; POTASSIUM 4.2 mmol/L (3.5-5.1)
[2016-05-23 07:00] VITALS: BP 136/72
[2016-05-23] MEDS: IPRATRPIUM/ALBUTEROL 0.5/2.5MG 3 ML NEBU. NEB SCH ×4 (07:28→19:27)
[2016-05-23] MEDS: SUCRALFATE 1 GM/10 ML ORAL.SUSP. PO SCH ×4 (08:42→20:14)
[2016-05-23] MEDS: FERROUS SULFATE ORAL 300 MG/5 ML SOLUTION. PO SCH ×2 (08:43→17:42)
[2016-05-23] MEDS: POLYETHYLENE GLYCOL 3350 17 GM PACKET. PO SCH (08:43)
[2016-05-23] MEDS: DULOXETINE HCL 30 MG CAPSULE.DR. PO SCH (08:44)
[2016-05-23] MEDS: GUAIFENESIN DM 600/30MG TAB.ER.12H. PO SCH ×2 (08:45→20:18)
[2016-05-23] MEDS: APIXABAN 5 MG TABLET. PO SCH ×2 (08:45→20:14)
[2016-05-23] MEDS: EZETIMIBE 10 MG TABLET PO SCH (08:45)
[2016-05-23] MEDS: CHOLECALCIFEROL (VITAMIN D3) 5,000 UNIT CAPSULE PO SCH (08:45)
[2016-05-23] MEDS: AZITHROMYCIN 250 MG TABLET PO SCH (08:45)
[2016-05-23] MEDS: DILTIAZEM HCL 300 MG CAP.ER.24H PO SCH (08:45)
[2016-05-23] MEDS: ASCORBIC ACID 500 MG TABLET PO SCH (08:45)
[2016-05-23] MEDS: PREGABALIN 50 MG CAPSULE PO SCH ×2 (08:46→20:14)
[2016-05-23] MEDS: METOPROLOL SUCC 24HR ER 50 MG TAB.ER.24H. PO SCH (08:49)
[2016-05-23] MEDS: PANTOPRAZOLE 40 MG TABLET. PO SCH (08:49)
[2016-05-23] MEDS: INSULIN ASPART 300 UNITS/3 ML INSULN.PEN SQ SCH ×6 (09:02→17:54)
[2016-05-23] MEDS: INSULIN DETEMIR 300 UNITS/3 ML INSULN.PEN. SQ SCH (09:04)
[2016-05-23 11:00] VITALS: BP 104/53
[2016-05-23] MEDS: FUROSEMIDE INJ 100 MG in IV NORMAL SALINE 100ML 100 ML IV PRN (11:04)
--- NOTE | 2016-05-23 13:18 | PDOC ---
PROGRESS NOTES Chief Complaint Chief Complaint 1. acute on chronic hypoxic resp failure 2/2 CHF exacerbation, COPD 2. CODP 3. DM2 4. OA 5. H/O CAD 6. h/o gastritis 7. h/o CAD s/p CABG 8. PAFIB plan: 1. fu with card, pulm. cardioversion as per card tmr 2. still on lasix drip 3. slightly levemir to 30u , aspart 14u tid, and SSI 4. post 1u PRBC 05/22 ptot duoneb dvt ppx thanks for asking us for consult History of Present Illness History of Present Illness sob better, still on lasix drip 1u prbc on 05/22 still hyperglycemia Vitals Vitals Vital Signs Date Time Temp Pulse Resp B/P Pulse Ox O2 Delivery O2 Flow Rate FiO2 05/23/16 11:10 99 Nasal Cannula 2.0 05/23/16 11:00 97.9 89 16 104/53 97.9 Physical Exam General: Alert, Oriented X3, Cooperative Lungs: Clear Abdomen: Normal bowel sounds, Soft Extremities: No clubbing, No cyanosis, Other (bl leg 1+ edema) Skin: No rashes, No breakdown Labs LABS Laboratory Tests Test 05/22/16 16:20 05/22/16 17:40 05/22/16 21:37 05/23/16 05:00 Glucose (Fingerstick) 387mg/dL (70-99) 342mg/dL (70-99) 292mg/dL (70-99) White Blood Count 8.3x10^3/uL (4.0-11.0) Red Blood Count 3.23x10^6/uL (3.50-5.40) Hemoglobin 9.2g/dL (12.0-15.5) Hematocrit 29.8% (36.0-47.0) Mean Corpuscular Volume 92fL (79-100) Mean Corpuscular Hemoglobin 29pg (25-35) Mean Corpuscular Hemoglobin Concent 31g/dL (31-37) Red Cell Distribution Width 19.7% (11.5-14.5) Platelet Count 287x10^3/uL (140-400) Neutrophils (%) (Auto) 80% (31-73) Lymphocytes (%) (Auto) 10% (24-48) Monocytes (%) (Auto) 8% (0-9) Eosinophils (%) (Auto) 2% (0-3) Basophils (%) (Auto) 1% (0-3) Neutrophils # (Auto) 6.6x10^3uL (1.8-7.7) Lymphocytes # (Auto) 0.9x10^3/uL (1.0-4.8) Monocytes # (Auto) 0.6x10^3/uL (0.0-1.1) Eosinophils # (Auto) 0.2x10^3/uL (0.0-0.7) Basophils # (Auto) 0.0x10^3/uL (0.0-0.2) Sodium Level 144mmol/L (136-145) Potassium Level 4.2mmol/L (3.5-5.1) Chloride Level 103mmol/L (98-107) Carbon Dioxide Level 37mmol/L (21-32) Anion Gap 4 (6-14) Blood Urea Nitrogen 35mg/dL (7-20) Creatinine 1.0mg/dL (0.6-1.0) Estimated GFR (Cockcroft-Gault) 63.3 Glucose Level 172mg/dL (70-99) Calcium Level 9.6mg/dL (8.5-10.1) Test 05/23/16 07:40 05/23/16 11:27 05/23/16 11:44 Glucose (Fingerstick) 200mg/dL (70-99) 361mg/dL (70-99) 333mg/dL (70-99) Review of Systems Review of Systems no fever, chills, sob or chest pain Assessment and Plan Assessmemt and Plan Problems Medical Problems: (1) CHF (congestive heart failure) Status: Acute (2) Pneumonia Status: Acute (3) Type 2 diabetes mellitus Status: Acute Problems: Comment Review of Relevant I have reviewed the following items melquiades (where applicable) has been applied. Labs Laboratory Tests Test 05/21/16 17:11 05/21/16 20:27 05/22/16 08:10 05/22/16 08:21 Glucose (Fingerstick) 354mg/dL (70-99) 257mg/dL (70-99) 208mg/dL (70-99) Sodium Level 145mmol/L (136-145) Potassium Level 4.2mmol/L (3.5-5.1) Chloride Level 104mmol/L (98-107) Carbon Dioxide Level 38mmol/L (21-32) Anion Gap 3 (6-14) Blood Urea Nitrogen 32mg/dL (7-20) Creatinine 1.0mg/dL (0.6-1.0) Estimated GFR (Cockcroft-Gault) 63.3 Glucose Level 216mg/dL (70-99) Calcium Level 9.4mg/dL (8.5-10.1) Test 05/22/16 12:00 05/22/16 16:20 05/22/16 17:40 05/22/16 21:37 Glucose (Fingerstick) 331mg/dL (70-99) 387mg/dL (70-99) 342mg/dL (70-99) 292mg/dL (70-99) Test 05/23/16 05:00 05/23/16 07:40 05/23/16 11:27 05/23/16 11:44 White Blood Count 8.3x10^3/uL (4.0-11.0) Red Blood Count 3.23x10^6/uL (3.50-5.40) Hemoglobin 9.2g/dL (12.0-15.5) Hematocrit 29.8% (36.0-47.0) Mean Corpuscular Volume 92fL (79-100) Mean Corpuscular Hemoglobin 29pg (25-35) Mean Corpuscular Hemoglobin Concent 31g/dL (31-37) Red Cell Distribution Width 19.7% (11.5-14.5) Platelet Count 287x10^3/uL (140-400) Neutrophils (%) (Auto) 80% (31-73) Lymphocytes (%) (Auto) 10% (24-48) Monocytes (%) (Auto) 8% (0-9) Eosinophils (%) (Auto) 2% (0-3) Basophils (%) (Auto) 1% (0-3) Neutrophils # (Auto) 6.6x10^3uL (1.8-7.7) Lymphocytes # (Auto) 0.9x10^3/uL (1.0-4.8) Monocytes # (Auto) 0.6x10^3/uL (0.0-1.1) Eosinophils # (Auto) 0.2x10^3/uL (0.0-0.7) Basophils # (Auto) 0.0x10^3/uL (0.0-0.2) Sodium Level 144mmol/L (136-145) Potassium Level 4.2mmol/L (3.5-5.1) Chloride Level 103mmol/L (98-107) Carbon Dioxide Level 37mmol/L (21-32) Anion Gap 4 (6-14) Blood Urea Nitrogen 35mg/dL (7-20) Creatinine 1.0mg/dL (0.6-1.0) Estimated GFR (Cockcroft-Gault) 63.3 Glucose Level 172mg/dL (70-99) Calcium Level 9.6mg/dL (8.5-10.1) Glucose (Fingerstick) 200mg/dL (70-99) 361mg/dL (70-99) 333mg/dL (70-99) Laboratory Tests Test 05/22/16 16:20 05/22/16 17:40 05/22/16 21:37 05/23/16 05:00 Glucose (Fingerstick) 387mg/dL (70-99) 342mg/dL (70-99) 292mg/dL (70-99) White Blood Count 8.3x10^3/uL (4.0-11.0) Red Blood Count 3.23x10^6/uL (3.50-5.40) Hemoglobin 9.2g/dL (12.0-15.5) Hematocrit 29.8% (36.0-47.0) Mean Corpuscular Volume 92fL (79-100) Mean Corpuscular Hemoglobin 29pg (25-35) Mean Corpuscular Hemoglobin Concent 31g/dL (31-37) Red Cell Distribution Width 19.7% (11.5-14.5) Platelet Count 287x10^3/uL (140-400) Neutrophils (%) (Auto) 80% (31-73) Lymphocytes (%) (Auto) 10% (24-48) Monocytes (%) (Auto) 8% (0-9) Eosinophils (%) (Auto) 2% (0-3) Basophils (%) (Auto) 1% (0-3) Neutrophils # (Auto) 6.6x10^3uL (1.8-7.7) Lymphocytes # (Auto) 0.9x10^3/uL (1.0-4.8) Monocytes # (Auto) 0.6x10^3/uL (0.0-1.1) Eosinophils # (Auto) 0.2x10^3/uL (0.0-0.7) Basophils # (Auto) 0.0x10^3/uL (0.0-0.2) Sodium Level 144mmol/L (136-145) Potassium Level 4.2mmol/L (3.5-5.1) Chloride Level 103mmol/L (98-107) Carbon Dioxide Level 37mmol/L (21-32) Anion Gap 4 (6-14) Blood Urea Nitrogen 35mg/dL (7-20) Creatinine 1.0mg/dL (0.6-1.0) Estimated GFR (Cockcroft-Gault) 63.3 Glucose Level 172mg/dL (70-99) Calcium Level 9.6mg/dL (8.5-10.1) Test 05/23/16 07:40 05/23/16 11:27 05/23/16 11:44 Glucose (Fingerstick) 200mg/dL (70-99) 361mg/dL (70-99) 333mg/dL (70-99) Medications Current Medications Albuterol/ Ipratropium (Duoneb) 3 ml 1X ONCE NEB Last administered on 15:10; Start 05/20/16 at 15:30; Stop 05/20/16 at 15:31; Status DC Prednisone (Prednisone) 50 mg 1X ONCE PO Last administered on 05/20/16 15:54; Start 05/20/16 at 15:30; Stop 05/20/16 at 15:31; Status DC Furosemide (Lasix) 20 mg DAILY IVP Last administered on 05/20/16 15:54; Start 05/20/16 at 15:30; Stop 05/20/16 at 17:41; Status DC Ondansetron HCl (Zofran) 4 mg PRN Q8HRS PRN IV NAUSEA/VOMITING; Start 05/20/16 at 16:15; Stop 05/21/16 at 16:14; Status DC Morphine Sulfate 2 mg PRN Q2HR PRN IV PAIN; Start 05/20/16 at 16:15; Stop at 19:07; Status DC Vancomycin HCl (Vanco Per Pharmacy) 1 each PRN DAILY PRN MC SEE COMMENTS; Start 05/20/16 at 16:45; Stop 05/20/16 at 16:48; Status DC Piperacillin Sod/ Tazobactam Sod 1 each 1 each PRN DAILY PRN MC SEE COMMENTS; Start 05/20/16 at 16:45; Stop 05/20/16 at 16:48; Status DC Vancomycin HCl 2 gm/Sodium Chloride 500 ml @ 250 mls/hr 1X ONCE IV ; Start 05/20/16 at 16:45; Stop 05/20/16 at 17:40; Status DC Piperacillin Sod/ Tazobactam Sod/ Sodium Chloride (Zosyn/Iv Sodium Chloride 0.9 % 50ml) 50 ml @ 100 mls/hr 1X ONCE IV Last administered on 05/20/16 17:25; Start 05/20/16 at 16:45; Stop 05/20/16 at 17:14; Status DC Vancomycin HCl (Vanco Per Pharmacy) 1 each PRN DAILY PRN MC SEE COMMENTS Last administered on 05/20/16 17:04; Start 05/20/16 at 17:00; Stop 05/20/16 at 17:37; Status DC Piperacillin Sod/ Tazobactam Sod 1 each 1 each PRN DAILY PRN MC SEE COMMENTS; Start 05/20/16 at 17:00; Stop 05/20/16 at 17:40; Status DC Piperacillin Sod/ Tazobactam Sod 2.25 gm/Sodium Chloride 50 ml @ 100 mls/hr Q6HRS IV ; Start 05/21/16 at 00:00; Stop 05/21/16 at 00:00; Status DC Vancomycin HCl/ Sodium Chloride (Iv Sodium Chloride 0.9% 500ml Bag) 500 ml @ 250 mls/hr Q24H IV ; Start 05/21/16 at 18:00; Stop 05/21/16 at 18:00; Status DC Vancomycin HCl 1 each 1 each 1X ONCE MC ; Start 05/22/16 at 17:30; Stop 05/22/16 at 17:30; Status DC Furosemide/Sodium Chloride (Lasix Drip/Iv Sodium Chloride 0.9% 100ml) 100 ml @ 0 mls/hr CONT PRN IV SEE I/O RECORD Last administered on 05/23/16 11:04; Start 05/20/16 at 17:45 Amoxicillin/ Clavulanate Potassium (Augmentin 875/ 125mg) 1 tab BID PO Last administered on 05/21/16 20:30; Start 05/20/16 at 21:00; Stop 05/21/16 at 21:53; Status DC Acetaminophen/ Codeine Phosphate (Tylenol #3) 1 tab PRN Q6HRS PRN PO PAIN Last administered on 05/22/16 17:44; Start 05/20/16 at 19:00 Apixaban (Eliquis) 5 mg BID PO Last administered on 05/23/16 08:45; Start at 21:00 Alprazolam (Xanax) 0.5 mg Q8H PRN PO ANXIETY / AGITATION Last administered on 08:52; Start 05/20/16 at 19:00 Ascorbic Acid (Vitamin C) 500 mg DAILY PO Last administered on 05/23/16 08:45; Start 05/21/16 at 09:00 Albuterol/ Ipratropium (Duoneb) 3 ml RTQID NEB Last administered on 05/23/16 11 :09; Start 05/20/16 at 20:00 Albuterol Sulfate (Ventolin Neb Soln) 2.5 mg PRN Q4HRS PRN NEB SHORTNESS OF BREATH Last administered on 05/20/16 23:54; Start 05/20/16 at 19:00 Vitamin D (Vitamin D3) 5,000 unit DAILY PO Last administered on 05/23/16 08:45 ; Start 05/21/16 at 09:00 Diltiazem HCl (Diltiazem 24hr Cd) 300 mg DAILY PO Last administered on 08:45; Start 05/21/16 at 09:00 Duloxetine HCl (Cymbalta) 60 mg DAILY PO Last administered on 05/23/16 08:44; Start 05/21/16 at 09:00 EZETIMIBE (Zetia) 10 mg DAILY PO Last administered on 05/23/16 08:45; Start 05/21/16 at 09:00 Ferrous Sulfate 300 mg BIDWMEALS PO Last administered on 05/23/16 08:43; Start 05/21/16 at 08:00 Guaifenesin (MUCINEX ER with DM) 1 tab BID PO Last administered on 05/23/16 08: 45; Start 05/20/16 at 21:00 Insulin Aspart (Novolog) 10 units TIDAC SQ Last administered on 05/23/16 11:54 ; Start 05/21/16 at 07:30 Insulin Aspart (Novolog Vial) ENTRY FOR 1ML CHARGE FROM 1... 1X ONCE SQ ; Start 05/20/16 at 19:15; Stop 05/20/16 at 19:16; Status UNV Insulin Detemir (Levemir) 24 units DAILY08 SQ Last administered on 05/21/16 08: 55; Start 05/21/16 at 08:00; Stop 05/22/16 at 08:43; Status DC Metoprolol Succinate (Toprol Xl) 50 mg DAILY PO Last administered on 05/23/16 08:49; Start 05/21/16 at 09:00 Pantoprazole Sodium (Protonix) 40 mg DAILYAC PO Last administered on 05/23/16 08:49; Start 05/21/16 at 07:30 Polyethylene Glycol (miraLAX PACKET) 17 gm DAILY PO Last administered on 08:43; Start 05/21/16 at 09:00 Pregabalin (Lyrica) 50 mg BID PO Last administered on 05/23/16 08:46; Start 05/20/16 at 21:00 Atorvastatin Calcium (Lipitor) 20 mg QHS PO Last administered on 05/22/16 21:38 ; Start 05/20/16 at 21:00 Sucralfate (Carafate) 1 gm QIDACHS PO Last administered on 05/21/16 20:30; Start 05/20/16 at 21:00; Stop 05/21/16 at 21:48; Status DC Insulin Aspart (Novolog) 0-9 UNITS TIDWMEALS SQ Last administered on 05/23/16 11:54; Start 05/21/16 at 08:00 Dextrose 12.5 gm PRN Q15MIN PRN IV SEE COMMENTS; Start 05/20/16 at 19:30 Promethazine HCl/ Codeine (Phenergan With Codeine) 5 ml PRN Q6HRS PRN PO COUGH ; Start 05/20/16 at 20:15 Diltiazem HCl (Cardizem) 30 mg 1X ONCE PO Last administered on 05/20/16 20:57 ; Start 05/20/16 at 20:15; Stop 05/20/16 at 20:19; Status DC Diltiazem HCl (Cardizem) 10 mg 1X ONCE IVP ; Start 05/20/16 at 20:15; Stop at 21:31; Status DC Diltiazem HCl (Cardizem) 30 mg 1X ONCE PO Last administered on 05/21/16 01:54 ; Start 05/21/16 at 02:00; Stop 05/21/16 at 02:01; Status DC Insulin Aspart (Novolog) 15 units 1X ONCE SQ Last administered on 05/20/16 21: 45; Start 05/20/16 at 21:30; Stop 05/20/16 at 21:31; Status DC Sucralfate 1 gm 1 gm QIDACHS PO Last administered on 05/23/16 11:04; Start 05/22 at 07:30 Ceftriaxone Sodium/Sodium Chloride (Rocephin/Iv Sodium Chloride 0.9% 50ml) 50 ml @ 100 mls/hr Q24H IV Last administered on 05/22/16 22:28; Start 05/21/16 at 22:00 Azithromycin (Zithromax) 250 mg DAILY PO Last administered on 05/23/16 08:45; Start 05/22/16 at 09:00 Alprazolam (Xanax) 0.5 mg 1X ONCE PO Last administered on 05/21/16 22:18; Start 05/21/16 at 22:30; Stop 05/21/16 at 22:31; Status DC Promethazine HCl/ Codeine (Phenergan With Codeine) 5 ml 1X ONCE PO Last administered on 05/21/16 22:18; Start 05/21/16 at 22:30; Stop 05/21/16 at 22:31; Status DC Insulin Detemir (Levemir) 26 units DAILY08 SQ Last administered on 05/23/16 09: 04; Start 05/23/16 at 08:00 Info (Anti-Coagulation Monitoring By Pharmacy) 1 each PRN DAILY PRN MC SEE COMMENTS Last administered on 05/22/16t 14:25; Start 05/22/16 at 13:45 Active Scripts Active Reported Metoprolol Succinate 50 Mg Tab.er.24h 50 Mg PO Duoneb 0.5-3(2.5) Mg/3 Ml (Albuterol/Ipratropium) 3 Ml Ampul.neb 3 Ml NEB QID Guaifenesin 600 Mg Tablet.er 600 Mg PO PRN BID PRN Guaifenesin Dm Syrup (Guaifenesin/Dextromethorphan) 5 Ml Syrup Ml PO PRN Q6HRS PRN Budesonide 0.5 Mg/2 Ml Ampul.neb 1 Vial NEB BID Cepacol Sore Throat Lozenge (Benzocaine/Menthol) 1 Each Lozenge 1 Each MM PRN Q6HRS PRN Ascorbic Acid 250 Mg Tablet 250 Mg PO DAILY Augmentin 875-125 Tablet (Amoxicillin/Potassium Clav) 1 Each Tablet 1 Tab PO BID Furosemide 40 Mg Tablet 40 Mg PO BID Lyrica (Pregabalin) 50 Mg Capsule 50 Mg PO TID Pantoprazole Sodium 40 Mg Tablet.dr 1 Tab PO DAILY Levemir (Insulin Detemir) 100 Unit/1 Ml Vial 22 Unit SQ DAILY08 Eliquis (Apixaban) 5 Mg Tablet 5 Mg PO BID Diltiazem 24HR Cd (Diltiazem Hcl) 120 Mg Cap.er.24h 240 Mg PO DAILY Novolog Flexpen (Insulin Aspart) 100 Unit/1 Ml Insuln.pen 100 Unit SQ Zetia (Ezetimibe) 10 Mg Tablet 10 Mg PO DAILY Cymbalta (Duloxetine Hcl) 60 Mg Capsule.dr 60 Mg PO DAILY Flonase (Fluticasone Propionate) 16 Gm [place].susp 16 Gm NS PRN DAILY Ferrous Sulfate 134 Mg Tablet 134 Mg PO DAILY [place] 3 1,000 Mg Softgel ([place]-3 Fatty Acids/Fish Oil) 1 Each Capsule 1 Each PO DAILY Miralax (Polyethylene Glycol 3350) 17 Gm Powd.pack 17 Gm PO HS Zocor (Simvastatin) 40 Mg Tablet 40 Mg PO HS Metamucil Packet (Psyllium Seed (With Sugar)) 1 Each Packet 1 Each PO DAILY Vitamin D3 (Cholecalciferol (Vitamin D3)) 3,000 Unit Tablet 3,000 Unit PO DAILY Potassium Chloride 10 Meq Tab.er.prt 10 Meq PO BID Acetaminophen-Cod #3 Tablet (Acetaminophen/Codeine Phosphate) 1 Each Tablet 2 Each PO Q6HRS PRN Vitals/I & O Vital Sign - Last 24 Hours 05/22/16 05/22/16 05/22/16 05/22/16 15:25 15:50 16:54 17:10 Temp 97.8 97.8 98.4 97.8 97.8 98.4 Pulse 84 81 76 Resp 22 18 18 B/P 107/61 111/65 110/50 Pulse Ox 100 97 O2 Delivery Nasal Cannula Nasal Cannula O2 Flow Rate 2.0 2.0 05/22/16 05/22/16 05/22/16 05/22/16 17:44 18:48 19:23 19:30 Temp 97.4 97.4 Pulse 82 Resp 18 18 16 B/P 124/66 Pulse Ox 97 97 96 98 O2 Delivery Nasal Cannula Nasal Cannula Nasal Cannula Nasal Cannula O2 Flow Rate 2.0 2.0 2.0 2.0 05/22/16 05/22/16 05/23/16 05/23/16 20:00 23:36 03:40 07:00 Temp 97.9 97.4 97.9 97.4 Pulse 77 73 75 Resp 17 16 18 B/P 114/54 141/64 136/72 Pulse Ox 100 100 100 O2 Delivery Nasal Cannula Nasal Cannula Nasal Cannula Nasal Cannula O2 Flow Rate 2.0 2.0 2.0 2.0 05/23/16 05/23/16 05/23/16 05/23/16 07:28 08:00 08:45 08:49 Pulse 73 73 B/P 141/64 141/64 Pulse Ox 100 O2 Delivery Nasal Cannula Nasal Cannula O2 Flow Rate 2.0 2.0 05/23/16 05/23/16 11:00 11:10 Temp 97.9 97.9 Pulse 89 Resp 16 B/P 104/53 Pulse Ox 96 99 O2 Delivery Nasal Cannula Nasal Cannula O2 Flow Rate 2.0 2.0 Intake and Output 05/22/16 05/22/16 05/23/16 15:00 23:00 07:00 Intake Total 1545 ml 100 ml Output Total 800 ml 1500 ml Balance 745 ml -1400 ml ROBERT PECK MD May 23, 2016 13:18
--- NOTE | 2016-05-23 14:55 | PDOC ---
PROGRESS NOTES Subjective Subjective Covering for Dr. Chen Patient complains of some cough. Objective Objective Vital Signs Date Time Temp Pulse Resp B/P Pulse Ox O2 Delivery O2 Flow Rate FiO2 05/23/16 11:10 99 Nasal Cannula 2.0 05/23/16 11:00 97.9 89 16 104/53 97.9 Intake and Output 05/23/16 07:00 Intake Total 1645 ml Output Total 2300 ml Balance -655 ml Intake Oral 1320 ml Blood Product IV Normal Saline Flush 325 ml Output Urine Total 2300 ml Physical Exam Physical Exam No significant changes in cardiac exam Assessment Assessment Patient continues in atrial fibrillation. Dr. Chen will return in the morning. Further treatment as per Dr. Chen. Problems Medical Problems: (1) CHF (congestive heart failure) Status: Acute (2) Pneumonia Status: Acute (3) Type 2 diabetes mellitus Status: Acute Comment Review of Relevant I have reviewed the following items melquiades (where applicable) has been applied. Labs Laboratory Tests Test 05/21/16 17:11 05/21/16 20:27 05/22/16 08:10 05/22/16 08:21 Glucose (Fingerstick) 354mg/dL (70-99) 257mg/dL (70-99) 208mg/dL (70-99) Sodium Level 145mmol/L (136-145) Potassium Level 4.2mmol/L (3.5-5.1) Chloride Level 104mmol/L (98-107) Carbon Dioxide Level 38mmol/L (21-32) Anion Gap 3 (6-14) Blood Urea Nitrogen 32mg/dL (7-20) Creatinine 1.0mg/dL (0.6-1.0) Estimated GFR (Cockcroft-Gault) 63.3 Glucose Level 216mg/dL (70-99) Calcium Level 9.4mg/dL (8.5-10.1) Test 05/22/16 12:00 05/22/16 16:20 05/22/16 17:40 05/22/16 21:37 Glucose (Fingerstick) 331mg/dL (70-99) 387mg/dL (70-99) 342mg/dL (70-99) 292mg/dL (70-99) Test 05/23/16 05:00 05/23/16 07:40 05/23/16 11:27 05/23/16 11:44 White Blood Count 8.3x10^3/uL (4.0-11.0) Red Blood Count 3.23x10^6/uL (3.50-5.40) Hemoglobin 9.2g/dL (12.0-15.5) Hematocrit 29.8% (36.0-47.0) Mean Corpuscular Volume 92fL (79-100) Mean Corpuscular Hemoglobin 29pg (25-35) Mean Corpuscular Hemoglobin Concent 31g/dL (31-37) Red Cell Distribution Width 19.7% (11.5-14.5) Platelet Count 287x10^3/uL (140-400) Neutrophils (%) (Auto) 80% (31-73) Lymphocytes (%) (Auto) 10% (24-48) Monocytes (%) (Auto) 8% (0-9) Eosinophils (%) (Auto) 2% (0-3) Basophils (%) (Auto) 1% (0-3) Neutrophils # (Auto) 6.6x10^3uL (1.8-7.7) Lymphocytes # (Auto) 0.9x10^3/uL (1.0-4.8) Monocytes # (Auto) 0.6x10^3/uL (0.0-1.1) Eosinophils # (Auto) 0.2x10^3/uL (0.0-0.7) Basophils # (Auto) 0.0x10^3/uL (0.0-0.2) Sodium Level 144mmol/L (136-145) Potassium Level 4.2mmol/L (3.5-5.1) Chloride Level 103mmol/L (98-107) Carbon Dioxide Level 37mmol/L (21-32) Anion Gap 4 (6-14) Blood Urea Nitrogen 35mg/dL (7-20) Creatinine 1.0mg/dL (0.6-1.0) Estimated GFR (Cockcroft-Gault) 63.3 Glucose Level 172mg/dL (70-99) Calcium Level 9.6mg/dL (8.5-10.1) Glucose (Fingerstick) 200mg/dL (70-99) 361mg/dL (70-99) 333mg/dL (70-99) Laboratory Tests Test 05/22/16 16:20 05/22/16 17:40 05/22/16 21:37 05/23/16 05:00 Glucose (Fingerstick) 387mg/dL (70-99) 342mg/dL (70-99) 292mg/dL (70-99) White Blood Count 8.3x10^3/uL (4.0-11.0) Red Blood Count 3.23x10^6/uL (3.50-5.40) Hemoglobin 9.2g/dL (12.0-15.5) Hematocrit 29.8% (36.0-47.0) Mean Corpuscular Volume 92fL (79-100) Mean Corpuscular Hemoglobin 29pg (25-35) Mean Corpuscular Hemoglobin Concent 31g/dL (31-37) Red Cell Distribution Width 19.7% (11.5-14.5) Platelet Count 287x10^3/uL (140-400) Neutrophils (%) (Auto) 80% (31-73) Lymphocytes (%) (Auto) 10% (24-48) Monocytes (%) (Auto) 8% (0-9) Eosinophils (%) (Auto) 2% (0-3) Basophils (%) (Auto) 1% (0-3) Neutrophils # (Auto) 6.6x10^3uL (1.8-7.7) Lymphocytes # (Auto) 0.9x10^3/uL (1.0-4.8) Monocytes # (Auto) 0.6x10^3/uL (0.0-1.1) Eosinophils # (Auto) 0.2x10^3/uL (0.0-0.7) Basophils # (Auto) 0.0x10^3/uL (0.0-0.2) Sodium Level 144mmol/L (136-145) Potassium Level 4.2mmol/L (3.5-5.1) Chloride Level 103mmol/L (98-107) Carbon Dioxide Level 37mmol/L (21-32) Anion Gap 4 (6-14) Blood Urea Nitrogen 35mg/dL (7-20) Creatinine 1.0mg/dL (0.6-1.0) Estimated GFR (Cockcroft-Gault) 63.3 Glucose Level 172mg/dL (70-99) Calcium Level 9.6mg/dL (8.5-10.1) Test 05/23/16 07:40 05/23/16 11:27 05/23/16 11:44 Glucose (Fingerstick) 200mg/dL (70-99) 361mg/dL (70-99) 333mg/dL (70-99) Medications Current Medications Albuterol/ Ipratropium (Duoneb) 3 ml 1X ONCE NEB Last administered on 15:10; Start 05/20/16 at 15:30; Stop 05/20/16 at 15:31; Status DC Prednisone (Prednisone) 50 mg 1X ONCE PO Last administered on 05/20/16 15:54; Start 05/20/16 at 15:30; Stop 05/20/16 at 15:31; Status DC Furosemide (Lasix) 20 mg DAILY IVP Last administered on 05/20/16 15:54; Start 05/20/16 at 15:30; Stop 05/20/16 at 17:41; Status DC Ondansetron HCl (Zofran) 4 mg PRN Q8HRS PRN IV NAUSEA/VOMITING; Start 05/20/16 at 16:15; Stop 05/21/16 at 16:14; Status DC Morphine Sulfate 2 mg PRN Q2HR PRN IV PAIN; Start 05/20/16 at 16:15; Stop at 19:07; Status DC Vancomycin HCl (Vanco Per Pharmacy) 1 each PRN DAILY PRN MC SEE COMMENTS; Start 05/20/16 at 16:45; Stop 05/20/16 at 16:48; Status DC Piperacillin Sod/ Tazobactam Sod 1 each 1 each PRN DAILY PRN MC SEE COMMENTS; Start 05/20/16 at 16:45; Stop 05/20/16 at 16:48; Status DC Vancomycin HCl 2 gm/Sodium Chloride 500 ml @ 250 mls/hr 1X ONCE IV ; Start 05/20/16 at 16:45; Stop 05/20/16 at 17:40; Status DC Piperacillin Sod/ Tazobactam Sod/ Sodium Chloride (Zosyn/Iv Sodium Chloride 0.9 % 50ml) 50 ml @ 100 mls/hr 1X ONCE IV Last administered on 05/20/16 17:25; Start 05/20/16 at 16:45; Stop 05/20/16 at 17:14; Status DC Vancomycin HCl (Vanco Per Pharmacy) 1 each PRN DAILY PRN MC SEE COMMENTS Last administered on 05/20/16 17:04; Start 05/20/16 at 17:00; Stop 05/20/16 at 17:37; Status DC Piperacillin Sod/ Tazobactam Sod 1 each 1 each PRN DAILY PRN MC SEE COMMENTS; Start 05/20/16 at 17:00; Stop 05/20/16 at 17:40; Status DC Piperacillin Sod/ Tazobactam Sod 2.25 gm/Sodium Chloride 50 ml @ 100 mls/hr Q6HRS IV ; Start 05/21/16 at 00:00; Stop 05/21/16 at 00:00; Status DC Vancomycin HCl/ Sodium Chloride (Iv Sodium Chloride 0.9% 500ml Bag) 500 ml @ 250 mls/hr Q24H IV ; Start 05/21/16 at 18:00; Stop 05/21/16 at 18:00; Status DC Vancomycin HCl 1 each 1 each 1X ONCE MC ; Start 05/22/16 at 17:30; Stop 05/22/16 at 17:30; Status DC Furosemide/Sodium Chloride (Lasix Drip/Iv Sodium Chloride 0.9% 100ml) 100 ml @ 0 mls/hr CONT PRN IV SEE I/O RECORD Last administered on 05/23/16 11:04; Start 05/20/16 at 17:45 Amoxicillin/ Clavulanate Potassium (Augmentin 875/ 125mg) 1 tab BID PO Last administered on 05/21/16 20:30; Start 05/20/16 at 21:00; Stop 05/21/16 at 21:53; Status DC Acetaminophen/ Codeine Phosphate (Tylenol #3) 1 tab PRN Q6HRS PRN PO PAIN Last administered on 05/22/16 17:44; Start 05/20/16 at 19:00 Apixaban (Eliquis) 5 mg BID PO Last administered on 05/23/16 08:45; Start at 21:00 Alprazolam (Xanax) 0.5 mg Q8H PRN PO ANXIETY / AGITATION Last administered on 08:52; Start 05/20/16 at 19:00 Ascorbic Acid (Vitamin C) 500 mg DAILY PO Last administered on 05/23/16 08:45; Start 05/21/16 at 09:00 Albuterol/ Ipratropium (Duoneb) 3 ml RTQID NEB Last administered on 05/23/16 11 :09; Start 05/20/16 at 20:00 Albuterol Sulfate (Ventolin Neb Soln) 2.5 mg PRN Q4HRS PRN NEB SHORTNESS OF BREATH Last administered on 05/20/16 23:54; Start 05/20/16 at 19:00 Vitamin D (Vitamin D3) 5,000 unit DAILY PO Last administered on 05/23/16 08:45 ; Start 05/21/16 at 09:00 Diltiazem HCl (Diltiazem 24hr Cd) 300 mg DAILY PO Last administered on 08:45; Start 05/21/16 at 09:00 Duloxetine HCl (Cymbalta) 60 mg DAILY PO Last administered on 05/23/16 08:44; Start 05/21/16 at 09:00 EZETIMIBE (Zetia) 10 mg DAILY PO Last administered on 05/23/16 08:45; Start 05/21/16 at 09:00 Ferrous Sulfate 300 mg BIDWMEALS PO Last administered on 05/23/16 08:43; Start 05/21/16 at 08:00 Guaifenesin (MUCINEX ER with DM) 1 tab BID PO Last administered on 05/23/16 08: 45; Start 05/20/16 at 21:00 Insulin Aspart (Novolog) 10 units TIDAC SQ Last administered on 05/23/16 11:54 ; Start 05/21/16 at 07:30; Stop 05/23/16 at 13:17; Status DC Insulin Aspart (Novolog Vial) ENTRY FOR 1ML CHARGE FROM 1... 1X ONCE SQ ; Start 05/20/16 at 19:15; Stop 05/20/16 at 19:16; Status UNV Insulin Detemir (Levemir) 24 units DAILY08 SQ Last administered on 05/21/16 08: 55; Start 05/21/16 at 08:00; Stop 05/22/16 at 08:43; Status DC Metoprolol Succinate (Toprol Xl) 50 mg DAILY PO Last administered on 05/23/16 08:49; Start 05/21/16 at 09:00 Pantoprazole Sodium (Protonix) 40 mg DAILYAC PO Last administered on 05/23/16 08:49; Start 05/21/16 at 07:30 Polyethylene Glycol (miraLAX PACKET) 17 gm DAILY PO Last administered on 08:43; Start 05/21/16 at 09:00 Pregabalin (Lyrica) 50 mg BID PO Last administered on 05/23/16 08:46; Start 05/20/16 at 21:00 Atorvastatin Calcium (Lipitor) 20 mg QHS PO Last administered on 05/22/16 21:38 ; Start 05/20/16 at 21:00 Sucralfate (Carafate) 1 gm QIDACHS PO Last administered on 05/21/16 20:30; Start 05/20/16 at 21:00; Stop 05/21/16 at 21:48; Status DC Insulin Aspart (Novolog) 0-9 UNITS TIDWMEALS SQ Last administered on 05/23/16 11:54; Start 05/21/16 at 08:00 Dextrose 12.5 gm PRN Q15MIN PRN IV SEE COMMENTS; Start 05/20/16 at 19:30 Promethazine HCl/ Codeine (Phenergan With Codeine) 5 ml PRN Q6HRS PRN PO COUGH ; Start 05/20/16 at 20:15 Diltiazem HCl (Cardizem) 30 mg 1X ONCE PO Last administered on 05/20/16 20:57 ; Start 05/20/16 at 20:15; Stop 05/20/16 at 20:19; Status DC Diltiazem HCl (Cardizem) 10 mg 1X ONCE IVP ; Start 05/20/16 at 20:15; Stop at 21:31; Status DC Diltiazem HCl (Cardizem) 30 mg 1X ONCE PO Last administered on 05/21/16 01:54 ; Start 05/21/16 at 02:00; Stop 05/21/16 at 02:01; Status DC Insulin Aspart (Novolog) 15 units 1X ONCE SQ Last administered on 05/20/16 21: 45; Start 05/20/16 at 21:30; Stop 05/20/16 at 21:31; Status DC Sucralfate 1 gm 1 gm QIDACHS PO Last administered on 05/23/16 11:04; Start 05/22 at 07:30 Ceftriaxone Sodium/Sodium Chloride (Rocephin/Iv Sodium Chloride 0.9% 50ml) 50 ml @ 100 mls/hr Q24H IV Last administered on 05/22/16 22:28; Start 05/21/16 at 22:00 Azithromycin (Zithromax) 250 mg DAILY PO Last administered on 05/23/16 08:45; Start 05/22/16 at 09:00 Alprazolam (Xanax) 0.5 mg 1X ONCE PO Last administered on 05/21/16 22:18; Start 05/21/16 at 22:30; Stop 05/21/16 at 22:31; Status DC Promethazine HCl/ Codeine (Phenergan With Codeine) 5 ml 1X ONCE PO Last administered on 05/21/16 22:18; Start 05/21/16 at 22:30; Stop 05/21/16 at 22:31; Status DC Insulin Detemir (Levemir) 26 units DAILY08 SQ Last administered on 05/23/16 09: 04; Start 05/23/16 at 08:00; Stop 05/23/16 at 13:17; Status DC Info (Anti-Coagulation Monitoring By Pharmacy) 1 each PRN DAILY PRN MC SEE COMMENTS Last administered on 05/22/16 14:25; Start 05/22/16 at 13:45 Insulin Aspart (Novolog) 14 units TIDAC SQ ; Start 05/23/16 at 16:30 Insulin Detemir (Levemir) 30 units DAILY08 SQ ; Start 05/24/16 at 08:00 Active Scripts Active Reported Metoprolol Succinate 50 Mg Tab.er.24h 50 Mg PO Duoneb 0.5-3(2.5) Mg/3 Ml (Albuterol/Ipratropium) 3 Ml Ampul.neb 3 Ml NEB QID Guaifenesin 600 Mg Tablet.er 600 Mg PO PRN BID PRN Guaifenesin Dm Syrup (Guaifenesin/Dextromethorphan) 5 Ml Syrup Ml PO PRN Q6HRS PRN Budesonide 0.5 Mg/2 Ml Ampul.neb 1 Vial NEB BID Cepacol Sore Throat Lozenge (Benzocaine/Menthol) 1 Each Lozenge 1 Each MM PRN Q6HRS PRN Ascorbic Acid 250 Mg Tablet 250 Mg PO DAILY Augmentin 875-125 Tablet (Amoxicillin/Potassium Clav) 1 Each Tablet 1 Tab PO BID Furosemide 40 Mg Tablet 40 Mg PO BID Lyrica (Pregabalin) 50 Mg Capsule 50 Mg PO TID Pantoprazole Sodium 40 Mg Tablet.dr 1 Tab PO DAILY Levemir (Insulin Detemir) 100 Unit/1 Ml Vial 22 Unit SQ DAILY08 Eliquis (Apixaban) 5 Mg Tablet 5 Mg PO BID Diltiazem 24HR Cd (Diltiazem Hcl) 120 Mg Cap.er.24h 240 Mg PO DAILY Novolog Flexpen (Insulin Aspart) 100 Unit/1 Ml Insuln.pen 100 Unit SQ Zetia (Ezetimibe) 10 Mg Tablet 10 Mg PO DAILY Cymbalta (Duloxetine Hcl) 60 Mg Capsule.dr 60 Mg PO DAILY Flonase (Fluticasone Propionate) 16 Gm [place].susp 16 Gm NS PRN DAILY Ferrous Sulfate 134 Mg Tablet 134 Mg PO DAILY [place] 3 1,000 Mg Softgel ([place]-3 Fatty Acids/Fish Oil) 1 Each Capsule 1 Each PO DAILY Miralax (Polyethylene Glycol 3350) 17 Gm Powd.pack 17 Gm PO HS Zocor (Simvastatin) 40 Mg Tablet 40 Mg PO HS Metamucil Packet (Psyllium Seed (With Sugar)) 1 Each Packet 1 Each PO DAILY Vitamin D3 (Cholecalciferol (Vitamin D3)) 3,000 Unit Tablet 3,000 Unit PO DAILY Potassium Chloride 10 Meq Tab.er.prt 10 Meq PO BID Acetaminophen-Cod #3 Tablet (Acetaminophen/Codeine Phosphate) 1 Each Tablet 2 Each PO Q6HRS PRN Vitals/I & O Vital Sign - Last 24 Hours 05/22/16 05/22/16 05/22/16 05/22/16 15:25 15:50 16:54 17:10 Temp 97.8 97.8 98.4 97.8 97.8 98.4 Pulse 84 81 76 Resp 22 18 18 B/P 107/61 111/65 110/50 Pulse Ox 100 97 O2 Delivery Nasal Cannula Nasal Cannula O2 Flow Rate 2.0 2.0 05/22/16 05/22/16 05/22/16 05/22/16 17:44 18:48 19:23 19:30 Temp 97.4 97.4 Pulse 82 Resp 18 18 16 B/P 124/66 Pulse Ox 97 97 96 98 O2 Delivery Nasal Cannula Nasal Cannula Nasal Cannula Nasal Cannula O2 Flow Rate 2.0 2.0 2.0 2.0 05/22/16 05/22/16 05/23/16 05/23/16 20:00 23:36 03:40 07:00 Temp 97.9 97.4 97.9 97.4 Pulse 77 73 75 Resp 17 16 18 B/P 114/54 141/64 136/72 Pulse Ox 100 100 100 O2 Delivery Nasal Cannula Nasal Cannula Nasal Cannula Nasal Cannula O2 Flow Rate 2.0 2.0 2.0 2.0 05/23/16 05/23/16 05/23/16 05/23/16 07:28 08:00 08:45 08:49 Pulse 73 73 B/P 141/64 141/64 Pulse Ox 100 O2 Delivery Nasal Cannula Nasal Cannula O2 Flow Rate 2.0 2.0 05/23/16 05/23/16 11:00 11:10 Temp 97.9 97.9 Pulse 89 Resp 16 B/P 104/53 Pulse Ox 96 99 O2 Delivery Nasal Cannula Nasal Cannula O2 Flow Rate 2.0 2.0 Intake and Output 05/22/16 05/22/16 05/23/16 15:00 23:00 07:00 Intake Total 1545 ml 100 ml Output Total 800 ml 1500 ml Balance 745 ml -1400 ml PAMELLA OLVERA MD May 23, 2016 14:55
[2016-05-23 15:00] VITALS: BP 105/51
--- NOTE | 2016-05-23 15:08 | PDOC ---
PULMONARY PROGRESS NOTES Subjective PT STILL SOA AND COUGHING AT TIMES WHEEZES Vitals Vital Signs Date Time Temp Pulse Resp B/P Pulse Ox O2 Delivery O2 Flow Rate FiO2 05/23/16 11:10 99 Nasal Cannula 2.0 05/23/16 11:00 97.9 89 16 104/53 97.9 ROS: No Nausea, No Chest Pain, No Abdominal Pain General: Alert, No acute distress Lungs: Clear Cardiovascular: S1 Abdomen: Soft Neuro Exam: Alert Extremities: No Edema Skin: Warm Labs Laboratory Tests Test 05/21/16 17:11 05/21/16 20:27 05/22/16 08:10 05/22/16 08:21 Glucose (Fingerstick) 354mg/dL (70-99) 257mg/dL (70-99) 208mg/dL (70-99) Sodium Level 145mmol/L (136-145) Potassium Level 4.2mmol/L (3.5-5.1) Chloride Level 104mmol/L (98-107) Carbon Dioxide Level 38mmol/L (21-32) Anion Gap 3 (6-14) Blood Urea Nitrogen 32mg/dL (7-20) Creatinine 1.0mg/dL (0.6-1.0) Estimated GFR (Cockcroft-Gault) 63.3 Glucose Level 216mg/dL (70-99) Calcium Level 9.4mg/dL (8.5-10.1) Test 05/22/16 12:00 05/22/16 16:20 05/22/16 17:40 05/22/16 21:37 Glucose (Fingerstick) 331mg/dL (70-99) 387mg/dL (70-99) 342mg/dL (70-99) 292mg/dL (70-99) Test 05/23/16 05:00 05/23/16 07:40 05/23/16 11:27 05/23/16 11:44 White Blood Count 8.3x10^3/uL (4.0-11.0) Red Blood Count 3.23x10^6/uL (3.50-5.40) Hemoglobin 9.2g/dL (12.0-15.5) Hematocrit 29.8% (36.0-47.0) Mean Corpuscular Volume 92fL (79-100) Mean Corpuscular Hemoglobin 29pg (25-35) Mean Corpuscular Hemoglobin Concent 31g/dL (31-37) Red Cell Distribution Width 19.7% (11.5-14.5) Platelet Count 287x10^3/uL (140-400) Neutrophils (%) (Auto) 80% (31-73) Lymphocytes (%) (Auto) 10% (24-48) Monocytes (%) (Auto) 8% (0-9) Eosinophils (%) (Auto) 2% (0-3) Basophils (%) (Auto) 1% (0-3) Neutrophils # (Auto) 6.6x10^3uL (1.8-7.7) Lymphocytes # (Auto) 0.9x10^3/uL (1.0-4.8) Monocytes # (Auto) 0.6x10^3/uL (0.0-1.1) Eosinophils # (Auto) 0.2x10^3/uL (0.0-0.7) Basophils # (Auto) 0.0x10^3/uL (0.0-0.2) Sodium Level 144mmol/L (136-145) Potassium Level 4.2mmol/L (3.5-5.1) Chloride Level 103mmol/L (98-107) Carbon Dioxide Level 37mmol/L (21-32) Anion Gap 4 (6-14) Blood Urea Nitrogen 35mg/dL (7-20) Creatinine 1.0mg/dL (0.6-1.0) Estimated GFR (Cockcroft-Gault) 63.3 Glucose Level 172mg/dL (70-99) Calcium Level 9.6mg/dL (8.5-10.1) Glucose (Fingerstick) 200mg/dL (70-99) 361mg/dL (70-99) 333mg/dL (70-99) Laboratory Tests Test 05/22/16 16:20 05/22/16 17:40 05/22/16 21:37 05/23/16 05:00 Glucose (Fingerstick) 387mg/dL (70-99) 342mg/dL (70-99) 292mg/dL (70-99) White Blood Count 8.3x10^3/uL (4.0-11.0) Red Blood Count 3.23x10^6/uL (3.50-5.40) Hemoglobin 9.2g/dL (12.0-15.5) Hematocrit 29.8% (36.0-47.0) Mean Corpuscular Volume 92fL (79-100) Mean Corpuscular Hemoglobin 29pg (25-35) Mean Corpuscular Hemoglobin Concent 31g/dL (31-37) Red Cell Distribution Width 19.7% (11.5-14.5) Platelet Count 287x10^3/uL (140-400) Neutrophils (%) (Auto) 80% (31-73) Lymphocytes (%) (Auto) 10% (24-48) Monocytes (%) (Auto) 8% (0-9) Eosinophils (%) (Auto) 2% (0-3) Basophils (%) (Auto) 1% (0-3) Neutrophils # (Auto) 6.6x10^3uL (1.8-7.7) Lymphocytes # (Auto) 0.9x10^3/uL (1.0-4.8) Monocytes # (Auto) 0.6x10^3/uL (0.0-1.1) Eosinophils # (Auto) 0.2x10^3/uL (0.0-0.7) Basophils # (Auto) 0.0x10^3/uL (0.0-0.2) Sodium Level 144mmol/L (136-145) Potassium Level 4.2mmol/L (3.5-5.1) Chloride Level 103mmol/L (98-107) Carbon Dioxide Level 37mmol/L (21-32) Anion Gap 4 (6-14) Blood Urea Nitrogen 35mg/dL (7-20) Creatinine 1.0mg/dL (0.6-1.0) Estimated GFR (Cockcroft-Gault) 63.3 Glucose Level 172mg/dL (70-99) Calcium Level 9.6mg/dL (8.5-10.1) Test 05/23/16 07:40 05/23/16 11:27 05/23/16 11:44 Glucose (Fingerstick) 200mg/dL (70-99) 361mg/dL (70-99) 333mg/dL (70-99) Medications Active Scripts Medications Dose Route/Sig Days Date Category Metoprolol Succinate 50 Mg Tab.er.24h 50 Mg PO 05/18/16 Reported Duoneb 0.5-3(2.5) Mg/3 Ml (Albuterol/Ipratropium) 3 Ml Ampul.neb 3 Ml NEB QID 05/18/16 Reported Guaifenesin 600 Mg Tablet.er 600 Mg PO PRN BID PRN 05/18/16 Reported Guaifenesin Dm Syrup (Guaifenesin/Dextromethorphan) 5 Ml Syrup Ml PO PRN Q6HRS PRN 05/18/16 Reported Budesonide 0.5 Mg/2 Ml Ampul.neb 1 Vial NEB BID 05/18/16 Reported Cepacol Sore Throat Lozenge (Benzocaine/Menthol) 1 Each Lozenge 1 Each MM PRN Q6HRS PRN 05/18/16 Reported Ascorbic Acid 250 Mg Tablet 250 Mg PO DAILY 05/18/16 Reported Augmentin 875-125 Tablet (Amoxicillin/Potassium Clav) 1 Each Tablet 1 Tab PO BID 05/18/16 Reported Furosemide 40 Mg Tablet 40 Mg PO BID 05/18/16 Reported Lyrica (Pregabalin) 50 Mg Capsule 50 Mg PO TID 05/09/16 Reported Pantoprazole Sodium 40 Mg Tablet.dr 1 Tab PO DAILY 05/09/16 Reported Levemir (Insulin Detemir) 100 Unit/1 Ml Vial 22 Unit SQ DAILY08 05/09/16 Reported Eliquis (Apixaban) 5 Mg Tablet 5 Mg PO BID 04/26/16 Reported Diltiazem 24HR Cd (Diltiazem Hcl) 120 Mg Cap.er.24h 240 Mg PO DAILY 04/26/16 Reported Novolog Flexpen (Insulin Aspart) 100 Unit/1 Ml Insuln.pen 100 Unit SQ 03/19/14 Reported Zetia (Ezetimibe) 10 Mg Tablet 10 Mg PO DAILY 03/19/14 Reported Cymbalta (Duloxetine Hcl) 60 Mg Capsule.dr 60 Mg PO DAILY 03/19/14 Reported Flonase (Fluticasone Propionate) 16 Gm [place].susp 16 Gm NS PRN DAILY 04/07/13 Reported Ferrous Sulfate 134 Mg Tablet 134 Mg PO DAILY 04/07/13 Reported [place] 3 1,000 Mg Softgel ([place]-3 Fatty Acids/Fish Oil) 1 Each Capsule 1 Each PO DAILY 04/07/13 Reported Miralax (Polyethylene Glycol 3350) 17 Gm Powd.pack 17 Gm PO HS 04/07/13 Reported Zocor (Simvastatin) 40 Mg Tablet 40 Mg PO HS 04/07/13 Reported Metamucil Packet (Psyllium Seed (With Sugar)) 1 Each Packet 1 Each PO DAILY 04/07/13 Reported Vitamin D3 (Cholecalciferol (Vitamin D3)) 3,000 Unit Tablet 3,000 Unit PO DAILY 04/07/13 Reported Potassium Chloride 10 Meq Tab.er.prt 10 Meq PO BID 04/07/13 Reported Acetaminophen-Cod #3 Tablet (Acetaminophen/Codeine Phosphate) 1 Each Tablet 2 Each PO Q6HRS PRN 04/07/13 Reported Impression . acute resp failure sec to acute heart failure//Anemia/Atelectasis COUGH ? SEC AORTIC STENOSIS WHEEZING SEC TO CARDIAC WHEEZE WILL CHECK SPIROMETRY full consult dictated thanks Plan . DIURESE SPIROMETRY DON'T THINK SHE NEEDS STEROIDS IT SENIOR ANALYST PROGNOSIS IS POOR DERIC LERNER MD May 23, 2016 15:08
[2016-05-23] MEDS: ALPRAZOLAM 0.5 MG TABLET PO PRN (15:28)
[2016-05-23] MEDS: ANTI-COAG MONITOR BY PHARMACY. MC PRN (15:45)
[2016-05-23 19:44] VITALS: BP 110/54
[2016-05-23] MEDS: ATORVASTATIN CALCIUM 20 MG TABLET PO SCH (20:14)
[2016-05-23] MEDS: CEFTRIAXONE SODIUM 1 GM in IV NORMAL SALINE 50ML 50 ML IV SCH (21:04)
[2016-05-23 22:50] VITALS: BP 144/72
[2016-05-23] MEDS: ACETAMINOPHEN/CODEINE 300/30MG TABLET PO PRN (23:04)
--- NOTE | 2016-05-24 02:42 | CONS ---
DATE OF CONSULTATION: ATTENDING PHYSICIAN: Sunitha Chen M.D. REASON FOR CONSULTATION: The patient is seen in pulmonary consultation at the request of Dr. Chen for increasing shortness of air and abnormal x-ray. HISTORY OF PRESENT ILLNESS: The patient is an 89-year-old that [facility] She presented with increasing shortness of breath. She was found to be more hypoxic than usual. When EMS arrived at the [facility], the patient had a saturation of 85% on 5 liters. The patient states that most of her problems are shortness of breath with exertion, cough which makes her even more short of breath. She is also anxious. PAST MEDICAL HISTORY: Otherwise remarkable for: 1. Chronic diastolic heart failure. 2. Moderate aortic stenosis. 3. Diabetes. 4. History of pneumonia. 5. Coronary artery disease. PAST SURGICAL HISTORY: Status post cholecystectomy, appendectomy, hysterectomy, tonsillectomy. REVIEW OF SYSTEMS: As indicated above. Otherwise, a 10-point system was reviewed and negative. ALLERGIES: No known drug allergies. MEDICATIONS: List from prior to admission was reviewed. The patient was receiving Augmentin. No JAYLA inhibitors. She was on a PPI. Current medication list was likewise reviewed. She is currently receiving Zosyn IV, Lasix, vancomycin, Eliquis 5 mg b.i.d., IV furosemide. PHYSICAL EXAMINATION: GENERAL: The patient was sitting up in a chair. She was in no significant distress. She states that she feels better. She is currently on 2 liters of oxygen supplementation. HEENT: Eyes: The sclerae was nonicteric. NECK: Jugular venous distention was not elevated. No lymphadenopathy. CHEST: Full expansion. LUNGS: Crackles in the bases. Otherwise, no wheezes. CARDIOVASCULAR: Regular rate and rhythm with S1 and S2, no S3. ABDOMEN: Soft, nontender, nondistended. EXTREMITIES: No clubbing or cyanosis. She had minimal edema in the lower extremities. NEUROLOGIC: The patient was awake, alert, following commands. A detailed neuro exam was not performed. LABORATORY DATA: White count was not elevated. Hemoglobin and hematocrit were chronically low. Electrolytes were noted. BUN was elevated. Creatinine was elevated. BNP was elevated. Albumin was low. IMPRESSION: 1. Acute on chronic respiratory failure, multifactorial, suspect combination of diastolic heart failure, atelectasis, doubt pneumonia. 2. Cough, multifactorial, suspect secondary to aortic stenosis. I reviewed the patient's medication list. I could not identify anything that would contribute to the cough. She is on a PPI. 3. Recent diagnosis of pneumonia, adequately treated. 4. Chronic anemia. PLAN: 1. Recommend discontinuing antibiotics. 2. Incentive spirometry. 3. Recommend transfusion to increase hemoglobin thereby increasing oxygen delivery. 4. PT/OT. Dr. Chen, I do appreciate the privilege in sharing in the patient's care. DERIC LERNER MD DR: XIMENA/mohsen JOB#: [id number] / [id number]
[2016-05-24 03:27] VITALS: BP 118/54
[2016-05-24 06:50] LABS: BASO % 0 % (0-3); EOS % 1 % (0-3); HEMATOCRIT 30.6 % (36.0-47.0); HEMOGLOBIN 9.7 g/dL (12.0-15.5); LYMPH # 0.8 x10^3/uL (1.0-4.8); LYMPH % 9 % (24-48); MEAN CORPUSCULAR HEMOGLOBIN 29 pg (25-35); MEAN CORPUSCULAR HGB CONC 32 g/dL (31-37); MEAN CORPUSCULAR VOLUME 91 fL (79-100); MONO % 6 % (0-9); NEUT % 83 % (31-73); PLATELET COUNT 299 x10^3/uL (140-400); RED BLOOD COUNT 3.36 x10^6/uL (3.50-5.40); RED CELL DISTRIBUTION WIDTH 20.2 % (11.5-14.5); WHITE BLOOD COUNT 8.8 x10^3/uL (4.0-11.0)
[2016-05-24 06:53] LABS: CALCIUM 9.4 mg/dL (8.5-10.1); GFR 63.3; POTASSIUM 3.9 mmol/L (3.5-5.1)
[2016-05-24] MEDS: IPRATRPIUM/ALBUTEROL 0.5/2.5MG 3 ML NEBU. NEB SCH ×4 (07:40→19:17)
[2016-05-24 07:44] VITALS: BP 147/79
[2016-05-24] MEDS: INSULIN ASPART 300 UNITS/3 ML INSULN.PEN SQ SCH ×6 (08:00→17:05)
[2016-05-24] MEDS ORDERED: INSULIN DETEMIR 300 UNITS/3 ML INSULN.PEN. SQ SCH (08:00)
[2016-05-24] MEDS: POLYETHYLENE GLYCOL 3350 17 GM PACKET. PO SCH (09:00)
[2016-05-24] MEDS: CHOLECALCIFEROL (VITAMIN D3) 5,000 UNIT CAPSULE PO SCH (09:00)
[2016-05-24] MEDS: FUROSEMIDE INJ 100 MG in IV NORMAL SALINE 100ML 100 ML IV PRN (09:37)
[2016-05-24] MEDS: SUCRALFATE 1 GM/10 ML ORAL.SUSP. PO SCH ×4 (09:44→21:19)
[2016-05-24] MEDS: DILTIAZEM HCL 300 MG CAP.ER.24H PO SCH (09:45)
[2016-05-24] MEDS: FERROUS SULFATE ORAL 300 MG/5 ML SOLUTION. PO SCH ×2 (09:45→17:01)
[2016-05-24] MEDS: DULOXETINE HCL 30 MG CAPSULE.DR. PO SCH (09:45)
[2016-05-24] MEDS: ALPRAZOLAM 0.5 MG TABLET PO PRN ×2 (09:46→21:19)
[2016-05-24] MEDS: EZETIMIBE 10 MG TABLET PO SCH (09:46)
[2016-05-24] MEDS: GUAIFENESIN DM 600/30MG TAB.ER.12H. PO SCH ×2 (09:46→21:19)
[2016-05-24] MEDS: APIXABAN 5 MG TABLET. PO SCH ×2 (09:46→21:19)
[2016-05-24] MEDS: PANTOPRAZOLE 40 MG TABLET. PO SCH (09:47)
[2016-05-24] MEDS: PREGABALIN 50 MG CAPSULE PO SCH ×2 (09:47→21:19)
[2016-05-24] MEDS: ASCORBIC ACID 500 MG TABLET PO SCH (09:48)
[2016-05-24] MEDS: METOPROLOL SUCC 24HR ER 50 MG TAB.ER.24H. PO SCH (09:58)
[2016-05-24] MEDS: AZITHROMYCIN 250 MG TABLET PO SCH (10:00)
[2016-05-24 10:46] VITALS: BP 103/55
--- NOTE | 2016-05-24 11:54 | PDOC ---
PULMONARY PROGRESS NOTES Subjective PT WITH NO SOA , AT TIMES WHEEZES Vitals Vital Signs Date Time Temp Pulse Resp B/P Pulse Ox O2 Delivery O2 Flow Rate FiO2 05/24/16 11:20 100 Nasal Cannula 2.0 05/24/16 10:46 97.6 85 22 103/55 97.6 ROS: No Nausea, No Chest Pain, No Abdominal Pain General: Alert, No acute distress Lungs: Wheezing (faint) Cardiovascular: S1 Abdomen: Soft Neuro Exam: Alert Extremities: Other (trace edema) Skin: Warm Labs Laboratory Tests Test 05/22/16 12:00 05/22/16 16:20 05/22/16 17:40 05/22/16 21:37 Glucose (Fingerstick) 331mg/dL (70-99) 387mg/dL (70-99) 342mg/dL (70-99) 292mg/dL (70-99) Test 05/23/16 05:00 05/23/16 07:40 05/23/16 11:27 05/23/16 11:44 White Blood Count 8.3x10^3/uL (4.0-11.0) Red Blood Count 3.23x10^6/uL (3.50-5.40) Hemoglobin 9.2g/dL (12.0-15.5) Hematocrit 29.8% (36.0-47.0) Mean Corpuscular Volume 92fL (79-100) Mean Corpuscular Hemoglobin 29pg (25-35) Mean Corpuscular Hemoglobin Concent 31g/dL (31-37) Red Cell Distribution Width 19.7% (11.5-14.5) Platelet Count 287x10^3/uL (140-400) Neutrophils (%) (Auto) 80% (31-73) Lymphocytes (%) (Auto) 10% (24-48) Monocytes (%) (Auto) 8% (0-9) Eosinophils (%) (Auto) 2% (0-3) Basophils (%) (Auto) 1% (0-3) Neutrophils # (Auto) 6.6x10^3uL (1.8-7.7) Lymphocytes # (Auto) 0.9x10^3/uL (1.0-4.8) Monocytes # (Auto) 0.6x10^3/uL (0.0-1.1) Eosinophils # (Auto) 0.2x10^3/uL (0.0-0.7) Basophils # (Auto) 0.0x10^3/uL (0.0-0.2) Sodium Level 144mmol/L (136-145) Potassium Level 4.2mmol/L (3.5-5.1) Chloride Level 103mmol/L (98-107) Carbon Dioxide Level 37mmol/L (21-32) Anion Gap 4 (6-14) Blood Urea Nitrogen 35mg/dL (7-20) Creatinine 1.0mg/dL (0.6-1.0) Estimated GFR (Cockcroft-Gault) 63.3 Glucose Level 172mg/dL (70-99) Calcium Level 9.6mg/dL (8.5-10.1) Glucose (Fingerstick) 200mg/dL (70-99) 361mg/dL (70-99) 333mg/dL (70-99) Test 05/23/16 16:08 05/23/16 20:25 05/24/16 05:51 05/24/16 07:48 Glucose (Fingerstick) 329mg/dL (70-99) 262mg/dL (70-99) 200mg/dL (70-99) White Blood Count 8.8x10^3/uL (4.0-11.0) Red Blood Count 3.36x10^6/uL (3.50-5.40) Hemoglobin 9.7g/dL (12.0-15.5) Hematocrit 30.6% (36.0-47.0) Mean Corpuscular Volume 91fL (79-100) Mean Corpuscular Hemoglobin 29pg (25-35) Mean Corpuscular Hemoglobin Concent 32g/dL (31-37) Red Cell Distribution Width 20.2% (11.5-14.5) Platelet Count 299x10^3/uL (140-400) Neutrophils (%) (Auto) 83% (31-73) Lymphocytes (%) (Auto) 9% (24-48) Monocytes (%) (Auto) 6% (0-9) Eosinophils (%) (Auto) 1% (0-3) Basophils (%) (Auto) 0% (0-3) Neutrophils # (Auto) 7.3x10^3uL (1.8-7.7) Lymphocytes # (Auto) 0.8x10^3/uL (1.0-4.8) Monocytes # (Auto) 0.6x10^3/uL (0.0-1.1) Eosinophils # (Auto) 0.1x10^3/uL (0.0-0.7) Basophils # (Auto) 0.0x10^3/uL (0.0-0.2) Sodium Level 142mmol/L (136-145) Potassium Level 3.9mmol/L (3.5-5.1) Chloride Level 101mmol/L (98-107) Carbon Dioxide Level 39mmol/L (21-32) Anion Gap 2 (6-14) Blood Urea Nitrogen 32mg/dL (7-20) Creatinine 1.0mg/dL (0.6-1.0) Estimated GFR (Cockcroft-Gault) 63.3 Glucose Level 235mg/dL (70-99) Calcium Level 9.4mg/dL (8.5-10.1) Test 05/24/16 10:53 Glucose (Fingerstick) 290mg/dL (70-99) Laboratory Tests Test 05/23/16 16:08 05/23/16 20:25 05/24/16 05:51 05/24/16 07:48 Glucose (Fingerstick) 329mg/dL (70-99) 262mg/dL (70-99) 200mg/dL (70-99) White Blood Count 8.8x10^3/uL (4.0-11.0) Red Blood Count 3.36x10^6/uL (3.50-5.40) Hemoglobin 9.7g/dL (12.0-15.5) Hematocrit 30.6% (36.0-47.0) Mean Corpuscular Volume 91fL (79-100) Mean Corpuscular Hemoglobin 29pg (25-35) Mean Corpuscular Hemoglobin Concent 32g/dL (31-37) Red Cell Distribution Width 20.2% (11.5-14.5) Platelet Count 299x10^3/uL (140-400) Neutrophils (%) (Auto) 83% (31-73) Lymphocytes (%) (Auto) 9% (24-48) Monocytes (%) (Auto) 6% (0-9) Eosinophils (%) (Auto) 1% (0-3) Basophils (%) (Auto) 0% (0-3) Neutrophils # (Auto) 7.3x10^3uL (1.8-7.7) Lymphocytes # (Auto) 0.8x10^3/uL (1.0-4.8) Monocytes # (Auto) 0.6x10^3/uL (0.0-1.1) Eosinophils # (Auto) 0.1x10^3/uL (0.0-0.7) Basophils # (Auto) 0.0x10^3/uL (0.0-0.2) Sodium Level 142mmol/L (136-145) Potassium Level 3.9mmol/L (3.5-5.1) Chloride Level 101mmol/L (98-107) Carbon Dioxide Level 39mmol/L (21-32) Anion Gap 2 (6-14) Blood Urea Nitrogen 32mg/dL (7-20) Creatinine 1.0mg/dL (0.6-1.0) Estimated GFR (Cockcroft-Gault) 63.3 Glucose Level 235mg/dL (70-99) Calcium Level 9.4mg/dL (8.5-10.1) Test 05/24/16 10:53 Glucose (Fingerstick) 290mg/dL (70-99) Medications Active Scripts Medications Dose Route/Sig Days Date Category Metoprolol Succinate 50 Mg Tab.er.24h 50 Mg PO 05/18/16 Reported Duoneb 0.5-3(2.5) Mg/3 Ml (Albuterol/Ipratropium) 3 Ml Ampul.neb 3 Ml NEB QID 05/18/16 Reported Guaifenesin 600 Mg Tablet.er 600 Mg PO PRN BID PRN 05/18/16 Reported Guaifenesin Dm Syrup (Guaifenesin/Dextromethorphan) 5 Ml Syrup Ml PO PRN Q6HRS PRN 05/18/16 Reported Budesonide 0.5 Mg/2 Ml Ampul.neb 1 Vial NEB BID 05/18/16 Reported Cepacol Sore Throat Lozenge (Benzocaine/Menthol) 1 Each Lozenge 1 Each MM PRN Q6HRS PRN 05/18/16 Reported Ascorbic Acid 250 Mg Tablet 250 Mg PO DAILY 05/18/16 Reported Augmentin 875-125 Tablet (Amoxicillin/Potassium Clav) 1 Each Tablet 1 Tab PO BID 05/18/16 Reported Furosemide 40 Mg Tablet 40 Mg PO BID 05/18/16 Reported Lyrica (Pregabalin) 50 Mg Capsule 50 Mg PO TID 05/09/16 Reported Pantoprazole Sodium 40 Mg Tablet.dr 1 Tab PO DAILY 05/09/16 Reported Levemir (Insulin Detemir) 100 Unit/1 Ml Vial 22 Unit SQ DAILY08 05/09/16 Reported Eliquis (Apixaban) 5 Mg Tablet 5 Mg PO BID 04/26/16 Reported Diltiazem 24HR Cd (Diltiazem Hcl) 120 Mg Cap.er.24h 240 Mg PO DAILY 04/26/16 Reported Novolog Flexpen (Insulin Aspart) 100 Unit/1 Ml Insuln.pen 100 Unit SQ 03/19/14 Reported Zetia (Ezetimibe) 10 Mg Tablet 10 Mg PO DAILY 03/19/14 Reported Cymbalta (Duloxetine Hcl) 60 Mg Capsule.dr 60 Mg PO DAILY 03/19/14 Reported Flonase (Fluticasone Propionate) 16 Gm [place].susp 16 Gm NS PRN DAILY 04/07/13 Reported Ferrous Sulfate 134 Mg Tablet 134 Mg PO DAILY 04/07/13 Reported [place] 3 1,000 Mg Softgel ([place]-3 Fatty Acids/Fish Oil) 1 Each Capsule 1 Each PO DAILY 04/07/13 Reported Miralax (Polyethylene Glycol 3350) 17 Gm Powd.pack 17 Gm PO HS 04/07/13 Reported Zocor (Simvastatin) 40 Mg Tablet 40 Mg PO HS 04/07/13 Reported Metamucil Packet (Psyllium Seed (With Sugar)) 1 Each Packet 1 Each PO DAILY 04/07/13 Reported Vitamin D3 (Cholecalciferol (Vitamin D3)) 3,000 Unit Tablet 3,000 Unit PO DAILY 04/07/13 Reported Potassium Chloride 10 Meq Tab.er.prt 10 Meq PO BID 04/07/13 Reported Acetaminophen-Cod #3 Tablet (Acetaminophen/Codeine Phosphate) 1 Each Tablet 2 Each PO Q6HRS PRN 04/07/13 Reported Impression . acute resp failure sec to acute heart failure//Anemia/Atelectasis COUGH ? Cardiac etiology CARDIAC WHEEZE no sig tobacco use Plan . 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
--- NOTE | 2016-05-24 12:19 | PDOC ---
PROGRESS NOTES Chief Complaint Chief Complaint 1. acute on chronic hypoxic resp failure 2/2 CHF exacerbation, COPD 2. CODP 3. DM2 4. OA 5. H/O CAD 6. h/o gastritis 7. h/o CAD s/p CABG 8. PAFIB plan: 1. fu with card, pulm. cardioversion as per card today? 2. still on lasix drip 3. slightly levemir to 34u , aspart 18u tid, and SSI 4. post 1u PRBC 05/22 ptot duoneb dvt ppx add cough meds thanks for asking us for consult History of Present Illness History of Present Illness sob better, still on lasix drip 1u prbc on 05/22 still hyperglycemia c/o cough afib Vitals Vitals Vital Signs Date Time Temp Pulse Resp B/P Pulse Ox O2 Delivery O2 Flow Rate FiO2 05/24/16 11:20 100 Nasal Cannula 2.0 05/24/16 10:46 97.6 85 22 103/55 97.6 Physical Exam General: Alert, Oriented X3, Cooperative Lungs: Wheezing (faint) Abdomen: Normal bowel sounds, Soft Extremities: No clubbing, No cyanosis, Other (bl leg 1+ edema) Skin: No rashes, No breakdown Labs LABS Laboratory Tests Test 05/23/16 16:08 05/23/16 20:25 05/24/16 05:51 05/24/16 07:48 Glucose (Fingerstick) 329mg/dL (70-99) 262mg/dL (70-99) 200mg/dL (70-99) White Blood Count 8.8x10^3/uL (4.0-11.0) Red Blood Count 3.36x10^6/uL (3.50-5.40) Hemoglobin 9.7g/dL (12.0-15.5) Hematocrit 30.6% (36.0-47.0) Mean Corpuscular Volume 91fL (79-100) Mean Corpuscular Hemoglobin 29pg (25-35) Mean Corpuscular Hemoglobin Concent 32g/dL (31-37) Red Cell Distribution Width 20.2% (11.5-14.5) Platelet Count 299x10^3/uL (140-400) Neutrophils (%) (Auto) 83% (31-73) Lymphocytes (%) (Auto) 9% (24-48) Monocytes (%) (Auto) 6% (0-9) Eosinophils (%) (Auto) 1% (0-3) Basophils (%) (Auto) 0% (0-3) Neutrophils # (Auto) 7.3x10^3uL (1.8-7.7) Lymphocytes # (Auto) 0.8x10^3/uL (1.0-4.8) Monocytes # (Auto) 0.6x10^3/uL (0.0-1.1) Eosinophils # (Auto) 0.1x10^3/uL (0.0-0.7) Basophils # (Auto) 0.0x10^3/uL (0.0-0.2) Sodium Level 142mmol/L (136-145) Potassium Level 3.9mmol/L (3.5-5.1) Chloride Level 101mmol/L (98-107) Carbon Dioxide Level 39mmol/L (21-32) Anion Gap 2 (6-14) Blood Urea Nitrogen 32mg/dL (7-20) Creatinine 1.0mg/dL (0.6-1.0) Estimated GFR (Cockcroft-Gault) 63.3 Glucose Level 235mg/dL (70-99) Calcium Level 9.4mg/dL (8.5-10.1) Test 05/24/16 10:53 Glucose (Fingerstick) 290mg/dL (70-99) Review of Systems Review of Systems no fever, chills, sob or chest pain Assessment and Plan Assessmemt and Plan Problems Medical Problems: (1) CHF (congestive heart failure) Status: Acute (2) Pneumonia Status: Acute (3) Type 2 diabetes mellitus Status: Acute Problems: Comment Review of Relevant I have reviewed the following items melquiades (where applicable) has been applied. Labs Laboratory Tests Test 05/22/16 16:20 05/22/16 17:40 05/22/16 21:37 05/23/16 05:00 Glucose (Fingerstick) 387mg/dL (70-99) 342mg/dL (70-99) 292mg/dL (70-99) White Blood Count 8.3x10^3/uL (4.0-11.0) Red Blood Count 3.23x10^6/uL (3.50-5.40) Hemoglobin 9.2g/dL (12.0-15.5) Hematocrit 29.8% (36.0-47.0) Mean Corpuscular Volume 92fL (79-100) Mean Corpuscular Hemoglobin 29pg (25-35) Mean Corpuscular Hemoglobin Concent 31g/dL (31-37) Red Cell Distribution Width 19.7% (11.5-14.5) Platelet Count 287x10^3/uL (140-400) Neutrophils (%) (Auto) 80% (31-73) Lymphocytes (%) (Auto) 10% (24-48) Monocytes (%) (Auto) 8% (0-9) Eosinophils (%) (Auto) 2% (0-3) Basophils (%) (Auto) 1% (0-3) Neutrophils # (Auto) 6.6x10^3uL (1.8-7.7) Lymphocytes # (Auto) 0.9x10^3/uL (1.0-4.8) Monocytes # (Auto) 0.6x10^3/uL (0.0-1.1) Eosinophils # (Auto) 0.2x10^3/uL (0.0-0.7) Basophils # (Auto) 0.0x10^3/uL (0.0-0.2) Sodium Level 144mmol/L (136-145) Potassium Level 4.2mmol/L (3.5-5.1) Chloride Level 103mmol/L (98-107) Carbon Dioxide Level 37mmol/L (21-32) Anion Gap 4 (6-14) Blood Urea Nitrogen 35mg/dL (7-20) Creatinine 1.0mg/dL (0.6-1.0) Estimated GFR (Cockcroft-Gault) 63.3 Glucose Level 172mg/dL (70-99) Calcium Level 9.6mg/dL (8.5-10.1) Test 05/23/16 07:40 05/23/16 11:27 05/23/16 11:44 05/23/16 16:08 Glucose (Fingerstick) 200mg/dL (70-99) 361mg/dL (70-99) 333mg/dL (70-99) 329mg/dL (70-99) Test 05/23/16 20:25 05/24/16 05:51 05/24/16 07:48 05/24/16 10:53 Glucose (Fingerstick) 262mg/dL (70-99) 200mg/dL (70-99) 290mg/dL (70-99) White Blood Count 8.8x10^3/uL (4.0-11.0) Red Blood Count 3.36x10^6/uL (3.50-5.40) Hemoglobin 9.7g/dL (12.0-15.5) Hematocrit 30.6% (36.0-47.0) Mean Corpuscular Volume 91fL (79-100) Mean Corpuscular Hemoglobin 29pg (25-35) Mean Corpuscular Hemoglobin Concent 32g/dL (31-37) Red Cell Distribution Width 20.2% (11.5-14.5) Platelet Count 299x10^3/uL (140-400) Neutrophils (%) (Auto) 83% (31-73) Lymphocytes (%) (Auto) 9% (24-48) Monocytes (%) (Auto) 6% (0-9) Eosinophils (%) (Auto) 1% (0-3) Basophils (%) (Auto) 0% (0-3) Neutrophils # (Auto) 7.3x10^3uL (1.8-7.7) Lymphocytes # (Auto) 0.8x10^3/uL (1.0-4.8) Monocytes # (Auto) 0.6x10^3/uL (0.0-1.1) Eosinophils # (Auto) 0.1x10^3/uL (0.0-0.7) Basophils # (Auto) 0.0x10^3/uL (0.0-0.2) Sodium Level 142mmol/L (136-145) Potassium Level 3.9mmol/L (3.5-5.1) Chloride Level 101mmol/L (98-107) Carbon Dioxide Level 39mmol/L (21-32) Anion Gap 2 (6-14) Blood Urea Nitrogen 32mg/dL (7-20) Creatinine 1.0mg/dL (0.6-1.0) Estimated GFR (Cockcroft-Gault) 63.3 Glucose Level 235mg/dL (70-99) Calcium Level 9.4mg/dL (8.5-10.1) Laboratory Tests Test 05/23/16 16:08 05/23/16 20:25 05/24/16 05:51 05/24/16 07:48 Glucose (Fingerstick) 329mg/dL (70-99) 262mg/dL (70-99) 200mg/dL (70-99) White Blood Count 8.8x10^3/uL (4.0-11.0) Red Blood Count 3.36x10^6/uL (3.50-5.40) Hemoglobin 9.7g/dL (12.0-15.5) Hematocrit 30.6% (36.0-47.0) Mean Corpuscular Volume 91fL (79-100) Mean Corpuscular Hemoglobin 29pg (25-35) Mean Corpuscular Hemoglobin Concent 32g/dL (31-37) Red Cell Distribution Width 20.2% (11.5-14.5) Platelet Count 299x10^3/uL (140-400) Neutrophils (%) (Auto) 83% (31-73) Lymphocytes (%) (Auto) 9% (24-48) Monocytes (%) (Auto) 6% (0-9) Eosinophils (%) (Auto) 1% (0-3) Basophils (%) (Auto) 0% (0-3) Neutrophils # (Auto) 7.3x10^3uL (1.8-7.7) Lymphocytes # (Auto) 0.8x10^3/uL (1.0-4.8) Monocytes # (Auto) 0.6x10^3/uL (0.0-1.1) Eosinophils # (Auto) 0.1x10^3/uL (0.0-0.7) Basophils # (Auto) 0.0x10^3/uL (0.0-0.2) Sodium Level 142mmol/L (136-145) Potassium Level 3.9mmol/L (3.5-5.1) Chloride Level 101mmol/L (98-107) Carbon Dioxide Level 39mmol/L (21-32) Anion Gap 2 (6-14) Blood Urea Nitrogen 32mg/dL (7-20) Creatinine 1.0mg/dL (0.6-1.0) Estimated GFR (Cockcroft-Gault) 63.3 Glucose Level 235mg/dL (70-99) Calcium Level 9.4mg/dL (8.5-10.1) Test 05/24/16 10:53 Glucose (Fingerstick) 290mg/dL (70-99) Medications Current Medications Albuterol/ Ipratropium (Duoneb) 3 ml 1X ONCE NEB Last administered on 15:10; Start 05/20/16 at 15:30; Stop 05/20/16 at 15:31; Status DC Prednisone (Prednisone) 50 mg 1X ONCE PO Last administered on 05/20/16 15:54; Start 05/20/16 at 15:30; Stop 05/20/16 at 15:31; Status DC Furosemide (Lasix) 20 mg DAILY IVP Last administered on 05/20/16 15:54; Start 05/20/16 at 15:30; Stop 05/20/16 at 17:41; Status DC Ondansetron HCl (Zofran) 4 mg PRN Q8HRS PRN IV NAUSEA/VOMITING; Start 05/20/16 at 16:15; Stop 05/21/16 at 16:14; Status DC Morphine Sulfate 2 mg PRN Q2HR PRN IV PAIN; Start 05/20/16 at 16:15; Stop at 19:07; Status DC Vancomycin HCl (Vanco Per Pharmacy) 1 each PRN DAILY PRN MC SEE COMMENTS; Start 05/20/16 at 16:45; Stop 05/20/16 at 16:48; Status DC Piperacillin Sod/ Tazobactam Sod 1 each 1 each PRN DAILY PRN MC SEE COMMENTS; Start 05/20/16 at 16:45; Stop 05/20/16 at 16:48; Status DC Vancomycin HCl 2 gm/Sodium Chloride 500 ml @ 250 mls/hr 1X ONCE IV ; Start 05/20/16 at 16:45; Stop 05/20/16 at 17:40; Status DC Piperacillin Sod/ Tazobactam Sod/ Sodium Chloride (Zosyn/Iv Sodium Chloride 0.9 % 50ml) 50 ml @ 100 mls/hr 1X ONCE IV Last administered on 05/20/16 17:25; Start 05/20/16 at 16:45; Stop 05/20/16 at 17:14; Status DC Vancomycin HCl (Vanco Per Pharmacy) 1 each PRN DAILY PRN MC SEE COMMENTS Last administered on 05/20/16 17:04; Start 05/20/16 at 17:00; Stop 05/20/16 at 17:37; Status DC Piperacillin Sod/ Tazobactam Sod 1 each 1 each PRN DAILY PRN MC SEE COMMENTS; Start 05/20/16 at 17:00; Stop 05/20/16 at 17:40; Status DC Piperacillin Sod/ Tazobactam Sod 2.25 gm/Sodium Chloride 50 ml @ 100 mls/hr Q6HRS IV ; Start 05/21/16 at 00:00; Stop 05/21/16 at 00:00; Status DC Vancomycin HCl/ Sodium Chloride (Iv Sodium Chloride 0.9% 500ml Bag) 500 ml @ 250 mls/hr Q24H IV ; Start 05/21/16 at 18:00; Stop 05/21/16 at 18:00; Status DC Vancomycin HCl 1 each 1 each 1X ONCE MC ; Start 05/22/16 at 17:30; Stop 05/22/16 at 17:30; Status DC Furosemide/Sodium Chloride (Lasix Drip/Iv Sodium Chloride 0.9% 100ml) 100 ml @ 0 mls/hr CONT PRN IV SEE I/O RECORD Last administered on 05/24/16 09:37; Start 05/20/16 at 17:45 Amoxicillin/ Clavulanate Potassium (Augmentin 875/ 125mg) 1 tab BID PO Last administered on 05/21/16 20:30; Start 05/20/16 at 21:00; Stop 05/21/16 at 21:53; Status DC Acetaminophen/ Codeine Phosphate (Tylenol #3) 1 tab PRN Q6HRS PRN PO PAIN Last administered on 05/23/16 23:04; Start 05/20/16 at 19:00 Apixaban (Eliquis) 5 mg BID PO Last administered on 05/24/16 09:46; Start at 21:00 Alprazolam (Xanax) 0.5 mg Q8H PRN PO ANXIETY / AGITATION Last administered on 09:46; Start 05/20/16 at 19:00 Ascorbic Acid (Vitamin C) 500 mg DAILY PO Last administered on 05/24/16 09:48; Start 05/21/16 at 09:00 Albuterol/ Ipratropium (Duoneb) 3 ml RTQID NEB Last administered on 05/24/16 11 :20; Start 05/20/16 at 20:00 Albuterol Sulfate (Ventolin Neb Soln) 2.5 mg PRN Q4HRS PRN NEB SHORTNESS OF BREATH Last administered on 05/20/16 23:54; Start 05/20/16 at 19:00 Vitamin D (Vitamin D3) 5,000 unit DAILY PO Last administered on 05/24/16 09:00 ; Start 05/21/16 at 09:00 Diltiazem HCl (Diltiazem 24hr Cd) 300 mg DAILY PO Last administered on 09:45; Start 05/21/16 at 09:00 Duloxetine HCl (Cymbalta) 60 mg DAILY PO Last administered on 05/24/16 09:45; Start 05/21/16 at 09:00 EZETIMIBE (Zetia) 10 mg DAILY PO Last administered on 05/24/16 09:46; Start 05/21/16 at 09:00 Ferrous Sulfate 300 mg BIDWMEALS PO Last administered on 05/24/16 09:45; Start 05/21/16 at 08:00 Guaifenesin (MUCINEX ER with DM) 1 tab BID PO Last administered on 05/24/16 09: 46; Start 05/20/16 at 21:00 Insulin Aspart (Novolog) 10 units TIDAC SQ Last administered on 05/23/16 11:54 ; Start 05/21/16 at 07:30; Stop 05/23/16 at 13:17; Status DC Insulin Aspart (Novolog Vial) ENTRY FOR 1ML CHARGE FROM 1... 1X ONCE SQ ; Start 05/20/16 at 19:15; Stop 05/20/16 at 19:16; Status UNV Insulin Detemir (Levemir) 24 units DAILY08 SQ Last administered on 05/21/16 08: 55; Start 05/21/16 at 08:00; Stop 05/22/16 at 08:43; Status DC Metoprolol Succinate (Toprol Xl) 50 mg DAILY PO Last administered on 05/24/16 09:58; Start 05/21/16 at 09:00 Pantoprazole Sodium (Protonix) 40 mg DAILYAC PO Last administered on 05/24/16 09:47; Start 05/21/16 at 07:30 Polyethylene Glycol (miraLAX PACKET) 17 gm DAILY PO Last administered on 08:43; Start 05/21/16 at 09:00 Pregabalin (Lyrica) 50 mg BID PO Last administered on 05/24/16 09:47; Start 05/20/16 at 21:00 Atorvastatin Calcium (Lipitor) 20 mg QHS PO Last administered on 05/23/16 20:14 ; Start 05/20/16 at 21:00 Sucralfate (Carafate) 1 gm QIDACHS PO Last administered on 05/21/16 20:30; Start 05/20/16 at 21:00; Stop 05/21/16 at 21:48; Status DC Insulin Aspart (Novolog) 0-9 UNITS TIDWMEALS SQ Last administered on 05/23/16 17:54; Start 05/21/16 at 08:00 Dextrose 12.5 gm PRN Q15MIN PRN IV SEE COMMENTS; Start 05/20/16 at 19:30 Promethazine HCl/ Codeine (Phenergan With Codeine) 5 ml PRN Q6HRS PRN PO COUGH Last administered on 05/23/16 15:28; Start 05/20/16 at 20:15 Diltiazem HCl (Cardizem) 30 mg 1X ONCE PO Last administered on 05/20/16 20:57 ; Start 05/20/16 at 20:15; Stop 05/20/16 at 20:19; Status DC Diltiazem HCl (Cardizem) 10 mg 1X ONCE IVP ; Start 05/20/16 at 20:15; Stop at 21:31; Status DC Diltiazem HCl (Cardizem) 30 mg 1X ONCE PO Last administered on 05/21/16 01:54 ; Start 05/21/16 at 02:00; Stop 05/21/16 at 02:01; Status DC Insulin Aspart (Novolog) 15 units 1X ONCE SQ Last administered on 05/20/16 21: 45; Start 05/20/16 at 21:30; Stop 05/20/16 at 21:31; Status DC Sucralfate 1 gm 1 gm QIDACHS PO Last administered on 05/24/16 09:44; Start 05/22 at 07:30 Ceftriaxone Sodium/Sodium Chloride (Rocephin/Iv Sodium Chloride 0.9% 50ml) 50 ml @ 100 mls/hr Q24H IV Last administered on 05/23/16 21:04; Start 05/21/16 at 22:00 Azithromycin (Zithromax) 250 mg DAILY PO Last administered on 05/24/16 10:00; Start 05/22/16 at 09:00 Alprazolam (Xanax) 0.5 mg 1X ONCE PO Last administered on 05/21/16 22:18; Start 05/21/16 at 22:30; Stop 05/21/16 at 22:31; Status DC Promethazine HCl/ Codeine (Phenergan With Codeine) 5 ml 1X ONCE PO Last administered on 05/21/16 22:18; Start 05/21/16 at 22:30; Stop 05/21/16 at 22:31; Status DC Insulin Detemir (Levemir) 26 units DAILY08 SQ Last administered on 05/23/16 09: 04; Start 05/23/16 at 08:00; Stop 05/23/16 at 13:17; Status DC Info (Anti-Coagulation Monitoring By Pharmacy) 1 each PRN DAILY PRN MC SEE COMMENTS Last administered on 05/23/16 15:45; Start 05/22/16 at 13:45 Insulin Aspart (Novolog) 14 units TIDAC SQ Last administered on 05/24/16 09:54 ; Start 05/23/16 at 16:30; Stop 05/24/16 at 09:58; Status DC Insulin Detemir (Levemir) 30 units DAILY08 SQ Last administered on 05/24/16 09: 53; Start 05/24/16 at 08:00; Stop 05/24/16 at 09:58; Status DC Insulin Aspart (Novolog) 18 units TIDAC SQ ; Start 05/24/16 at 11:30 Insulin Detemir (Levemir) 32 units DAILY08 SQ ; Start 05/25/16 at 08:00 Benzonatate (Tessalon Perle) 100 mg [id number] PO ; Start 05/24/16 at 11:00 Active Scripts Active Reported Metoprolol Succinate 50 Mg Tab.er.24h 50 Mg PO Duoneb 0.5-3(2.5) Mg/3 Ml (Albuterol/Ipratropium) 3 Ml Ampul.neb 3 Ml NEB QID Guaifenesin 600 Mg Tablet.er 600 Mg PO PRN BID PRN Guaifenesin Dm Syrup (Guaifenesin/Dextromethorphan) 5 Ml Syrup Ml PO PRN Q6HRS PRN Budesonide 0.5 Mg/2 Ml Ampul.neb 1 Vial NEB BID Cepacol Sore Throat Lozenge (Benzocaine/Menthol) 1 Each Lozenge 1 Each MM PRN Q6HRS PRN Ascorbic Acid 250 Mg Tablet 250 Mg PO DAILY Augmentin 875-125 Tablet (Amoxicillin/Potassium Clav) 1 Each Tablet 1 Tab PO BID Furosemide 40 Mg Tablet 40 Mg PO BID Lyrica (Pregabalin) 50 Mg Capsule 50 Mg PO TID Pantoprazole Sodium 40 Mg Tablet.dr 1 Tab PO DAILY Levemir (Insulin Detemir) 100 Unit/1 Ml Vial 22 Unit SQ DAILY08 Eliquis (Apixaban) 5 Mg Tablet 5 Mg PO BID Diltiazem 24HR Cd (Diltiazem Hcl) 120 Mg Cap.er.24h 240 Mg PO DAILY Novolog Flexpen (Insulin Aspart) 100 Unit/1 Ml Insuln.pen 100 Unit SQ Zetia (Ezetimibe) 10 Mg Tablet 10 Mg PO DAILY Cymbalta (Duloxetine Hcl) 60 Mg Capsule.dr 60 Mg PO DAILY Flonase (Fluticasone Propionate) 16 Gm Donnelly.susp 16 Gm NS PRN DAILY Ferrous Sulfate 134 Mg Tablet 134 Mg PO DAILY Draper 3 1,000 Mg Softgel (Draper-3 Fatty Acids/Fish Oil) 1 Each Capsule 1 Each PO DAILY Miralax (Polyethylene Glycol 3350) 17 Gm Powd.pack 17 Gm PO HS Zocor (Simvastatin) 40 Mg Tablet 40 Mg PO HS Metamucil Packet (Psyllium Seed (With Sugar)) 1 Each Packet 1 Each PO DAILY Vitamin D3 (Cholecalciferol (Vitamin D3)) 3,000 Unit Tablet 3,000 Unit PO DAILY Potassium Chloride 10 Meq Tab.er.prt 10 Meq PO BID Acetaminophen-Cod #3 Tablet (Acetaminophen/Codeine Phosphate) 1 Each Tablet 2 Each PO Q6HRS PRN Vitals/I & O Vital Sign - Last 24 Hours 05/23/16 05/23/16 05/23/16 05/23/16 15:00 15:08 19:28 19:35 Temp 97.6 97.6 Pulse 89 Resp 18 B/P 105/51 Pulse Ox 100 99 99 O2 Delivery Nasal Cannula Nasal Cannula Nasal Cannula Nasal Cannula O2 Flow Rate 2.0 2.0 2.0 2.0 05/23/16 05/23/16 05/23/16 05/24/16 19:44 22:50 23:04 00:04 Temp 98.1 97.9 98.1 97.9 Pulse 84 82 Resp 16 22 20 18 B/P 110/54 144/72 Pulse Ox 97 95 O2 Delivery Nasal Cannula Nasal Cannula Nasal Cannula Nasal Cannula O2 Flow Rate 2.0 2.0 2.0 2.0 05/24/16 05/24/16 05/24/16 05/24/16 03:27 07:40 07:44 09:45 Temp 97.7 97.2 97.7 97.2 Pulse 79 78 88 Resp 16 19 B/P 118/54 147/79 147/79 Pulse Ox 98 100 98 O2 Delivery Nasal Cannula Nasal Cannula Nasal Cannula O2 Flow Rate 2.0 2.0 2.0 05/24/16 05/24/16 05/24/16 09:58 10:46 11:20 Temp 97.6 97.6 Pulse 84 85 Resp 22 B/P 103/55 Pulse Ox 98 100 O2 Delivery Nasal Cannula Nasal Cannula O2 Flow Rate 2.0 2.0 Intake and Output 05/23/16 05/23/16 05/24/16 15:00 23:00 07:00 Intake Total 550 ml 200 ml Output Total 1275 ml Balance -725 ml 200 ml ROBERT PECK MD May 24, 2016 12:19
[2016-05-24] MEDS: BENZONATATE 100 MG CAPSULE. PO SCH ×3 (12:29→21:19)
[2016-05-24] MEDS: CEFPODOXIME PROXETIL 200 MG TABLET PO SCH ×2 (14:02→21:20)
[2016-05-24 14:27] VITALS: BP 128/53
[2016-05-24 19:25] VITALS: BP 129/54
[2016-05-24] MEDS: ATORVASTATIN CALCIUM 20 MG TABLET PO SCH (21:20)
--- NOTE | 2016-05-24 21:37 | PDOC ---
Provider Note Provider Note She is so very much better today than she was on admission. She even admits to feeling better. Baseline heart rate is 90 bpm. Blood pressure 130/80. The lungs are clear today. Today she got up and sat in a chair with no drop in the oxygen saturation, or blood pressure. Lungs showed no wheezing. She thus is doing well with a Lasix drip. This cannot be maintained forever. She will undergo coronary arteriograms tomorrow to rule out silent ischemia. Since she is a diabetic it's quite possible that she has angina equivalent with shortness of breath and not chest pain. Once the coronary arteries are evaluated she'll undergo electrical cardioversion on the morning of 05/26. We will then make arrangements for her to be evaluated at [facility] for a TAVR. SOM SHORE MD May 24, 2016 21:37
[2016-05-24 22:55] VITALS: BP 121/46
[2016-05-25 03:30] VITALS: BP 114/67
[2016-05-25] MEDS: PANTOPRAZOLE 40 MG TABLET. PO SCH (07:30)
[2016-05-25] MEDS: INSULIN ASPART 300 UNITS/3 ML INSULN.PEN SQ SCH ×6 (07:30→17:46)
[2016-05-25] MEDS: IPRATRPIUM/ALBUTEROL 0.5/2.5MG 3 ML NEBU. NEB SCH ×4 (07:53→19:11)
[2016-05-25] MEDS ORDERED: INSULIN DETEMIR 300 UNITS/3 ML INSULN.PEN. SQ SCH (08:00)
[2016-05-25 09:20] VITALS: BP 119/69
[2016-05-25] MEDS: SUCRALFATE 1 GM/10 ML ORAL.SUSP. PO SCH ×4 (10:21→21:00)
[2016-05-25] MEDS: FERROUS SULFATE ORAL 300 MG/5 ML SOLUTION. PO SCH ×2 (10:22→17:39)
[2016-05-25] MEDS: DULOXETINE HCL 30 MG CAPSULE.DR. PO SCH (10:24)
[2016-05-25] MEDS: BENZONATATE 100 MG CAPSULE. PO SCH ×3 (10:25→21:48)
[2016-05-25] MEDS: DILTIAZEM HCL 300 MG CAP.ER.24H PO SCH (10:25)
[2016-05-25] MEDS: ASCORBIC ACID 500 MG TABLET PO SCH (10:26)
[2016-05-25] MEDS: GUAIFENESIN DM 600/30MG TAB.ER.12H. PO SCH ×2 (10:26→21:48)
[2016-05-25] MEDS: EZETIMIBE 10 MG TABLET PO SCH (10:26)
[2016-05-25] MEDS: CEFPODOXIME PROXETIL 200 MG TABLET PO SCH ×2 (10:26→21:48)
[2016-05-25] MEDS: AZITHROMYCIN 250 MG TABLET PO SCH (10:26)
[2016-05-25] MEDS: CHOLECALCIFEROL (VITAMIN D3) 5,000 UNIT CAPSULE PO SCH (10:26)
[2016-05-25] MEDS: METOPROLOL SUCC 24HR ER 50 MG TAB.ER.24H. PO SCH (10:27)
[2016-05-25] MEDS: POLYETHYLENE GLYCOL 3350 17 GM PACKET. PO SCH (10:28)
[2016-05-25] MEDS: PREGABALIN 50 MG CAPSULE PO SCH ×2 (10:28→21:48)
[2016-05-25] MEDS: INSULIN DETEMIR 300 UNITS/3 ML INSULN.PEN. SQ SCH (10:38)
--- NOTE | 2016-05-25 11:14 | PDOC ---
PULMONARY PROGRESS NOTES Subjective PT WITH NO SOA , mild cough Vitals Vital Signs Date Time Temp Pulse Resp B/P Pulse Ox O2 Delivery O2 Flow Rate FiO2 05/25/16 10:27 96 119/69 05/25/16 09:20 97.5 16 99 Nasal Cannula 2.0 97.5 ROS: No Nausea, No Chest Pain, No Abdominal Pain General: Alert, No acute distress Lungs: Wheezing (resolved) Cardiovascular: S1 Abdomen: Soft Neuro Exam: Alert Extremities: Other (trace edema) Skin: Warm Labs Laboratory Tests Test 05/23/16 11:27 05/23/16 11:44 05/23/16 16:08 05/23/16 20:25 Glucose (Fingerstick) 361mg/dL (70-99) 333mg/dL (70-99) 329mg/dL (70-99) 262mg/dL (70-99) Test 05/24/16 05:51 05/24/16 07:48 05/24/16 10:53 05/24/16 16:59 White Blood Count 8.8x10^3/uL (4.0-11.0) Red Blood Count 3.36x10^6/uL (3.50-5.40) Hemoglobin 9.7g/dL (12.0-15.5) Hematocrit 30.6% (36.0-47.0) Mean Corpuscular Volume 91fL (79-100) Mean Corpuscular Hemoglobin 29pg (25-35) Mean Corpuscular Hemoglobin Concent 32g/dL (31-37) Red Cell Distribution Width 20.2% (11.5-14.5) Platelet Count 299x10^3/uL (140-400) Neutrophils (%) (Auto) 83% (31-73) Lymphocytes (%) (Auto) 9% (24-48) Monocytes (%) (Auto) 6% (0-9) Eosinophils (%) (Auto) 1% (0-3) Basophils (%) (Auto) 0% (0-3) Neutrophils # (Auto) 7.3x10^3uL (1.8-7.7) Lymphocytes # (Auto) 0.8x10^3/uL (1.0-4.8) Monocytes # (Auto) 0.6x10^3/uL (0.0-1.1) Eosinophils # (Auto) 0.1x10^3/uL (0.0-0.7) Basophils # (Auto) 0.0x10^3/uL (0.0-0.2) Sodium Level 142mmol/L (136-145) Potassium Level 3.9mmol/L (3.5-5.1) Chloride Level 101mmol/L (98-107) Carbon Dioxide Level 39mmol/L (21-32) Anion Gap 2 (6-14) Blood Urea Nitrogen 32mg/dL (7-20) Creatinine 1.0mg/dL (0.6-1.0) Estimated GFR (Cockcroft-Gault) 63.3 Glucose Level 235mg/dL (70-99) Calcium Level 9.4mg/dL (8.5-10.1) Glucose (Fingerstick) 200mg/dL (70-99) 290mg/dL (70-99) 237mg/dL (70-99) Test 05/24/16 20:39 Glucose (Fingerstick) 149mg/dL (70-99) Laboratory Tests Test 05/24/16 16:59 05/24/16 20:39 Glucose (Fingerstick) 237mg/dL (70-99) 149mg/dL (70-99) Medications Active Scripts Medications Dose Route/Sig Days Date Category Metoprolol Succinate 50 Mg Tab.er.24h 50 Mg PO 05/18/16 Reported Duoneb 0.5-3(2.5) Mg/3 Ml (Albuterol/Ipratropium) 3 Ml Ampul.neb 3 Ml NEB QID 05/18/16 Reported Guaifenesin 600 Mg Tablet.er 600 Mg PO PRN BID PRN 05/18/16 Reported Guaifenesin Dm Syrup (Guaifenesin/Dextromethorphan) 5 Ml Syrup Ml PO PRN Q6HRS PRN 05/18/16 Reported Budesonide 0.5 Mg/2 Ml Ampul.neb 1 Vial NEB BID 05/18/16 Reported Cepacol Sore Throat Lozenge (Benzocaine/Menthol) 1 Each Lozenge 1 Each MM PRN Q6HRS PRN 05/18/16 Reported Ascorbic Acid 250 Mg Tablet 250 Mg PO DAILY 05/18/16 Reported Augmentin 875-125 Tablet (Amoxicillin/Potassium Clav) 1 Each Tablet 1 Tab PO BID 05/18/16 Reported Furosemide 40 Mg Tablet 40 Mg PO BID 05/18/16 Reported Lyrica (Pregabalin) 50 Mg Capsule 50 Mg PO TID 05/09/16 Reported Pantoprazole Sodium 40 Mg Tablet.dr 1 Tab PO DAILY 05/09/16 Reported Levemir (Insulin Detemir) 100 Unit/1 Ml Vial 22 Unit SQ DAILY08 05/09/16 Reported Eliquis (Apixaban) 5 Mg Tablet 5 Mg PO BID 04/26/16 Reported Diltiazem 24HR Cd (Diltiazem Hcl) 120 Mg Cap.er.24h 240 Mg PO DAILY 04/26/16 Reported Novolog Flexpen (Insulin Aspart) 100 Unit/1 Ml Insuln.pen 100 Unit SQ 03/19/14 Reported Zetia (Ezetimibe) 10 Mg Tablet 10 Mg PO DAILY 03/19/14 Reported Cymbalta (Duloxetine Hcl) 60 Mg Capsule.dr 60 Mg PO DAILY 03/19/14 Reported Flonase (Fluticasone Propionate) 16 Gm [place].susp 16 Gm NS PRN DAILY 04/07/13 Reported Ferrous Sulfate 134 Mg Tablet 134 Mg PO DAILY 04/07/13 Reported [place] 3 1,000 Mg Softgel ([place]-3 Fatty Acids/Fish Oil) 1 Each Capsule 1 Each PO DAILY 04/07/13 Reported Miralax (Polyethylene Glycol 3350) 17 Gm Powd.pack 17 Gm PO HS 04/07/13 Reported Zocor (Simvastatin) 40 Mg Tablet 40 Mg PO HS 04/07/13 Reported Metamucil Packet (Psyllium Seed (With Sugar)) 1 Each Packet 1 Each PO DAILY 04/07/13 Reported Vitamin D3 (Cholecalciferol (Vitamin D3)) 3,000 Unit Tablet 3,000 Unit PO DAILY 04/07/13 Reported Potassium Chloride 10 Meq Tab.er.prt 10 Meq PO BID 04/07/13 Reported Acetaminophen-Cod #3 Tablet (Acetaminophen/Codeine Phosphate) 1 Each Tablet 2 Each PO Q6HRS PRN 04/07/13 Reported Impression . acute resp failure sec to acute heart failure//Anemia/Atelectasis COUGH ? Cardiac etiology CARDIAC WHEEZE, Improved no sig tobacco use A-fib Plan . DIURESE , TOLERATED INCENTIVE SPIROMETRY CARDIOVERSION / CATH (CONSIDER RIGHT HEART WELL) PER CARDIOLOGY [facility] [employer] PROGNOSIS IS POOR ANTIBIOTIC d/w family DAPHNE OAKES MD May 25, 2016 11:14
[2016-05-25 11:33] VITALS: BP 145/72
--- NOTE | 2016-05-25 11:36 | PDOC ---
PROGRESS NOTES Chief Complaint Chief Complaint 1. acute on chronic hypoxic Respiratory failure 2/2 CHF exacerbation, COPD 2. COPD 3. DM2 with mild hyperglycemia 4. OA 5. H/O CAD 6. h/o gastritis 7. h/o CAD s/p CABG 8. PAFIB plan: 1. Levemir with SSI 2. Planning for cardioversion and cardiac cath. 3. supplemental oxygen 4. PRN nebulization 5. labs reviewed 6. family at bedside, all question answered. History of Present Illness History of Present Illness no fever no chills no chest pain doing better. Vitals Vitals Vital Signs Date Time Temp Pulse Resp B/P Pulse Ox O2 Delivery O2 Flow Rate FiO2 05/25/16 11:26 96 Nasal Cannula 2.0 05/25/16 10:27 96 119/69 05/25/16 09:20 97.5 16 97.5 Physical Exam General: Alert, Oriented X3, Cooperative Heart: Other (systolic murmur) Lungs: Clear Abdomen: Normal bowel sounds, Soft Extremities: No clubbing, No cyanosis, Other (bl leg 1+ edema) Skin: No rashes, No breakdown Labs LABS Laboratory Tests Test 05/24/16 16:59 05/24/16 20:39 Glucose (Fingerstick) 237mg/dL (70-99) 149mg/dL (70-99) Assessment and Plan Assessmemt and Plan Problems Medical Problems: (1) CHF (congestive heart failure) Status: Acute (2) Pneumonia Status: Acute (3) Type 2 diabetes mellitus Status: Acute Problems: Comment Review of Relevant I have reviewed the following items melquiades (where applicable) has been applied. Labs Laboratory Tests Test 05/23/16 11:44 05/23/16 16:08 05/23/16 20:25 05/24/16 05:51 Glucose (Fingerstick) 333mg/dL (70-99) 329mg/dL (70-99) 262mg/dL (70-99) White Blood Count 8.8x10^3/uL (4.0-11.0) Red Blood Count 3.36x10^6/uL (3.50-5.40) Hemoglobin 9.7g/dL (12.0-15.5) Hematocrit 30.6% (36.0-47.0) Mean Corpuscular Volume 91fL (79-100) Mean Corpuscular Hemoglobin 29pg (25-35) Mean Corpuscular Hemoglobin Concent 32g/dL (31-37) Red Cell Distribution Width 20.2% (11.5-14.5) Platelet Count 299x10^3/uL (140-400) Neutrophils (%) (Auto) 83% (31-73) Lymphocytes (%) (Auto) 9% (24-48) Monocytes (%) (Auto) 6% (0-9) Eosinophils (%) (Auto) 1% (0-3) Basophils (%) (Auto) 0% (0-3) Neutrophils # (Auto) 7.3x10^3uL (1.8-7.7) Lymphocytes # (Auto) 0.8x10^3/uL (1.0-4.8) Monocytes # (Auto) 0.6x10^3/uL (0.0-1.1) Eosinophils # (Auto) 0.1x10^3/uL (0.0-0.7) Basophils # (Auto) 0.0x10^3/uL (0.0-0.2) Sodium Level 142mmol/L (136-145) Potassium Level 3.9mmol/L (3.5-5.1) Chloride Level 101mmol/L (98-107) Carbon Dioxide Level 39mmol/L (21-32) Anion Gap 2 (6-14) Blood Urea Nitrogen 32mg/dL (7-20) Creatinine 1.0mg/dL (0.6-1.0) Estimated GFR (Cockcroft-Gault) 63.3 Glucose Level 235mg/dL (70-99) Calcium Level 9.4mg/dL (8.5-10.1) Test 05/24/16 07:48 05/24/16 10:53 05/24/16 16:59 05/24/16 20:39 Glucose (Fingerstick) 200mg/dL (70-99) 290mg/dL (70-99) 237mg/dL (70-99) 149mg/dL (70-99) Laboratory Tests Test 05/24/16 16:59 05/24/16 20:39 Glucose (Fingerstick) 237mg/dL (70-99) 149mg/dL (70-99) Microbiology 05/25/16 Gram Stain - Final, Complete Medications Current Medications Albuterol/ Ipratropium (Duoneb) 3 ml 1X ONCE NEB Last administered on 15:10; Start 05/20/16 at 15:30; Stop 05/20/16 at 15:31; Status DC Prednisone (Prednisone) 50 mg 1X ONCE PO Last administered on 05/20/16 15:54; Start 05/20/16 at 15:30; Stop 05/20/16 at 15:31; Status DC Furosemide (Lasix) 20 mg DAILY IVP Last administered on 05/20/16 15:54; Start 05/20/16 at 15:30; Stop 05/20/16 at 17:41; Status DC Ondansetron HCl (Zofran) 4 mg PRN Q8HRS PRN IV NAUSEA/VOMITING; Start 05/20/16 at 16:15; Stop 05/21/16 at 16:14; Status DC Morphine Sulfate 2 mg PRN Q2HR PRN IV PAIN; Start 05/20/16 at 16:15; Stop at 19:07; Status DC Vancomycin HCl (Vanco Per Pharmacy) 1 each PRN DAILY PRN MC SEE COMMENTS; Start 05/20/16 at 16:45; Stop 05/20/16 at 16:48; Status DC Piperacillin Sod/ Tazobactam Sod 1 each 1 each PRN DAILY PRN MC SEE COMMENTS; Start 05/20/16 at 16:45; Stop 05/20/16 at 16:48; Status DC Vancomycin HCl 2 gm/Sodium Chloride 500 ml @ 250 mls/hr 1X ONCE IV ; Start 05/20/16 at 16:45; Stop 05/20/16 at 17:40; Status DC Piperacillin Sod/ Tazobactam Sod/ Sodium Chloride (Zosyn/Iv Sodium Chloride 0.9 % 50ml) 50 ml @ 100 mls/hr 1X ONCE IV Last administered on 05/20/16 17:25; Start 05/20/16 at 16:45; Stop 05/20/16 at 17:14; Status DC Vancomycin HCl (Vanco Per Pharmacy) 1 each PRN DAILY PRN MC SEE COMMENTS Last administered on 05/20/16 17:04; Start 05/20/16 at 17:00; Stop 05/20/16 at 17:37; Status DC Piperacillin Sod/ Tazobactam Sod 1 each 1 each PRN DAILY PRN MC SEE COMMENTS; Start 05/20/16 at 17:00; Stop 05/20/16 at 17:40; Status DC Piperacillin Sod/ Tazobactam Sod 2.25 gm/Sodium Chloride 50 ml @ 100 mls/hr Q6HRS IV ; Start 05/21/16 at 00:00; Stop 05/21/16 at 00:00; Status DC Vancomycin HCl/ Sodium Chloride (Iv Sodium Chloride 0.9% 500ml Bag) 500 ml @ 250 mls/hr Q24H IV ; Start 05/21/16 at 18:00; Stop 05/21/16 at 18:00; Status DC Vancomycin HCl 1 each 1 each 1X ONCE MC ; Start 05/22/16 at 17:30; Stop 05/22/16 at 17:30; Status DC Furosemide/Sodium Chloride (Lasix Drip/Iv Sodium Chloride 0.9% 100ml) 100 ml @ 0 mls/hr CONT PRN IV SEE I/O RECORD Last administered on 05/24/16 09:37; Start 05/20/16 at 17:45; Stop 05/24/16 at 21:45; Status DC Amoxicillin/ Clavulanate Potassium (Augmentin 875/ 125mg) 1 tab BID PO Last administered on 05/21/16 20:30; Start 05/20/16 at 21:00; Stop 05/21/16 at 21:53; Status DC Acetaminophen/ Codeine Phosphate (Tylenol #3) 1 tab PRN Q6HRS PRN PO PAIN Last administered on 05/23/16 23:04; Start 05/20/16 at 19:00 Apixaban (Eliquis) 5 mg BID PO Last administered on 05/24/16 21:19; Start at 21:00; Stop 05/25/16 at 01:40; Status DC Alprazolam (Xanax) 0.5 mg Q8H PRN PO ANXIETY / AGITATION Last administered on 21:19; Start 05/20/16 at 19:00 Ascorbic Acid (Vitamin C) 500 mg DAILY PO Last administered on 05/25/16 10:26; Start 05/21/16 at 09:00 Albuterol/ Ipratropium (Duoneb) 3 ml RTQID NEB Last administered on 05/25/16 11 :26; Start 05/20/16 at 20:00 Albuterol Sulfate (Ventolin Neb Soln) 2.5 mg PRN Q4HRS PRN NEB SHORTNESS OF BREATH Last administered on 05/20/16 23:54; Start 05/20/16 at 19:00 Vitamin D (Vitamin D3) 5,000 unit DAILY PO Last administered on 05/25/16 10:26 ; Start 05/21/16 at 09:00 Diltiazem HCl (Diltiazem 24hr Cd) 300 mg DAILY PO Last administered on 10:25; Start 05/21/16 at 09:00 Duloxetine HCl (Cymbalta) 60 mg DAILY PO Last administered on 05/25/16 10:24; Start 05/21/16 at 09:00 EZETIMIBE (Zetia) 10 mg DAILY PO Last administered on 05/25/16 10:26; Start 05/21/16 at 09:00 Ferrous Sulfate 300 mg BIDWMEALS PO Last administered on 05/25/16 10:22; Start 05/21/16 at 08:00 Guaifenesin (MUCINEX ER with DM) 1 tab BID PO Last administered on 05/25/16 10: 26; Start 05/20/16 at 21:00 Insulin Aspart (Novolog) 10 units TIDAC SQ Last administered on 05/23/16 11:54 ; Start 05/21/16 at 07:30; Stop 05/23/16 at 13:17; Status DC Insulin Aspart (Novolog Vial) ENTRY FOR 1ML CHARGE FROM 1... 1X ONCE SQ ; Start 05/20/16 at 19:15; Stop 05/20/16 at 19:16; Status UNV Insulin Detemir (Levemir) 24 units DAILY08 SQ Last administered on 05/21/16 08: 55; Start 05/21/16 at 08:00; Stop 05/22/16 at 08:43; Status DC Metoprolol Succinate (Toprol Xl) 50 mg DAILY PO Last administered on 05/25/16 10:27; Start 05/21/16 at 09:00 Pantoprazole Sodium (Protonix) 40 mg DAILYAC PO Last administered on 05/24/16 09:47; Start 05/21/16 at 07:30 Polyethylene Glycol (miraLAX PACKET) 17 gm DAILY PO Last administered on 10:28; Start 05/21/16 at 09:00 Pregabalin (Lyrica) 50 mg BID PO Last administered on 05/25/16 10:28; Start 05/20/16 at 21:00 Atorvastatin Calcium (Lipitor) 20 mg QHS PO Last administered on 05/24/16 21:20 ; Start 05/20/16 at 21:00 Sucralfate (Carafate) 1 gm QIDACHS PO Last administered on 05/21/16 20:30; Start 05/20/16 at 21:00; Stop 05/21/16 at 21:48; Status DC Insulin Aspart (Novolog) 0-9 UNITS TIDWMEALS SQ Last administered on 05/24/16 17:05; Start 05/21/16 at 08:00 Dextrose 12.5 gm PRN Q15MIN PRN IV SEE COMMENTS; Start 05/20/16 at 19:30 Promethazine HCl/ Codeine (Phenergan With Codeine) 5 ml PRN Q6HRS PRN PO COUGH Last administered on 05/23/16 15:28; Start 05/20/16 at 20:15 Diltiazem HCl (Cardizem) 30 mg 1X ONCE PO Last administered on 05/20/16 20:57 ; Start 05/20/16 at 20:15; Stop 05/20/16 at 20:19; Status DC Diltiazem HCl (Cardizem) 10 mg 1X ONCE IVP ; Start 05/20/16 at 20:15; Stop at 21:31; Status DC Diltiazem HCl (Cardizem) 30 mg 1X ONCE PO Last administered on 05/21/16 01:54 ; Start 05/21/16 at 02:00; Stop 05/21/16 at 02:01; Status DC Insulin Aspart (Novolog) 15 units 1X ONCE SQ Last administered on 05/20/16 21: 45; Start 05/20/16 at 21:30; Stop 05/20/16 at 21:31; Status DC Sucralfate 1 gm 1 gm QIDACHS PO Last administered on 05/25/16 10:21; Start 05/22 at 07:30 Ceftriaxone Sodium/Sodium Chloride (Rocephin/Iv Sodium Chloride 0.9% 50ml) 50 ml @ 100 mls/hr Q24H IV Last administered on 05/23/16 21:04; Start 05/21/16 at 22:00; Stop 05/24/16 at 12:47; Status DC Azithromycin (Zithromax) 250 mg DAILY PO Last administered on 05/25/16 10:26; Start 05/22/16 at 09:00 Alprazolam (Xanax) 0.5 mg 1X ONCE PO Last administered on 05/21/16 22:18; Start 05/21/16 at 22:30; Stop 05/21/16 at 22:31; Status DC Promethazine HCl/ Codeine (Phenergan With Codeine) 5 ml 1X ONCE PO Last administered on 05/21/16 22:18; Start 05/21/16 at 22:30; Stop 05/21/16 at 22:31; Status DC Insulin Detemir (Levemir) 26 units DAILY08 SQ Last administered on 05/23/16 09: 04; Start 05/23/16 at 08:00; Stop 05/23/16 at 13:17; Status DC Info (Anti-Coagulation Monitoring By Pharmacy) 1 each PRN DAILY PRN MC SEE COMMENTS Last administered on 05/23/16 15:45; Start 05/22/16 at 13:45 Insulin Aspart (Novolog) 14 units TIDAC SQ Last administered on 05/24/16 09:54 ; Start 05/23/16 at 16:30; Stop 05/24/16 at 09:58; Status DC Insulin Detemir (Levemir) 30 units DAILY08 SQ Last administered on 05/24/16 09: 53; Start 05/24/16 at 08:00; Stop 05/24/16 at 09:58; Status DC Insulin Aspart (Novolog) 18 units TIDAC SQ Last administered on 05/24/16 17:05 ; Start 05/24/16 at 11:30 Insulin Detemir (Levemir) 32 units DAILY08 SQ ; Start 05/25/16 at 08:00; Stop 05/25/16 at 08:00; Status DC Benzonatate (Tessalon Perle) 100 mg [id number] PO Last administered on 05/25/16 10: 25; Start 05/24/16 at 11:00 Insulin Detemir (Levemir) 34 units DAILY08 SQ Last administered on 05/25/16 10: 38; Start 05/25/16 at 08:00 Cefpodoxime Proxetil (Vantin) 200 mg BID PO Last administered on 05/25/16 10:26 ; Start 05/24/16 at 13:00 Ondansetron HCl (Zofran) 4 mg PRN Q6HRS PRN IV Nausea; Start 05/26/16 at 07:00; Stop 05/27/16 at 06:59 Fentanyl Citrate (Fentanyl 2ml Vial) 25 mcg PRN Q5MIN PRN IV MILD PAIN; Start 05/26/16 at 07:00; Stop 05/27/16 at 06:59 Fentanyl Citrate (Fentanyl 2ml Vial) 50 mcg PRN Q5MIN PRN IV MODERATE PAIN; Start 05/26/16 at 07:00; Stop 05/27/16 at 06:59 Morphine Sulfate 1 mg 1 mg PRN Q10MIN PRN IV SEVERE PAIN; Start 05/26/16 at 07: 00; Stop 05/27/16 at 06:59 Lactated Ringer's (Iv Lactated Ringers) 1,000 ml @ 0 mls/hr Q0M IV ; Start 05/26 at 07:00; Stop 05/26/16 at 18:59 Lidocaine HCl 2 ml 1X PRN PRN ID IV START; Start 05/26/16 at 07:00; Stop at 06:59 Hydromorphone HCl (Dilaudid) 0.5 mg PRN Q10MIN PRN IV SEVERE PAIN, Second choice; Start 05/26/16 at 07:00; Stop 05/27/16 at 06:59 Prochlorperazine Edisylate (Compazine) 5 mg PACU PRN PRN IV NAUSEA; Start at 07:00; Stop 05/27/16 at 06:59 Active Scripts Active Reported Metoprolol Succinate 50 Mg Tab.er.24h 50 Mg PO Duoneb 0.5-3(2.5) Mg/3 Ml (Albuterol/Ipratropium) 3 Ml Ampul.neb 3 Ml NEB QID Guaifenesin 600 Mg Tablet.er 600 Mg PO PRN BID PRN Guaifenesin Dm Syrup (Guaifenesin/Dextromethorphan) 5 Ml Syrup Ml PO PRN Q6HRS PRN Budesonide 0.5 Mg/2 Ml Ampul.neb 1 Vial NEB BID Cepacol Sore Throat Lozenge (Benzocaine/Menthol) 1 Each Lozenge 1 Each MM PRN Q6HRS PRN Ascorbic Acid 250 Mg Tablet 250 Mg PO DAILY Augmentin 875-125 Tablet (Amoxicillin/Potassium Clav) 1 Each Tablet 1 Tab PO BID Furosemide 40 Mg Tablet 40 Mg PO BID Lyrica (Pregabalin) 50 Mg Capsule 50 Mg PO TID Pantoprazole Sodium 40 Mg Tablet.dr 1 Tab PO DAILY Levemir (Insulin Detemir) 100 Unit/1 Ml Vial 22 Unit SQ DAILY08 Eliquis (Apixaban) 5 Mg Tablet 5 Mg PO BID Diltiazem 24HR Cd (Diltiazem Hcl) 120 Mg Cap.er.24h 240 Mg PO DAILY Novolog Flexpen (Insulin Aspart) 100 Unit/1 Ml Insuln.pen 100 Unit SQ Zetia (Ezetimibe) 10 Mg Tablet 10 Mg PO DAILY Cymbalta (Duloxetine Hcl) 60 Mg Capsule.dr 60 Mg PO DAILY Flonase (Fluticasone Propionate) 16 Gm [place].susp 16 Gm NS PRN DAILY Ferrous Sulfate 134 Mg Tablet 134 Mg PO DAILY [place] 3 1,000 Mg Softgel ([place]-3 Fatty Acids/Fish Oil) 1 Each Capsule 1 Each PO DAILY Miralax (Polyethylene Glycol 3350) 17 Gm Powd.pack 17 Gm PO HS Zocor (Simvastatin) 40 Mg Tablet 40 Mg PO HS Metamucil Packet (Psyllium Seed (With Sugar)) 1 Each Packet 1 Each PO DAILY Vitamin D3 (Cholecalciferol (Vitamin D3)) 3,000 Unit Tablet 3,000 Unit PO DAILY Potassium Chloride 10 Meq Tab.er.prt 10 Meq PO BID Acetaminophen-Cod #3 Tablet (Acetaminophen/Codeine Phosphate) 1 Each Tablet 2 Each PO Q6HRS PRN Vitals/I & O Vital Sign - Last 24 Hours 05/24/16 05/24/16 05/24/16 05/24/16 14:27 15:39 19:18 19:25 Temp 98.1 97.4 98.1 97.4 Pulse 89 79 Resp 22 20 B/P 128/53 129/54 Pulse Ox 98 96 96 O2 Delivery Nasal Cannula Nasal Cannula Nasal Cannula Nasal Cannula O2 Flow Rate 2.0 2.0 2.0 2.0 05/24/16 05/24/16 05/25/16 05/25/16 20:00 22:55 03:30 07:45 Temp 98.0 98.1 98.0 98.1 Pulse 80 75 Resp 18 20 B/P 121/46 114/67 Pulse Ox 98 100 90 O2 Delivery Nasal Cannula Nasal Cannula Nasal Cannula Nasal Cannula O2 Flow Rate 2.0 2.0 2.0 2.0 05/25/16 05/25/16 05/25/16 05/25/16 09:20 09:20 10:25 10:27 Temp 97.5 97.5 Pulse 96 96 96 Resp 16 B/P 119/69 119/69 119/69 Pulse Ox 99 O2 Delivery Nasal Cannula Nasal Cannula O2 Flow Rate 2.0 2.0 05/25/16 11:26 Pulse Ox 96 O2 Delivery Nasal Cannula O2 Flow Rate 2.0 Intake and Output 05/24/16 05/24/16 05/25/16 15:00 23:00 07:00 Intake Total 608 ml 500 ml Output Total 1400 ml 550 ml Balance -1400 ml 58 ml 500 ml ROMEO AGARWAL MD May 25, 2016 11:36
[2016-05-25] MEDS ORDERED: LIDOCAINE 2% 20 ML VIAL. ONE (13:13)
[2016-05-25] MEDS ORDERED: IOHEXOL 300 MG/ML 100ML VIAL. ONE ×3 (13:13→14:49)
[2016-05-25] MEDS ORDERED: VERAPAMIL 5 MG/2 ML VIAL. ONE (13:40)
[2016-05-25] MEDS ORDERED: HEPARIN for IV BOLUS 10,000 UNIT/10 ML VIAL. ONE (13:40)
[2016-05-25] MEDS ORDERED: MIDAZOLAM HCL 2 MG/2 ML VIAL. ONE (13:40)
[2016-05-25] MEDS ORDERED: FENTANYL PF 100 MCG/2 ML VIAL. ONE (13:40)
[2016-05-25] MEDS ORDERED: NITROGLYCERIN 200 MCG/2 ML SYRINGE FOR CATH/VASC LAB. ONE (13:40)
--- NOTE | 2016-05-25 13:48 | PDOC ---
MODERATE SEDATION ASSESSMENT RISKS/ALTERNATIVES Risks/Alternatives Risks and alternatives of this type of sedation and procedure discussed with: RISK/ALTERNATIVES: Patient H & P ON CHART H & P H & P on chart and reviewed for co-morbid conditions and appropriate labs. H&P ON CHART: Yes STATUS PREG STATUS ASSESSED: N/A MEDS/ALLERGIES REVIEWED Meds/Allergies Reviewed Medications and Allergies including time and route of recently administered narcotics and sedatives. MEDS/ALLERGIES REVIEWED: Yes ASA RATING ASA RATING: II AIRWAY ASSESSMENT Airway Assessment Airway patency, oral function limitations, presence of caps, crowns, dentures, partials, and ability to extend neck assessed. AIRWAY ASSESSMENT: Yes MALLAMPATI SCORE MALLAMPATI SCORE: II PRE-SEDATION ASSESSMENT PRE-SEDATION ASSESSMENT: Yes JOSE PALENCIA MD May 25, 2016 13:48
[2016-05-25] MEDS ORDERED: LIDOCAINE 2% 20 ML VIAL. IJ ONE (14:10)
[2016-05-25] MEDS ORDERED: NITROGLYCERIN 200 MCG/2 ML SYRINGE FOR CATH/VASC LAB. IART ONE (14:15)
[2016-05-25] MEDS ORDERED: HEPARIN for IV BOLUS 10,000 UNIT/10 ML VIAL. IART ONE (14:15)
[2016-05-25] MEDS ORDERED: FENTANYL PF 100 MCG/2 ML VIAL. IV ONE (14:15)
[2016-05-25] MEDS ORDERED: VERAPAMIL 5 MG/2 ML VIAL. IART ONE (14:15)
[2016-05-25] MEDS ORDERED: MIDAZOLAM HCL 2 MG/2 ML VIAL. IV ONE (14:15)
[2016-05-25] MEDS ORDERED: IOHEXOL 300 MG/ML 100ML VIAL. IART ONE (14:45)
[2016-05-25] MEDS ORDERED: CONTRAST GIVEN MC PRN (14:45)
[2016-05-25 15:18] VITALS: BP 120/65
[2016-05-25] MEDS: IV 1/2 NORMAL SALINE 1,000 ML IV SCH (16:00)
--- NOTE | 2016-05-25 16:48 | CARD ---
APPROVED REPORT Procedure(s) performed: Left heart catheterization, selective coronary angiography and selective wilber ography of the bypass grafts HISTORY : Acute on chronic diastolic heart failure, atrial fibrillation. PROCEDURE NARRATIVE After explaining the risks, benefits and alternative options, informed consent was obtained from starr ent. Patient was brought to the cardiac Machine Designer and her left wrist was prepped and draped in the us ual fashion. Since her radial artery was very feeble, arterial access was obtained in the left are n ot artery and 6 [place] sheath was inserted. 6 [place] IM catheter was used to perform selective angio graphy of the left internal mammary artery graft to the left anterior descending artery. After initi al attempts at engaging the right coronary artery with a 6 [place] IM, 6 [place] multipurpose, 6 Iraqi JR4 catheters were unsuccessful, this was engaged with a 6 [place] JR C catheter and selective angiog ingris was performed. The left main coronary artery was engaged with 6 [place] AL-1 catheter after ini tial unsuccessful attempts at engaging this with 6 [place] multipurpose catheter and selective angiogr aphy was performed. The saphenous vein graft to the right coronary artery was known to be occluded f rom prior cardiac catheterization and has this was not engaged. Left ventricular end-diastolic press ure was measured. Left ventriculography was not performed due to high contrast load used during the procedure. Patient tolerated the procedure well. Hemostasis was achieved using TR band. There were no immediate complications. FINDINGS 1. Hemodynamics: Left ventricle end-diastolic pressure 19 mmHg. No pullback gradient across the ao rtic valve. 2. Coronary and bypass graft angiography: a. The left main coronary artery arose from the left sinus of Valsalva, gave us the left anterior de scending and left circumflex arteries and did not show any significant stenosis. b. The left anterior descending artery showed 100% occlusion in the midsegment. The diagonal branch which is a medium caliber vessel showed 90% stenosis in the proximal segment. c. The left circumflex artery showed 40% stenosis in the proximal segment of obtuse marginal branch. d. The right coronary artery arose from the right sinus of Valsalva and showed 90% stenosis in the m idsegment and 100% in-stent chronic occlusion involving the distal segment withdistal reconstitution from left to right collaterals. e. The left internal mammary artery graft to the left anterior descending artery was widely patent. f. The left subclavian artery showed 60% stenosis involving the proximal segment. g. The saphenous vein graft to the right coronary artery was known to be occluded from prior cardiac catheterizations. Conclusion Severe [place] vessel coronary artery disease s/p coronary artery bypass surgery as described above wi th patent left internal mammary artery graft to the left anterior descending artery, completely and c hronically occluded right coronary artery, 90% stenosis involving medium caliber diagonal branch that is not grafted and 60% stenosis involving the left subclavian artery. Recommendations Plan for staged PCI to the diagonal branch and possibly the left subclavian artery due to the high co ntrast load used during the procedure.
[2016-05-25 19:38] VITALS: BP 120/59
--- NOTE | 2016-05-25 21:05 | CARD ---
APPROVED REPORT EXAM: Two-dimensional and M-mode echocardiogram with Doppler and color Doppler. Other Information Quality : Good INDICATION Aortic Valve Disease Congestive Heart Failure 2D DIMENSIONS RVDd2.5 (2.9-3.5cm)Left Atrium(2D)5.0 (1.6-4.0cm) IVSd1.3 (0.7-1.1cm)Aortic Root(2D)2.6 (2.0-3.7cm) LVDd3.4 (3.9-5.9cm)LVOT Diameter2.0 (1.8-2.4cm) PWd1.3 (0.7-1.1cm)LVDs2.6 (2.5-4.0cm) FS (%) 20.2 %SV43.9 ml LVEF(%)60.0 (>50%) Aortic Valve AoV Peak Calvin.332.8cm/sAoV VTI78.4cm AO Peak GR.44.3mmHgLVOT Peak Calvin.199.3cm/s AO Mean GR.25mmHgAVA (VMAX)1.86cm2 LEIDY (VTI)1.70cm2 Mitral Valve MV E Qaqitbev329.3cm/sMV E Peak Gr.23mmHg MV DECEL [id number] A Gapvlhzy23.6cm/s MV E Mean Gr.8mmHgE/A Ratio2.1 Tricuspid Valve TR P. Tbklfutm847lp/sRAP [id number] TR Peak Gr.02ptXoXMDO04wwWs Pulmonary Vein S1 Iuhpllfz79.5cm/sD2 Pqvnzmmt61.3cm/s LEFT VENTRICLE The left ventricle is normal size. There is moderate concentric left ventricular hypertrophy. The lef t ventricular systolic function is normal and the ejection fraction is within normal range. The Eject ion Fraction is 60-65%. There is normal LV segmental wall motion. RIGHT VENTRICLE The right ventricle is normal size. The right ventricular systolic function is normal. ATRIA The left atrium is moderately dilated. The right atrium size is normal. The interatrial septum is int act with no evidence for an atrial septal defect or patent foramen ovale as noted on 2-D or Doppler i maging. AORTIC VALVE The aortic valve is calcified and displays decreased opening. Doppler and Color Flow revealed no sign ificant aortic regurgitation. MITRAL VALVE The mitral valve is calcified but opens well. Posterior mitral annular calcification is moderate. The re is no evidence of mitral valve prolapse. There is no mitral valve stenosis. Doppler and Color-flow revealed mild to moderate mitral regurgitation. TRICUSPID VALVE The tricuspid valve is normal in structure and function. Doppler and Color Flow revealed mild tricusp id regurgitation. There is moderate pulmonary hypertension. The PA pressure was estimated at 43 mmHg. There is no tricuspid valve stenosis. PULMONIC VALVE The pulmonary valve is normal in structure and function. Doppler and Color Flow revealed mild pulmoni c valvular regurgitation. There is no pulmonic valvular stenosis. GREAT VESSELS The aortic root is normal in size. The ascending aorta is normal in size. The IVC is normal in size a nd collapses >50% with inspiration. PERICARDIAL EFFUSION There is no evidence of significant pericardial effusion. Critical Notification Critical Value: No <Conclusion> The left ventricle is normal size. There is moderate concentric left ventricular hypertrophy. The left ventricular systolic function is normal and the ejection fraction is within normal range. The Ejection Fraction is 60-65%. There is a raised left atrial r filling pressure withe the E/E' raion of 42 There is no evidence of significant pericardial effusion. Doppler and Color-flow revealed mild to moderate mitral regurgitation. The left atrium is enlarged to 5 cms There is moderate aortic stenos iswith flow velocity acrross the aortic valve of 3.33m/sec znd a mean gradient of 25 mm. Hg. Doppler and Color Flow revealed no significant aortic regurgitation .The right ventricle is of a normal size with normal systolic function Doppler and Color Flow revealed mild tricuspid regurgitation. There is moderate pulmonary hypertension. The PA pressure was estimated at 43 mmHg There is mild pulmonic regirgitation.
--- NOTE | 2016-05-25 21:37 | PDOC ---
Provider Note Provider Note Discussed cardiac catheter report and echo report with patient and daughter. She is scheduled to have a electrical cardioversion tomorrow. Anticoagulation was essentially not held for the cardiac catheterization. Discussed with Dr. Connell Consider coronary intervention in about 2 weeks. SOM SHORE MD May 25, 2016 21:37
[2016-05-25] MEDS: APIXABAN 5 MG TABLET. PO SCH (21:46)
[2016-05-25] MEDS: ATORVASTATIN CALCIUM 20 MG TABLET PO SCH (21:47)
[2016-05-25] MEDS: ALPRAZOLAM 0.5 MG TABLET PO PRN (21:47)
[2016-05-25] MEDS: ACETAMINOPHEN/CODEINE 300/30MG TABLET PO PRN (21:48)
[2016-05-25] MEDS ORDERED: AMIODARONE 150 MG in IV DEXTROSE 5% 100 ML IV ONE (22:00)
[2016-05-25] MEDS ORDERED: AMIODARONE 900 MG in IV DEXTROSE 5% 500 ML IV PRN (22:00)
[2016-05-25 22:45] VITALS: BP 161/73
[2016-05-26] VITALS (15 sets, daily range): BP systolic 116–197; BP diastolic 66–103
[2016-05-26] MEDS: IV 1/2 NORMAL SALINE 1,000 ML IV SCH ×2 (05:20→11:14)
[2016-05-26] MEDS ORDERED: FENTANYL PF 100 MCG/2 ML VIAL. IV PRN ×2 (07:00)
[2016-05-26] MEDS ORDERED: HYDROMORPHONE 2 MG/ML VIAL. IV PRN (07:00)
[2016-05-26] MEDS ORDERED: ONDANSETRON PF 4 MG/2 ML VIAL. IV PRN (07:00)
[2016-05-26] MEDS ORDERED: MORPHINE SULFATE 2 MG/ML DISP.SYRIN. IV PRN (07:00)
[2016-05-26] MEDS ORDERED: PROCHLORPERAZINE 10 MG/2 ML VIAL. IV PRN (07:00)
[2016-05-26] MEDS ORDERED: LIDOCAINE 1% 1 ML SYRINGE. ID PRN (07:00)
[2016-05-26] MEDS ORDERED: IV RINGERS,LACTATED 1000ML 1,000 ML IV SCH (07:00)
[2016-05-26] MEDS: SUCRALFATE 1 GM/10 ML ORAL.SUSP. PO SCH ×4 (07:30→20:56)
[2016-05-26] MEDS: INSULIN ASPART 300 UNITS/3 ML INSULN.PEN SQ SCH ×6 (07:30→18:50)
[2016-05-26] MEDS: FERROUS SULFATE ORAL 300 MG/5 ML SOLUTION. PO SCH ×2 (08:00→17:06)
[2016-05-26] MEDS: IPRATRPIUM/ALBUTEROL 0.5/2.5MG 3 ML NEBU. NEB SCH ×4 (08:07→18:56)
[2016-05-26] MEDS: ANTI-COAG MONITOR BY PHARMACY. MC PRN (08:14)
[2016-05-26] MEDS: METOPROLOL SUCC 24HR ER 50 MG TAB.ER.24H. PO SCH ×2 (09:00→19:03)
[2016-05-26] MEDS: BENZONATATE 100 MG CAPSULE. PO SCH ×3 (09:00→20:56)
[2016-05-26] MEDS: DILTIAZEM HCL 300 MG CAP.ER.24H PO SCH ×2 (09:00→19:02)
--- NOTE | 2016-05-26 09:38 | EKG ---
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
[2016-05-26 11:01] LABS: CALCIUM 9.3 mg/dL (8.5-10.1); GFR 63.3; POTASSIUM 4.2 mmol/L (3.5-5.1)
[2016-05-26] MEDS ORDERED: PROPOFOL 20 ML IV ONE (11:26)
--- NOTE | 2016-05-26 11:49 | EKG ---
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
--- NOTE | 2016-05-26 12:56 | PDOC ---
PROGRESS NOTES Chief Complaint Chief Complaint 1. acute on chronic hypoxic Respiratory failure 2/2 CHF exacerbation, COPD 2. COPD 3. DM2 with mild hyperglycemia 4. OA 5. H/O CAD 6. h/o gastritis 7. h/o CAD s/p CABG 8. PAFIB plan: 1. Levemir with SSI 2. s/p cardioversion and cardiac cath, NSR 3. supplemental oxygen 4. PRN nebulization 5. labs reviewed 6. family at bedside, all question answered. History of Present Illness History of Present Illness no fever no chills no chest pain doing better. Vitals Vitals Vital Signs Date Time Temp Pulse Resp B/P Pulse Ox O2 Delivery O2 Flow Rate FiO2 05/26/16 12:33 98.2 75 22 190/66 95 Nasal Cannula 3 98.2 Physical Exam General: Alert, Oriented X3, Cooperative Heart: Normal S1, Normal S2, Other (systolic murmur) Lungs: Clear Abdomen: Normal bowel sounds, Soft Extremities: No clubbing, No cyanosis, Other (bl leg 1+ edema) Skin: No rashes, No breakdown Labs LABS Laboratory Tests Test 05/25/16 16:39 05/25/16 19:07 05/25/16 21:06 05/26/16 10:00 Glucose (Fingerstick) 237mg/dL (70-99) 385mg/dL (70-99) 385mg/dL (70-99) Sodium Level 140mmol/L (136-145) Potassium Level 4.2mmol/L (3.5-5.1) Chloride Level 101mmol/L (98-107) Carbon Dioxide Level 36mmol/L (21-32) Anion Gap 3 (6-14) Blood Urea Nitrogen 23mg/dL (7-20) Creatinine 1.0mg/dL (0.6-1.0) Estimated GFR (Cockcroft-Gault) 63.3 Glucose Level 266mg/dL (70-99) Calcium Level 9.3mg/dL (8.5-10.1) XN-Cop-F-Type Natriuretic Peptide 2505pg/mL (0-449) Assessment and Plan Assessmemt and Plan Problems Medical Problems: (1) CHF (congestive heart failure) Status: Acute (2) Pneumonia Status: Acute (3) Type 2 diabetes mellitus Status: Acute Problems: Comment Review of Relevant I have reviewed the following items melquiades (where applicable) has been applied. Labs Laboratory Tests Test 05/24/16 16:59 05/24/16 20:39 05/25/16 16:39 05/25/16 19:07 Glucose (Fingerstick) 237mg/dL (70-99) 149mg/dL (70-99) 237mg/dL (70-99) 385mg/dL (70-99) Test 05/25/16 21:06 05/26/16 10:00 Glucose (Fingerstick) 385mg/dL (70-99) Sodium Level 140mmol/L (136-145) Potassium Level 4.2mmol/L (3.5-5.1) Chloride Level 101mmol/L (98-107) Carbon Dioxide Level 36mmol/L (21-32) Anion Gap 3 (6-14) Blood Urea Nitrogen 23mg/dL (7-20) Creatinine 1.0mg/dL (0.6-1.0) Estimated GFR (Cockcroft-Gault) 63.3 Glucose Level 266mg/dL (70-99) Calcium Level 9.3mg/dL (8.5-10.1) UF-Wzv-T-Type Natriuretic Peptide 2505pg/mL (0-449) Laboratory Tests Test 05/25/16 16:39 05/25/16 19:07 05/25/16 21:06 05/26/16 10:00 Glucose (Fingerstick) 237mg/dL (70-99) 385mg/dL (70-99) 385mg/dL (70-99) Sodium Level 140mmol/L (136-145) Potassium Level 4.2mmol/L (3.5-5.1) Chloride Level 101mmol/L (98-107) Carbon Dioxide Level 36mmol/L (21-32) Anion Gap 3 (6-14) Blood Urea Nitrogen 23mg/dL (7-20) Creatinine 1.0mg/dL (0.6-1.0) Estimated GFR (Cockcroft-Gault) 63.3 Glucose Level 266mg/dL (70-99) Calcium Level 9.3mg/dL (8.5-10.1) MK-Jth-K-Type Natriuretic Peptide 2505pg/mL (0-449) Microbiology 05/25/16 Gram Stain - Final, Complete Medications Current Medications Albuterol/ Ipratropium (Duoneb) 3 ml 1X ONCE NEB Last administered on 15:10; Start 05/20/16 at 15:30; Stop 05/20/16 at 15:31; Status DC Prednisone (Prednisone) 50 mg 1X ONCE PO Last administered on 05/20/16 15:54; Start 05/20/16 at 15:30; Stop 05/20/16 at 15:31; Status DC Furosemide (Lasix) 20 mg DAILY IVP Last administered on 05/20/16 15:54; Start 05/20/16 at 15:30; Stop 05/20/16 at 17:41; Status DC Ondansetron HCl (Zofran) 4 mg PRN Q8HRS PRN IV NAUSEA/VOMITING; Start 05/20/16 at 16:15; Stop 05/21/16 at 16:14; Status DC Morphine Sulfate 2 mg PRN Q2HR PRN IV PAIN; Start 05/20/16 at 16:15; Stop at 19:07; Status DC Vancomycin HCl (Vanco Per Pharmacy) 1 each PRN DAILY PRN MC SEE COMMENTS; Start 05/20/16 at 16:45; Stop 05/20/16 at 16:48; Status DC Piperacillin Sod/ Tazobactam Sod 1 each 1 each PRN DAILY PRN MC SEE COMMENTS; Start 05/20/16 at 16:45; Stop 05/20/16 at 16:48; Status DC Vancomycin HCl 2 gm/Sodium Chloride 500 ml @ 250 mls/hr 1X ONCE IV ; Start 05/20/16 at 16:45; Stop 05/20/16 at 17:40; Status DC Piperacillin Sod/ Tazobactam Sod/ Sodium Chloride (Zosyn/Iv Sodium Chloride 0.9 % 50ml) 50 ml @ 100 mls/hr 1X ONCE IV Last administered on 05/20/16 17:25; Start 05/20/16 at 16:45; Stop 05/20/16 at 17:14; Status DC Vancomycin HCl (Vanco Per Pharmacy) 1 each PRN DAILY PRN MC SEE COMMENTS Last administered on 05/20/16 17:04; Start 05/20/16 at 17:00; Stop 05/20/16 at 17:37; Status DC Piperacillin Sod/ Tazobactam Sod 1 each 1 each PRN DAILY PRN MC SEE COMMENTS; Start 05/20/16 at 17:00; Stop 05/20/16 at 17:40; Status DC Piperacillin Sod/ Tazobactam Sod 2.25 gm/Sodium Chloride 50 ml @ 100 mls/hr Q6HRS IV ; Start 05/21/16 at 00:00; Stop 05/21/16 at 00:00; Status DC Vancomycin HCl/ Sodium Chloride (Iv Sodium Chloride 0.9% 500ml Bag) 500 ml @ 250 mls/hr Q24H IV ; Start 05/21/16 at 18:00; Stop 05/21/16 at 18:00; Status DC Vancomycin HCl 1 each 1 each 1X ONCE MC ; Start 05/22/16 at 17:30; Stop 05/22/16 at 17:30; Status DC Furosemide/Sodium Chloride (Lasix Drip/Iv Sodium Chloride 0.9% 100ml) 100 ml @ 0 mls/hr CONT PRN IV SEE I/O RECORD Last administered on 05/24/16 09:37; Start 05/20/16 at 17:45; Stop 05/24/16 at 21:45; Status DC Amoxicillin/ Clavulanate Potassium (Augmentin 875/ 125mg) 1 tab BID PO Last administered on 05/21/16 20:30; Start 05/20/16 at 21:00; Stop 05/21/16 at 21:53; Status DC Acetaminophen/ Codeine Phosphate (Tylenol #3) 1 tab PRN Q6HRS PRN PO PAIN Last administered on 05/25/16 21:48; Start 05/20/16 at 19:00 Apixaban (Eliquis) 5 mg BID PO Last administered on 05/24/16 21:19; Start at 21:00; Stop 05/25/16 at 01:40; Status DC Alprazolam (Xanax) 0.5 mg Q8H PRN PO ANXIETY / AGITATION Last administered on 21:47; Start 05/20/16 at 19:00 Ascorbic Acid (Vitamin C) 500 mg DAILY PO Last administered on 05/25/16 10:26; Start 05/21/16 at 09:00 Albuterol/ Ipratropium (Duoneb) 3 ml RTQID NEB Last administered on 05/26/16 08 :07; Start 05/20/16 at 20:00 Albuterol Sulfate (Ventolin Neb Soln) 2.5 mg PRN Q4HRS PRN NEB SHORTNESS OF BREATH Last administered on 05/20/16 23:54; Start 05/20/16 at 19:00 Vitamin D (Vitamin D3) 5,000 unit DAILY PO Last administered on 05/25/16 10:26 ; Start 05/21/16 at 09:00 Diltiazem HCl (Diltiazem 24hr Cd) 300 mg DAILY PO Last administered on 10:25; Start 05/21/16 at 09:00 Duloxetine HCl (Cymbalta) 60 mg DAILY PO Last administered on 05/25/16 10:24; Start 05/21/16 at 09:00 EZETIMIBE (Zetia) 10 mg DAILY PO Last administered on 05/25/16 10:26; Start 05/21/16 at 09:00 Ferrous Sulfate 300 mg BIDWMEALS PO Last administered on 05/25/16 17:39; Start 05/21/16 at 08:00 Guaifenesin (MUCINEX ER with DM) 1 tab BID PO Last administered on 05/25/16 21: 48; Start 05/20/16 at 21:00 Insulin Aspart (Novolog) 10 units TIDAC SQ Last administered on 05/23/16 11:54 ; Start 05/21/16 at 07:30; Stop 05/23/16 at 13:17; Status DC Insulin Aspart (Novolog Vial) ENTRY FOR 1ML CHARGE FROM 1... 1X ONCE SQ ; Start 05/20/16 at 19:15; Stop 05/20/16 at 19:16; Status UNV Insulin Detemir (Levemir) 24 units DAILY08 SQ Last administered on 05/21/16 08: 55; Start 05/21/16 at 08:00; Stop 05/22/16 at 08:43; Status DC Metoprolol Succinate (Toprol Xl) 50 mg DAILY PO Last administered on 05/25/16 10:27; Start 05/21/16 at 09:00 Pantoprazole Sodium (Protonix) 40 mg DAILYAC PO Last administered on 05/24/16 09:47; Start 05/21/16 at 07:30 Polyethylene Glycol (miraLAX PACKET) 17 gm DAILY PO Last administered on 10:28; Start 05/21/16 at 09:00 Pregabalin (Lyrica) 50 mg BID PO Last administered on 05/25/16 21:48; Start 05/20/16 at 21:00 Atorvastatin Calcium (Lipitor) 20 mg QHS PO Last administered on 05/25/16 21:47 ; Start 05/20/16 at 21:00 Sucralfate (Carafate) 1 gm QIDACHS PO Last administered on 05/21/16 20:30; Start 05/20/16 at 21:00; Stop 05/21/16 at 21:48; Status DC Insulin Aspart (Novolog) 0-9 UNITS TIDWMEALS SQ Last administered on 05/24/16 17:05; Start 05/21/16 at 08:00 Dextrose 12.5 gm PRN Q15MIN PRN IV SEE COMMENTS; Start 05/20/16 at 19:30 Promethazine HCl/ Codeine (Phenergan With Codeine) 5 ml PRN Q6HRS PRN PO COUGH Last administered on 05/23/16 15:28; Start 05/20/16 at 20:15 Diltiazem HCl (Cardizem) 30 mg 1X ONCE PO Last administered on 05/20/16 20:57 ; Start 05/20/16 at 20:15; Stop 05/20/16 at 20:19; Status DC Diltiazem HCl (Cardizem) 10 mg 1X ONCE IVP ; Start 05/20/16 at 20:15; Stop at 21:31; Status DC Diltiazem HCl (Cardizem) 30 mg 1X ONCE PO Last administered on 05/21/16 01:54 ; Start 05/21/16 at 02:00; Stop 05/21/16 at 02:01; Status DC Insulin Aspart (Novolog) 15 units 1X ONCE SQ Last administered on 05/20/16 21: 45; Start 05/20/16 at 21:30; Stop 05/20/16 at 21:31; Status DC Sucralfate 1 gm 1 gm QIDACHS PO Last administered on 05/25/16 21:00; Start 05/22 at 07:30 Ceftriaxone Sodium/Sodium Chloride (Rocephin/Iv Sodium Chloride 0.9% 50ml) 50 ml @ 100 mls/hr Q24H IV Last administered on 05/23/16 21:04; Start 05/21/16 at 22:00; Stop 05/24/16 at 12:47; Status DC Azithromycin (Zithromax) 250 mg DAILY PO Last administered on 05/25/16 10:26; Start 05/22/16 at 09:00 Alprazolam (Xanax) 0.5 mg 1X ONCE PO Last administered on 05/21/16 22:18; Start 05/21/16 at 22:30; Stop 05/21/16 at 22:31; Status DC Promethazine HCl/ Codeine (Phenergan With Codeine) 5 ml 1X ONCE PO Last administered on 05/21/16 22:18; Start 05/21/16 at 22:30; Stop 05/21/16 at 22:31; Status DC Insulin Detemir (Levemir) 26 units DAILY08 SQ Last administered on 05/23/16 09: 04; Start 05/23/16 at 08:00; Stop 05/23/16 at 13:17; Status DC Info (Anti-Coagulation Monitoring By Pharmacy) 1 each PRN DAILY PRN MC SEE COMMENTS Last administered on 05/26/16 08:14; Start 05/22/16 at 13:45 Insulin Aspart (Novolog) 14 units TIDAC SQ Last administered on 05/24/16 09:54 ; Start 05/23/16 at 16:30; Stop 05/24/16 at 09:58; Status DC Insulin Detemir (Levemir) 30 units DAILY08 SQ Last administered on 05/24/16 09: 53; Start 05/24/16 at 08:00; Stop 05/24/16 at 09:58; Status DC Insulin Aspart (Novolog) 18 units TIDAC SQ Last administered on 05/25/16 17:46 ; Start 05/24/16 at 11:30 Insulin Detemir (Levemir) 32 units DAILY08 SQ ; Start 05/25/16 at 08:00; Stop 05/25/16 at 08:00; Status DC Benzonatate (Tessalon Perle) 100 mg [id number] PO Last administered on 05/25/16 21: 48; Start 05/24/16 at 11:00 Insulin Detemir (Levemir) 34 units DAILY08 SQ Last administered on 05/25/16 10: 38; Start 05/25/16 at 08:00 Cefpodoxime Proxetil (Vantin) 200 mg BID PO Last administered on 05/25/16 21:48 ; Start 05/24/16 at 13:00 Ondansetron HCl (Zofran) 4 mg PRN Q6HRS PRN IV Nausea; Start 05/26/16 at 07:00; Stop 05/27/16 at 06:59 Fentanyl Citrate (Fentanyl 2ml Vial) 25 mcg PRN Q5MIN PRN IV MILD PAIN; Start 05/26/16 at 07:00; Stop 05/27/16 at 06:59 Fentanyl Citrate (Fentanyl 2ml Vial) 50 mcg PRN Q5MIN PRN IV MODERATE PAIN; Start 05/26/16 at 07:00; Stop 05/27/16 at 06:59 Morphine Sulfate 1 mg 1 mg PRN Q10MIN PRN IV SEVERE PAIN; Start 05/26/16 at 07: 00; Stop 05/27/16 at 06:59 Lactated Ringer's (Iv Lactated Ringers) 1,000 ml @ 0 mls/hr Q0M IV ; Start 05/26 at 07:00; Stop 05/26/16 at 18:59 Lidocaine HCl 2 ml 1X PRN PRN ID IV START; Start 05/26/16 at 07:00; Stop at 06:59 Hydromorphone HCl (Dilaudid) 0.5 mg PRN Q10MIN PRN IV SEVERE PAIN, Second choice; Start 05/26/16 at 07:00; Stop 05/27/16 at 06:59 Prochlorperazine Edisylate (Compazine) 5 mg PACU PRN PRN IV NAUSEA; Start at 07:00; Stop 05/27/16 at 06:59 Lidocaine HCl 20 ml 20 ml STK-MED ONCE .ROUTE ; Start 05/25/16 at 13:13; Stop 05/25/16 at 13:14; Status DC Heparin Sodium/ Sodium Chloride 500 ml @ As Directed STK-MED ONCE .ROUTE ; Start 05/25/16 at 13:13; Stop 05/25/16 at 13:14; Status DC Iohexol (Omnipaque 300 Mg/ml) 100 ml STK-MED ONCE .ROUTE ; Start 05/25/16 at 13: 13; Stop 05/25/16 at 13:14; Status DC Nitroglycerin (Nitroglycerin) 200 mcg STK-MED ONCE .ROUTE ; Start 05/25/16 at 13: 40; Stop 05/25/16 at 13:41; Status DC Verapamil HCl (Verapamil) 5 mg STK-MED ONCE .ROUTE ; Start 05/25/16 at 13:40; Stop 05/25/16 at 13:41; Status DC Midazolam HCl (Versed) 2 mg STK-MED ONCE .ROUTE ; Start 05/25/16 at 13:40; Stop 05/25/16 at 13:41; Status DC Fentanyl Citrate (Fentanyl 2ml Vial) 100 mcg STK-MED ONCE .ROUTE ; Start at 13:40; Stop 05/25/16 at 13:41; Status DC Heparin Sodium (Porcine) 10,000 unit STK-MED ONCE .ROUTE ; Start 05/25/16 at 13: 40; Stop 05/25/16 at 13:41; Status DC Nitroglycerin (Nitroglycerin) 200 mcg 1X ONCE IART Last administered on 15:16; Start 05/25/16 at 14:15; Stop 05/25/16 at 14:38; Status DC Verapamil HCl (Verapamil) 2.5 mg 1X ONCE IART Last administered on 05/25/16 15 :14; Start 05/25/16 at 14:15; Stop 05/25/16 at 14:38; Status DC Heparin Sodium (Porcine) 2,500 unit 1X ONCE IART Last administered on 15:17; Start 05/25/16 at 14:15; Stop 05/25/16 at 14:38; Status DC Heparin Sodium/ Sodium Chloride 1,000 unit 1X ONCE IART Last administered on 15:13; Start 05/25/16 at 14:15; Stop 05/25/16 at 14:38; Status DC Midazolam HCl (Versed) 2 mg 1X ONCE IV Last administered on 05/25/16 15:14; Start 05/25/16 at 14:15; Stop 05/25/16 at 14:38; Status DC Fentanyl Citrate (Fentanyl 2ml Vial) 100 mcg 1X ONCE IV Last administered on 15:16; Start 05/25/16 at 14:15; Stop 05/25/16 at 14:38; Status DC Lidocaine HCl 1 ml 1X ONCE IJ Last administered on 05/25/16 15:13; Start at 14:10; Stop 05/25/16 at 14:38; Status DC Iohexol (Omnipaque 300 Mg/ml) 100 ml STK-MED ONCE .ROUTE ; Start 05/25/16 at 14: 29; Stop 05/25/16 at 14:30; Status DC Iohexol (Omnipaque 300 Mg/ml) 100 ml 1X ONCE IART Last administered on 15:16; Start 05/25/16 at 14:45; Stop 05/25/16 at 14:47; Status DC Info (Do NOT chart on this entry -- for MONITORING) 1 each PRN DAILY PRN MC SEE COMMENTS; Start 05/25/16 at 14:45; Stop 05/27/16 at 14:44 Iohexol 100 ml 100 ml STK-MED ONCE .ROUTE ; Start 05/25/16 at 14:49; Stop at 14:50; Status DC Sodium Chloride (Iv Sodium Chloride 0.45%) 1,000 ml @ 75 mls/hr [id number] IV Last administered on 05/26/16 11:14; Start 05/25/16 at 15:28 Apixaban 5 mg 5 mg BID PO Last administered on 05/25/16 21:46; Start 05/25/16 at 21:30 Amiodarone HCl 150 mg/Dextrose 103 ml @ 618 mls/hr 1X ONCE IV Last administered on 05/25/16 22:27; Start 05/25/16 at 22:00; Stop 05/25/16 at 22:09; Status DC Amiodarone HCl 900 mg/Dextrose 518 ml @ 0 mls/hr CONT PRN IV SEE I/O RECORD; Start 2/7/17 at 22:00 Propofol (Diprivan) 20 ml @ As Directed STK-MED ONCE IV ; Start 05/26/16 at 11:26 ; Stop 05/26/16 at 11:27; Status DC Active Scripts Active Reported Metoprolol Succinate 50 Mg Tab.er.24h 50 Mg PO Duoneb 0.5-3(2.5) Mg/3 Ml (Albuterol/Ipratropium) 3 Ml Ampul.neb 3 Ml NEB QID Guaifenesin 600 Mg Tablet.er 600 Mg PO PRN BID PRN Guaifenesin Dm Syrup (Guaifenesin/Dextromethorphan) 5 Ml Syrup Ml PO PRN Q6HRS PRN Budesonide 0.5 Mg/2 Ml Ampul.neb 1 Vial NEB BID Cepacol Sore Throat Lozenge (Benzocaine/Menthol) 1 Each Lozenge 1 Each MM PRN Q6HRS PRN Ascorbic Acid 250 Mg Tablet 250 Mg PO DAILY Augmentin 875-125 Tablet (Amoxicillin/Potassium Clav) 1 Each Tablet 1 Tab PO BID Furosemide 40 Mg Tablet 40 Mg PO BID Lyrica (Pregabalin) 50 Mg Capsule 50 Mg PO TID Pantoprazole Sodium 40 Mg Tablet.dr 1 Tab PO DAILY Levemir (Insulin Detemir) 100 Unit/1 Ml Vial 22 Unit SQ DAILY08 Eliquis (Apixaban) 5 Mg Tablet 5 Mg PO BID Diltiazem 24HR Cd (Diltiazem Hcl) 120 Mg Cap.er.24h 240 Mg PO DAILY Novolog Flexpen (Insulin Aspart) 100 Unit/1 Ml Insuln.pen 100 Unit SQ Zetia (Ezetimibe) 10 Mg Tablet 10 Mg PO DAILY Cymbalta (Duloxetine Hcl) 60 Mg Capsule.dr 60 Mg PO DAILY Flonase (Fluticasone Propionate) 16 Gm Pelzer.susp 16 Gm NS PRN DAILY Ferrous Sulfate 134 Mg Tablet 134 Mg PO DAILY Schurz 3 1,000 Mg Softgel (Schurz-3 Fatty Acids/Fish Oil) 1 Each Capsule 1 Each PO DAILY Miralax (Polyethylene Glycol 3350) 17 Gm Powd.pack 17 Gm PO HS Zocor (Simvastatin) 40 Mg Tablet 40 Mg PO HS Metamucil Packet (Psyllium Seed (With Sugar)) 1 Each Packet 1 Each PO DAILY Vitamin D3 (Cholecalciferol (Vitamin D3)) 3,000 Unit Tablet 3,000 Unit PO DAILY Potassium Chloride 10 Meq Tab.er.prt 10 Meq PO BID Acetaminophen-Cod #3 Tablet (Acetaminophen/Codeine Phosphate) 1 Each Tablet 2 Each PO Q6HRS PRN Vitals/I & O Vital Sign - Last 24 Hours 05/25/16 05/25/16 05/25/16 05/25/16 15:14 15:16 15:18 15:50 Pulse 87 85 Resp 18 18 B/P 120/65 Pulse Ox 91 91 97 O2 Delivery Nasal Cannula Nasal Cannula Nasal Cannula O2 Flow Rate 2.0 2.0 3.0 05/25/16 05/25/16 05/25/16 05/25/16 16:02 19:13 19:38 20:00 Temp 97.5 97.5 Pulse 83 Resp 16 B/P 120/59 Pulse Ox 96 97 94 O2 Delivery Nasal Cannula Nasal Cannula Nasal Cannula Nasal Cannula O2 Flow Rate 3.0 3.0 2.0 2.0 05/25/16 05/25/16 05/26/16 05/26/16 22:27 22:45 02:45 08:00 Temp 97.5 97.6 97.1 97.5 97.6 97.1 Pulse 80 74 76 92 Resp B/P 151/76 161/73 158/66 148/72 Pulse Ox 96 97 100 O2 Delivery Nasal Cannula Nasal Cannula Nasal Cannula O2 Flow Rate 2.0 2.0 2.0 05/26/16 05/26/16 05/26/16 05/26/16 08:09 11:15 11:41 11:55 Temp 97.8 98.0 97.8 98.0 Pulse 100 72 Resp B/P 177/84 164/66 Pulse Ox 97 100 98 O2 Delivery Nasal Cannula Nasal Cannula Nasal Cannula Nasal Cannula O2 Flow Rate 3.0 3 5 3 05/26/16 05/26/16 05/26/16 05/26/16 11:56 12:06 12:21 12:33 Temp 98.2 98.2 Pulse 70 70 74 75 Resp B/P 154/73 168/66 178/69 190/66 Pulse Ox 100 97 94 95 O2 Delivery Nasal Cannula Nasal Cannula Nasal Cannula Nasal Cannula O2 Flow Rate 4 3 3 3 Intake and Output 05/25/16 05/25/16 05/26/16 15:00 23:00 07:00 Intake Total 960 ml 0 ml Output Total 600 ml Balance 360 ml 0 ml ROMEO AGARWAL MD May 26, 2016 12:56
[2016-05-26] MEDS: CHOLECALCIFEROL (VITAMIN D3) 5,000 UNIT CAPSULE PO SCH (13:36)
[2016-05-26] MEDS: PREGABALIN 50 MG CAPSULE PO SCH ×2 (13:37→20:56)
[2016-05-26] MEDS: EZETIMIBE 10 MG TABLET PO SCH (13:37)
[2016-05-26] MEDS: AZITHROMYCIN 250 MG TABLET PO SCH (13:37)
[2016-05-26] MEDS: PANTOPRAZOLE 40 MG TABLET. PO SCH (13:37)
[2016-05-26] MEDS: CEFPODOXIME PROXETIL 200 MG TABLET PO SCH ×2 (13:37→20:55)
[2016-05-26] MEDS: ASCORBIC ACID 500 MG TABLET PO SCH (13:38)
[2016-05-26] MEDS: GUAIFENESIN DM 600/30MG TAB.ER.12H. PO SCH ×2 (13:38→20:55)
[2016-05-26] MEDS: DULOXETINE HCL 30 MG CAPSULE.DR. PO SCH (13:38)
[2016-05-26] MEDS: APIXABAN 5 MG TABLET. PO SCH ×2 (13:38→20:56)
[2016-05-26] MEDS: POLYETHYLENE GLYCOL 3350 17 GM PACKET. PO SCH (13:39)
[2016-05-26] MEDS: INSULIN DETEMIR 300 UNITS/3 ML INSULN.PEN. SQ SCH (13:43)
[2016-05-26] MEDS: ALPRAZOLAM 0.5 MG TABLET PO PRN (15:16)
--- NOTE | 2016-05-26 16:05 | PDOC ---
PULMONARY PROGRESS NOTES Subjective PT WITH NO SOA , cough resolved s/p cardioversion Vitals Vital Signs Date Time Temp Pulse Resp B/P Pulse Ox O2 Delivery O2 Flow Rate FiO2 05/26/16 15:43 177/82 05/26/16 15:18 98 Nasal Cannula 3.0 05/26/16 15:00 97.4 89 24 97.4 ROS: No Nausea, No Chest Pain, No Abdominal Pain General: Alert, No acute distress Lungs: Clear Cardiovascular: S1 Abdomen: Soft Neuro Exam: Alert Extremities: Other (trace edema) Skin: Warm Labs Laboratory Tests Test 05/24/16 16:59 05/24/16 20:39 05/25/16 16:39 05/25/16 19:07 Glucose (Fingerstick) 237mg/dL (70-99) 149mg/dL (70-99) 237mg/dL (70-99) 385mg/dL (70-99) Test 05/25/16 21:06 05/26/16 10:00 Glucose (Fingerstick) 385mg/dL (70-99) Sodium Level 140mmol/L (136-145) Potassium Level 4.2mmol/L (3.5-5.1) Chloride Level 101mmol/L (98-107) Carbon Dioxide Level 36mmol/L (21-32) Anion Gap 3 (6-14) Blood Urea Nitrogen 23mg/dL (7-20) Creatinine 1.0mg/dL (0.6-1.0) Estimated GFR (Cockcroft-Gault) 63.3 Glucose Level 266mg/dL (70-99) Calcium Level 9.3mg/dL (8.5-10.1) KN-Ixy-J-Type Natriuretic Peptide 2505pg/mL (0-449) Laboratory Tests Test 05/25/16 16:39 05/25/16 19:07 05/25/16 21:06 05/26/16 10:00 Glucose (Fingerstick) 237mg/dL (70-99) 385mg/dL (70-99) 385mg/dL (70-99) Sodium Level 140mmol/L (136-145) Potassium Level 4.2mmol/L (3.5-5.1) Chloride Level 101mmol/L (98-107) Carbon Dioxide Level 36mmol/L (21-32) Anion Gap 3 (6-14) Blood Urea Nitrogen 23mg/dL (7-20) Creatinine 1.0mg/dL (0.6-1.0) Estimated GFR (Cockcroft-Gault) 63.3 Glucose Level 266mg/dL (70-99) Calcium Level 9.3mg/dL (8.5-10.1) OG-Ctr-A-Type Natriuretic Peptide 2505pg/mL (0-449) Medications Active Scripts Medications Dose Route/Sig Days Date Category Metoprolol Succinate 50 Mg Tab.er.24h 50 Mg PO 05/18/16 Reported Duoneb 0.5-3(2.5) Mg/3 Ml (Albuterol/Ipratropium) 3 Ml Ampul.neb 3 Ml NEB QID 05/18/16 Reported Guaifenesin 600 Mg Tablet.er 600 Mg PO PRN BID PRN 05/18/16 Reported Guaifenesin Dm Syrup (Guaifenesin/Dextromethorphan) 5 Ml Syrup Ml PO PRN Q6HRS PRN 05/18/16 Reported Budesonide 0.5 Mg/2 Ml Ampul.neb 1 Vial NEB BID 05/18/16 Reported Cepacol Sore Throat Lozenge (Benzocaine/Menthol) 1 Each Lozenge 1 Each MM PRN Q6HRS PRN 05/18/16 Reported Ascorbic Acid 250 Mg Tablet 250 Mg PO DAILY 05/18/16 Reported Augmentin 875-125 Tablet (Amoxicillin/Potassium Clav) 1 Each Tablet 1 Tab PO BID 05/18/16 Reported Furosemide 40 Mg Tablet 40 Mg PO BID 05/18/16 Reported Lyrica (Pregabalin) 50 Mg Capsule 50 Mg PO TID 05/09/16 Reported Pantoprazole Sodium 40 Mg Tablet.dr 1 Tab PO DAILY 05/09/16 Reported Levemir (Insulin Detemir) 100 Unit/1 Ml Vial 22 Unit SQ DAILY08 05/09/16 Reported Eliquis (Apixaban) 5 Mg Tablet 5 Mg PO BID 04/26/16 Reported Diltiazem 24HR Cd (Diltiazem Hcl) 120 Mg Cap.er.24h 240 Mg PO DAILY 04/26/16 Reported Novolog Flexpen (Insulin Aspart) 100 Unit/1 Ml Insuln.pen 100 Unit SQ 03/19/14 Reported Zetia (Ezetimibe) 10 Mg Tablet 10 Mg PO DAILY 03/19/14 Reported Cymbalta (Duloxetine Hcl) 60 Mg Capsule.dr 60 Mg PO DAILY 03/19/14 Reported Flonase (Fluticasone Propionate) 16 Gm [place].susp 16 Gm NS PRN DAILY 04/07/13 Reported Ferrous Sulfate 134 Mg Tablet 134 Mg PO DAILY 04/07/13 Reported Verdi 3 1,000 Mg Softgel (Verdi-3 Fatty Acids/Fish Oil) 1 Each Capsule 1 Each PO DAILY 04/07/13 Reported Miralax (Polyethylene Glycol 3350) 17 Gm Powd.pack 17 Gm PO HS 04/07/13 Reported Zocor (Simvastatin) 40 Mg Tablet 40 Mg PO HS 04/07/13 Reported Metamucil Packet (Psyllium Seed (With Sugar)) 1 Each Packet 1 Each PO DAILY 04/07/13 Reported Vitamin D3 (Cholecalciferol (Vitamin D3)) 3,000 Unit Tablet 3,000 Unit PO DAILY 04/07/13 Reported Potassium Chloride 10 Meq Tab.er.prt 10 Meq PO BID 04/07/13 Reported Acetaminophen-Cod #3 Tablet (Acetaminophen/Codeine Phosphate) 1 Each Tablet 2 Each PO Q6HRS PRN 04/07/13 Reported Impression . acute resp failure sec to acute heart failure//Anemia/Atelectasis Congestive cough, improved Cardiac wheeze, Improved no sig tobacco use A-fib, s/p cardioversion Plan . DIURESE , TOLERATED INCENTIVE SPIROMETRY CARDIOVERSION / CATH DONE ANTIBIOTIC PER ID PULMONARY STATUS IMPROVED d/w family DAPHNE OAKES MD May 26, 2016 16:05
--- NOTE | 2016-05-26 16:21 | PDOC ---
Provider Note Provider Note Electrical CARDIOVERSION WITH 125WATTSECS, cARDIOVERTED TO SINUS RHYTHM SOM SHORE MD May 26, 2016 16:21
[2016-05-26] MEDS ORDERED: FUROSEMIDE 40 MG/4 ML VIAL IVP ONE (17:30)
--- NOTE | 2016-05-26 20:51 | PDOC ---
Provider Note Provider Note 1. Successful electrical cardioversion from atrial fibrillation to sinus rhythm using 125 W seconds. 2. Despite using more than 200 mL of iodine on 05/25 the creatinine this morning is 1. Check again tomorrow as there may be a delay in the rise in creatinine. 3. In an attempt to protect the kidneys IV fluids were administered and diuretics were withheld for 2 days. 4. She developed flash pulmonary edema this evening with severe shortness of breath, wheezing, hypertension. Now she feels better after having received IV Lasix. 5. There is really no good reason [facility] for the flash pulmonary edema. 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 She is now in sinus rhythm. The hypertension is not significant. Her aortic stenosis can be characterized as moderate and not severe. The left ventricular systolic function is normal. 6. Consider renal artery stenosis. Obtain sonogram tomorrow. 7.Now that she is been cardioverted we would need to maintain anticoagulation for at least 4 weeks and the anticoagulation cannot be held for any invasive procedures. 8. Discussed with both daughters who were at the bedside. SOM SHORE MD May 26, 2016 20:51
[2016-05-26] MEDS: ACETAMINOPHEN/CODEINE 300/30MG TABLET PO PRN (20:56)
[2016-05-26] MEDS: ATORVASTATIN CALCIUM 20 MG TABLET PO SCH (20:56)
[2016-05-26] MEDS ORDERED: TEMAZEPAM 7.5 MG CAPSULE PO PRN (21:45)
[2016-05-26] MEDS ORDERED: INSULIN ASPART 300 UNITS/3 ML INSULN.PEN SQ ONE (21:45)
[2016-05-27 03:00] VITALS: BP 119/60
[2016-05-27] MEDS: IV 1/2 NORMAL SALINE 1,000 ML IV SCH (04:55)
[2016-05-27 06:16] LABS: CALCIUM 9.5 mg/dL (8.5-10.1); CREATININE 1.2 mg/dL (0.6-1.0); GFR 51.3; POTASSIUM 4.1 mmol/L (3.5-5.1)
[2016-05-27] MEDS: INSULIN ASPART 300 UNITS/3 ML INSULN.PEN SQ SCH ×4 (07:30→12:37)
[2016-05-27 07:59] VITALS: BP 149/70
[2016-05-27] MEDS: IPRATRPIUM/ALBUTEROL 0.5/2.5MG 3 ML NEBU. NEB SCH ×3 (08:05→15:08)
[2016-05-27] MEDS: ANTI-COAG MONITOR BY PHARMACY. MC PRN (08:28)
--- NOTE | 2016-05-27 09:17 | RAD ---
Indication flash pulmonary edema post cardioversion for atrial fibrillation. Diabetic. Shortness of air. Grayscale color Doppler and spectral imaging was performed. The examination was targeted to the renal vasculature. The visualized abdominal aorta appears unremarkable. The visualized inferior vena cava also appears normal. The right kidney measures 11.1 cm and the left 10.9. No hydronephrosis or mass is seen associated with either kidney. The measured velocities in the main renal arteries, bilaterally, are normal and the ratio values, relative to the aorta are also normal. The renal veins appeared patent. Incidental note was made of a right pleural effusion during the exam. IMPRESSION: Normal morphologic appearance of the kidneys. No evidence of hemodynamically significant stenosis associated with the main renal arteries bilaterally
[2016-05-27] MEDS: APIXABAN 5 MG TABLET. PO SCH (09:31)
[2016-05-27] MEDS: DULOXETINE HCL 30 MG CAPSULE.DR. PO SCH (09:32)
[2016-05-27] MEDS: AZITHROMYCIN 250 MG TABLET PO SCH (09:32)
[2016-05-27] MEDS: EZETIMIBE 10 MG TABLET PO SCH (09:32)
[2016-05-27] MEDS: CEFPODOXIME PROXETIL 200 MG TABLET PO SCH (09:32)
[2016-05-27] MEDS: FERROUS SULFATE ORAL 300 MG/5 ML SOLUTION. PO SCH (09:32)
[2016-05-27] MEDS: POLYETHYLENE GLYCOL 3350 17 GM PACKET. PO SCH (09:33)
[2016-05-27] MEDS: SUCRALFATE 1 GM/10 ML ORAL.SUSP. PO SCH ×2 (09:33→12:34)
[2016-05-27] MEDS: PANTOPRAZOLE 40 MG TABLET. PO SCH (09:39)
[2016-05-27] MEDS: PREGABALIN 50 MG CAPSULE PO SCH (09:39)
[2016-05-27] MEDS: INSULIN DETEMIR 300 UNITS/3 ML INSULN.PEN. SQ SCH (09:46)
[2016-05-27 10:56] VITALS: BP 161/71
[2016-05-27] MEDS: GUAIFENESIN DM 600/30MG TAB.ER.12H. PO SCH (12:01)
[2016-05-27] MEDS: METOPROLOL SUCC 24HR ER 50 MG TAB.ER.24H. PO SCH (12:03)
[2016-05-27] MEDS: CHOLECALCIFEROL (VITAMIN D3) 5,000 UNIT CAPSULE PO SCH (12:03)
[2016-05-27] MEDS: BENZONATATE 100 MG CAPSULE. PO SCH ×2 (12:03→14:09)
[2016-05-27] MEDS: ASCORBIC ACID 500 MG TABLET PO SCH (12:05)
[2016-05-27] MEDS: DILTIAZEM HCL 300 MG CAP.ER.24H PO SCH (12:05)
[2016-05-27 14:09] VITALS: BP 161/71
[2016-05-27] MEDS ORDERED: HYDRALAZINE 10 MG TABLET PO SCH (14:30)
[2016-05-27] MEDS ORDERED: ALBU2.5V5 NEB (15:56)
[2016-05-27] MEDS ORDERED: ASCO500T3 PO (15:57)
[2016-05-27] MEDS ORDERED: ALPR0.5T6 PO (15:57)
[2016-05-27] MEDS ORDERED: ATOR20TA58 PO (15:58)
[2016-05-27] MEDS ORDERED: BENZ100C2 PO (15:58)
[2016-05-27] MEDS ORDERED: BENZ150C3 PO (15:58)
[2016-05-27] MEDS ORDERED: AZIT250T PO (15:58)
[2016-05-27] MEDS ORDERED: CEFP200T PO (15:59)
[2016-05-27] MEDS ORDERED: CHOL5000 PO (15:59)
[2016-05-27] MEDS ORDERED: FUROSEMIDE 40 MG TABLET PO SCH (16:00)
[2016-05-27] MEDS ORDERED: FERR300L PO (16:00)
[2016-05-27] MEDS ORDERED: INSU100C4 SQ (16:01)
[2016-05-27] MEDS ORDERED: GUAI-42 PO (16:01)
[2016-05-27] MEDS ORDERED: INSU100V13 SQ (16:02)
[2016-05-27] MEDS ORDERED: METO50TA10 PO (16:02)
[2016-05-27] MEDS ORDERED: PREG50CA PO (16:04)
[2016-05-27] MEDS ORDERED: POLY17PO5 PO (16:04)
[2016-05-27] MEDS ORDERED: PROM5SYR2 PO (16:06)
[2016-05-27] MEDS ORDERED: TEMA7.5C2 PO (16:07)
[2016-05-27] MEDS ORDERED: SUCR1ORA2 PO (16:07)
--- NOTE | 2016-05-27 21:21 | PDOC ---
PROGRESS NOTES Chief Complaint Chief Complaint 1. acute on chronic hypoxic Respiratory failure 2/2 CHF exacerbation, COPD 2. COPD 3. DM2 with mild hyperglycemia 4. OA 5. H/O CAD 6. h/o gastritis 7. h/o CAD s/p CABG 8. PAFIB plan: 1. Levemir with SSI 2. s/p cardioversion and cardiac cath, NSR 3. supplemental oxygen 4. PRN nebulization 5. labs reviewed 6. family at bedside, all question answered. History of Present Illness History of Present Illness no fever no chills no chest pain doing better. Vitals Vitals Vital Signs Date Time Temp Pulse Resp B/P Pulse Ox O2 Delivery O2 Flow Rate FiO2 05/27/16 15:09 Nasal Cannula 3.0 05/27/16 14:09 76 161/71 05/27/16 11:26 93 05/27/16 10:56 97.9 21 97.9 Physical Exam General: Alert, Oriented X3, Cooperative Heart: Normal S1, Normal S2, Other (systolic murmur) Lungs: Clear Abdomen: Normal bowel sounds, Soft Extremities: No clubbing, No cyanosis, Other (bl leg 1+ edema) Skin: No rashes, No breakdown Labs LABS Laboratory Tests Test 05/27/16 05:05 05/27/16 08:13 Sodium Level 139mmol/L (136-145) Potassium Level 4.1mmol/L (3.5-5.1) Chloride Level 100mmol/L (98-107) Carbon Dioxide Level 35mmol/L (21-32) Anion Gap 4 (6-14) Blood Urea Nitrogen 28mg/dL (7-20) Creatinine 1.2mg/dL (0.6-1.0) Estimated GFR (Cockcroft-Gault) 51.3 Glucose Level 235mg/dL (70-99) Calcium Level 9.5mg/dL (8.5-10.1) Glucose (Fingerstick) 192mg/dL (70-99) Assessment and Plan Assessmemt and Plan Problems Medical Problems: (1) CHF (congestive heart failure) Status: Acute (2) Pneumonia Status: Acute (3) SOB (shortness of breath) Status: Acute (4) Type 2 diabetes mellitus Status: Acute Problems: Comment Review of Relevant I have reviewed the following items melquiades (where applicable) has been applied. Labs Laboratory Tests Test 05/26/16 08:04 05/26/16 10:00 05/26/16 13:30 05/26/16 17:02 Glucose (Fingerstick) 264mg/dL (70-99) 285mg/dL (70-99) 417mg/dL (70-99) Sodium Level 140mmol/L (136-145) Potassium Level 4.2mmol/L (3.5-5.1) Chloride Level 101mmol/L (98-107) Carbon Dioxide Level 36mmol/L (21-32) Anion Gap 3 (6-14) Blood Urea Nitrogen 23mg/dL (7-20) Creatinine 1.0mg/dL (0.6-1.0) Estimated GFR (Cockcroft-Gault) 63.3 Glucose Level 266mg/dL (70-99) Calcium Level 9.3mg/dL (8.5-10.1) DI-Tty-E-Type Natriuretic Peptide 2505pg/mL (0-449) Test 05/26/16 21:20 05/27/16 05:05 05/27/16 08:13 Glucose (Fingerstick) 374mg/dL (70-99) 192mg/dL (70-99) Sodium Level 139mmol/L (136-145) Potassium Level 4.1mmol/L (3.5-5.1) Chloride Level 100mmol/L (98-107) Carbon Dioxide Level 35mmol/L (21-32) Anion Gap 4 (6-14) Blood Urea Nitrogen 28mg/dL (7-20) Creatinine 1.2mg/dL (0.6-1.0) Estimated GFR (Cockcroft-Gault) 51.3 Glucose Level 235mg/dL (70-99) Calcium Level 9.5mg/dL (8.5-10.1) Laboratory Tests Test 05/27/16 05:05 05/27/16 08:13 Sodium Level 139mmol/L (136-145) Potassium Level 4.1mmol/L (3.5-5.1) Chloride Level 100mmol/L (98-107) Carbon Dioxide Level 35mmol/L (21-32) Anion Gap 4 (6-14) Blood Urea Nitrogen 28mg/dL (7-20) Creatinine 1.2mg/dL (0.6-1.0) Estimated GFR (Cockcroft-Gault) 51.3 Glucose Level 235mg/dL (70-99) Calcium Level 9.5mg/dL (8.5-10.1) Glucose (Fingerstick) 192mg/dL (70-99) Microbiology 05/25/16 Gram Stain - Final, Complete Medications Current Medications Albuterol/ Ipratropium (Duoneb) 3 ml 1X ONCE NEB Last administered on 15:10; Start 05/20/16 at 15:30; Stop 05/20/16 at 15:31; Status DC Prednisone (Prednisone) 50 mg 1X ONCE PO Last administered on 05/20/16 15:54; Start 05/20/16 at 15:30; Stop 05/20/16 at 15:31; Status DC Furosemide (Lasix) 20 mg DAILY IVP Last administered on 05/20/16 15:54; Start 05/20/16 at 15:30; Stop 05/20/16 at 17:41; Status DC Ondansetron HCl (Zofran) 4 mg PRN Q8HRS PRN IV NAUSEA/VOMITING; Start 05/20/16 at 16:15; Stop 05/21/16 at 16:14; Status DC Morphine Sulfate 2 mg PRN Q2HR PRN IV PAIN; Start 05/20/16 at 16:15; Stop at 19:07; Status DC Vancomycin HCl (Vanco Per Pharmacy) 1 each PRN DAILY PRN MC SEE COMMENTS; Start 05/20/16 at 16:45; Stop 05/20/16 at 16:48; Status DC Piperacillin Sod/ Tazobactam Sod 1 each 1 each PRN DAILY PRN MC SEE COMMENTS; Start 05/20/16 at 16:45; Stop 05/20/16 at 16:48; Status DC Vancomycin HCl 2 gm/Sodium Chloride 500 ml @ 250 mls/hr 1X ONCE IV ; Start 05/20/16 at 16:45; Stop 05/20/16 at 17:40; Status DC Piperacillin Sod/ Tazobactam Sod/ Sodium Chloride (Zosyn/Iv Sodium Chloride 0.9 % 50ml) 50 ml @ 100 mls/hr 1X ONCE IV Last administered on 05/20/16 17:25; Start 05/20/16 at 16:45; Stop 05/20/16 at 17:14; Status DC Vancomycin HCl (Vanco Per Pharmacy) 1 each PRN DAILY PRN MC SEE COMMENTS Last administered on 05/20/16 17:04; Start 05/20/16 at 17:00; Stop 05/20/16 at 17:37; Status DC Piperacillin Sod/ Tazobactam Sod 1 each 1 each PRN DAILY PRN MC SEE COMMENTS; Start 05/20/16 at 17:00; Stop 05/20/16 at 17:40; Status DC Piperacillin Sod/ Tazobactam Sod 2.25 gm/Sodium Chloride 50 ml @ 100 mls/hr Q6HRS IV ; Start 05/21/16 at 00:00; Stop 05/21/16 at 00:00; Status DC Vancomycin HCl/ Sodium Chloride (Iv Sodium Chloride 0.9% 500ml Bag) 500 ml @ 250 mls/hr Q24H IV ; Start 05/21/16 at 18:00; Stop 05/21/16 at 18:00; Status DC Vancomycin HCl 1 each 1 each 1X ONCE MC ; Start 05/22/16 at 17:30; Stop 05/22/16 at 17:30; Status DC Furosemide/Sodium Chloride (Lasix Drip/Iv Sodium Chloride 0.9% 100ml) 100 ml @ 0 mls/hr CONT PRN IV SEE I/O RECORD Last administered on 05/24/16 09:37; Start 05/20/16 at 17:45; Stop 05/24/16 at 21:45; Status DC Amoxicillin/ Clavulanate Potassium (Augmentin 875/ 125mg) 1 tab BID PO Last administered on 05/21/16 20:30; Start 05/20/16 at 21:00; Stop 05/21/16 at 21:53; Status DC Acetaminophen/ Codeine Phosphate (Tylenol #3) 1 tab PRN Q6HRS PRN PO PAIN Last administered on 05/26/16 20:56; Start 05/20/16 at 19:00; Stop 05/27/16 at 17:10; Status DC Apixaban (Eliquis) 5 mg BID PO Last administered on 05/24/16 21:19; Start at 21:00; Stop 05/25/16 at 01:40; Status DC Alprazolam (Xanax) 0.5 mg Q8H PRN PO ANXIETY / AGITATION Last administered on 15:16; Start 05/20/16 at 19:00; Stop 05/27/16 at 17:10; Status DC Ascorbic Acid (Vitamin C) 500 mg DAILY PO Last administered on 05/27/16 12:05; Start 05/21/16 at 09:00; Stop 05/27/16 at 17:10; Status DC Albuterol/ Ipratropium (Duoneb) 3 ml RTQID NEB Last administered on 05/27/16 15 :08; Start 05/20/16 at 20:00; Stop 05/27/16 at 17:10; Status DC Albuterol Sulfate (Ventolin Neb Soln) 2.5 mg PRN Q4HRS PRN NEB SHORTNESS OF BREATH Last administered on 05/20/16 23:54; Start 05/20/16 at 19:00; Stop at 17:10; Status DC Vitamin D (Vitamin D3) 5,000 unit DAILY PO Last administered on 05/27/16 12:03 ; Start 05/21/16 at 09:00; Stop 05/27/16 at 17:10; Status DC Diltiazem HCl (Diltiazem 24hr Cd) 300 mg DAILY PO Last administered on 12:05; Start 05/21/16 at 09:00; Stop 05/27/16 at 17:10; Status DC Duloxetine HCl (Cymbalta) 60 mg DAILY PO Last administered on 05/27/16 09:32; Start 05/21/16 at 09:00; Stop 05/27/16 at 17:10; Status DC EZETIMIBE (Zetia) 10 mg DAILY PO Last administered on 05/27/16 09:32; Start 05/21/16 at 09:00; Stop 05/27/16 at 17:10; Status DC Ferrous Sulfate 300 mg BIDWMEALS PO Last administered on 05/27/16 09:32; Start 05/21/16 at 08:00; Stop 05/27/16 at 17:10; Status DC Guaifenesin (MUCINEX ER with DM) 1 tab BID PO Last administered on 05/27/16 12: 01; Start 05/20/16 at 21:00; Stop 05/27/16 at 17:10; Status DC Insulin Aspart (Novolog) 10 units TIDAC SQ Last administered on 05/23/16 11:54 ; Start 05/21/16 at 07:30; Stop 05/23/16 at 13:17; Status DC Insulin Aspart (Novolog Vial) ENTRY FOR 1ML CHARGE FROM 1... 1X ONCE SQ ; Start 05/20/16 at 19:15; Stop 05/20/16 at 19:16; Status UNV Insulin Detemir (Levemir) 24 units DAILY08 SQ Last administered on 05/21/16 08: 55; Start 05/21/16 at 08:00; Stop 05/22/16 at 08:43; Status DC Metoprolol Succinate (Toprol Xl) 50 mg DAILY PO Last administered on 05/27/16 12:03; Start 05/21/16 at 09:00; Stop 05/27/16 at 17:10; Status DC Pantoprazole Sodium (Protonix) 40 mg DAILYAC PO Last administered on 05/27/16 09:39; Start 05/21/16 at 07:30; Stop 05/27/16 at 17:10; Status DC Polyethylene Glycol (miraLAX PACKET) 17 gm DAILY PO Last administered on 09:33; Start 05/21/16 at 09:00; Stop 05/27/16 at 17:10; Status DC Pregabalin (Lyrica) 50 mg BID PO Last administered on 05/27/16 09:39; Start 05/20/16 at 21:00; Stop 05/27/16 at 17:10; Status DC Atorvastatin Calcium (Lipitor) 20 mg QHS PO Last administered on 05/26/16 20:56 ; Start 05/20/16 at 21:00; Stop 05/27/16 at 17:10; Status DC Sucralfate (Carafate) 1 gm QIDACHS PO Last administered on 05/21/16 20:30; Start 05/20/16 at 21:00; Stop 05/21/16 at 21:48; Status DC Insulin Aspart (Novolog) 0-9 UNITS TIDWMEALS SQ Last administered on 05/27/16 12:37; Start 05/21/16 at 08:00; Stop 05/27/16 at 17:10; Status DC Dextrose 12.5 gm PRN Q15MIN PRN IV SEE COMMENTS; Start 05/20/16 at 19:30; Stop 05/27/16 at 17:10; Status DC Promethazine HCl/ Codeine (Phenergan With Codeine) 5 ml PRN Q6HRS PRN PO COUGH Last administered on 05/23/16 15:28; Start 05/20/16 at 20:15; Stop 05/27/16 at 17: 10; Status DC Diltiazem HCl (Cardizem) 30 mg 1X ONCE PO Last administered on 05/20/16 20:57 ; Start 05/20/16 at 20:15; Stop 05/20/16 at 20:19; Status DC Diltiazem HCl (Cardizem) 10 mg 1X ONCE IVP ; Start 05/20/16 at 20:15; Stop at 21:31; Status DC Diltiazem HCl (Cardizem) 30 mg 1X ONCE PO Last administered on 05/21/16 01:54 ; Start 05/21/16 at 02:00; Stop 05/21/16 at 02:01; Status DC Insulin Aspart (Novolog) 15 units 1X ONCE SQ Last administered on 05/20/16 21: 45; Start 05/20/16 at 21:30; Stop 05/20/16 at 21:31; Status DC Sucralfate 1 gm 1 gm QIDACHS PO Last administered on 05/27/16 12:34; Start 05/22 at 07:30; Stop 05/27/16 at 17:10; Status DC Ceftriaxone Sodium/Sodium Chloride (Rocephin/Iv Sodium Chloride 0.9% 50ml) 50 ml @ 100 mls/hr Q24H IV Last administered on 05/23/16 21:04; Start 05/21/16 at 22:00; Stop 05/24/16 at 12:47; Status DC Azithromycin (Zithromax) 250 mg DAILY PO Last administered on 05/27/16 09:32; Start 05/22/16 at 09:00; Stop 05/27/16 at 17:10; Status DC Alprazolam (Xanax) 0.5 mg 1X ONCE PO Last administered on 05/21/16 22:18; Start 05/21/16 at 22:30; Stop 05/21/16 at 22:31; Status DC Promethazine HCl/ Codeine (Phenergan With Codeine) 5 ml 1X ONCE PO Last administered on 05/21/16 22:18; Start 05/21/16 at 22:30; Stop 05/21/16 at 22:31; Status DC Insulin Detemir (Levemir) 26 units DAILY08 SQ Last administered on 05/23/16 09: 04; Start 05/23/16 at 08:00; Stop 05/23/16 at 13:17; Status DC Info (Anti-Coagulation Monitoring By Pharmacy) 1 each PRN DAILY PRN MC SEE COMMENTS Last administered on 05/27/16 08:28; Start 05/22/16 at 13:45; Stop at 17:10; Status DC Insulin Aspart (Novolog) 14 units TIDAC SQ Last administered on 05/24/16 09:54 ; Start 05/23/16 at 16:30; Stop 05/24/16 at 09:58; Status DC Insulin Detemir (Levemir) 30 units DAILY08 SQ Last administered on 05/24/16 09: 53; Start 05/24/16 at 08:00; Stop 05/24/16 at 09:58; Status DC Insulin Aspart (Novolog) 18 units TIDAC SQ Last administered on 05/27/16 12:36 ; Start 05/24/16 at 11:30; Stop 05/27/16 at 17:10; Status DC Insulin Detemir (Levemir) 32 units DAILY08 SQ ; Start 05/25/16 at 08:00; Stop 05/25/16 at 08:00; Status DC Benzonatate (Tessalon Perle) 100 mg [id number] PO Last administered on 05/27/16 14: 09; Start 05/24/16 at 11:00; Stop 05/27/16 at 17:10; Status DC Insulin Detemir (Levemir) 34 units DAILY08 SQ Last administered on 05/27/16 09: 46; Start 05/25/16 at 08:00; Stop 05/27/16 at 17:10; Status DC Cefpodoxime Proxetil (Vantin) 200 mg BID PO Last administered on 05/27/16 09:32 ; Start 05/24/16 at 13:00; Stop 05/27/16 at 17:10; Status DC Ondansetron HCl (Zofran) 4 mg PRN Q6HRS PRN IV Nausea; Start 05/26/16 at 07:00; Stop 05/27/16 at 06:59; Status DC Fentanyl Citrate (Fentanyl 2ml Vial) 25 mcg PRN Q5MIN PRN IV MILD PAIN; Start 05/26/16 at 07:00; Stop 05/27/16 at 06:59; Status DC Fentanyl Citrate (Fentanyl 2ml Vial) 50 mcg PRN Q5MIN PRN IV MODERATE PAIN; Start 05/26/16 at 07:00; Stop 05/27/16 at 06:59; Status DC Morphine Sulfate 1 mg 1 mg PRN Q10MIN PRN IV SEVERE PAIN Last administered on 16:49; Start 05/26/16 at 07:00; Stop 05/27/16 at 06:59; Status DC Lactated Ringer's (Iv Lactated Ringers) 1,000 ml @ 0 mls/hr Q0M IV ; Start 05/26 at 07:00; Stop 05/26/16 at 18:59; Status DC Lidocaine HCl 2 ml 1X PRN PRN ID IV START; Start 05/26/16 at 07:00; Stop at 06:59; Status DC Hydromorphone HCl (Dilaudid) 0.5 mg PRN Q10MIN PRN IV SEVERE PAIN, Second choice; Start 05/26/16 at 07:00; Stop 05/27/16 at 06:59; Status DC Prochlorperazine Edisylate (Compazine) 5 mg PACU PRN PRN IV NAUSEA; Start at 07:00; Stop 05/27/16 at 06:59; Status DC Lidocaine HCl 20 ml 20 ml STK-MED ONCE .ROUTE ; Start 05/25/16 at 13:13; Stop 05/25/16 at 13:14; Status DC Heparin Sodium/ Sodium Chloride 500 ml @ As Directed STK-MED ONCE .ROUTE ; Start 05/25/16 at 13:13; Stop 05/25/16 at 13:14; Status DC Iohexol (Omnipaque 300 Mg/ml) 100 ml STK-MED ONCE .ROUTE ; Start 05/25/16 at 13: 13; Stop 05/25/16 at 13:14; Status DC Nitroglycerin (Nitroglycerin) 200 mcg STK-MED ONCE .ROUTE ; Start 05/25/16 at 13: 40; Stop 05/25/16 at 13:41; Status DC Verapamil HCl (Verapamil) 5 mg STK-MED ONCE .ROUTE ; Start 05/25/16 at 13:40; Stop 05/25/16 at 13:41; Status DC Midazolam HCl (Versed) 2 mg STK-MED ONCE .ROUTE ; Start 05/25/16 at 13:40; Stop 05/25/16 at 13:41; Status DC Fentanyl Citrate (Fentanyl 2ml Vial) 100 mcg STK-MED ONCE .ROUTE ; Start at 13:40; Stop 05/25/16 at 13:41; Status DC Heparin Sodium (Porcine) 10,000 unit STK-MED ONCE .ROUTE ; Start 05/25/16 at 13: 40; Stop 05/25/16 at 13:41; Status DC Nitroglycerin (Nitroglycerin) 200 mcg 1X ONCE IART Last administered on 15:16; Start 05/25/16 at 14:15; Stop 05/25/16 at 14:38; Status DC Verapamil HCl (Verapamil) 2.5 mg 1X ONCE IART Last administered on 05/25/16 15 :14; Start 05/25/16 at 14:15; Stop 05/25/16 at 14:38; Status DC Heparin Sodium (Porcine) 2,500 unit 1X ONCE IART Last administered on 15:17; Start 05/25/16 at 14:15; Stop 05/25/16 at 14:38; Status DC Heparin Sodium/ Sodium Chloride 1,000 unit 1X ONCE IART Last administered on 15:13; Start 05/25/16 at 14:15; Stop 05/25/16 at 14:38; Status DC Midazolam HCl (Versed) 2 mg 1X ONCE IV Last administered on 05/25/16 15:14; Start 05/25/16 at 14:15; Stop 05/25/16 at 14:38; Status DC Fentanyl Citrate (Fentanyl 2ml Vial) 100 mcg 1X ONCE IV Last administered on 15:16; Start 05/25/16 at 14:15; Stop 05/25/16 at 14:38; Status DC Lidocaine HCl 1 ml 1X ONCE IJ Last administered on 05/25/16 15:13; Start at 14:10; Stop 05/25/16 at 14:38; Status DC Iohexol (Omnipaque 300 Mg/ml) 100 ml STK-MED ONCE .ROUTE ; Start 05/25/16 at 14: 29; Stop 05/25/16 at 14:30; Status DC Iohexol (Omnipaque 300 Mg/ml) 100 ml 1X ONCE IART Last administered on 15:16; Start 05/25/16 at 14:45; Stop 05/25/16 at 14:47; Status DC Info (Do NOT chart on this entry -- for MONITORING) 1 each PRN DAILY PRN MC SEE COMMENTS; Start 05/25/16 at 14:45; Stop 05/27/16 at 14:44; Status DC Iohexol 100 ml 100 ml STK-MED ONCE .ROUTE ; Start 05/25/16 at 14:49; Stop at 14:50; Status DC Sodium Chloride (Iv Sodium Chloride 0.45%) 1,000 ml @ 75 mls/hr [id number] IV Last administered on 05/26/16 11:14; Start 05/25/16 at 15:28; Stop 05/27/16 at 04: 58; Status DC Apixaban 5 mg 5 mg BID PO Last administered on 05/27/16 09:31; Start 05/25/16 at 21:30; Stop 05/27/16 at 17:10; Status DC Amiodarone HCl 150 mg/Dextrose 103 ml @ 618 mls/hr 1X ONCE IV Last administered on 05/25/16 22:27; Start 05/25/16 at 22:00; Stop 05/25/16 at 22:09; Status DC Amiodarone HCl 900 mg/Dextrose 518 ml @ 0 mls/hr CONT PRN IV SEE I/O RECORD Last administered on 05/27/16 02:00; Start 05/25/16 at 22:00; Stop 05/27/16 at 03: 19; Status DC Propofol (Diprivan) 20 ml @ As Directed STK-MED ONCE IV ; Start 05/26/16 at 11:26 ; Stop 05/26/16 at 11:27; Status DC Furosemide (Lasix) 40 mg 1X ONCE IVP Last administered on 05/26/16 16:57; Start 05/26/16 at 17:30; Stop 05/26/16 at 17:31; Status DC Insulin Aspart (Novolog) 10 units 1X ONCE SQ Last administered on 05/26/16 21: 46; Start 05/26/16 at 21:45; Stop 05/26/16 at 21:46; Status DC Temazepam (Restoril) 7.5 mg PRN QHS PRN PO INSOMNIA; Start 05/26/16 at 21:45; Stop 05/27/16 at 17:10; Status DC Hydralazine HCl (Apresoline) 10 mg TID PO Last administered on 05/27/16 14:09; Start 05/27/16 at 14:30; Stop 05/27/16 at 17:10; Status DC Furosemide (Lasix) 40 mg [id number] PO Last administered on 05/27/16 15:32; Start at 16:00; Stop 05/27/16 at 17:10; Status DC Active Scripts Active Reported Restoril (Temazepam) 7.5 Mg Capsule 7.5 Mg PO PRN QHS PRN Carafate (Sucralfate) 1 Gm/10 Ml Oral.susp 10 Ml PO QID Prometh-Codein 6.25-10 mg/5 ml (Promethazine HCl/Codeine) 5 Ml Syrup 5 Ml PO PRN Q6HRS PRN Lyrica (Pregabalin) 50 Mg Capsule 1 Cap PO BID Miralax (Polyethylene Glycol 3350) 17 Gm Powd.pack 1 Packet PO PRN DAILY PRN Metoprolol Succinate 50 Mg Tab.er.24h 50 Mg PO DAILY Levemir (Insulin Detemir) 100 Unit/1 Ml Vial 30 Unit SQ DAILY08 Novolog (Insulin Aspart) 100 Unit/1 Ml Cartridge 10 Unit SQ TIDAC Mucinex Dm Er 600-30 Mg Tablet (Guaifenesin/Dextromethorphan) 1 Each Tab.er.12h 1 Tab PO BID Ferrous Sulfate 300 Mg/5 Ml Liquid 300 Mg PO BID Vitamin D3 (Cholecalciferol (Vitamin D3)) 5,000 Unit Capsule 5,000 Unit PO DAILY Cefpodoxime Proxetil 200 Mg Tablet 1 Tab PO BID 5 Days Benzonatate 100 Mg Capsule 1 Cap PO TID Benzonatate 150 Mg Capsule 150 Mg PO Zithromax (Azithromycin) 250 Mg Tablet 250 Mg PO DAILY 3 Days Atorvastatin Calcium 20 Mg Tablet 1 Tab PO QHS Ascorbic Acid 500 Mg Tablet 500 Mg PO DAILY Alprazolam 0.5 Mg Tablet 1 Tab PO PRN Q8HRS PRN Albuterol Sulfate Neb Soln (Albuterol Sulfate) 2.5 Mg/3 Ml Vial.neb 1 Vial NEB PRN Q4HRS Duoneb 0.5-3(2.5) Mg/3 Ml (Albuterol/Ipratropium) 3 Ml Ampul.neb 3 Ml NEB QID Furosemide 40 Mg Tablet 40 Mg PO BID Pantoprazole Sodium 40 Mg Tablet. 1 Tab PO DAILY Eliquis (Apixaban) 5 Mg Tablet 5 Mg PO BID Novolog Flexpen (Insulin Aspart) 100 Unit/1 Ml Insuln.pen 100 Unit SQ Zetia (Ezetimibe) 10 Mg Tablet 10 Mg PO DAILY Cymbalta (Duloxetine Hcl) 60 Mg Capsule. 60 Mg PO DAILY Acetaminophen-Cod #3 Tablet (Acetaminophen/Codeine Phosphate) 1 Each Tablet 2 Each PO Q6HRS PRN Vitals/I & O Vital Sign - Last 24 Hours 05/26/16 05/26/16 05/27/16 05/27/16 21:56 23:00 03:00 07:59 Temp 97.5 98.6 97.6 97.5 98.6 97.6 Pulse 70 62 68 Resp 18 18 21 B/P 161/70 119/60 149/70 Pulse Ox 98 92 91 91 O2 Delivery Nasal Cannula Nasal Cannula Nasal Cannula Nasal Cannula O2 Flow Rate 2.0 2.0 2.0 2.0 05/27/16 05/27/16 05/27/16 05/27/16 08:00 08:00 10:56 11:26 Temp 97.9 97.9 Pulse 76 Resp 21 B/P 161/71 Pulse Ox 91 94 93 O2 Delivery Nasal Cannula Nasal Cannula Nasal Cannula Nasal Cannula O2 Flow Rate 2.0 3.0 2.0 3.0 05/27/16 05/27/16 05/27/16 05/27/16 12:03 12:05 14:09 15:09 Pulse 76 76 76 B/P 161/71 161/71 161/71 O2 Delivery Nasal Cannula O2 Flow Rate 3.0 Intake and Output 05/26/16 05/26/16 05/27/16 15:00 23:00 07:00 Intake Total 125 ml 220 ml 733 ml Output Total 800 ml Balance -675 ml 220 ml 733 ml ROMEO AGARWAL MD May 27, 2016 21:21
== END 2016-05-27 17:10 | DRG 286 ==
LOC: ER 14:54 → 2 NORTH 16:06 → ER 16:48
PROVIDERS: ADMIT Specialist; ATTEND Specialist
PROC: 30233N1 Transfusion of Nonautologous Red Blood Cells into Peripheral Vein, Percutaneous Approach (ICD-10-PCS; principal; 2016-05-22)
PROC: 4A023N7 Measurement of Cardiac Sampling and Pressure, Left Heart, Percutaneous Approach (ICD-10-PCS; 2016-05-25)
PROC: B2111ZZ Fluoroscopy of Multiple Coronary Arteries using Low Osmolar Contrast (ICD-10-PCS; 2016-05-25)
PROC: B2121ZZ Fluoroscopy of Single Coronary Artery Bypass Graft using Low Osmolar Contrast (ICD-10-PCS; 2016-05-25)
PROC: B2151ZZ Fluoroscopy of Left Heart using Low Osmolar Contrast (ICD-10-PCS; 2016-05-25)
PROC: 5A2204Z Restoration of Cardiac Rhythm, Single (ICD-10-PCS; 2016-05-26)
DX: I50.33 Acute on chronic diastolic (congestive) heart failure (principal); J96.21 Acute and chronic respiratory failure with hypoxia; J98.11 Atelectasis; I11.0 Hypertensive heart disease with heart failure; D64.9 Anemia, unspecified; E11.65 Type 2 diabetes mellitus with hyperglycemia; I25.10 Atherosclerotic heart disease of native coronary artery without angina pectoris; I25.82 Chronic total occlusion of coronary artery; I34.0 Nonrheumatic mitral (valve) insufficiency; I37.1 Nonrheumatic pulmonary valve insufficiency; I48.91 Unspecified atrial fibrillation; J45.909 Unspecified asthma, uncomplicated; Z79.4 Long term (current) use of insulin; Z90.49 Acquired absence of other specified parts of digestive tract; Z90.710 Acquired absence of both cervix and uterus; Z87.01 Personal history of pneumonia (recurrent); Z87.891 Personal history of nicotine dependence; Z95.1 Presence of aortocoronary bypass graft; Z95.5 Presence of coronary angioplasty implant and graft; J44.9 Chronic obstructive pulmonary disease, unspecified
CPT/HCPCS: 36415; 71010; 76770; 80048; 80076; 82947; 83690; 83735; 83880; 84484; 85007; 85027; 86850; 86900; 86901; 86920; 87205; 92960; 93005; 93306; 93459; 94250; 94640; 94760; 96374; C1769; C1892; J0282; J0696; J1815; J1940; J2250; J2270; J2543; J2704; J3010; J3490; J7512; J7620; P9016; Q0144; Q9967; 97110; 97116; 97530; 99285-25

== ENCOUNTER → 2016-07-01 | Outpatient (CLI) | payer MEDICARE ==
[2016-07-01] VITALS (7 sets, daily range): BP systolic 103–162; BP diastolic 50–81
[~2016-07-01] MED LIST changes: +ALBU2.5V5 NEB; +ASCO500T3 PO; +ATOR20TA58 PO; +AZIT250T PO; +BENZ100C2 PO; +BENZ150C3 PO; +CEFP200T PO; +CHOL5000 PO; +FERR300L PO; +FUROSEMIDE 40 MG/4 ML VIAL IVP ONE; +GUAI-42 PO; +INSU100C4 SQ; +PROM5SYR2 PO; +SUCR1ORA2 PO; +TEMA7.5C2 PO
[2016-07-01 09:14] LABS: HEMATOCRIT 24.3 % (36.0-47.0); HEMOGLOBIN 7.6 g/dL (12.0-15.5)
[2016-07-01 16:02] LABS: BASO # 0.1 x10^3/uL (0.0-0.2); BASO % 1 % (0-3); EOS % 5 % (0-3); HEMATOCRIT 33.2 % (36.0-47.0); HEMOGLOBIN 10.7 g/dL (12.0-15.5); LYMPH # 1.1 x10^3/uL (1.0-4.8); LYMPH % 17 % (24-48); MEAN CORPUSCULAR HEMOGLOBIN 28 pg (25-35); MEAN CORPUSCULAR HGB CONC 32 g/dL (31-37); MEAN CORPUSCULAR VOLUME 88 fL (79-100); MONO % 10 % (0-9); NEUT % 68 % (31-73); PLATELET COUNT 260 x10^3/uL (140-400); RED BLOOD COUNT 3.76 x10^6/uL (3.50-5.40); RED CELL DISTRIBUTION WIDTH 17.1 % (11.5-14.5); WHITE BLOOD COUNT 6.9 x10^3/uL (4.0-11.0)
[2016-07-01 16:18] LABS: CALCIUM 9.4 mg/dL (8.5-10.1); CREATININE 1.6 mg/dL (0.6-1.0); GFR 36.8; POTASSIUM 3.9 mmol/L (3.5-5.1)
== END | disposition home or self-care (01) ==
LOC: OPS 08:12
PROVIDERS: ATTEND Specialist
DX: J44.9 Chronic obstructive pulmonary disease, unspecified (principal); E11.9 Type 2 diabetes mellitus without complications; R73.9 Hyperglycemia, unspecified; I25.10 Atherosclerotic heart disease of native coronary artery without angina pectoris; Z79.899 Other long term (current) drug therapy
CPT/HCPCS: 36415; 80048; 85014; 85018; 85027; 86850; 86900; 86901; 86920; 96374; J1940; P9016; 36430

== ENCOUNTER 2016-07-18 19:50 | Emergency (ER) | payer MEDICARE ==
[~2016-07-18] VITALS: Ht 162.6 cm; Wt 96.2 kg
[~2016-07-18 19:50] MED LIST changes: -FUROSEMIDE 40 MG/4 ML VIAL IVP ONE
--- NOTE | 2016-07-18 20:17 | ED.ADGEN ---
Past Medical History Past Medical History: Arthritis, CHF, Diabetes-Type II, Pneumonia, Other Additional Past Medical Histor: CORONARY ARTERY DISEASE, VASCULAR TINNITIS, GASTRITIS Past Surgical History: Appendectomy, Cholecystectomy, Coronary Bypass Surgery, Hysterectomy, Tonsillectomy Alcohol Use: None Drug Use: None Adult General Chief Complaint Chief Complaint: SHORTNESS OF BREATH HPI HPI Patient is a 89 year old female presents emergency Department with worsening dyspnea since last night. Patient has a long a very complicated medical history. Clear cardiac history. She tells me that her peripheral edema is at its baseline. She is not had to increase her chronic oxygen usage. She denies any chest pain. Her only complaint is that she feels dyspneic and "worn out" since last night. She denies any fevers, chills, nausea, vomiting. Review of Systems Review of Systems Constitutional: Denies fever or chills. [] Eyes: Denies change in visual acuity. [] HENT: Denies nasal congestion or sore throat. [] Respiratory: Denies cough or shortness of breath. [] Cardiovascular: Denies chest pain or edema. [] GI: Denies abdominal pain, nausea, vomiting, bloody stools or diarrhea. [] : Denies dysuria. [] Musculoskeletal: Denies back pain or joint pain. [] Integument: Denies rash. [] Neurologic: Denies headache, focal weakness or sensory changes. [] Endocrine: Denies polyuria or polydipsia. [] Lymphatic: Denies swollen glands. [] Psychiatric: Denies depression or anxiety. [] Current Medications Current Medications Current Medications Medications (Trade) Dose Ordered Sig/Yesenia Start Time Stop Time Status Last Admin Dose Admin Trimethoprim/ Sulfamethoxazole (Bactrim Ds) 1 tab 1X ONCE 07/18/16 22:00 07/18/16 22:01 DC 07/18/16 21:50 1 TAB Allergies Allergies Allergies Coded Allergies Type Severity Reaction Last Updated Verified No Known Drug Allergies 07/01/16 No Physical Exam Physical Exam Constitutional: Well developed, well nourished, no acute distress, non-toxic appearance. [] HENT: Normocephalic, atraumatic, bilateral external ears normal, oropharynx moist, no oral exudates, nose normal. [] Eyes: PERRLA, EOMI, conjunctiva normal, no discharge. [] Neck: Normal range of motion, no tenderness, supple, no stridor. [] Cardiovascular:Heart rate regular rhythm, 2/6 murmur [] Lungs & Thorax: Bilateral breath sounds clear to auscultation [] Abdomen: Bowel sounds normal, soft, no tenderness, no masses, no pulsatile masses. [] Skin: Warm, dry, no erythema, no rash. [] Back: No tenderness, no CVA tenderness. [] Extremities: No tenderness, no cyanosis, no clubbing, ROM intact, 1+ bilateral lower extremity edema. [] Neurologic: Alert and oriented X 3, normal motor function, normal sensory function, no focal deficits noted. [] Psychologic: Affect normal, judgement normal, mood normal. [] Current Patient Data Vital Signs Vital Signs Date Time Temp Pulse Resp B/P Pulse Ox O2 Delivery O2 Flow Rate FiO2 07/18/16 20:00 97.9 51 26 94/50 95 Nasal Cannula 2 97.9 Lab Values Laboratory Tests Test 07/18/16 20:20 07/18/16 20:39 White Blood Count 8.0x10^3/uL (4.0-11.0) Red Blood Count 2.87x10^6/uL (3.50-5.40) L Hemoglobin 8.2g/dL (12.0-15.5) L Hematocrit 25.4% (36.0-47.0) L Mean Corpuscular Volume 88fL (79-100) Mean Corpuscular Hemoglobin 29pg (25-35) Mean Corpuscular Hemoglobin Concent 32g/dL (31-37) Red Cell Distribution Width 17.0% (11.5-14.5) H Platelet Count 225x10^3/uL (140-400) Neutrophils (%) (Auto) 68% (31-73) Lymphocytes (%) (Auto) 18% (24-48) L Monocytes (%) (Auto) 10% (0-9) H Eosinophils (%) (Auto) 3% (0-3) Basophils (%) (Auto) 1% (0-3) Neutrophils # (Auto) 5.4x10^3uL (1.8-7.7) Lymphocytes # (Auto) 1.5x10^3/uL (1.0-4.8) Monocytes # (Auto) 0.8x10^3/uL (0.0-1.1) Eosinophils # (Auto) 0.3x10^3/uL (0.0-0.7) Basophils # (Auto) 0.1x10^3/uL (0.0-0.2) Prothrombin Time 14.6SEC (11.7-14.0) H Prothrombin Time INR 1.2 (0.8-1.1) H PTT 32SEC (24-38) Sodium Level 140mmol/L (136-145) Potassium Level 3.9mmol/L (3.5-5.1) Chloride Level 101mmol/L (98-107) Carbon Dioxide Level 30mmol/L (21-32) Anion Gap 9 (6-14) Blood Urea Nitrogen 46mg/dL (7-20) H Creatinine 1.6mg/dL (0.6-1.0) H Estimated GFR (Cockcroft-Gault) 36.8 BUN/Creatinine Ratio 29 (6-20) H Glucose Level 244mg/dL (70-99) H Calcium Level 8.5mg/dL (8.5-10.1) Total Bilirubin 0.3mg/dL (0.2-1.0) Aspartate Amino Transferase (AST) 16U/L (15-37) Alanine Aminotransferase (ALT) 17U/L (14-59) Alkaline Phosphatase 62U/L (46-116) Troponin I Quantitative 0.019ng/mL (0.000-0.055) NA-Kyd-Y-Type Natriuretic Peptide 1537pg/mL (0-449) H Total Protein 6.9g/dL (6.4-8.2) Albumin 3.1g/dL (3.4-5.0) L Albumin/Globulin Ratio 0.8 (1.0-1.7) L Urine Collection Type Unknown Urine Color Yellow Urine Clarity Hazy Urine pH 5.0 Urine Specific [place] 1.020 Urine Protein Negativemg/dL (NEG-TRACE) Urine Glucose (UA) Negativemg/dL (NEG) Urine Ketones (Stick) Negativemg/dL (NEG) Urine Blood Large (NEG) Urine Nitrite Negative (NEG) Urine Bilirubin Negative (NEG) Urine Urobilinogen Dipstick 0.2mg/dL (0.2 mg/dL) Urine Leukocyte Esterase Large (NEG) Urine RBC 1-2/HPF (0-2) Urine WBC 11-20/HPF (0-4) Urine Squamous Epithelial Cells Many/LPF Urine Renal Epithelial Cells Occ/LPF Urine Bacteria Many/HPF (0-FEW) Urine Hyaline Casts Many/HPF Urine Mucus Mod/LPF Laboratory Tests 07/18/16 20:20 Laboratory Tests 07/18/16 20:20 EKG EKG EKG interpreted by me, irregular rhythm, atrial fibrillation, 85 beats for minute, leftward axis, no ST segment elevation[] Radiology/Procedures Radiology/Procedures Chest x-ray interpreted by me, multiple chronic changes but no acute definitive infiltrates or effusions. There is increased interstitial edema but less than previous. Cardiomegaly and postsurgical changes are present. [] Course & Med Decision Making Course & Med Decision Making Pertinent Labs and Imaging studies reviewed. (See chart for details) Patient is had another drop her hemoglobin which may explain why she is feeling "worn out" and also explain some of her increased dyspnea. She has an equivocal UTI. The rest of her lab work actually looks fairly reassuring at summer to her baseline. I explained these findings with the patient offer to place her in the hospital however she expresses a strong desire to go home and follow-up as an outpatient. I have given her dose of Bactrim here in emergency department sent her home with prescription for the same. We have adjust the dosage for her renal function. She will follow-up with her primary care physician tomorrow regarding her drop in hemoglobin. She will of course return emergency department sooner she develops new or worsening symptoms. [] Dragon Disclaimer Dragon Disclaimer This electronic medical record was generated, in whole or in part, using a voice recognition dictation system. ANTHONY WINTER MD Jul 18, 2016 20:16
[2016-07-18 20:30] LABS: BASO # 0.1 x10^3/uL (0.0-0.2); BASO % 1 % (0-3); EOS % 3 % (0-3); HEMATOCRIT 25.4 % (36.0-47.0); HEMOGLOBIN 8.2 g/dL (12.0-15.5); LYMPH # 1.5 x10^3/uL (1.0-4.8); LYMPH % 18 % (24-48); MEAN CORPUSCULAR HEMOGLOBIN 29 pg (25-35); MEAN CORPUSCULAR HGB CONC 32 g/dL (31-37); MEAN CORPUSCULAR VOLUME 88 fL (79-100); MONO % 10 % (0-9); NEUT % 68 % (31-73); PLATELET COUNT 225 x10^3/uL (140-400); RED BLOOD COUNT 2.87 x10^6/uL (3.50-5.40)
[2016-07-18 20:43] LABS: INR 1.2 (0.8-1.1); PROTHROMBIN TIME PATIENT 14.6 SEC (11.7-14.0)
[2016-07-18 20:45] LABS: BILIRUBIN,URINE NEGATIVE (NEG); GLUCOSE,URINE NEGATIVE (NEG); NITRITE,URINE NEGATIVE (NEG); PROTEIN,URINE NEGATIVE (NEG-TRACE); UROBILINOGEN,URINE 0.2 mg/dL (0.2 mg/dL)
[2016-07-18 20:55] LABS: BACTERIA,URINE MANY /HPF (0-FEW); SQUAMOUS EPITHELIAL CELL,UR MANY /LPF
[2016-07-18 21:13] LABS: CALCIUM 8.5 mg/dL (8.5-10.1); CREATININE 1.6 mg/dL (0.6-1.0); GFR 36.8; POTASSIUM 3.9 mmol/L (3.5-5.1)
[2016-07-18 21:18] LABS: ALBUMIN 3.1 g/dL (3.4-5.0); ALBUMIN/GLOBULIN RATIO 0.8 (1.0-1.7); TOTAL BILIRUBIN 0.3 mg/dL (0.2-1.0); TOTAL PROTEIN 6.9 g/dL (6.4-8.2)
[2016-07-18] MEDS ORDERED: SULF1TAB24 PO (21:29)
[2016-07-18 21:30] VITALS: BP 99/58
[2016-07-18] MEDS ORDERED: SULF1TAB23 PO (21:32)
[2016-07-18] MEDS ORDERED: SMZ/TMP 800/160MG TABLET. PO ONE (22:00)
--- NOTE | 2016-07-19 06:22 | EKG ---
[facility] [address] [place] [id number] Test Date: 2016-07-18 Test Time: 19:58:59 Pat Name: LANE LU Department: Room: Gender: F [employer] Supervisor: : [id number] Requested By: ANTHONY WINTER Order Number: [id number] Reading MD: Marky Betancur Measurements Intervals [place] Rate: 55 P: ME: QRS: -14 QRSD: 102 T: 139 QT: 482 QTc: 463 Interpretive Statements SR 1ST DEGREE AVB POSSIBLE PRIOR INFERIOR INFARCT NON-SPECIFIC ST/T CHANGES Electronically Signed On 07-20-2016 10:03:16 CDT by Marky Betancur
--- NOTE | 2016-07-19 08:42 | RAD ---
Portable chest, 07/18/2016: History: Dyspnea Comparison is made to a study from 05/20/2016. There has been a previous median sternotomy. The heart appears to be within normal limits in size. The pulmonary vascularity is at the upper limits of normal. There are mild streaky basilar opacities compatible with scarring and/or atelectasis. No definite pleural fluid is seen. IMPRESSION: 1. Borderline vascular congestion. 2. Mild streaky bibasilar atelectasis and/or scarring.
--- NOTE | 2016-07-20 15:29 | VNOTE ---
CALL BACK NOTE CALL BACK Microbiology 07/18/16 Urine Culture - Final, Complete 07/18/16 Urine Culture Result 1 (MATT) - Final, Complete 07/18/16 Antimicrobic Susceptibility - Final, Complete Patient was treated for urinary tract infection was placed on Bactrim. According to the culture and sensitivity she has Escherichia coli growing with susceptibility noted with Bactrim. There is no need to change the antibiotics at this time as it is susceptible. JASMYNE RODRIGUEZ APRN Jul 20, 2016 15:29
== END 2016-07-18 22:02 | disposition home or self-care (01) ==
LOC: ER 19:50
DX: R06.00 Dyspnea, unspecified (principal); N39.0 Urinary tract infection, site not specified; M19.90 Unspecified osteoarthritis, unspecified site; I50.9 Heart failure, unspecified; E11.9 Type 2 diabetes mellitus without complications; I25.10 Atherosclerotic heart disease of native coronary artery without angina pectoris; Z87.01 Personal history of pneumonia (recurrent); Z95.1 Presence of aortocoronary bypass graft
CPT/HCPCS: 36415; 71010; 80053; 81001; 83880; 84484; 85027; 85610; 85730; 87086; 93005; 99285-25

== ENCOUNTER 2016-07-21 16:21 | Inpatient (IN) | payer MEDICARE ==
[~2016-07-21] VITALS: Ht 162.6 cm; Wt 92.1 kg
[2016-07-21] VITALS (7 sets, daily range): BP systolic 87–167; BP diastolic 49–86
[~2016-07-21 16:21] MED LIST changes: +SULF1TAB23 PO; +SULF1TAB24 PO
--- NOTE | 2016-07-21 16:53 | RAD ---
Exam: AP portable chest. History: Shortness of breath. Comparison: 07/18/2016. Findings: Cardiac silhouette appears near the upper limits of normal for size. Aortic atherosclerosis is seen. Median sternotomy wires are present. No pneumothorax is identified. There is evidence of small bilateral pleural effusions. Pulmonary vascularity is accentuated. Bibasilar densities are seen. Impression: 1. Accentuation of pulmonary vascularity, compatible with pulmonary vascular congestion. 2. Suspect small bilateral pleural effusions. 3. Patchy bibasilar densities, could be atelectasis versus asymmetric pulmonary edema or developing pneumonia.
[2016-07-21] MEDS ORDERED: ACETAMINOPHEN 325 MG TABLET. PO ONE (17:15)
[2016-07-21] MEDS ORDERED: PREDNISONE 20 MG TABLET PO ONE (17:15)
[2016-07-21] MEDS ORDERED: LORAZEPAM 1 MG TABLET. PO ONE (17:15)
[2016-07-21 17:22] LABS: BASO % 0 % (0-3); EOS % 2 % (0-3); HEMATOCRIT 26.8 % (36.0-47.0); HEMOGLOBIN 8.4 g/dL (12.0-15.5); LYMPH # 0.9 x10^3/uL (1.0-4.8); LYMPH % 7 % (24-48); MEAN CORPUSCULAR HEMOGLOBIN 28 pg (25-35); MEAN CORPUSCULAR HGB CONC 31 g/dL (31-37); MEAN CORPUSCULAR VOLUME 90 fL (79-100); MONO % 6 % (0-9); NEUT % 85 % (31-73); PLATELET COUNT 217 x10^3/uL (140-400); RED BLOOD COUNT 2.96 x10^6/uL (3.50-5.40); RED CELL DISTRIBUTION WIDTH 17.6 % (11.5-14.5); WHITE BLOOD COUNT 14.3 x10^3/uL (4.0-11.0)
[2016-07-21 17:28] LABS: HCO3 ABG 26 mmol/L (21-28); PCO2 ABG 36 mmHg (35-46); PH ABG 7.48 (7.35-7.45); PO2 ABG 68 mmHg (65-108); SAT O2 ABG 93 % (92-99)
[2016-07-21 17:35] LABS: CALCIUM 8.9 mg/dL (8.5-10.1); CREATININE 1.9 mg/dL (0.6-1.0); GFR 30.2; POTASSIUM 4.7 mmol/L (3.5-5.1)
[2016-07-21 17:41] LABS: ALBUMIN 3.2 g/dL (3.4-5.0); ALBUMIN/GLOBULIN RATIO 0.8 (1.0-1.7); TOTAL BILIRUBIN 0.3 mg/dL (0.2-1.0); TOTAL PROTEIN 7.2 g/dL (6.4-8.2)
[2016-07-21 17:58] LABS: % EOS 1 % (0-5); ANISOCYTOSIS SLIGHT; PLT ESTIMATE ADEQUATE (ADEQUATE)
[2016-07-21 17:59] LABS: POLYCHROMASIA SLIGHT
[2016-07-21] MEDS ORDERED: PIP/TAZO PER PHARMACY MC PRN (18:15)
[2016-07-21] MEDS ORDERED: VANCOMYCIN PER PHARMACY MC PRN (18:15)
--- NOTE | 2016-07-21 18:28 | PHYS DOC ---
Past Medical History Past Medical History: A-Fib, Arthritis, CHF, Diabetes-Type II, High Cholesterol , Hypertension, [place], Pneumonia, Other Additional Past Medical Histor: CORONARY ARTERY DISEASE, VASCULAR TINNITIS, GASTRITIS Past Surgical History: Appendectomy, Cholecystectomy, Coronary Bypass Surgery, Hysterectomy, Tonsillectomy Alcohol Use: None Drug Use: None Adult General Chief Complaint Chief Complaint: SHORTNESS OF BREATH HPI HPI Patient is a 89 year old female who presents with shortness of breath. Patient reports she was on the toilet having a bowel movement and had to strain a lot. After she finished she became short of breath. She also complains of left lower back pain. She called EMS, who reports patient was 83% on 2 L of O2 (baseline O2 ). She was also very wheezy, so they gave her 2 nebulizer treatments in route and started her on CPAP, which made a big improvement. Patient continues to complain of shortness of breath. She denies any chest discomfort. No other acute complaints. Review of Systems Review of Systems Constitutional: Denies fever or chills Eyes: Denies change in visual acuity or eye pain HENT: Denies nasal congestion or sore throat Respiratory: Shortness of breath Cardiovascular: Denies chest pain GI: Denies abdominal pain, nausea, vomiting, bloody stools or diarrhea : Denies dysuria or hematuria Musculoskeletal: L lower back pain Integument: Denies rash or skin lesions Neurologic: Denies headache, focal weakness or sensory changes Current Medications Current Medications Current Medications Medications (Trade) Dose Ordered Sig/Yesenia Start Time Stop Time Status Last Admin Dose Admin Acetaminophen (Tylenol) 650 mg 1X ONCE 07/21/16 17:15 07/21/16 17:16 DC 07/21/16 17:22 650 MG Lorazepam (Ativan) 0.5 mg 1X ONCE 07/21/16 17:15 07/21/16 17:16 DC 07/21/16 17:21 0.5 MG Piperacillin Sod/ Tazobactam Sod (Zosyn Per Pharmacy) 1 each PRN DAILY PRN 07/21/16 18:15 Prednisone (Prednisone) 60 mg 1X ONCE 07/21/16 17:15 07/21/16 17:16 DC 07/21/16 17:21 60 MG Vancomycin HCl (Vanco Per Pharmacy) 1 each PRN DAILY PRN 07/21/16 18:15 07/21/16 19:24 1 EACH Allergies Allergies Allergies Coded Allergies Type Severity Reaction Last Updated Verified No Known Drug Allergies 07/01/16 No Physical Exam Physical Exam Constitutional: Well developed, well nourished, non-toxic appearance HENT: Normocephalic, atraumatic, bilateral external ears normal Eyes: EOMI, conjunctiva normal, no discharge Neck: Normal range of motion, no stridor Cardiovascular: Bradycardic, regular rhythm, no murmur Lungs & Thorax: Expiratory wheezing b/l bases Abdomen: Bowel sounds normal, soft, non-distended, no TTP Skin: Warm, dry, no erythema, no rash Back: No midline tenderness, mild L lateral lumbar TTP, no skin lesion or deformity noted Extremities: No obvious deformity, no edema Neurologic: Alert and oriented X 3, no gross deficits noted Current Patient Data Vital Signs Vital Signs Date Time Temp Pulse Resp B/P Pulse Ox O2 Delivery O2 Flow Rate FiO2 07/21/16 18:00 42 23 95/40 95 07/21/16 17:30 Venturi Mask 07/21/16 16:30 97.7 97.7 Lab Values Laboratory Tests Test 07/21/16 17:10 07/21/16 17:25 White Blood Count 14.3x10^3/uL (4.0-11.0) #H Red Blood Count 2.96x10^6/uL (3.50-5.40) L Hemoglobin 8.4g/dL (12.0-15.5) L Hematocrit 26.8% (36.0-47.0) L Mean Corpuscular Volume 90fL (79-100) Mean Corpuscular Hemoglobin 28pg (25-35) Mean Corpuscular Hemoglobin Concent 31g/dL (31-37) Red Cell Distribution Width 17.6% (11.5-14.5) H Platelet Count 217x10^3/uL (140-400) Neutrophils (%) (Auto) 85% (31-73) H Lymphocytes (%) (Auto) 7% (24-48) L Monocytes (%) (Auto) 6% (0-9) Eosinophils (%) (Auto) 2% (0-3) Basophils (%) (Auto) 0% (0-3) Neutrophils # (Auto) 12.2x10^3uL (1.8-7.7) H Lymphocytes # (Auto) 0.9x10^3/uL (1.0-4.8) L Monocytes # (Auto) 0.8x10^3/uL (0.0-1.1) Eosinophils # (Auto) 0.3x10^3/uL (0.0-0.7) Basophils # (Auto) 0.0x10^3/uL (0.0-0.2) Segmented Neutrophils % 84% (35-66) H Band Neutrophils % 2% (0-9) Lymphocytes % 6% (24-48) L Monocytes % 7% (0-10) Eosinophils % 1% (0-5) Platelet Estimate Adequate (ADEQUATE) Polychromasia Slight Anisocytosis Slight Sodium Level 141mmol/L (136-145) Potassium Level 4.7mmol/L (3.5-5.1) Chloride Level 101mmol/L (98-107) Carbon Dioxide Level 30mmol/L (21-32) Anion Gap 10 (6-14) Blood Urea Nitrogen 33mg/dL (7-20) H Creatinine 1.9mg/dL (0.6-1.0) H Estimated GFR (Cockcroft-Gault) 30.2 BUN/Creatinine Ratio 17 (6-20) Glucose Level 245mg/dL (70-99) H Calcium Level 8.9mg/dL (8.5-10.1) Total Bilirubin 0.3mg/dL (0.2-1.0) Aspartate Amino Transferase (AST) 20U/L (15-37) Alanine Aminotransferase (ALT) 20U/L (14-59) Alkaline Phosphatase 67U/L (46-116) Troponin I Quantitative < 0.017ng/mL (0.000-0.055) FA-Dsm-J-Type Natriuretic Peptide 1617pg/mL (0-449) H Total Protein 7.2g/dL (6.4-8.2) Albumin 3.2g/dL (3.4-5.0) L Albumin/Globulin Ratio 0.8 (1.0-1.7) L O2 Saturation 93% (92-99) Arterial Blood pH 7.48 (7.35-7.45) H Arterial Blood pCO2 at Patient Temp 36mmHg (35-46) Arterial Blood pO2 at Patient Temp 68mmHg (65-108) Arterial Blood HCO3 26mmol/L (21-28) Arterial Blood Base Excess 3mmol/L (-3-3) FiO2 35.0 Laboratory Tests 07/21/16 17:10 Laboratory Tests 07/21/16 17:10 EKG EKG EKG (my read): Bradycardia, rate 50, appears junctional rhythm (no P waves seen) , LAD, TWI in lateral leads, ST elevation in aVR and V1, morphology similar to prior EKG 07/18/16 Radiology/Procedures Radiology/Procedures CXR: Impression: 1. Accentuation of pulmonary vascularity, compatible with pulmonary vascular congestion. 2. Suspect small bilateral pleural effusions. 3. Patchy bibasilar densities, could be atelectasis versus asymmetric pulmonary edema or developing pneumonia. Course & Med Decision Making Course & Med Decision Making Pertinent Labs and Imaging studies reviewed. (See chart for details) Patient is 89-year-old female who presents with shortness of breath. Patient wheezing on exam, although this has improved after nebulizer treatments given by EMS. Patient also bradycardic. EKG, chest x-ray, labs ordered to evaluate. Imaging results as above. EKG notable for bradycardia which appears to be junctional rhythm. Labs notable for leukocytosis and baseline anemia. Will give broad-spectrum antibiotics to cover for possible healthcare associated pneumonia. Discussed results with patient and family member. I discussed the bradycardia with Dr. Shore; will hold off on medication to increase HR ( e.g. dopamine, epinephrine) per her recommendation. Will admit to ICU under her care for further evaluation and treatment. Dragon Disclaimer Dragon Disclaimer This electronic medical record was generated, in whole or in part, using a voice recognition dictation system. Departure Departure Impression: Primary Impression: SOB (shortness of breath) Additional Impression: Bradycardia Disposition: ADMITTED INPATIENT Admitting Physician: Other Condition: GUARDED Referrals: SOM SHORE MD (PCP) Problem Qualifiers GLEN DOW MD Jul 21, 2016 18:28
[2016-07-21] MEDS ORDERED: VANCOMYCIN 1.75 GM in IV NORMAL SALINE 500ML BAG 500 ML IV ONE (18:30)
[2016-07-21] MEDS ORDERED: PIPERACILLIN/TAZOBACTAM 2.25 GM in IV NORMAL SALINE 50ML 50 ML IV ONE (18:30)
[2016-07-21] MEDS ORDERED: ONDANSETRON PF 4 MG/2 ML VIAL. IV PRN (18:30)
[2016-07-21] MEDS ORDERED: ACETAMINOPHEN 325 MG TABLET. PO PRN (18:30)
[2016-07-21] MEDS ORDERED: DEXTROSE 50% 25 GM / 50ML DISP.SYRIN. IV PRN (18:30)
[2016-07-21] MEDS ORDERED: IPRATRPIUM/ALBUTEROL 0.5/2.5MG 3 ML NEBU. NEB SCH (20:00)
[2016-07-21] MEDS ORDERED: ALPRAZOLAM 0.5 MG TABLET. PO PRN (20:30)
[2016-07-21] MEDS ORDERED: ALBUTEROL SULFATE 2.5 MG/3 ML NEBU. NEB PRN (20:30)
[2016-07-21] MEDS ORDERED: TEMAZEPAM 7.5 MG CAPSULE PO PRN (20:30)
[2016-07-21] MEDS ORDERED: FUROSEMIDE INJ 100 MG in IV NORMAL SALINE 100ML 100 ML IV PRN (20:30)
[2016-07-21] MEDS ORDERED: FUROSEMIDE 40 MG/4 ML VIAL. IVP ONE (20:30)
[2016-07-21] MEDS ORDERED: ACETAMINOPHEN/CODEINE 300/30MG TABLET. PO PRN (20:30)
[2016-07-21] MEDS ORDERED: MIRTAZAPINE 15 MG TABLET PO SCH (21:00)
[2016-07-21] MEDS ORDERED: INSULIN DETEMIR 300 UNITS/3 ML INSULN.PEN. SQ SCH (21:00)
[2016-07-21] MEDS ORDERED: SUCRALFATE 1 GM/10 ML ORAL.SUSP. PEG SCH (21:00)
[2016-07-21] MEDS ORDERED: ATORVASTATIN CALCIUM 20 MG TABLET PO SCH (21:00)
[2016-07-21] MEDS ORDERED: LOSA25TA4 PO (21:03)
[2016-07-21] MEDS ORDERED: POTA20TA82 PO (21:03)
[2016-07-21] MEDS ORDERED: DILT240C4 PO (21:03)
[2016-07-21] MEDS ORDERED: METO2.5T PO (21:03)
[2016-07-21] MEDS ORDERED: MIRT7.5T8 PO (21:03)
[2016-07-21] MEDS ORDERED: IRON18TA PO (21:03)
[2016-07-21] MEDS ORDERED: AMIO200T2 PO (21:03)
[2016-07-21 23:08] LABS: BILIRUBIN,URINE NEGATIVE (NEG); GLUCOSE,URINE NEGATIVE (NEG); NITRITE,URINE NEGATIVE (NEG); PH,URINE 5.5; PROTEIN,URINE NEGATIVE (NEG-TRACE); UROBILINOGEN,URINE 0.2 mg/dL (0.2 mg/dL)
[2016-07-21 23:15] LABS: BACTERIA,URINE 0 /HPF (0-FEW); SQUAMOUS EPITHELIAL CELL,UR FEW /LPF
[2016-07-21] MEDS: PIPERACILLIN/TAZOBACTAM 2.25 GM in IV NORMAL SALINE 50ML 50 ML IV SCH (23:58)
[2016-07-22] VITALS: BP 146/50
--- NOTE | 2016-07-22 00:10 | HP ---
ADMIT DATE: 07/21/2016 HISTORY OF PRESENT ILLNESS: This is an 89-year-old black female who lives at home. She has had several hospitalizations in the last few months. However, she has remained outside the hospital and in the senior living facility for about 2 months. Recently, she went home. She has multiple medical conditions. 1. She has normal systolic function, but a significant diastolic dysfunction with significantly increased left atrial filling pressure even while on diuretics. While in the hospital, she was receiving IV diuretics. In the senior living unit, she has been receiving 40 mg of Lasix twice a day and Zaroxolyn 2.5 mg every other day. She came in to the outpatient and had IV Lasix, placed one day. Recently, she was feeling better and asked her to stop the zaroxolyn also because she was getting confused about every other day. She has had congestive heart failure, which we have been controlling in the past with IV Lasix. The etiology of this was never clear. 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 This was not carried out because of her renal dysfunction. Consideration was also given for aortic stenosis. She has moderate aortic stenosis and subaortic stenosis. She was evaluated by the physicians who do TAVR at and was deemed not to be a candidate. She has atrial fibrillation. She was cardioverted and placed on amiodarone. She reverted back to atrial fibrillation, but on continued use of amiodarone, she did convert to sinus rhythm. The family had called me a few times, stating that amiodarone was making her to have shakes and wanted to stop it. I dissuaded them. I am not sure whether she is taking the amiodarone or not. She has renal dysfunction. Her creatinine has ranged from 1.6-2. She has diabetes mellitus mellitus. She needs high doses of NovoLog and Levemir, but with this her diabetes has been under control. She has dyslipidemia. She has had significant tremors. She has been seen by the neurologist at [facility] who wanted her to have an MRI and MRA of the brain and neck. There are no significant findings. It was simply attributed to her anxiety and also to the Lyrica that she was taking. She has severe peripheral vascular disease. She has peripheral neuropathy from diabetes. She also had lumbar spondylosis. She was given gabapentin with which she became confused. This was stopped. Lyrica helped her very well, but then she became confused also with tremors and it was stopped. Once it was stopped, the confusion resolved. She has had epidural steroid injections in the past. She has had a GI workup with EGD and colonoscopy. She had some AV malformation. She became anemic with iron deficiency. Dr. Shelley saw her and thought that she probably had AV malformation in the colon and wanted us to simply be ahead of her iron supplements, either IV or p.o. She has been taking p.o. She has had a CVA in the past. She was taking Plavix, but when she needed the Eliquis for her atrial fibrillation and since she had a possible GI bleed, the Plavix was discontinued. She was thought to be depressed. She was placed on Remeron. As stated before, she had been to the ER on the with shortness of breath. She was thought to have mild congestive heart failure. I was told by the family that the heart rate was low but the ER physician did not call me. I did ask the patient to come and see me soon, but the patient told the office that she was feeling well and she could not come. Thus, she has been bradycardic, probably since Tuesday, but has been continuing to take the Toprol. Today, she said that she had been feeling fairly well, but needed to use the restroom for a bowel movement. She was severely constipated and was not able to get it out. She was straining. She then stood up, but her knees gave out. This was probably a vasovagal reaction. The ambulance was called and she was brought in. Her oxygen was low at 2 liters per minute. She was not using oxygen prior to 03/2016. She has been seen by the service porter who thought that all her symptoms and hypoxia was due to cardiac asthma, not due to pulmonary condition. She has never smoked. In the Emergency Room, her oxygen saturation was in the mid 80s on 2 liters per minute. She was placed on 35% Ventimask. She does not smoke or drink alcohol. Discussions have been held with her. The family wants us to continue to be aggressive in her care despite several medical problems. She also has never resisted treatment and does want to be treated. However, she is do not resuscitate. MEDICATIONS: As in the medication reconciliation list. Despite taking Lasix 40 mg twice a day and Zaroxolyn, she tends to accumulate fluid. With her last echocardiogram done in May, she had a normal EF. She had elevated ____ ratio 42. She had moderate aortic stenosis and subaortic stenosis. She also has mitral regurgitation and pulmonary hypertension. On examination in the Emergency Room, she was seated upright with a 35% Ventimask and stated that she was having some trouble breathing. The heart rate was 50 per minute. It is probably atrial fibrillation with a slow ventricular response. PHYSICAL EXAMINATION: VITAL SIGNS: The blood pressure is 105/90. LUNGS: Showed no wheezing. HEART: The heart sounds normal. The first and second sounds are normal. There was a grade 3/6 crescendo-decrescendo murmur heard over the base conducted towards the carotids. There is no diastolic murmur heard. ABDOMEN: Soft. EXTREMITIES: There is 1+ edema of the legs. An EKG showed an atrial fibrillation, probably with a junctional rhythm. There were inverted T waves in the lateral precordial leads. A chest x-ray showed mild pulmonary vascular congestion. LABORATORY DATA: Hemoglobin was 7 and she was transfused to 9 grams percent. It is now 8.4 grams percent. The WBC count was 14,300 with 85% neutrophils, 7% lymphocytes. The sodium is 141, potassium 4.7, BUN was 33, creatinine is 1.9. The BNP was 1617. The albumin was 3.2. IMPRESSION: 1. Acute on chronic diastolic congestive heart failure. 2. Moderate aortic stenosis and subaortic stenosis. 3. Recurrence of atrial fibrillation with loss of atrial kick. 4. Severe bradycardia, probably due to AV block secondary to the aortic stenosis. 5. Insulin-dependent diabetes mellitus. 6. Severe diabetic neuropathy and lumbar spondylosis. 8. Chronic kidney disease stage 3. 9. Probable infection with leukocytosis, source unknown, probable Pulmonary. She is bradycardic, but tolerating it well and is asymptomatic with it. A permanent pacemaker could be considered and then a repeat cardioversion. I do not think she will be able to sustain sinus rhythm since the left atrium is enlarged and because of her age. Also, by pacing the ventricle, it might cause further left ventricular dysfunction. Her LV systolic function is too good to consider a Bi-V pacemaker as a first measure. At present, I plan to get a TSH, check her amiodarone level, stop the metoprolol and see how she does with her ventricular response to the atrial fibrillation. As far as her recurrent CHF goals, one could consider stenting the subclavian artery to see whether that would improve her diastolic dysfunction and also decrease the chances of flash pulmonary edema. I have spoken to Dr. Connell who is agreeable. I probably would not intervene on the diagonal branch to be able to accomplish this with minimal amount of iodine. Consult Dr. Eric Fu regarding the leukocytosis. During her last hospitalization, I believe there was a suspicion for pneumonitis and she had been on antibiotics. I will let him guide what antibiotic if any she should be on. SOM SHORE MD DR: SURINDER/mohsen JOB#: [id number] / [id number]
[2016-07-22 00:51] LABS: BASO % 0 % (0-3); EOS % 0 % (0-3); HEMATOCRIT 29.8 % (36.0-47.0); LYMPH # 0.6 x10^3/uL (1.0-4.8); LYMPH % 5 % (24-48); MEAN CORPUSCULAR HEMOGLOBIN 28 pg (25-35); MEAN CORPUSCULAR HGB CONC 30 g/dL (31-37); MEAN CORPUSCULAR VOLUME 94 fL (79-100); MONO % 1 % (0-9); NEUT % 94 % (31-73); PLATELET COUNT 235 x10^3/uL (140-400); RED BLOOD COUNT 3.17 x10^6/uL (3.50-5.40); RED CELL DISTRIBUTION WIDTH 18.8 % (11.5-14.5); WHITE BLOOD COUNT 12.6 x10^3/uL (4.0-11.0)
[2016-07-22 01:00] VITALS: BP 125/67
[2016-07-22 01:12] LABS: CALCIUM 8.7 mg/dL (8.5-10.1); CREATININE 2.1 mg/dL (0.6-1.0); GFR 26.9; POTASSIUM 5.5 mmol/L (3.5-5.1)
[2016-07-22 01:35] LABS: HCO3 ABG 24 mmol/L (21-28); PO2 ABG 52 mmHg (65-108); SAT O2 ABG 74 % (92-99)
[2016-07-22 01:43] LABS: PH ABG 7.14 (7.35-7.45)
[2016-07-22 01:44] LABS: FIO2 ABG 50; PCO2 ABG 71 mmHg (35-46)
[2016-07-22 02:00] VITALS: BP 91/46
--- NOTE | 2016-07-22 02:56 | EKG ---
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
[2016-07-22 03:00] VITALS: BP 68/36
[2016-07-22 04:00] VITALS: BP 115/49
[2016-07-22 05:00] VITALS: BP 99/41
[2016-07-22] MEDS: PIPERACILLIN/TAZOBACTAM 2.25 GM in IV NORMAL SALINE 50ML 50 ML IV SCH (05:51)
[2016-07-22] MEDS ORDERED: PANTOPRAZOLE 40 MG TABLET.DR. PO SCH (06:00)
[2016-07-22] MEDS ORDERED: INSULIN ASPART 300 UNITS/3 ML INSULN.PEN SQ SCH ×2 (07:30→08:00)
[2016-07-22] MEDS ORDERED: ASCORBIC ACID 500 MG TABLET PO SCH (09:00)
[2016-07-22] MEDS ORDERED: DOCUSATE SODIUM 100 MG CAPSULE. PO SCH (09:00)
[2016-07-22] MEDS ORDERED: POLYETHYLENE GLYCOL 3350 17 GM PACKET. PO SCH (09:00)
[2016-07-22] MEDS ORDERED: CHOLECALCIFEROL (VITAMIN D3) 5,000 UNIT CAPSULE PO SCH (09:00)
[2016-07-22] MEDS ORDERED: EZETIMIBE 10 MG TABLET. PO SCH (09:00)
--- NOTE | 2016-07-22 10:24 | ACF ---
Admission Forms Criteria HEART FAILURE Clinical Indications for Admission to Inpatient Care (Place 'X' for any and all applicable criteria): Admission is indicated by ANY ONE of the following(1)(2)(3)(4): [ ]I. Severe electrolyte abnormalities requiring inpatient care(9) [ ]II. Hemodynamic instability [ ]III. Anasarca [ ]IV. Acute cardiac ischemia causing or associated with failure (Also use Angina or Myocardial Infarction as appropriate) [X]V. Cardiac arrhythmias of immediate concern [ ]. Precipitating cause for acute decompensation (eg, pneumonia, pulmonary embolism) requires inpatient care [ ]VII. Pulmonary edema that is very severe (eg, mechanical ventilation needed, imminent or likely, need for 100% oxygen to keep oxygen saturation above 90%) [ ]VIII. Inpatient admission required rather than observation care (Also use Heart Failure: Observation Care as appropriate) because of ANY ONE of the following: [ ]a) Pulmonary edema that is severe or worsening as indicated by ALL of the following: [ ]i) New need for oxygen therapy to keep oxygen saturation above 90% (or increased FiO2 need from baseline) [ ]ii) Has not improved sufficiently with emergency department or observation care IV diuretics or other heart failure treatments[C] [ ]b) Cognitive impairment that is severe or persistent [ ]c) Increased creatinine (new on laboratory test) with reduction of more than 50% in estimated glomerular filtration rate from baseline. [ ]d) Acute renal insufficiency (progressively (ongoing) rising creatinine (known from past laboratory test) with reduction of more than 25% in estimated glomerular filtration rate from baseline) [ ]e) Acute peripheral ischemia (eg, pulseless, cool, mottled, or cyanotic extremity) [ ]f) Acute renal failure [ ]g) Supplemental O2 or respiratory treatment for >24 hr that are performable only in acute inpatient setting [ ]h) Pulmonary artery catheter monitoring [ ]i) Other condition, treatment or monitoring requiring inpatient admission [ ]IX. Contraindications and/or Inappropriate clinical situations for Observational Care in patients with Heart Failure, when ANY ONE of the following is required: [ ]a) Patient with High risk of cardiac embolism (e.g, patients with previous cardiac embolism, LVEF < 40%, age >75 and patients with prosthetic valve) 18 [ ]b) Patient with Moderate risk including DM patient, CAD and patient aged 65-75 [ ]c) Patient with any change in cardiac biomarker especially troponin should be managed as high risk in an inpatient setting 19 [ ]d) Physician judgement irrespective of ECG and other diagnostic findings 20 [ ]e) Patients with hyponatremia have high risk for mortality and require more extensive care and length of stay 21 [ ]f) Need for large volume diuresis 21 [ ]g) Presence of renal insufficiency or hypotension limiting speed of diuresis 21 [ ]h) Acute cardiac Ischemia in the elderly 21 [ ]i) Patients with a 30 day risk of mortality based on a multidimensional prognostic index (MPI) [J,]21 [ ]X. General contraindications and/or Inappropriate clinical situations for Observational Care in patients with Heart Failure, when ANY ONE of the following is required: [ ]a) Prediction of prolongation of LOS based on ANY ONE of the following may be considered as a contraindication for observational care 2, 3, 4, 5, 6, 7, 8 , 9, 10, 11 [ ]i) Age > 65 yrs. [ ]ii) Patient arriving by ambulance [ ]iii) Patient with high acuity [ ]iv) Patient requiring vital sign monitoring [ ]v) Patient on IV medication [ ]b) Systolic blood pressures 180mmHg 3,12 [ ]c) Patient with altered mental status including delirium and other alteration of consciousness, (3) [ ]d) Patient whose discharge disposition will be to a [facility] home or rehabilitation home should not be managed in Emergency Department Observation Unit. CMS rule requires 3 days hospital stay before such placement.3,13 [ ]e) Patient with failure to thrive due to broad array of etiologies 3,16,17 [ ]f) Inability to ambulate 3,14 Extended stay beyond goal length of stay may be needed for(1)(3)(21)(25): [ ]a) Cardiac ischemia, confirmed or suspected as precipitant [ ]b) Cardiogenic shock or refractory pulmonary edema [ ]c) Acute kidney injury or renal failure [ ]d) Respiratory failure (eg, need for noninvasive or invasive mechanical ventilation) (23) [ ]e) Concomitant pneumonia or significant electrolyte abnormality (eg, severe hyponatremia) [ ]f) Newly diagnosed (new onset) atrial fibrillation [ ]g) Stage IV chronic kidney disease (estimated glomerular filtration rate of less than 30 mL/min/1.73m2 (0.50 mL/sec/1.73m2), and not previously on chronic dialysis The original [facility] content created by [facility] has been revised. The portions of the content which have been revised are identified through the use of italic text or in bold, and [facility] has neither reviewed nor approved the modified material. All other unmodified content is copyright [facility]. Please see references footnoted in the original [facility] edition 2016 Admission Criteria Met?: ANASTASIIA Gilliam Jul 22, 2016 10:24
[2016-07-22] MEDS ORDERED: VANCOMYCIN 1 GM in IV NORMAL SALINE 250ML 250 ML IV SCH (19:00)
[2016-07-27 08:32] LABS: AMIODARONE 1.6 ug/mL (1.0-2.5); DESETHYLAMIODARONE 0.9 ug/mL (1.0-2.5)
== END 2016-07-22 08:00 | disposition expired | DRG 871 ==
LOC: ER 16:21 → 1 WEST ICU 18:27
PROVIDERS: ADMIT Specialist; ATTEND Specialist
PROC: 5A09357 Assistance with Respiratory Ventilation, Less than 24 Consecutive Hours, Continuous Positive Airway Pressure (ICD-10-PCS; principal; 2016-07-21)
DX: A41.9 Sepsis, unspecified organism (principal); I50.33 Acute on chronic diastolic (congestive) heart failure; I13.0 Hypertensive heart and chronic kidney disease with heart failure and stage 1 through stage 4 chronic kidney disease, or unspecified chronic kidney disease; D50.9 Iron deficiency anemia, unspecified; D72.829 Elevated white blood cell count, unspecified; E11.22 Type 2 diabetes mellitus with diabetic chronic kidney disease; E11.42 Type 2 diabetes mellitus with diabetic polyneuropathy; E78.00 Pure hypercholesterolemia, unspecified; E78.5 Hyperlipidemia, unspecified; F41.9 Anxiety disorder, unspecified; I25.10 Atherosclerotic heart disease of native coronary artery without angina pectoris; I35.0 Nonrheumatic aortic (valve) stenosis; I44.30 Unspecified atrioventricular block; I48.91 Unspecified atrial fibrillation; I73.9 Peripheral vascular disease, unspecified; K59.00 Constipation, unspecified; M47.816 Spondylosis without myelopathy or radiculopathy, lumbar region; N18.3 Chronic kidney disease, stage 3 (moderate); R09.02 Hypoxemia; M19.90 Unspecified osteoarthritis, unspecified site; Z66 Do not resuscitate; Z79.4 Long term (current) use of insulin; Z86.73 Personal history of transient ischemic attack (TIA), and cerebral infarction without residual deficits; Z90.49 Acquired absence of other specified parts of digestive tract; Z90.710 Acquired absence of both cervix and uterus; Z51.5 Encounter for palliative care
CPT/HCPCS: 36415; 36600; 71010; 80048; 80053; 80299; 81001; 82805; 82947; 83605; 83880; 84484; 85007; 85027; 85610; 85730; 87040; 87086; 87641; 93005; 94250; 94640; 94660; 96365; 96366; 96375; J1815; J1940; J2543; J3370; J7040; J7512; J7620; 99285-25